=== PATIENT | female | born 1940 | race Caucasian/White ===

== ENCOUNTER 2017-04-13 14:28 | Inpatient (IN) | payer OTHER, MEDICARE ==
[~2017-04-13] VITALS: Ht 160 cm; Wt 67.5 kg
[2017-04-13] VITALS (9 sets, daily range): BP systolic 132–192; BP diastolic 83–122; PULSE 107–173; RESP 17–30; TEMP 97.8–98.4; O2SAT 93–98
[2017-04-13] MEDS ORDERED: IOHEXOL 350 MG/ML 10 ML VIAL (for RAD DIAG) IVCONTRAST ONE (14:29)
[2017-04-13] MEDS ORDERED: SODIUM CHLOR 0.9% 1000 ML INJ 1,000 ML IV SCH (14:51)
[2017-04-13] MEDS ORDERED: DILTIAZEM HCL 25 MG/5 ML VIAL IV PUSH ONE (15:00)
[2017-04-13] MEDS ORDERED: SODIUM CHLORIDE 0.9% FLUSH 5 ML FLUSH IV FLUSH PRN ×3 (15:00→19:00)
[2017-04-13] MEDS ORDERED: SODIUM CHLORIDE 0.9% FLUSH 10 ML FLUSH IVF PRN (15:00)
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
[2017-04-13 15:31] LABS: BASOPHIL # 0.1 TH/MM3 (0-0.2); BASOPHIL % 0.6 % (0.0-2.0); EOSINOPHIL % 0.1 % (0.0-4.0); HEMATOCRIT 32.6 % (35.0-46.0); HEMO FLAGS DIFF FINAL; LYMPH % 6.1 % (9.0-44.0); LYMPHOCYTE # 0.6 TH/MM3 (1.0-4.8); MEAN CELL VOLUME 96.1 FL (80.0-100.0); MEAN CORPUSCULAR HEMOGLOBIN 32.2 PG (27.0-34.0); MEAN CORPUSCULAR HGB CONC 33.5 % (32.0-36.0); MONO % 7.8 % (0.0-8.0); NEUT % 85.4 % (16.0-70.0); PLATELET COUNT 300 TH/MM3 (150-450); WHITE BLOOD COUNT 9.3 TH/MM3 (4.0-11.0)
[2017-04-13 15:36] LABS: APTT (PATIENT) 22.9 SEC (24.3-30.1); PROTHROMBIN TIME - PATIENT 11.5 SEC (9.8-11.6)
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
[2017-04-13] MEDS ORDERED: MULTTAB67 PO (15:52)
[2017-04-13 17:05] LABS: BICARBONATE 25.7 MEQ/L (21.0-32.0); POTASSIUM 4.4 MEQ/L (3.5-5.1)
[2017-04-13] MEDS: DILTIAZEM INJ 125 MG in SODIUM CHLORIDE 0.9% INJ 100 ML IV PRN (18:35)
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
[2017-04-13] MEDS ORDERED: DILTIAZEM HCL 50 MG/10 ML VIAL IV PUSH ONE (19:30)
[2017-04-13] MEDS ORDERED: NALOXONE HCL 0.4 MG/ML AMP IV PUSH PRN (19:45)
[2017-04-13] MEDS ORDERED: SODIUM CHLORIDE 0.9% FLUSH 10 ML FLUSH IV FLUSH PRN (19:45)
[2017-04-13 20:44] LABS: HEMATOCRIT 33.5 % (35.0-46.0); MEAN CELL VOLUME 96.1 FL (80.0-100.0); MEAN CORPUSCULAR HEMOGLOBIN 31.6 PG (27.0-34.0); MEAN CORPUSCULAR HGB CONC 32.9 % (32.0-36.0); PLATELET COUNT 258 TH/MM3 (150-450); RED BLOOD COUNT 3.48 MIL/MM3 (4.00-5.30); RED CELL DISTRIBUTION WIDTH 13.8 % (11.6-17.2); REVIEW FLAG FINAL; WHITE BLOOD COUNT 8.6 TH/MM3 (4.0-11.0)
[2017-04-13] MEDS ORDERED: ENOXAPARIN SODIUM 60 MG/0.6 ML SYRINGE SQ ONE (20:45)
[2017-04-13 20:51] LABS: APTT (PATIENT) 26.8 SEC (24.3-30.1); PROTHROMBIN TIME - PATIENT 11.5 SEC (9.8-11.6)
[2017-04-13] MEDS: SODIUM CHLORIDE 0.9% FLUSH 10 ML FLUSH IV FLUSH SCH (21:00)
[2017-04-14] VITALS (12 sets, daily range): BP systolic 153–193; BP diastolic 89–103; PULSE 91–123; RESP 18–20; TEMP 97.3–98.3; O2SAT 91–97
[2017-04-14] MEDS ORDERED: HEPARIN SODIUM - IV 10,000 UNITS/10 ML VIAL IV PUSH PRN (01:30)
[2017-04-14] MEDS ORDERED: HEPARIN - 10,000 UNITS/ML IV ADDITIVE IV PUSH PRN (01:30)
--- NOTE | 2017-04-14 02:33 | HHI.HP ---
HPI Service [facility] Primary Care Physician No Primary Care Physician Admission Diagnosis new onset A. fib with RVR Diagnoses: (1) Bronchiectasis (2) Atrial fibrillation with RVR (3) Elevated brain natriuretic peptide (BNP) level (4) Thyromegaly (5) Acute renal insufficiency Chief Complaint: Congestion and cough Travel History International Travel<30 Days: No Contact w/Intl Traveler <30 Da: No Traveled to Known Affected Are: No History of Present Illness Written by Lali Hyde, acting as scribe for Dr. Huff on 04/14/17 at 02:33. The patient reports 2 months of congestion, cough with yellow to oquendo sputum, denies nausea, vomiting, or fever and not relieved by over the counter cough medicine. Denies any relationship between cough and meals. The patient reports diarrhea at times from certain foods, denies black or bloody stools, dysuria, or hematuria. Denies palpitations or chest pain. She is unable to remember what medications she has taken in the past though she knows she took "a bunch of them" and she thinks they were for her blood pressure. She is from [place] and she has not established with a local PCP. . 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 Past Surgical History Hysterectomy . Reported Medications Reported Meds & Active Scripts Active Reported Multiple Vitamin 1 Tab 1 Tab PO DAILY . Allergies: Coded Allergies: Penicillins (Verified Allergy, Unknown, RASH, 04/13/17) Active Ordered Medications Current Medications Sodium Chloride 1,000 ml @ 1,000 mls/hr Q1H IV Last administered on 04/13/17t 15:00; Start 04/13/17 at 14:51; Stop 04/13/17 at 15:50; Status DC Sodium Chloride (NS Flush) 2 ml UNSCH PRN IVF FLUSH AFTER USING IV ACCESS; Start 04/13/17 at 15:00; Stop 04/13/17 at 20:45; Status DC Diltiazem HCl (Cardizem Inj) 16 mg BOLUS ONCE IV PUSH Last administered on 14:59; Start 04/13/17 at 15:00; Stop 04/13/17 at 15:01; Status DC IV Flush (NS Flush) 2 ml UNSCH PRN IV FLUSH FLUSH AFTER USING IV ACCESS; Start 04/13/17 at 15:00; Stop 04/13/17 at 20:45; Status DC Diltiazem HCl 125 mg/Sodium Chloride 125 ml @ 5 mls/hr TITRATE PRN IV tachycardia Last administered on 04/13/17 18:35; Start 04/13/17 at 18:30 IV Flush (NS Flush) 2 ml UNSCH PRN IV FLUSH FLUSH AFTER USING IV ACCESS; Start 04/13/17 at 18:30; Stop 04/13/17 at 20:45; Status DC Iohexol (Omnipaque 350 Inj) 85 ml Total-traxK-MED ONCE IVCONTRAST Last administered on 04/13/17 14:29; Start 04/13/17 at 14:29; Stop 04/13/17 at 18:45; Status DC IV Flush (NS Flush) 2 ml UNSCH PRN IV FLUSH FLUSH AFTER USING IV ACCESS; Start 04/13/17 at 19:00; Stop 04/13/17 at 20:45; Status DC Diltiazem HCl (Cardizem Inj) 22 mg BOLUS ONCE IV PUSH Last administered on 19:43; Start 04/13/17 at 19:30; Stop 04/13/17 at 19:31; Status DC Heparin Sodium (Porcine) (Heparin Inj) 5,000 units UNSCH PRN IV PUSH APTT LESS THAN 25; Start 04/14/17 at 01:30; Stop 04/14/17 at 01:30; Status DC Heparin Sodium (Porcine) (Heparin Inj) 2,500 units UNSCH PRN IV PUSH APTT 25 TO 39; Start 04/14/17 at 01:30; Stop 04/14/17 at 01:30; Status DC Sodium Chloride (NS Flush) 2 ml UNSCH PRN IV FLUSH FLUSH AFTER USING IV ACCESS ; Start 04/13/17 at 19:45 Sodium Chloride (NS Flush) 2 ml BID IV FLUSH ; Start 04/13/17 at 21:00 Naloxone HCl (Narcan Inj) 0.4 mg UNSCH PRN IV PUSH SEE LABEL COMMENTS; Start 04/13/17 at 19:45 Enoxaparin Sodium (Lovenox Inj) 60 mg ONCE ONCE SQ Last administered on t 21:44; Start 04/13/17 at 20:45; Stop 04/13/17 at 20:46; Status DC Influenza Virus Vaccine (Flu (Quadrivalent) Vaccine Inj) 0.5 ml ONCE ONCE IM ; Start 04/14/17 at 10:00; Stop 04/14/17 at 10:01 . Family History Father lived until age 92 despite smoking heavily; heart problems . Social History Moved here from [place] in January 2017 Tobacco: denies ever smoking; father was a heavy smoker Alcohol: denies ever drinking Illicit Drugs: denies Still drives . Physical Exam Vital Signs Vital Signs Date Time Temp Pulse Resp B/P (MAP) Pulse Ox O2 Delivery O2 Flow Rate FiO2 04/14/17 00:00 Room Air 04/13/17 22:00 Room Air 04/13/17 22:00 126 04/13/17 20:01 99 199/97 04/13/17 20:00 98.4 132 20 162/90 (114) 93 04/13/17 19:49 107 20 181/83 (115) 94 04/13/17 19:15 163 240/109 04/13/17 18:55 147 30 192/122 (145) 96 Room Air 04/13/17 18:35 152 132/88 04/13/17 18:19 98.0 148 18 132/88 (103) 97 Room Air 04/13/17 15:48 118 18 173/100 (124) 97 Room Air 04/13/17 15:13 97.8 108 17 179/88 (118) 98 Room Air 04/13/17 14:53 98 Room Air 04/13/17 14:53 17 98 Room Air 04/13/17 14:35 154 17 97 Room Air 04/13/17 14:33 98.4 173 24 187/114 (138) 95 Room Air Physical Exam GENERAL: This is an elderly female patient, in no apparent distress. SKIN: No rashes, ecchymoses or lesions. Cool and dry. HEAD: Atraumatic. Normocephalic. EYES: No scleral icterus. No injection or drainage. ENT: Nose without bleeding, purulent drainage. NECK: Trachea midline. No JVD or lymphadenopathy. CARDIOVASCULAR: Regular rate and rhythm without murmurs, gallops, or rubs. RESPIRATORY: Clear to auscultation. Breath sounds equal bilaterally. No wheezes , rales, or rhonchi. GASTROINTESTINAL: Abdomen soft, non-tender, nondistended. No guarding. MUSCULOSKELETAL: Extremities without clubbing, cyanosis, or edema. No calf tenderness. NEUROLOGICAL: Motor and sensory grossly within normal limits. Normal speech. . Laboratory Laboratory Tests Test 04/13/17 15:00 04/13/17 19:55 White Blood Count 9.3 8.6 Red Blood Count 3.40 3.48 Hemoglobin 10.9 11.0 Hematocrit 32.6 33.5 Mean Corpuscular Volume 96.1 96.1 Mean Corpuscular Hemoglobin 32.2 31.6 Mean Corpuscular Hemoglobin Concent 33.5 32.9 Red Cell Distribution Width 14.0 13.8 Platelet Count 300 258 Mean Platelet Volume 8.9 8.5 Neutrophils (%) (Auto) 85.4 Lymphocytes (%) (Auto) 6.1 Monocytes (%) (Auto) 7.8 Eosinophils (%) (Auto) 0.1 Basophils (%) (Auto) 0.6 Neutrophils # (Auto) 8.0 Lymphocytes # (Auto) 0.6 Monocytes # (Auto) 0.7 Eosinophils # (Auto) 0.0 Basophils # (Auto) 0.1 CBC Comment DIFF FINAL Differential Comment Prothrombin Time 11.5 11.5 Prothromb Time International Ratio 1.0 1.0 Activated Partial Thromboplast Time 22.9 26.8 Blood Urea Nitrogen 20 Creatinine 1.12 Random Glucose 150 Calcium Level 8.5 Sodium Level 139 Potassium Level 4.4 Chloride Level 107 Carbon Dioxide Level 25.7 Anion Gap 6 Estimat Glomerular Filtration Rate 47 B-Type Natriuretic Peptide 249 Result Diagram: 04/13/17195404/13/17 1500 Imaging Last Impressions Shoulder X-Ray 04/13/17 1509 Signed Impressions: Service Date/Time: Thursday, April 13, 2017 15:21 - CONCLUSION: 1. Postsurgical features. 2. No acute fracture or dislocation. 3. Soft tissue calcifications superior to the humeral head consistent with calcific tendinosis. 4. Degenerative osteoarthritis. Marcelino Boothe MD Chest X-Ray 04/13/17 7560 Signed Impressions: Service Date/Time: Thursday, April 13, 2017 15:15 - CONCLUSION: 1. No acute cardiopulmonary disease. MD Suresh Negron VTE Risk Assessment Caprini VTE Risk Assessment: Mod/High Risk (score >= 2) Caprini Risk Assessment Model Point Value = 1 Point Value = 2 Point Value = 3 Point Value = 5 Age 41-60 Minor surgery BMI > 25 kg/m2 Swollen legs Varicose veins or History of unexplained or recurrent spontaneous Oral contraceptives or hormone replacement Sepsis (< 1 month) Serious lung disease, including pneumonia (< 1 month) Abnormal pulmonary function Acute myocardial infarction Congestive heart failure (< 1 month) History of inflammatory bowel disease Medical patient at bed rest Age 61-74 Arthroscopic surgery Major open surgery (> 45 min) Laparoscopic surgery (> 45 min) Malignancy Confined to bed (> 72 hours) Immobilizing plaster cast Central venous access Age >= 75 History of VTE Family history of VTE Factor V Leiden Prothrombin [id number] Lupus anticoagulant Anticardiolipin antibodies Elevated serum homocysteine Heparin-induced thrombocytopenia Other congenital or acquired thrombophilia Stroke (< 1 month) Elective arthroplasty Hip, pelvis, or leg fracture Acute spinal cord injury (< 1 month) Prophylaxis Regimen Total Risk Factor Score Risk Level Prophylaxis Regimen 0-1 Low Early ambulation 2 Moderate Order ONE of the following: *Sequential Compression Device (SCD) *Heparin 5000 units SQ BID 3-4 Higher Order ONE of the following medications: *Heparin 5000 units SQ TID *Enoxaparin/Lovenox 40 mg SQ daily (WT < 150 kg, CrCl > 30 mL/min) *Enoxaparin/Lovenox 30 mg SQ daily (WT < 150 kg, CrCl > 10-29 mL/min) *Enoxaparin/Lovenox 30 mg SQ BID (WT < 150 kg, CrCl > 30 mL/min) AND/OR *Sequential Compression Device (SCD) 5 or more Highest Order ONE of the following medications: *Heparin 5000 units SQ TID (Preferred with Epidurals) *Enoxaparin/Lovenox 40 mg SQ daily (WT < 150 kg, CrCl > 30 mL/min) *Enoxaparin/Lovenox 30 mg SQ daily (WT < 150 kg, CrCl > 10-29 mL/min) *Enoxaparin/Lovenox 30 mg SQ BID (WT < 150 kg, CrCl > 30 mL/min) AND *Sequential Compression Device (SCD) Assessment and Plan Problem List: (1) Bronchiectasis ICD Code: J47.9 - Bronchiectasis, uncomplicated (2) Atrial fibrillation with RVR ICD Code: I48.91 - Unspecified atrial fibrillation Status: Acute (3) Elevated brain natriuretic peptide (BNP) level ICD Code: R79.89 - Other specified abnormal findings of blood chemistry (4) Thyromegaly 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 - Lovenox 60 mg subq q24h therapeutic dose - consult cardiology - continuous cardiac telemetry to monitor arrhythmia and rate BNP elevation of undetermined significance - BNP 249 on admission - mild bilateral pleural effusions with accompanying areas of atelectasis on chest CT - check 2 D echocardiogram - check cardiac enzymes Thyromegaly on chest CT scan - will check TSH Acute renal insufficiency - no prior labs for comparison - BUN 20, Creatinine 1.12, eGFR 47 - received IVF bolus in ED - recheck BMP in am and follow trends in renal indices - avoid nephrotoxins DVT prophylaxis - Lovenox therapeutic 60 mg subq q24h . This note was transcribed by karl [Lali hyde]. I, Dr. Warren Huff personally performed the history, physical exam, and medical decision making; and confirmed the accuracy of the information in the transcribed note. Authenticated by Dr. Warren Huff on 04/14/17 at 02:33. Discussed Condition With ER physician, patient and RN . Physician Certification 2 Midnight Certification Type: Admission for Inpatient Services Order for Inpatient Services The services are ordered in accordance with Medicare regulations or non- Medicare payer requirements, as applicable. In the case of services not specified as inpatient-only, they are appropriately provided as inpatient services in accordance with the 2-midnight benchmark. Estimated LOS (days): 3 days is the estimated time the patient will need to remain in the hospital, assuming treatment plan goals are met and no additional complications. Post-Hospital Plan: Not yet determined Problem Qualifiers (1) Bronchiectasis: Qualified Codes: J47.9 - Bronchiectasis, uncomplicated Lali Hyde Apr 14, 2017 02:33 Warren Huff MD Apr 21, 2017 23:08
[2017-04-14] MEDS: DILTIAZEM INJ 125 MG in SODIUM CHLORIDE 0.9% INJ 100 ML IV PRN ×3 (03:26→23:54)
[2017-04-14] MEDS: RESP: IPRATROPIUM 0.5 MG/2.5 ML NEB NEB SCH ×4 (04:37→22:09)
[2017-04-14 05:21] LABS: AUTOMATED NEUTROPHIL # 6.7 TH/MM3 (1.8-7.7); BASOPHIL # 0.1 TH/MM3 (0-0.2); BASOPHIL % 1.1 % (0.0-2.0); EOSINOPHIL % 0.6 % (0.0-4.0); HEMATOCRIT 30.8 % (35.0-46.0); HEMO FLAGS DIFF FINAL; LYMPH % 7.5 % (9.0-44.0); LYMPHOCYTE # 0.6 TH/MM3 (1.0-4.8); MEAN CELL VOLUME 95.7 FL (80.0-100.0); MEAN CORPUSCULAR HEMOGLOBIN 32.3 PG (27.0-34.0); MEAN CORPUSCULAR HGB CONC 33.7 % (32.0-36.0); MONO % 9.7 % (0.0-8.0); NEUT % 81.1 % (16.0-70.0); PLATELET COUNT 251 TH/MM3 (150-450); RED BLOOD COUNT 3.22 MIL/MM3 (4.00-5.30); RED CELL DISTRIBUTION WIDTH 13.7 % (11.6-17.2); WHITE BLOOD COUNT 8.3 TH/MM3 (4.0-11.0)
[2017-04-14 05:33] LABS: APTT (PATIENT) 29.2 SEC (24.3-30.1)
[2017-04-14 05:52] LABS: ALT (GPT) 48 U/L (10-53); ANION GAP 10 MEQ/L (5-15); AST (GOT) 29 U/L (15-37); BICARBONATE 24.2 MEQ/L (21.0-32.0); BLOOD UREA NITROGEN 19 MG/DL (7-18); CHLORIDE 107 MEQ/L (98-107); GLOMERULAR FILTRATION RATE 54 ML/MIN (>89); POTASSIUM 3.7 MEQ/L (3.5-5.1); SODIUM (NA) 141 MEQ/L (136-145)
[2017-04-14 05:56] LABS: ALKALINE PHOSPHATASE 75 U/L (45-117); TOTAL BILIRUBIN ADULT 0.7 MG/DL (0.2-1.0)
[2017-04-14 05:58] LABS: CREATINE KINASE 74 U/L (26-192)
--- NOTE | 2017-04-14 08:44 | EKG ---
Date Performed: 04/13/2017 Time Performed: 14:42:33 PTAGE: 76 years EKG: ATRIAL FIBRILLATION WITH RAPID VENTRICULAR RESPONSE WITH ABERRANT CONDUCTION OR VENTRICULAR PREMATURE COMPLEXES POSSIBLE RIGHT VENTRICULAR CONDUCTION DELAY SEPTAL MYOCARDIAL INFARCTION ABNORMA L ECG NO PREVIOUS TRACING DOCTOR: Alison Haskins Interpretating Date/Time 04/14/2017 08:42:22
[2017-04-14] MEDS: DILTIAZEM HCL 30 MG TAB PO SCH ×2 (08:55→12:51)
[2017-04-14] MEDS: SODIUM CHLORIDE 0.9% FLUSH 10 ML FLUSH IV FLUSH SCH ×2 (08:55→21:28)
[2017-04-14] MEDS ORDERED: INFLUENZA VIRUS VACCINE (QUADRIVALENT) 0.5 ML SYR IM ONE (10:00)
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
[2017-04-14] MEDS: AZITHROMYCIN 250 MG TAB PO SCH (12:51)
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
[2017-04-14] MEDS: DILTIAZEM HCL 90 MG TAB PO SCH ×2 (18:06→21:28)
--- NOTE | 2017-04-14 18:28 | ECHRPT ---
Indication: sob CONCLUSIONS The left ventricular systolic function is normal with an estimated ejection fraction in the range of 55-60%. Mild mitral valve regurgitation. Mild mitral valve stenosis. There is mild to moderate tricuspid valve regurgitation. BP: / HR: Rhythm: MEASUREMENTS (Male / Female) Normal Values Technical Quality:Fair 2D ECHO LV Diastolic Diameter PLAX 4.8 cm 4.2 - 5.9 / 3.9 - 5.3 cm LV Systolic Diameter PLAX 3.5 cm IVS Diastolic Thickness 1.2 cm 0.6 - 1.0 / 0.6 - 0.9 cm LVPW Diastolic Thickness 1.0 cm 0.6 - 1.0 / 0.6 - 0.9 cm LV Relative Wall Thickness 0.5 RV Internal Dim ED PLAX 2.5 cm M-MODE Aortic Root Diameter MM 3.5 cm LA Systolic Diameter MM 4.8 cm LA Ao Ratio MM 1.4 AV Cusp Separation MM 1.6 cm DOPPLER MV Area PHT 2.1 cm TR Peak Velocity 350.0 cm/s TR Peak Gradient 49.0 mmHg Right Atrial Pressure 10.0 mmHg Pulmonary Artery Systolic Pressu 59.0 mmHg Right Ventricular Systolic Press 59.0 mmHg FINDINGS LEFT VENTRICLE The left ventricular systolic function is normal with an estimated ejection fraction in the range of 55-60%. Normal left ventricular size. No regional wall motion abnormalities are present. RIGHT VENTRICLE Normal right ventricular size and systolic function. LEFT ATRIUM The left atrial size is [id number] dilated. RIGHT ATRIUM The right atrial size is normal. ATRIAL SEPTUM Normal atrial septal thickness without atrial level shunting by limited color doppler interrogation. AORTA The aortic root and proximal ascending aorta are normal in size on limited imaging. MITRAL VALVE Moderate thickening of the mitral valve leaflets. Mild mitral valve regurgitation. Mild mitral valve stenosis. MVA 2.0cm2 by PHT at a heart rate of 85 AORTIC VALVE No aortic valve regurgitation. No aortic valve stenosis. Aortic valve sclerosis is present. Trileaflet aortic valve. TRICUSPID VALVE Structurally normal tricuspid valve. There is mild to moderate tricuspid valve regurgitation. The estimated pulmonary arterial pressure is _59_ mmHg. PULMONARY VALVE The pulmonary valve is not well visualized. VESSELS The inferior vena cava is normal in size. PERICARDIUM No pericardial effusion. Issac Mary DO (Electronically Signed) Final Date:14 April 2017 18:27
[2017-04-14] MEDS ORDERED: cloNIDine HCL 0.1 MG TAB PO PRN (19:30)
[2017-04-14] MEDS ORDERED: ENOXAPARIN SODIUM 60 MG/0.6 ML SYRINGE SQ SCH (21:00)
[2017-04-14] MEDS: APIXABAN 5 MG TABLET PO SCH (21:28)
[2017-04-15] VITALS (12 sets, daily range): BP systolic 129–152; BP diastolic 66–90; PULSE 73–113; RESP 18–20; TEMP 97.4–98.9; O2SAT 90–95
[2017-04-15] MEDS: RESP: IPRATROPIUM 0.5 MG/2.5 ML NEB NEB SCH ×5 (05:29→21:48)
[2017-04-15] MEDS: DILTIAZEM HCL 90 MG TAB PO SCH ×4 (09:56→20:30)
[2017-04-15] MEDS: AZITHROMYCIN 250 MG TAB PO SCH (09:56)
[2017-04-15] MEDS: APIXABAN 5 MG TABLET PO SCH ×2 (09:56→20:31)
[2017-04-15] MEDS: SODIUM CHLORIDE 0.9% FLUSH 10 ML FLUSH IV FLUSH SCH ×2 (09:57→20:31)
[2017-04-15] MEDS: DILTIAZEM INJ 125 MG in SODIUM CHLORIDE 0.9% INJ 100 ML IV PRN ×2 (10:42→20:30)
[2017-04-15] MEDS ORDERED: FUROSEMIDE 20 MG/2 ML VIAL IV PUSH ONE (12:00)
--- NOTE | 2017-04-15 12:26 | HHI.PR ---
Subjective Remarks Patient reports feeling tired otherwise no chest pain. Heart rate is improving but still in the low 100s. Metoprolol has been added per cardiology. Objective Vitals Vital Signs Date Time Temp Pulse Resp B/P (MAP) Pulse Ox O2 Delivery O2 Flow Rate FiO2 04/15/17 10:42 110 139/77 04/15/17 10:39 95 04/15/17 08:00 98.9 112 18 139/77 (97) 94 04/15/17 05:29 93 Nasal Cannula 2.00 04/15/17 04:00 Nasal Cannula 2.00 04/15/17 03:47 98.5 100 20 134/70 (91) 94 04/15/17 00:37 98.3 100 20 138/66 (90) 90 04/15/17 00:00 Nasal Cannula 2.00 04/14/17 23:54 120 135/82 04/14/17 20:00 Nasal Cannula 2.00 04/14/17 19:45 98.2 116 20 153/91 (111) 97 04/14/17 19:45 98.2 116 20 153/91 (111) 97 04/14/17 17:30 114 192/102 (132) 04/14/17 17:15 116 20 193/102 (132) 04/14/17 16:58 98.2 113 20 176/103 (127) 91 04/14/17 16:09 94 Nasal Cannula 2.00 04/14/17 16:00 98.3 106 20 154/91 (112) 95 04/14/17 14:01 91 157/99 I/O 04/14/17 04/14/17 04/14/17 04/15/17 04/15/17 04/15/17 07:00 15:00 23:00 07:00 15:00 23:00 Intake Total 459 ml 240 ml 100 ml Output Total 3 ml Balance 456 ml 240 ml 100 ml Intake Oral 360 ml 240 ml IV Total 99 ml 100 ml Output Urine Total 3 ml # Voids 4 # Bowel Movements 0 1 Result Diagram: 04/14/17 0500 04/14/17 0500 Imaging Last Impressions Shoulder X-Ray 04/13/17 1509 Signed Impressions: Service Date/Time: Thursday, April 13, 2017 15:21 - CONCLUSION: 1. Postsurgical features. 2. No acute fracture or dislocation. 3. Soft tissue calcifications superior to the humeral head consistent with calcific tendinosis. 4. Degenerative osteoarthritis. Marcelino Boothe MD Chest X-Ray 04/13/171450 Signed Impressions: Service Date/Time: Thursday, April 13, 2017 15:15 - CONCLUSION: 1. No acute cardiopulmonary disease. Marcelino Boothe MD Chest CT 04/13/171450 Signed Impressions: Service Date/Time: Thursday, April 13, 2017 17:47 - CONCLUSION: 1. Fragmentation seen at the lateral aspect of the acromion on the right side. It is uncertain if this is acute or chronic. The patient does have evidence of prior surgery with orthopedic fasteners seen at the right humeral head. 2. Mild bilateral pleural effusions with accompanying areas of atelectasis. 3. Enlargement of the thyroid with some calcifications seen at the inferior aspect of the left lobe of the thyroid. Benedicto Ray MD Cervical Spine CT 04/13/171450 Signed Impressions: Service Date/Time: Thursday, April 13, 2017 17:39 - CONCLUSION: 1. No definite acute bony abnormality is seen. 2. 3 mm of anterior subluxation of C3 on C4 likely secondary to severe underlying facet hypertrophy. 3. Degenerative change throughout the cervical spine as described above. Benedicto Ray MD Abdomen/Pelvis CT 04/13/171450 Signed Impressions: Service Date/Time: Thursday, April 13, 2017 17:47 - CONCLUSION: 1. Mild amount of fluid in the pelvic portion of the peritoneal cavity. 2. Thickening of the gallbladder. Some of this may be secondary to lack of distention. Other underlying conditions including hepatic disease can lead to a nonspecific thickened gallbladder wall. A calcified gallstone is not seen. Significant biliary ductal dilatation is not seen. 3. Bilateral adrenal gland masses. These are nonspecific. Statistically it likely represents adenomas. 4. Decreased density in the liver likely related to underlying process such as fatty infiltration. 5. Mild bilateral pleural effusions. 6. Some degree of atrophy of the left kidney. The kidneys appear otherwise unremarkable. Benedicto Ray MD Objective Remarks GENERAL: This is a well-nourished, well-developed patient, in no apparent distress. CARDIOVASCULAR: Rate around 90, irregular rhythm. No murmurs, gallops, or rubs. RESPIRATORY: Good respiratory efforts. Breath sounds equal and clear to auscultation bilaterally. GASTROINTESTINAL: Abdomen soft, non-tender, non-distended. Normal active bowel sounds MUSCULOSKELETAL: Extremities without cyanosis, or edema. NEURO: Alert & Oriented x4 to person, place, time, situation. Moves all ext x4 PSYCH: Appropriate mood and affect. 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 Currently on Cardizem drip. Oral Cardizem and oral Lopressor added. Wean off Cardizem drip as tolerated. - Started on Eliquis 5 mg twice a day per cardiology. CHADSVASC 6 - 2-D echo shows preserved LVEF, mild mitral regurgitation and mitral stenosis. Mild to moderate tricuspid regurgitation Shortness of breath Suspect Bronchiectasis -Pulmonology following. Continue Zithromax and breathing treatments. - Atrovent nebulizers q6h ATC and q2h as needed for shortness of breath Thyromegaly on chest CT scan - will check TSH Acute renal insufficiency - No prior labs for comparison - Improving - Follow BMP - avoid nephrotoxins DVT prophylaxis - On StaceyquAlvarez Spain MD Apr 15, 2017 12:26
--- NOTE | 2017-04-15 13:58 | PD.CARD.PN ---
Subjective Subjective Remarks Feels better today Mildly short of breath, occasional palpitation No chest pain Cardizem PO given, looks as if drip was stopped then restarted without repeat bolus Objective Medications Current Medications Medications (Trade) Dose Ordered Sig/Yosi Route Start Time Stop Time Status Last Admin Diltiazem HCl 125 mg/Sodium Chloride 125 ml @ 5 mls/hr TITRATE PRN IV 04/13/17 18:30 04/15/17 10:42 (NS Flush) 2 ml UNSCH PRN IV FLUSH 04/13/17 19:45 (NS Flush) 2 ml BID IV FLUSH 04/13/17 21:00 04/15/17 09:57 (Narcan Inj) 0.4 mg UNSCH PRN IV PUSH 04/13/17 19:45 (Atrovent Neb) 0.5 mg Q6HR NEB NEB 04/14/17 04:00 04/15/17 10:38 (Atrovent Neb) 0.5 mg Q2HR NEB PRN NEB 04/14/17 03:30 (Zithromax) 500 mg DAILY PO 04/14/17 13:00 04/15/17 09:56 (Eliquis) 5 mg BID PO 04/14/17 21:00 04/15/17 09:56 (Cardizem) 90 mg QID PO 04/14/17 18:00 04/15/17 09:56 (Catapres) 0.1 mg Q6H PRN PO 04/14/17 19:30 Vital Signs / I&O Vital Signs Date Time Temp Pulse Resp B/P (MAP) Pulse Ox O2 Delivery O2 Flow Rate FiO2 04/15/17 12:00 97.8 83 20 152/90 (110) 93 04/15/17 10:42 110 139/77 04/15/17 10:39 95 04/15/17 08:00 98.9 112 18 139/77 (97) 94 04/15/17 05:29 93 Nasal Cannula 2.00 04/15/17 04:00 Nasal Cannula 2.00 04/15/17 03:47 98.5 100 20 134/70 (91) 94 04/15/17 00:37 98.3 100 20 138/66 (90) 90 04/15/17 00:00 Nasal Cannula 2.00 04/14/17 23:54 120 135/82 04/14/17 20:00 Nasal Cannula 2.00 04/14/17 19:45 98.2 116 20 153/91 (111) 97 04/14/17 19:45 98.2 116 20 153/91 (111) 97 04/14/17 17:30 114 192/102 (132) 04/14/17 17:15 116 20 193/102 (132) 04/14/17 16:58 98.2 113 20 176/103 (127) 91 04/14/17 16:09 94 Nasal Cannula 2.00 04/14/17 16:00 98.3 106 20 154/91 (112) 95 04/14/17 14:01 91 157/99 I/O 04/14/17 04/14/17 04/14/17 04/15/17 04/15/17 04/15/17 07:00 15:00 23:00 07:00 15:00 23:00 Intake Total 459 ml 240 ml 100 ml Output Total 3 ml Balance 456 ml 240 ml 100 ml Intake Oral 360 ml 240 ml IV Total 99 ml 100 ml Output Urine Total 3 ml # Voids 4 # Bowel Movements 0 1 Physical Exam GENERAL: NAD, AAOx3 SKIN: Warm and dry. HEAD: Atraumatic. Normocephalic. EYES: Pupils equal and round. No scleral icterus. No injection or drainage. ENT: No nasal bleeding or discharge. Mucous membranes pink and moist. NECK: Trachea midline. No JVD. CARDIOVASCULAR: Irregularly irregular RESPIRATORY: No accessory muscle use. Minimal rales at the bases GASTROINTESTINAL: Abdomen soft, non-tender, nondistended. Hepatic and splenic margins not palpable. MUSCULOSKELETAL: Extremities without clubbing, cyanosis, or edema. No obvious deformities. NEUROLOGICAL: Awake and alert. No obvious cranial nerve deficits. Motor grossly within normal limits. Five out of 5 muscle strength in the arms and legs. Normal speech. PSYCHIATRIC: Appropriate mood and affect; insight and judgment normal. Assessment and Plan Problem List: (1) Atrial fibrillation with RVR ICD Codes: I48.91 - Unspecified atrial fibrillation Status: Acute (2) Elevated brain natriuretic peptide (BNP) level ICD Codes: R79.89 - Other specified abnormal findings of blood chemistry (3) Bronchiectasis ICD Codes: J47.9 - Bronchiectasis, uncomplicated (4) Acute renal insufficiency ICD Codes: N28.9 - Disorder of kidney and ureter, unspecified Assessment and Plan 1) Afib with RVR Con't Cardizem PO and add Lopressor PO Wean off Cardizem drip May need some digoxin for better control CHADSVASc = 6, started on Eliquis 5mg BID 2) SOB/mildly elevated BNP Most likely secondary to elevated heart rates Will give 1 dose Lasix 3) EF 55-60%, mild MR, mild MS, mild to moderate TR Issac Mary DO Apr 15, 2017 13:58
[2017-04-15] MEDS ORDERED: PILL SPLITTER OTHER PRN (14:15)
[2017-04-15] MEDS: METOPROLOL TARTRATE 25 MG TAB PO SCH ×3 (14:30→23:16)
[2017-04-15] MEDS ORDERED: BISACODYL 10 MG SUPP RECTAL PRN (14:45)
[2017-04-15] MEDS ORDERED: SENNOSIDES 8.6 MG TAB PO PRN (14:45)
[2017-04-15] MEDS ORDERED: LACTULOSE SYRUP 20 GM/30 ML CUP PO PRN (14:45)
[2017-04-15] MEDS ORDERED: MAGNESIUM HYDROXIDE SUSP 30 ML CUP PO PRN (14:45)
--- NOTE | 2017-04-15 15:43 | HHI.PR ---
Subjective Remarks 76 YOWF with Persistant cough, AF On cardiazem Started Eliquis Mild sob Objective Vital Signs Vital Signs Date Time Temp Pulse Resp B/P (MAP) Pulse Ox O2 Delivery O2 Flow Rate FiO2 04/15/17 12:00 97.8 83 20 152/90 (110) 93 04/15/17 10:42 110 139/77 04/15/17 10:39 95 04/15/17 08:00 98.9 112 18 139/77 (97) 94 04/15/17 05:29 93 Nasal Cannula 2.00 04/15/17 04:00 Nasal Cannula 2.00 04/15/17 03:47 98.5 100 20 134/70 (91) 94 04/15/17 00:37 98.3 100 20 138/66 (90) 90 04/15/17 00:00 Nasal Cannula 2.00 04/14/17 23:54 120 135/82 04/14/17 20:00 Nasal Cannula 2.00 04/14/17 19:45 98.2 116 20 153/91 (111) 97 04/14/17 19:45 98.2 116 20 153/91 (111) 97 04/14/17 17:30 114 192/102 (132) 04/14/17 17:15 116 20 193/102 (132) 04/14/17 16:58 98.2 113 20 176/103 (127) 91 04/14/17 16:09 94 Nasal Cannula 2.00 04/14/17 16:00 98.3 106 20 154/91 (112) 95 I/O 04/14/17 04/14/17 04/14/17 04/15/17 04/15/17 04/15/17 07:00 15:00 23:00 07:00 15:00 23:00 Intake Total 459 ml 240 ml 100 ml Output Total 3 ml Balance 456 ml 240 ml 100 ml Intake Oral 360 ml 240 ml IV Total 99 ml 100 ml Output Urine Total 3 ml # Voids 4 # Bowel Movements 0 1 Result Diagram: 04/14/17 0500 04/14/17 0500 Objective Remarks GENERAL: MBMN WF, mild sob SKIN: Warm and dry. HEAD: Normocephalic. EYES: No scleral icterus. No injection or drainage. NECK: Supple, trachea midline. No JVD or lymphadenopathy. CARDIOVASCULAR: Regular rate and rhythm without murmurs, gallops, or rubs. RESPIRATORY: Breath sounds equal bilaterally. No accessory muscle use. GASTROINTESTINAL: Abdomen soft, non-tender, nondistended. MUSCULOSKELETAL: No cyanosis, or edema. BACK: Nontender without obvious deformity. No CVA tenderness. A/P Assessment and Plan Acute Bronchitis Persistant cough AF HTN H/O CVA PLAN: Aerosol nebs Cont Zithro Cardiazem for rate controll Eliquis bid. Hernan De Paz MD Apr 15, 2017 15:43
[2017-04-16] VITALS (12 sets, daily range): BP systolic 128–146; BP diastolic 60–86; PULSE 66–115; RESP 18–20; TEMP 97.6–98.6; O2SAT 90–96
[2017-04-16] MEDS: RESP: IPRATROPIUM 0.5 MG/2.5 ML NEB NEB SCH ×4 (04:47→21:16)
[2017-04-16] MEDS: METOPROLOL TARTRATE 25 MG TAB PO SCH ×4 (05:08→23:56)
[2017-04-16] MEDS: APIXABAN 5 MG TABLET PO SCH ×2 (08:07→20:48)
[2017-04-16] MEDS: DILTIAZEM HCL 90 MG TAB PO SCH ×4 (08:07→20:48)
[2017-04-16] MEDS: AZITHROMYCIN 250 MG TAB PO SCH (08:07)
[2017-04-16] MEDS: SODIUM CHLORIDE 0.9% FLUSH 10 ML FLUSH IV FLUSH SCH ×2 (08:09→20:49)
[2017-04-16 09:00] LABS: HEMATOCRIT 31.1 % (35.0-46.0); MEAN CELL VOLUME 94.6 FL (80.0-100.0); MEAN CORPUSCULAR HEMOGLOBIN 31.8 PG (27.0-34.0); MEAN CORPUSCULAR HGB CONC 33.6 % (32.0-36.0); PLATELET COUNT 262 TH/MM3 (150-450); RED BLOOD COUNT 3.29 MIL/MM3 (4.00-5.30); RED CELL DISTRIBUTION WIDTH 13.4 % (11.6-17.2); REVIEW FLAG FINAL; WHITE BLOOD COUNT 9.9 TH/MM3 (4.0-11.0)
[2017-04-16 09:20] LABS: POTASSIUM 3.7 MEQ/L (3.5-5.1)
--- NOTE | 2017-04-16 11:59 | PD.CARD.PN ---
Subjective Subjective Remarks Doing better Still feels SOB No chest pain Objective Medications Current Medications Medications (Trade) Dose Ordered Sig/Yosi Route Start Time Stop Time Status Last Admin (NS Flush) 2 ml UNSCH PRN IV FLUSH 04/13/17 19:45 (NS Flush) 2 ml BID IV FLUSH 04/13/17 21:00 04/16/17 08:09 (Narcan Inj) 0.4 mg UNSCH PRN IV PUSH 04/13/17 19:45 (Atrovent Neb) 0.5 mg Q6HR NEB NEB 04/14/17 04:00 04/16/17 10:13 (Atrovent Neb) 0.5 mg Q2HR NEB PRN NEB 04/14/17 03:30 (Zithromax) 500 mg DAILY PO 04/14/17 13:00 04/16/17 08:07 (Eliquis) 5 mg BID PO 04/14/17 21:00 04/16/17 08:07 (Cardizem) 90 mg QID PO 04/14/17 18:00 04/16/17 08:07 (Catapres) 0.1 mg Q6H PRN PO 04/14/17 19:30 (Lopressor) 12.5 mg Q6HR PO 04/15/17 14:00 04/16/17 05:08 (Pill Splitter) 1 ea UNSCH PRN OTHER 04/15/17 14:15 (Milk Of Magnesia Liq) 30 ml Q12H PRN PO 04/15/17 14:45 (Senokot) 17.2 mg Q12H PRN PO 04/15/17 14:45 (Dulcolax Supp) 10 mg DAILY PRN RECTAL 04/15/17 14:45 (Lactulose Liq) 30 ml DAILY PRN PO 04/15/17 14:45 Vital Signs / I&O Vital Signs Date Time Temp Pulse Resp B/P (MAP) Pulse Ox O2 Delivery O2 Flow Rate FiO2 04/16/17 10:15 95 04/16/17 08:09 Room Air 04/16/17 08:00 115 04/16/17 07:49 98.2 112 20 140/78 (98) 92 04/16/17 04:47 92 04/16/17 04:00 98.3 66 18 128/60 (82) 96 04/16/17 03:45 92 04/16/17 00:00 Nasal Cannula 2.00 04/16/17 00:00 Nasal Cannula 2.00 04/16/17 00:00 98.6 67 18 130/64 (86) 95 04/15/17 23:47 73 04/15/17 20:30 80 04/15/17 20:25 79 04/15/17 20:00 Nasal Cannula 2.00 04/15/17 19:15 97.9 74 18 143/72 (95) 93 04/15/17 16:15 97.4 84 20 129/80 (96) 92 04/15/17 15:51 91 21 04/15/17 12:00 97.8 83 20 152/90 (110) 93 I/O 04/15/17 04/15/17 04/15/17 04/16/17 04/16/17 04/16/17 07:00 15:00 23:00 07:00 15:00 23:00 Intake Total 100 ml 1460 ml 510 ml Balance 100 ml 1460 ml 510 ml Intake Oral 1460 ml 475 ml IV Total 100 ml 35 ml # Voids 4 2 # Bowel Movements 1 0 Physical Exam GENERAL: NAD, AAOx3 SKIN: Warm and dry. HEAD: Atraumatic. Normocephalic. EYES: Pupils equal and round. No scleral icterus. No injection or drainage. ENT: No nasal bleeding or discharge. Mucous membranes pink and moist. NECK: Trachea midline. No JVD. CARDIOVASCULAR: Irregularly irregular RESPIRATORY: No accessory muscle use. CTA bilaterally GASTROINTESTINAL: Abdomen soft, non-tender, nondistended. Hepatic and splenic margins not palpable. MUSCULOSKELETAL: Extremities without clubbing, cyanosis, or edema. No obvious deformities. NEUROLOGICAL: Awake and alert. No obvious cranial nerve deficits. Motor grossly within normal limits. Five out of 5 muscle strength in the arms and legs. Normal speech. PSYCHIATRIC: Appropriate mood and affect; insight and judgment normal. Laboratory Laboratory Tests Test 04/16/17 08:32 White Blood Count 9.9 TH/MM3 Red Blood Count 3.29 MIL/MM3 Hemoglobin 10.5 GM/DL Hematocrit 31.1 % Mean Corpuscular Volume 94.6 FL Mean Corpuscular Hemoglobin 31.8 PG Mean Corpuscular Hemoglobin Concent 33.6 % Red Cell Distribution Width 13.4 % Platelet Count 262 TH/MM3 Mean Platelet Volume 8.0 FL Blood Urea Nitrogen 25 MG/DL Creatinine 1.36 MG/DL Random Glucose 115 MG/DL Calcium Level 8.5 MG/DL Sodium Level 136 MEQ/L Potassium Level 3.7 MEQ/L Chloride Level 103 MEQ/L Carbon Dioxide Level 25.0 MEQ/L Anion Gap 8 MEQ/L Estimat Glomerular Filtration Rate 38 ML/MIN Thyroid Stimulating Hormone 3rd Gen 3.290 uIU/ML Assessment and Plan Problem List: (1) Atrial fibrillation with RVR ICD Codes: I48.91 - Unspecified atrial fibrillation Status: Acute (2) Elevated brain natriuretic peptide (BNP) level ICD Codes: R79.89 - Other specified abnormal findings of blood chemistry (3) Bronchiectasis ICD Codes: J47.9 - Bronchiectasis, uncomplicated (4) Acute renal insufficiency ICD Codes: N28.9 - Disorder of kidney and ureter, unspecified Assessment and Plan 1) Afib with RVR Con't Cardizem PO and Lopressor PO Cardizem drip off CHADSVASc = 6, started on Eliquis 5mg BID 2) SOB/mildly elevated BNP Most likely secondary to elevated heart rates Lasix 1 dose given 3) EF 55-60%, mild MR, mild MS, mild to moderate TR 4) Possible discharge in 24 hours from a cardiovascular standpoint Issac Mary DO Apr 16, 2017 11:59
[2017-04-16] MEDS: RESP: IPRATROPIUM 0.5 MG/2.5 ML NEB NEB PRN (14:01)
--- NOTE | 2017-04-16 15:58 | HHI.PR ---
Subjective Remarks Still has some shortness of breath. Reports some lightheadedness. HR controlled. Objective Vitals Vital Signs Date Time Temp Pulse Resp B/P (MAP) Pulse Ox O2 Delivery O2 Flow Rate FiO2 04/16/17 15:43 95 Nasal Cannula 2.00 04/16/17 12:00 98.1 110 20 145/82 (103) 96 04/16/17 10:15 95 04/16/17 08:09 Room Air 04/16/17 08:00 115 04/16/17 07:49 98.2 112 20 140/78 (98) 92 04/16/17 04:47 92 04/16/17 04:00 98.3 66 18 128/60 (82) 96 04/16/17 03:45 92 04/16/17 00:00 Nasal Cannula 2.00 04/16/17 00:00 Nasal Cannula 2.00 04/16/17 00:00 98.6 67 18 130/64 (86) 95 04/15/17 23:47 73 04/15/17 20:30 80 04/15/17 20:25 79 04/15/17 20:00 Nasal Cannula 2.00 04/15/17 19:15 97.9 74 18 143/72 (95) 93 04/15/17 16:15 97.4 84 20 129/80 (96) 92 I/O 04/15/17 04/15/17 04/15/17 04/16/17 04/16/17 04/16/17 07:00 15:00 23:00 07:00 15:00 23:00 Intake Total 100 ml 1460 ml 510 ml Balance 100 ml 1460 ml 510 ml Intake Oral 1460 ml 475 ml IV Total 100 ml 35 ml # Voids 4 2 # Bowel Movements 1 0 Result Diagram: 04/16/17 0832 04/16/17 0832 Objective Remarks GENERAL: This is a well-nourished, well-developed patient, in no apparent distress. CARDIOVASCULAR: Rate around 90's, irregular rhythm. No murmurs, gallops, or rubs. RESPIRATORY: Good respiratory efforts. Breath sounds equal and clear to auscultation bilaterally. GASTROINTESTINAL: Abdomen soft, non-tender, non-distended. Normal active bowel sounds MUSCULOSKELETAL: Extremities without cyanosis, or edema. NEURO: Alert & Oriented x4 to person, place, time, situation. Moves all ext x4 PSYCH: Appropriate mood and affect. 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 S/P Cardizem drip. On Oral Cardizem and oral Lopressor. - Started on Eliquis 5 mg twice a day per cardiology. CHADSVASC 6 - 2-D echo shows preserved LVEF, mild mitral regurgitation and mitral stenosis. Mild to moderate tricuspid regurgitation Shortness of breath Suspect Bronchiectasis -Pulmonology following. Continue Zithromax and breathing treatments. - Atrovent nebulizers q6h ATC and q2h as needed for shortness of breath Thyromegaly on chest CT scan - TSH ok. Advised outpatient follow up Acute renal insufficiency - No prior labs for comparison. Mary functions fluctuating. - Follow BMP - avoid nephrotoxins DVT prophylaxis - On Eliquis Discharge Planning Probable discharge tomorrow if stable. Alvarez Bhatia MD Apr 16, 2017 15:58
--- NOTE | 2017-04-16 16:43 | HHI.PR ---
Subjective Remarks 76 YOWF with Persistant cough, AF On cardiazem Started Eliquis Mild sob No new complaint Objective Vital Signs Vital Signs Date Time Temp Pulse Resp B/P (MAP) Pulse Ox O2 Delivery O2 Flow Rate FiO2 04/16/17 15:43 95 Nasal Cannula 2.00 04/16/17 12:00 98.1 110 20 145/82 (103) 96 04/16/17 10:15 95 04/16/17 08:09 Room Air 04/16/17 08:00 115 04/16/17 07:49 98.2 112 20 140/78 (98) 92 04/16/17 04:47 92 04/16/17 04:00 98.3 66 18 128/60 (82) 96 04/16/17 03:45 92 04/16/17 00:00 Nasal Cannula 2.00 04/16/17 00:00 Nasal Cannula 2.00 04/16/17 00:00 98.6 67 18 130/64 (86) 95 04/15/17 23:47 73 04/15/17 20:30 80 04/15/17 20:25 79 04/15/17 20:00 Nasal Cannula 2.00 04/15/17 19:15 97.9 74 18 143/72 (95) 93 I/O 04/15/17 04/15/17 04/15/17 04/16/17 04/16/17 04/16/17 07:00 15:00 23:00 07:00 15:00 23:00 Intake Total 100 ml 1460 ml 510 ml Balance 100 ml 1460 ml 510 ml Intake Oral 1460 ml 475 ml IV Total 100 ml 35 ml # Voids 4 2 # Bowel Movements 1 0 Result Diagram: 04/16/1732 04/16/1732 Objective Remarks GENERAL: MBMN WF, mild sob SKIN: Warm and dry. HEAD: Normocephalic. EYES: No scleral icterus. No injection or drainage. NECK: Supple, trachea midline. No JVD or lymphadenopathy. CARDIOVASCULAR: Regular rate and rhythm without murmurs, gallops, or rubs. RESPIRATORY: Breath sounds equal bilaterally. No accessory muscle use. GASTROINTESTINAL: Abdomen soft, non-tender, nondistended. MUSCULOSKELETAL: No cyanosis, or edema. BACK: Nontender without obvious deformity. No CVA tenderness. A/P Assessment and Plan Acute Bronchitis Persistant cough AF HTN H/O CVA PLAN: Aerosol nebs Cont Zithro Cardiazem for rate controll Eliquis bid. Wean off 02 Hernan De Paz MD Apr 16, 2017 16:43
[2017-04-17] VITALS (9 sets, daily range): BP systolic 110–166; BP diastolic 60–94; PULSE 73–125; RESP 20–23; TEMP 97.9–98.8; O2SAT 91–94
[2017-04-17] MEDS: RESP: IPRATROPIUM 0.5 MG/2.5 ML NEB NEB SCH ×2 (04:58→10:00)
[2017-04-17] MEDS: METOPROLOL TARTRATE 25 MG TAB PO SCH ×3 (05:14→17:55)
[2017-04-17 05:42] LABS: HEMATOCRIT 29.7 % (35.0-46.0); MEAN CELL VOLUME 97.2 FL (80.0-100.0); MEAN CORPUSCULAR HEMOGLOBIN 31.9 PG (27.0-34.0); MEAN CORPUSCULAR HGB CONC 32.8 % (32.0-36.0); PLATELET COUNT 233 TH/MM3 (150-450); RED BLOOD COUNT 3.06 MIL/MM3 (4.00-5.30); RED CELL DISTRIBUTION WIDTH 13.6 % (11.6-17.2); REVIEW FLAG FINAL; WHITE BLOOD COUNT 8.9 TH/MM3 (4.0-11.0)
[2017-04-17 06:02] LABS: BICARBONATE 22.9 MEQ/L (21.0-32.0); POTASSIUM 3.6 MEQ/L (3.5-5.1)
[2017-04-17] MEDS: SODIUM CHLORIDE 0.9% FLUSH 10 ML FLUSH IV FLUSH SCH ×2 (07:46→21:04)
[2017-04-17] MEDS: DILTIAZEM HCL 90 MG TAB PO SCH ×4 (07:46→21:03)
[2017-04-17] MEDS: AZITHROMYCIN 250 MG TAB PO SCH (07:47)
[2017-04-17] MEDS: APIXABAN 5 MG TABLET PO SCH ×2 (07:47→21:03)
--- NOTE | 2017-04-17 11:42 | PD.CARD.PN ---
Subjective Subjective Remarks No events overnight Feels better today No chest pain, SOB still occasionally Objective Medications Current Medications Medications (Trade) Dose Ordered Sig/Yosi Route Start Time Stop Time Status Last Admin (NS Flush) 2 ml UNSCH PRN IV FLUSH 04/13/17 19:45 (NS Flush) 2 ml BID IV FLUSH 04/13/17 21:00 04/17/17 07:46 (Narcan Inj) 0.4 mg UNSCH PRN IV PUSH 04/13/17 19:45 (Atrovent Neb) 0.5 mg Q6HR NEB NEB 04/14/17 04:00 04/17/17 04:58 (Atrovent Neb) 0.5 mg Q2HR NEB PRN NEB 04/14/17 03:30 04/16/17 14:01 (Zithromax) 500 mg DAILY PO 04/14/17 13:00 04/17/17 07:47 (Eliquis) 5 mg BID PO 04/14/17 21:00 04/17/17 07:47 (Cardizem) 90 mg QID PO 04/14/17 18:00 04/17/17 07:46 (Catapres) 0.1 mg Q6H PRN PO 04/14/17 19:30 (Lopressor) 12.5 mg Q6HR PO 04/15/17 14:00 04/17/17 05:14 (Pill Splitter) 1 ea UNSCH PRN OTHER 04/15/17 14:15 (Milk Of Magnesia Liq) 30 ml Q12H PRN PO 04/15/17 14:45 (Senokot) 17.2 mg Q12H PRN PO 04/15/17 14:45 (Dulcolax Supp) 10 mg DAILY PRN RECTAL 04/15/17 14:45 (Lactulose Liq) 30 ml DAILY PRN PO 04/15/17 14:45 04/16/17 12:44 Vital Signs / I&O Vital Signs Date Time Temp Pulse Resp B/P (MAP) Pulse Ox O2 Delivery O2 Flow Rate FiO2 04/17/17 08:01 96 04/17/17 08:01 Room Air 04/17/17 08:00 98.8 101 22 166/78 (107) 92 04/17/17 04:58 93 04/17/17 04:00 98.0 73 23 159/69 (99) 94 04/17/17 00:00 97.9 77 21 160/72 (101) 94 04/16/17 20:20 83 04/16/17 20:00 97.6 111 18 146/86 (106) 93 04/16/17 19:30 Room Air 04/16/17 16:00 98.1 86 20 139/80 (99) 90 04/16/17 15:43 95 Nasal Cannula 2.00 04/16/17 12:00 98.1 110 20 145/82 (103) 96 I/O 04/16/17 04/16/17 04/16/17 04/17/17 04/17/17 04/17/17 07:00 15:00 23:00 07:00 15:00 23:00 Intake Total 510 ml 960 ml 480 ml Output Total 850 ml Balance 510 ml 960 ml -370 ml Intake Oral 475 ml 960 ml 480 ml IV Total 35 ml Output Urine Total 850 ml # Voids 2 2 # Bowel Movements 0 1 1 Physical Exam GENERAL: NAD, AAOx3 SKIN: Warm and dry. HEAD: Atraumatic. Normocephalic. EYES: Pupils equal and round. No scleral icterus. No injection or drainage. ENT: No nasal bleeding or discharge. Mucous membranes pink and moist. NECK: Trachea midline. No JVD. CARDIOVASCULAR: Irregularly irregular RESPIRATORY: No accessory muscle use. Minimal rales at bases GASTROINTESTINAL: Abdomen soft, non-tender, nondistended. Hepatic and splenic margins not palpable. MUSCULOSKELETAL: Extremities without clubbing, cyanosis, or edema. No obvious deformities. NEUROLOGICAL: Awake and alert. No obvious cranial nerve deficits. Motor grossly within normal limits. Five out of 5 muscle strength in the arms and legs. Normal speech. PSYCHIATRIC: Appropriate mood and affect; insight and judgment normal. Laboratory Laboratory Tests Test 04/17/17 05:14 White Blood Count 8.9 TH/MM3 Red Blood Count 3.06 MIL/MM3 Hemoglobin 9.8 GM/DL Hematocrit 29.7 % Mean Corpuscular Volume 97.2 FL Mean Corpuscular Hemoglobin 31.9 PG Mean Corpuscular Hemoglobin Concent 32.8 % Red Cell Distribution Width 13.6 % Platelet Count 233 TH/MM3 Mean Platelet Volume 7.7 FL Blood Urea Nitrogen 25 MG/DL Creatinine 1.03 MG/DL Random Glucose 117 MG/DL Calcium Level 7.9 MG/DL Sodium Level 137 MEQ/L Potassium Level 3.6 MEQ/L Chloride Level 106 MEQ/L Carbon Dioxide Level 22.9 MEQ/L Anion Gap 8 MEQ/L Estimat Glomerular Filtration Rate 52 ML/MIN Assessment and Plan Problem List: (1) Atrial fibrillation with RVR ICD Codes: I48.91 - Unspecified atrial fibrillation Status: Acute (2) Elevated brain natriuretic peptide (BNP) level ICD Codes: R79.89 - Other specified abnormal findings of blood chemistry (3) Bronchiectasis ICD Codes: J47.9 - Bronchiectasis, uncomplicated (4) Acute renal insufficiency ICD Codes: N28.9 - Disorder of kidney and ureter, unspecified Assessment and Plan 1) Afib with RVR Con't Cardizem PO and Lopressor PO, will increase BB Cardizem drip off CHADSVASc = 6, started on Eliquis 5mg BID 2) SOB/mildly elevated BNP Most likely secondary to elevated heart rates Lasix 1 dose given, will plan for 2nd dose 3) EF 55-60%, mild MR, mild MS, mild to moderate TR 4) Discussed with Dr. Bhatia If any concerns over the weekend, please call covering physician Issac Mary DO Apr 17, 2017 11:42
[2017-04-17] MEDS ORDERED: FUROSEMIDE 20 MG/2 ML VIAL IV PUSH ONE (13:00)
--- NOTE | 2017-04-17 14:36 | HHI.PR ---
Subjective Remarks Artery still intermittently uncontrolled. Metoprolol increased per cardiology. Patient reports her shortness of breath is getting better but she gets dyspneic with minimal activities. No chest pain. Objective Vitals Vital Signs Date Time Temp Pulse Resp B/P (MAP) Pulse Ox O2 Delivery O2 Flow Rate FiO2 04/17/17 13:48 125 110/60 (77) 04/17/17 12:00 98.4 106 20 125/79 (94) 92 04/17/17 08:01 96 04/17/17 08:01 Room Air 04/17/17 08:00 98.8 101 22 166/78 (107) 92 04/17/17 04:58 93 04/17/17 04:00 98.0 73 23 159/69 (99) 94 04/17/17 00:00 97.9 77 21 160/72 (101) 94 04/16/17 20:20 83 04/16/17 20:00 97.6 111 18 146/86 (106) 93 04/16/17 19:30 Room Air 04/16/17 16:00 98.1 86 20 139/80 (99) 90 04/16/17 15:43 95 Nasal Cannula 2.00 I/O 04/16/17 04/16/17 04/16/17 04/17/17 04/17/17 04/17/17 07:00 15:00 23:00 07:00 15:00 23:00 Intake Total 510 ml 960 ml 480 ml Output Total 850 ml Balance 510 ml 960 ml -370 ml Intake Oral 475 ml 960 ml 480 ml IV Total 35 ml Output Urine Total 850 ml # Voids 2 2 # Bowel Movements 0 1 1 Result Diagram: 04/17/17 0514 04/17/17513 Objective Remarks GENERAL: This is a well-nourished, well-developed patient, in no apparent distress. CARDIOVASCULAR: Rate around 90's, irregular rhythm. No murmurs, gallops, or rubs. RESPIRATORY: Good respiratory efforts. Breath sounds equal and clear to auscultation bilaterally. GASTROINTESTINAL: Abdomen soft, non-tender, non-distended. Normal active bowel sounds MUSCULOSKELETAL: Extremities without cyanosis, or edema. NEURO: Alert & Oriented x4 to person, place, time, situation. Moves all ext x4 PSYCH: Appropriate mood and affect. 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 Patient is status post Cardizem drip, on oral Cardizem and Lopressor which was increased to 25 mg every 6 hours. Her shortness of breath has improved but her heart rate is still intermittently uncontrolled. May need to continue to titrate rate control medications. Atrial fibrillation with RVR, possible new onset - Cardiology following. S/P Cardizem drip. On Oral Cardizem and oral Lopressor. Lopressor increased to 25 mg every 6 hours. - Started on Eliquis 5 mg twice a day per cardiology. CHADSVASC 6 - 2-D echo shows preserved LVEF, mild mitral regurgitation and mitral stenosis. Mild to moderate tricuspid regurgitation Shortness of breath Suspect Bronchiectasis -Pulmonology following. Continue Zithromax and breathing treatments. - Atrovent nebulizers q6h ATC and q2h as needed for shortness of breath Thyromegaly on chest CT scan - TSH ok. Advised outpatient follow up Acute renal insufficiency - No prior labs for comparison. Mary functions fluctuating. - Follow BMP - avoid nephrotoxins DVT prophylaxis - On Eliquis Discharge Planning Would likely be ready for discharge in the next 24-48 hours if heart rate can be controlled with oral medications and breathing status continued to improve. Alvarez Bhatia MD Apr 17, 2017 14:36
--- NOTE | 2017-04-17 18:12 | HHI.PR ---
Subjective Remarks 76 YOWF with Persistant cough, AF On cardiazem On Eliquis Mild sob No new complaint Metoprolol increased Objective Vital Signs Vital Signs Date Time Temp Pulse Resp B/P (MAP) Pulse Ox O2 Delivery O2 Flow Rate FiO2 04/17/17 16:00 98.3 93 20 130/94 (106) 91 04/17/17 13:48 125 110/60 (77) 04/17/17 12:00 98.4 106 20 125/79 (94) 92 04/17/17 08:01 96 04/17/17 08:01 Room Air 04/17/17 08:00 98.8 101 22 166/78 (107) 92 04/17/17 04:58 93 04/17/17 04:00 98.0 73 23 159/69 (99) 94 04/17/17 00:00 97.9 77 21 160/72 (101) 94 04/16/17 20:20 83 04/16/17 20:00 97.6 111 18 146/86 (106) 93 04/16/17 19:30 Room Air I/O 04/16/17 04/16/17 04/16/17 04/17/17 04/17/17 04/17/17 07:00 15:00 23:00 07:00 15:00 23:00 Intake Total 510 ml 960 ml 480 ml Output Total 850 ml Balance 510 ml 960 ml -370 ml Intake Oral 475 ml 960 ml 480 ml IV Total 35 ml Output Urine Total 850 ml # Voids 2 2 # Bowel Movements 0 1 1 Result Diagram: 04/17/1714 04/17/17513 Objective Remarks GENERAL: MBMN WF, mild sob SKIN: Warm and dry. HEAD: Normocephalic. EYES: No scleral icterus. No injection or drainage. NECK: Supple, trachea midline. No JVD or lymphadenopathy. CARDIOVASCULAR: Regular rate and rhythm without murmurs, gallops, or rubs. RESPIRATORY: Breath sounds equal bilaterally. No accessory muscle use. GASTROINTESTINAL: Abdomen soft, non-tender, nondistended. MUSCULOSKELETAL: No cyanosis, or edema. BACK: Nontender without obvious deformity. No CVA tenderness. A/P Assessment and Plan Acute Bronchitis Persistant cough AF HTN H/O CVA PLAN: Aerosol nebs Cont Zithro Cardiazem for rate controll Eliquis bid. Wean off 02 Stable from Pulm standpoint Available prn over weekend. Hernan De Paz MD Apr 17, 2017 18:12
[2017-04-18] VITALS (8 sets, daily range): BP systolic 121–159; BP diastolic 59–92; PULSE 69–121; RESP 20–24; TEMP 97.7–98.4; O2SAT 90–97
[2017-04-18] MEDS: METOPROLOL TARTRATE 25 MG TAB PO SCH ×5 (00:27→23:53)
[2017-04-18] MEDS: SODIUM CHLORIDE 0.9% FLUSH 10 ML FLUSH IV FLUSH SCH ×2 (08:52→20:35)
[2017-04-18] MEDS: DILTIAZEM HCL 90 MG TAB PO SCH ×4 (08:53→20:35)
[2017-04-18] MEDS: APIXABAN 5 MG TABLET PO SCH ×2 (08:53→20:35)
[2017-04-18] MEDS: AZITHROMYCIN 250 MG TAB PO SCH (08:53)
--- NOTE | 2017-04-18 17:02 | HHI.PR ---
Subjective Remarks Pt currently feeling better, earlier today she wasn't and was sob. No chest pains at this time. Tells me that she at times does get some chest discomfort w coughing. Discussed w RN, requesting prn nebs Objective Vitals Vital Signs Date Time Temp Pulse Resp B/P (MAP) Pulse Ox O2 Delivery O2 Flow Rate FiO2 04/18/17 16:00 92 Room Air 04/18/17 12:00 97.7 93 20 137/89 (105) 92 04/18/17 12:00 97 Nasal Cannula 2.00 04/18/17 08:12 121 04/18/17 08:00 97.9 109 20 159/92 (114) 90 04/18/17 08:00 91 Room Air 04/18/17 04:00 98.4 112 21 134/89 (104) 94 04/18/17 00:00 98.0 92 24 145/59 (87) 93 04/17/17 20:15 Room Air 04/17/17 20:00 98.1 78 22 136/67 (90) 93 I/O 04/17/17 04/17/17 04/17/17 04/18/17 04/18/17 04/18/17 07:00 15:00 23:00 07:00 15:00 23:00 Intake Total 480 ml 720 ml 540 ml Output Total 850 ml 1000 ml 700 ml Balance -370 ml -280 ml -160 ml Intake Oral 480 ml 720 ml 540 ml Output Urine Total 850 ml 1000 ml 700 ml # Bowel Movements 1 2 1 Result Diagram: 04/17/17 0514 04/17/17 0514 Imaging Last Impressions Shoulder X-Ray 04/13/17 1509 Signed Impressions: Service Date/Time: Thursday, April 13, 2017 15:21 - CONCLUSION: 1. Postsurgical features. 2. No acute fracture or dislocation. 3. Soft tissue calcifications superior to the humeral head consistent with calcific tendinosis. 4. Degenerative osteoarthritis. Marcelino Boothe MD Chest X-Ray 04/13/17 763 Signed Impressions: Service Date/Time: Thursday, April 13, 2017 15:15 - CONCLUSION: 1. No acute cardiopulmonary disease. Marcelino Boothe MD Chest CT 04/13/17 683 Signed Impressions: Service Date/Time: Thursday, April 13, 2017 17:47 - CONCLUSION: 1. Fragmentation seen at the lateral aspect of the acromion on the right side. It is uncertain if this is acute or chronic. The patient does have evidence of prior surgery with orthopedic fasteners seen at the right humeral head. 2. Mild bilateral pleural effusions with accompanying areas of atelectasis. 3. Enlargement of the thyroid with some calcifications seen at the inferior aspect of the left lobe of the thyroid. Benedicto aRy MD Cervical Spine CT 04/13/171450 Signed Impressions: Service Date/Time: Thursday, April 13, 2017 17:39 - CONCLUSION: 1. No definite acute bony abnormality is seen. 2. 3 mm of anterior subluxation of C3 on C4 likely secondary to severe underlying facet hypertrophy. 3. Degenerative change throughout the cervical spine as described above. Benedicto Ray MD Abdomen/Pelvis CT 04/13/171450 Signed Impressions: Service Date/Time: Thursday, April 13, 2017 17:47 - CONCLUSION: 1. Mild amount of fluid in the pelvic portion of the peritoneal cavity. 2. Thickening of the gallbladder. Some of this may be secondary to lack of distention. Other underlying conditions including hepatic disease can lead to a nonspecific thickened gallbladder wall. A calcified gallstone is not seen. Significant biliary ductal dilatation is not seen. 3. Bilateral adrenal gland masses. These are nonspecific. Statistically it likely represents adenomas. 4. Decreased density in the liver likely related to underlying process such as fatty infiltration. 5. Mild bilateral pleural effusions. 6. Some degree of atrophy of the left kidney. The kidneys appear otherwise unremarkable. Benedicto Ray MD Objective Remarks GENERAL: This is a well-nourished, well-developed patient, in no apparent distress. CARDIOVASCULAR: Rate around 90's, irregular rhythm. No murmurs RESPIRATORY: Good respiratory efforts. Breath sounds equal and clear to auscultation bilaterally. GASTROINTESTINAL: Abdomen soft, non-tender, non-distended. Normal active bowel sounds MUSCULOSKELETAL: Extremities with 1+ edema. NEURO: Alert & Oriented x4 to person, place, time, situation. Moves all ext x4 PSYCH: Appropriate mood and affect. 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 Patient is status post Cardizem drip, on oral Cardizem and Lopressor which was increased to 25 mg every 6 hours. Her shortness of breath has improved but her heart rate is still intermittently uncontrolled. May need to continue to titrate rate control medications. Atrial fibrillation with RVR, possible new onset - Cardiology following. S/P Cardizem drip. On Oral Cardizem and oral Lopressor. Lopressor increased to 25 mg every 6 hours. - Started on Eliquis 5 mg twice a day per cardiology. CHADSVASC 6 - 2-D echo shows preserved LVEF, mild mitral regurgitation and mitral stenosis. Mild to moderate tricuspid regurgitation Shortness of breath Suspect Bronchiectasis -Pulmonology following. Continue Zithromax and breathing treatments. - Atrovent nebulizers q6h scheduled and q2h as needed for shortness of breath Thyromegaly on chest CT scan - TSH ok. Advised outpatient follow up Acute renal insufficiency - No prior labs for comparison. Mary functions fluctuating. - Follow BMP - avoid nephrotoxins DVT prophylaxis - On Eliquis Discharge Planning anticipate discharge in the next 24-48 hours if heart rate can be controlled with oral medications and breathing status continued to improve. Manisha Steven MD Apr 18, 2017 17:02
[2017-04-18] MEDS: RESP: IPRATROPIUM 0.5 MG/2.5 ML NEB NEB SCH (22:00)
[2017-04-19] VITALS (9 sets, daily range): BP systolic 132–140; BP diastolic 62–93; PULSE 73–101; RESP 20; TEMP 97.8–98.5; O2SAT 91–98
[2017-04-19] MEDS: RESP: IPRATROPIUM 0.5 MG/2.5 ML NEB NEB SCH ×4 (03:28→22:05)
[2017-04-19] MEDS: METOPROLOL TARTRATE 25 MG TAB PO SCH ×3 (06:05→17:12)
[2017-04-19 08:11] LABS: HEMATOCRIT 32.4 % (35.0-46.0); MEAN CELL VOLUME 94.6 FL (80.0-100.0); MEAN CORPUSCULAR HEMOGLOBIN 31.9 PG (27.0-34.0); MEAN CORPUSCULAR HGB CONC 33.7 % (32.0-36.0); PLATELET COUNT 242 TH/MM3 (150-450); RED BLOOD COUNT 3.42 MIL/MM3 (4.00-5.30); REVIEW FLAG FINAL; WHITE BLOOD COUNT 6.7 TH/MM3 (4.0-11.0)
[2017-04-19] MEDS: SODIUM CHLORIDE 0.9% FLUSH 10 ML FLUSH IV FLUSH SCH ×2 (09:00→20:44)
[2017-04-19] MEDS: AZITHROMYCIN 250 MG TAB PO SCH (09:00)
--- NOTE | 2017-04-19 10:13 | HHI.PR ---
Subjective Remarks Feels better this morning. eating breakfast. Woke a few times last night to urinate otherwise had a good night. no CP/SOB at this time. Hasn't gone for her walk yet. Nervous about going back to her facility as she is concerned that the AC there has mold which she feels got her sick. Agreeable to speak w CM for d/c planning. Objective Vitals Vital Signs Date Time Temp Pulse Resp B/P (MAP) Pulse Ox O2 Delivery O2 Flow Rate FiO2 04/19/17 08:00 98.1 101 20 140/86 (104) 92 04/19/17 04:00 97.8 75 20 139/80 (99) 91 04/19/17 00:00 97.8 81 20 132/62 (85) 94 04/18/17 20:45 97.7 80 20 121/66 (84) 97 04/18/17 20:37 Room Air 04/18/17 19:55 69 04/18/17 16:00 97.7 80 20 141/91 (108) 95 04/18/17 16:00 92 Room Air 04/18/17 12:00 97.7 93 20 137/89 (105) 92 04/18/17 12:00 97 Nasal Cannula 2.00 I/O 04/18/17 04/18/17 04/18/17 04/19/17 04/19/17 04/19/17 07:00 15:00 23:00 07:00 15:00 23:00 Intake Total 540 ml 480 ml 480 ml Output Total 700 ml Balance -160 ml 480 ml 480 ml Intake Oral 540 ml 480 ml 480 ml Output Urine Total 700 ml # Voids 4 2 # Bowel Movements 1 1 Result Diagram: 04/19/17 0727 04/17/17 0514 Imaging Last Impressions Shoulder X-Ray 04/13/17 1509 Signed Impressions: Service Date/Time: Thursday, April 13, 2017 15:21 - CONCLUSION: 1. Postsurgical features. 2. No acute fracture or dislocation. 3. Soft tissue calcifications superior to the humeral head consistent with calcific tendinosis. 4. Degenerative osteoarthritis. Marcelino Boothe MD Chest X-Ray 04/13/17 1451 Signed Impressions: Service Date/Time: Thursday, April 13, 2017 15:15 - CONCLUSION: 1. No acute cardiopulmonary disease. Marcelino Boothe MD Chest CT 04/13/171450 Signed Impressions: Service Date/Time: Thursday, April 13, 2017 17:47 - CONCLUSION: 1. Fragmentation seen at the lateral aspect of the acromion on the right side. It is uncertain if this is acute or chronic. The patient does have evidence of prior surgery with orthopedic fasteners seen at the right humeral head. 2. Mild bilateral pleural effusions with accompanying areas of atelectasis. 3. Enlargement of the thyroid with some calcifications seen at the inferior aspect of the left lobe of the thyroid. Benedicto Ray MD Cervical Spine CT 04/13/171450 Signed Impressions: Service Date/Time: Thursday, April 13, 2017 17:39 - CONCLUSION: 1. No definite acute bony abnormality is seen. 2. 3 mm of anterior subluxation of C3 on C4 likely secondary to severe underlying facet hypertrophy. 3. Degenerative change throughout the cervical spine as described above. Benedicto Ray MD Abdomen/Pelvis CT 04/13/171450 Signed Impressions: Service Date/Time: Thursday, April 13, 2017 17:47 - CONCLUSION: 1. Mild amount of fluid in the pelvic portion of the peritoneal cavity. 2. Thickening of the gallbladder. Some of this may be secondary to lack of distention. Other underlying conditions including hepatic disease can lead to a nonspecific thickened gallbladder wall. A calcified gallstone is not seen. Significant biliary ductal dilatation is not seen. 3. Bilateral adrenal gland masses. These are nonspecific. Statistically it likely represents adenomas. 4. Decreased density in the liver likely related to underlying process such as fatty infiltration. 5. Mild bilateral pleural effusions. 6. Some degree of atrophy of the left kidney. The kidneys appear otherwise unremarkable. Benedicto Ray MD Objective Remarks GENERAL: This is a well-nourished, well-developed patient, in no apparent distress. CARDIOVASCULAR: Rate around 90's, irregular rhythm. No murmurs RESPIRATORY: Good respiratory efforts. Breath sounds equal and clear to auscultation bilaterally. on RA GASTROINTESTINAL: Abdomen soft, non-tender, non-distended. Normal active bowel sounds MUSCULOSKELETAL: Extremities with 1+ edema. NEURO: Alert & Oriented x4 to person, place, time, situation. Moves all ext x4 PSYCH: Appropriate mood and affect. 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 Patient is status post Cardizem drip, on oral Cardizem and Lopressor which was increased to 25 mg every 6 hours. Her shortness of breath has improved but her heart rate is still intermittently uncontrolled. May need to continue to titrate rate control medications. Atrial fibrillation with RVR, possible new onset - Cardiology following. S/P Cardizem drip. On Oral Cardizem and oral Lopressor. Lopressor increased to 25 mg every 6 hours. HR seems to be better controlled. - on Eliquis 5 mg twice a day per cardiology. CHADSVASC 6 - 2-D echo shows preserved LVEF, mild mitral regurgitation and mitral stenosis. Mild to moderate tricuspid regurgitation Shortness of breath Suspect Bronchiectasis -Pulmonology following. Continue Zithromax and breathing treatments. - Atrovent nebulizers q6h scheduled and q2h as needed for shortness of breath Thyromegaly on chest CT scan - TSH ok. Advised outpatient follow up Acute renal insufficiency - No prior labs for comparison. Mary functions fluctuating. - avoid nephrotoxins DVT prophylaxis - On Eliquis Discharge Planning check walk test today consult PT for d/c planning. consult CM to assist pt w d/c planning as pt nervous about going back to her place due to mold in AC. anticipating d/c tomorrow Manisha Steven MD Apr 19, 2017 10:13
[2017-04-19] MEDS: DILTIAZEM HCL 90 MG TAB PO SCH ×4 (10:24→20:43)
[2017-04-19] MEDS: APIXABAN 5 MG TABLET PO SCH ×2 (10:24→20:43)
[2017-04-19] MEDS ORDERED: ACETAMINOPHEN/HYDROcodone 325 MG/5 MG TAB PO ONE (20:30)
[2017-04-19] MEDS: guaiFENesin E.R. 600 MG TAB PO SCH (20:43)
[2017-04-20] VITALS (10 sets, daily range): BP systolic 132–167; BP diastolic 66–82; PULSE 79–110; RESP 18–20; TEMP 97.5–98.1; O2SAT 94–99
[2017-04-20] MEDS: METOPROLOL TARTRATE 25 MG TAB PO SCH ×4 (00:10→17:37)
[2017-04-20] MEDS: RESP: IPRATROPIUM 0.5 MG/2.5 ML NEB NEB SCH ×2 (04:43→07:44)
[2017-04-20] MEDS: SODIUM CHLORIDE 0.9% FLUSH 10 ML FLUSH IV FLUSH SCH ×2 (08:24→21:04)
[2017-04-20] MEDS: APIXABAN 5 MG TABLET PO SCH ×2 (08:24→21:03)
[2017-04-20] MEDS: DILTIAZEM HCL 90 MG TAB PO SCH ×4 (08:24→21:04)
[2017-04-20] MEDS: guaiFENesin E.R. 600 MG TAB PO SCH ×2 (08:24→21:03)
[2017-04-20] MEDS: AZITHROMYCIN 250 MG TAB PO SCH (08:25)
[2017-04-20] MEDS ORDERED: WALKER WHEELS/F1 MIS (13:08)
--- NOTE | 2017-04-20 13:10 | HHI.FF ---
Face to Face Verification Diagnosis: (1) Atrial fibrillation with RVR (2) Bronchiectasis (3) Physical deconditioning Physical Therapy Order: Evaluate and Treat Home Health Nursing Order: Nursing assessment with vital signs I have seen patient Leigh Mcguire on 04/20/17. My clinical findings support the need for the requested home health care services because: Pt was evaluated by PT and home health PT has been strongly recommended Ltd mobility - disease progression I certify that my clinical findings support that this patient is homebound because: Pt was evaluated by PT and home health PT has been strongly recommended Unsteady gait/balance Manisha Steven MD Apr 20, 2017 13:10
--- NOTE | 2017-04-20 16:12 | HHI.PR ---
Subjective Remarks Pt feels well. No SOB, nausea or vomiting. Is nervous about going home as there is mold in her AC Son would like me to give him an update and left phone number per RN Objective Vitals Vital Signs Date Time Temp Pulse Resp B/P (MAP) Pulse Ox O2 Delivery O2 Flow Rate FiO2 04/20/17 12:00 97.7 82 20 152/77 (102) 96 04/20/17 12:00 93 Room Air 04/20/17 08:30 99 Room Air 04/20/17 08:02 110 04/20/17 08:00 97.6 107 18 132/82 (99) 94 04/20/17 07:45 99 21 04/20/17 03:42 98.0 93 20 167/76 (106) 96 04/20/17 00:09 98.0 86 20 136/66 (89) 94 04/19/17 22:06 93 04/19/17 20:48 Room Air 04/19/17 20:14 73 04/19/17 19:50 98.2 77 20 136/68 (90) 96 I/O 04/19/17 04/19/17 04/19/17 04/20/17 04/20/17 04/20/17 07:00 15:00 23:00 07:00 15:00 23:00 Intake Total 480 ml 480 ml 480 ml 480 ml Balance 480 ml 480 ml 480 ml 480 ml Intake Oral 480 ml 480 ml 480 ml 480 ml # Voids 2 5 2 # Bowel Movements 2 Result Diagram: 04/19/17 0727 04/17/17 0514 Imaging Last Impressions Shoulder X-Ray 04/13/17 1509 Signed Impressions: Service Date/Time: Thursday, April 13, 2017 15:21 - CONCLUSION: 1. Postsurgical features. 2. No acute fracture or dislocation. 3. Soft tissue calcifications superior to the humeral head consistent with calcific tendinosis. 4. Degenerative osteoarthritis. Marcelino Boothe MD Chest X-Ray 04/13/17 0371 Signed Impressions: Service Date/Time: Thursday, April 13, 2017 15:15 - CONCLUSION: 1. No acute cardiopulmonary disease. Marcelino Boothe MD Chest CT 04/13/17 4591 Signed Impressions: Service Date/Time: Thursday, April 13, 2017 17:47 - CONCLUSION: 1. Fragmentation seen at the lateral aspect of the acromion on the right side. It is uncertain if this is acute or chronic. The patient does have evidence of prior surgery with orthopedic fasteners seen at the right humeral head. 2. Mild bilateral pleural effusions with accompanying areas of atelectasis. 3. Enlargement of the thyroid with some calcifications seen at the inferior aspect of the left lobe of the thyroid. Benedicto Ray MD Cervical Spine CT 04/13/171450 Signed Impressions: Service Date/Time: Thursday, April 13, 2017 17:39 - CONCLUSION: 1. No definite acute bony abnormality is seen. 2. 3 mm of anterior subluxation of C3 on C4 likely secondary to severe underlying facet hypertrophy. 3. Degenerative change throughout the cervical spine as described above. Benedicto Ray MD Abdomen/Pelvis CT 04/13/171450 Signed Impressions: Service Date/Time: Thursday, April 13, 2017 17:47 - CONCLUSION: 1. Mild amount of fluid in the pelvic portion of the peritoneal cavity. 2. Thickening of the gallbladder. Some of this may be secondary to lack of distention. Other underlying conditions including hepatic disease can lead to a nonspecific thickened gallbladder wall. A calcified gallstone is not seen. Significant biliary ductal dilatation is not seen. 3. Bilateral adrenal gland masses. These are nonspecific. Statistically it likely represents adenomas. 4. Decreased density in the liver likely related to underlying process such as fatty infiltration. 5. Mild bilateral pleural effusions. 6. Some degree of atrophy of the left kidney. The kidneys appear otherwise unremarkable. Benedicto Ray MD Objective Remarks GENERAL: This is a well-nourished, well-developed patient, in no apparent distress. CARDIOVASCULAR: Rate around 90's, irregular rhythm. No murmurs RESPIRATORY: Good respiratory efforts. Breath sounds equal and clear to auscultation bilaterally. on RA GASTROINTESTINAL: Abdomen soft, non-tender, non-distended. Normal active bowel sounds MUSCULOSKELETAL: Extremities with 1+ edema. NEURO: Alert & Oriented x4 to person, place, time, situation. Moves all ext x4 PSYCH: Appropriate mood and affect. 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 Patient is status post Cardizem drip, on oral Cardizem and Lopressor which was increased to 25 mg every 6 hours. Her shortness of breath has improved Atrial fibrillation with RVR, possible new onset - Cardiology following. S/P Cardizem drip. On Oral Cardizem and will transition to cardizem CD 360mg daily tomorrow. Lopressor increased to 25 mg every 6 hours. will switch on toprol XL 100mg daily to begin tomorrow. HR seems to be better controlled. - on Eliquis 5 mg twice a day per cardiology. CHADSVASC 6 - 2-D echo shows preserved LVEF, mild mitral regurgitation and mitral stenosis. Mild to moderate tricuspid regurgitation Shortness of breath Suspect Bronchitis -Pulmonology following. Continue Zithromax and breathing treatments. - Atrovent nebulizers q6h scheduled and q2h as needed for shortness of breath Thyromegaly on chest CT scan - TSH ok. Advised outpatient follow up Acute renal insufficiency - No prior labs for comparison. Mary functions fluctuating. - avoid nephrotoxins DVT prophylaxis - On Eliquis Discharge Planning passed walk test PT recommends home PT Pt not sure where she wants to be discharged however I spoke w pt's son and he is agreeable that mother can get management where she is to come look at AC. he will try to give them a call. anticipating d/c tomorrow Problem Qualifiers (1) Bronchiectasis: Qualified Codes: J47.9 - Bronchiectasis, uncomplicated Manisha Steven MD Apr 20, 2017 16:12
--- NOTE | 2017-04-20 16:56 | HHI.PR ---
Subjective Remarks 76 YOWF with Persistant cough, AF On cardiazem On Eliquis No new complaint Up in chair, comfortable Objective Vital Signs Vital Signs Date Time Temp Pulse Resp B/P (MAP) Pulse Ox O2 Delivery O2 Flow Rate FiO2 04/20/17 16:00 97.5 79 20 153/82 (105) 97 04/20/17 12:00 97.7 82 20 152/77 (102) 96 04/20/17 12:00 93 Room Air 04/20/17 08:30 99 Room Air 04/20/17 08:02 110 04/20/17 08:00 97.6 107 18 132/82 (99) 94 04/20/17 07:45 99 21 04/20/17 03:42 98.0 93 20 167/76 (106) 96 04/20/17 00:09 98.0 86 20 136/66 (89) 94 04/19/17 22:06 93 04/19/17 20:48 Room Air 04/19/17 20:14 73 04/19/17 19:50 98.2 77 20 136/68 (90) 96 I/O 04/19/17 04/19/17 04/19/17 04/20/17 04/20/17 04/20/17 07:00 15:00 23:00 07:00 15:00 23:00 Intake Total 480 ml 480 ml 480 ml 480 ml Balance 480 ml 480 ml 480 ml 480 ml Intake Oral 480 ml 480 ml 480 ml 480 ml # Voids 2 5 2 # Bowel Movements 2 Result Diagram: 04/19/17 0727 04/17/17 0514 Objective Remarks GENERAL: MBMN WF, mild sob SKIN: Warm and dry. HEAD: Normocephalic. EYES: No scleral icterus. No injection or drainage. NECK: Supple, trachea midline. No JVD or lymphadenopathy. CARDIOVASCULAR: Regular rate and rhythm without murmurs, gallops, or rubs. RESPIRATORY: Breath sounds equal bilaterally. No accessory muscle use. GASTROINTESTINAL: Abdomen soft, non-tender, nondistended. MUSCULOSKELETAL: No cyanosis, or edema. BACK: Nontender without obvious deformity. No CVA tenderness. A/P Assessment and Plan Acute Bronchitis Persistant cough AF HTN H/O CVA PLAN: Aerosol nebs Cont Zithro Eliquis bid. Wean off 02 Stable from Pulm standpoint DCPlans underway. Hernan De Paz MD Apr 20, 2017 16:56
[2017-04-20] MEDS: RESP: IPRATROPIUM 0.5 MG/2.5 ML NEB NEB PRN (17:12)
--- NOTE | 2017-04-20 18:44 | PD.CARD.PN ---
Subjective Subjective Remarks Patient seen around 11am, no complaints Up and walking, feels well Concerned about going home Objective Medications Current Medications Medications (Trade) Dose Ordered Sig/Yosi Route Start Time Stop Time Status Last Admin (NS Flush) 2 ml UNSCH PRN IV FLUSH 04/13/17 19:45 (NS Flush) 2 ml BID IV FLUSH 04/13/17 21:00 04/20/17 08:24 (Narcan Inj) 0.4 mg UNSCH PRN IV PUSH 04/13/17 19:45 (Atrovent Neb) 0.5 mg Q2HR NEB PRN NEB 04/14/17 03:30 04/20/17 17:12 (Zithromax) 500 mg DAILY PO 04/14/17 13:00 04/20/17 08:25 (Eliquis) 5 mg BID PO 04/14/17 21:00 04/20/17 08:24 (Cardizem) 90 mg QID PO 04/14/17 18:00 04/20/17 22:00 04/20/17 17:36 (Catapres) 0.1 mg Q6H PRN PO 04/14/17 19:30 (Pill Splitter) 1 ea UNSCH PRN OTHER 04/15/17 14:15 (Milk Of Magnesia Liq) 30 ml Q12H PRN PO 04/15/17 14:45 (Senokot) 17.2 mg Q12H PRN PO 04/15/17 14:45 (Dulcolax Supp) 10 mg DAILY PRN RECTAL 04/15/17 14:45 (Lactulose Liq) 30 ml DAILY PRN PO 04/15/17 14:45 04/16/17 12:44 (Lopressor) 25 mg Q6HR PO 04/17/17 13:00 04/21/17 06:00 04/20/17 17:37 (Mucinex Er) 600 mg BID PO 04/19/17 21:00 04/20/17 08:24 (Toprol Xl) 100 mg DAILY PO 04/21/17 09:00 (Cardizem Cd) 360 mg DAILY PO 04/21/17 09:00 Vital Signs / I&O Vital Signs Date Time Temp Pulse Resp B/P (MAP) Pulse Ox O2 Delivery O2 Flow Rate FiO2 04/20/17 16:00 97.5 79 20 153/82 (105) 97 04/20/17 12:00 97.7 82 20 152/77 (102) 96 04/20/17 12:00 93 Room Air 04/20/17 08:30 99 Room Air 04/20/17 08:02 110 04/20/17 08:00 97.6 107 18 132/82 (99) 94 04/20/17 07:45 99 21 04/20/17 03:42 98.0 93 20 167/76 (106) 96 04/20/17 00:09 98.0 86 20 136/66 (89) 94 04/19/17 22:06 93 04/19/17 20:48 Room Air 04/19/17 20:14 73 04/19/17 19:50 98.2 77 20 136/68 (90) 96 I/O 04/19/17 04/19/17 04/19/17 04/20/17 04/20/17 04/20/17 07:00 15:00 23:00 07:00 15:00 23:00 Intake Total 480 ml 480 ml 480 ml 480 ml Balance 480 ml 480 ml 480 ml 480 ml Intake Oral 480 ml 480 ml 480 ml 480 ml # Voids 2 5 2 # Bowel Movements 2 Physical Exam GENERAL: NAD, AAOx3 SKIN: Warm and dry. HEAD: Atraumatic. Normocephalic. EYES: Pupils equal and round. No scleral icterus. No injection or drainage. ENT: No nasal bleeding or discharge. Mucous membranes pink and moist. NECK: Trachea midline. No JVD. CARDIOVASCULAR: Irregularly irregular RESPIRATORY: No accessory muscle use. Minimal rales at bases GASTROINTESTINAL: Abdomen soft, non-tender, nondistended. Hepatic and splenic margins not palpable. MUSCULOSKELETAL: Extremities without clubbing, cyanosis, or edema. No obvious deformities. NEUROLOGICAL: Awake and alert. No obvious cranial nerve deficits. Motor grossly within normal limits. Five out of 5 muscle strength in the arms and legs. Normal speech. PSYCHIATRIC: Appropriate mood and affect; insight and judgment normal. Assessment and Plan Problem List: (1) Atrial fibrillation with RVR ICD Codes: I48.91 - Unspecified atrial fibrillation Status: Acute (2) Elevated brain natriuretic peptide (BNP) level ICD Codes: R79.89 - Other specified abnormal findings of blood chemistry (3) Bronchiectasis ICD Codes: J47.9 - Bronchiectasis, uncomplicated (4) Acute renal insufficiency ICD Codes: N28.9 - Disorder of kidney and ureter, unspecified Assessment and Plan 1) Afib with RVR, now controlled Con't Cardizem PO and Lopressor PO CHADSVASc = 6, started on Eliquis 5mg BID 2) SOB/mildly elevated BNP Most likely secondary to elevated heart rates Appears compensated now 3) EF 55-60%, mild MR, mild MS, mild to moderate TR 4) No further cardiovascular work up Plan stress test outpatient Problem Qualifiers (1) Bronchiectasis: Qualified Codes: J47.9 - Bronchiectasis, uncomplicated Issac Mary DO Apr 20, 2017 18:44
[2017-04-21] VITALS: BP_SYST 132; BP_SYST 148; BP_DIAS 69; BP_DIAS 80; PULSE 71; PULSE 88; RESP 18; TEMP 97.8; TEMP 98.8; O2SAT 93; O2SAT 95
[2017-04-21] MEDS: METOPROLOL TARTRATE 25 MG TAB PO SCH ×2 (00:03→05:19)
[2017-04-21 04:00] VITALS: BP 130/72; PULSE 70; RESP 18; TEMP 98.3; O2SAT 96
[2017-04-21 08:00] VITALS: BP 149/62; PULSE 71; RESP 20; TEMP 98; O2SAT 95
[2017-04-21] MEDS: SODIUM CHLORIDE 0.9% FLUSH 10 ML FLUSH IV FLUSH SCH (08:17)
[2017-04-21] MEDS: guaiFENesin E.R. 600 MG TAB PO SCH (08:26)
[2017-04-21] MEDS: APIXABAN 5 MG TABLET PO SCH (08:26)
[2017-04-21] MEDS: AZITHROMYCIN 250 MG TAB PO SCH (08:28)
[2017-04-21] MEDS ORDERED: METOPROLOL SUCCINATE 50 MG EXTENDED RELEASE TAB PO SCH (09:00)
[2017-04-21] MEDS ORDERED: DILTIAZEM-CD 180 MG CAP ER PO SCH (09:00)
--- NOTE | 2017-04-21 09:41 | PD.CARD.PN ---
Subjective Subjective Remarks No events overnight No chest pain/SOB, coughing up phlegm Telemetry: Mostly controlled, some rates in the 100-110 this morning Objective Medications Current Medications Medications (Trade) Dose Ordered Sig/Yosi Route Start Time Stop Time Status Last Admin (NS Flush) 2 ml UNSCH PRN IV FLUSH 04/13/17 19:45 (NS Flush) 2 ml BID IV FLUSH 04/13/17 21:00 04/21/17 08:17 (Narcan Inj) 0.4 mg UNSCH PRN IV PUSH 04/13/17 19:45 (Atrovent Neb) 0.5 mg Q2HR NEB PRN NEB 04/14/17 03:30 04/20/17 17:12 (Zithromax) 500 mg DAILY PO 04/14/17 13:00 04/21/17 08:28 (Eliquis) 5 mg BID PO 04/14/17 21:00 04/21/17 08:26 (Catapres) 0.1 mg Q6H PRN PO 04/14/17 19:30 (Pill Splitter) 1 ea UNSCH PRN OTHER 04/15/17 14:15 (Milk Of Magnesia Liq) 30 ml Q12H PRN PO 04/15/17 14:45 (Senokot) 17.2 mg Q12H PRN PO 04/15/17 14:45 (Dulcolax Supp) 10 mg DAILY PRN RECTAL 04/15/17 14:45 (Lactulose Liq) 30 ml DAILY PRN PO 04/15/17 14:45 04/16/17 12:44 (Mucinex Er) 600 mg BID PO 04/19/17 21:00 04/21/17 08:26 (Toprol Xl) 100 mg DAILY PO 04/21/17 09:00 04/21/17 08:27 (Cardizem Cd) 360 mg DAILY PO 04/21/17 09:00 04/21/17 08:27 Vital Signs / I&O Vital Signs Date Time Temp Pulse Resp B/P (MAP) Pulse Ox O2 Delivery O2 Flow Rate FiO2 04/21/17 08:00 98.0 71 20 149/62 (91) 95 04/21/17 04:00 98.3 70 18 130/72 (91) 96 04/21/17 00:00 97.8 88 18 148/80 (102) 93 04/20/17 20:16 97 04/20/17 20:00 98.1 83 18 143/74 (97) 95 04/20/17 20:00 Room Air 04/20/17 19:59 79 04/20/17 16:00 97.5 79 20 153/82 (105) 97 04/20/17 12:00 97.7 82 20 152/77 (102) 96 04/20/17 12:00 93 Room Air I/O 04/20/17 04/20/17 04/20/17 04/21/17 04/21/17 04/21/17 07:00 15:00 23:00 07:00 15:00 23:00 Intake Total 480 ml 480 ml Balance 480 ml 480 ml Intake Oral 480 ml 480 ml # Voids 2 Physical Exam GENERAL: NAD, AAOx3 SKIN: Warm and dry. HEAD: Atraumatic. Normocephalic. EYES: Pupils equal and round. No scleral icterus. No injection or drainage. ENT: No nasal bleeding or discharge. Mucous membranes pink and moist. NECK: Trachea midline. No JVD. CARDIOVASCULAR: Irregularly irregular RESPIRATORY: No accessory muscle use. Minimal rales at bases GASTROINTESTINAL: Abdomen soft, non-tender, nondistended. Hepatic and splenic margins not palpable. MUSCULOSKELETAL: Trace edema bilaterally NEUROLOGICAL: Awake and alert. No obvious cranial nerve deficits. Motor grossly within normal limits. Five out of 5 muscle strength in the arms and legs. Normal speech. PSYCHIATRIC: Appropriate mood and affect; insight and judgment normal. Laboratory Laboratory Tests Test 04/19/17 07:27 White Blood Count 6.7 TH/MM3 (4.0-11.0) Red Blood Count 3.42 MIL/MM3 (4.00-5.30) Hemoglobin 10.9 GM/DL (11.6-15.3) Hematocrit 32.4 % (35.0-46.0) Mean Corpuscular Volume 94.6 FL (80.0-100.0) Mean Corpuscular Hemoglobin 31.9 PG (27.0-34.0) Mean Corpuscular Hemoglobin Concent 33.7 % (32.0-36.0) Red Cell Distribution Width 13.0 % (11.6-17.2) Platelet Count 242 TH/MM3 (150-450) Mean Platelet Volume 8.0 FL (7.0-11.0) Assessment and Plan Problem List: (1) Atrial fibrillation with RVR ICD Codes: I48.91 - Unspecified atrial fibrillation Status: Acute (2) Elevated brain natriuretic peptide (BNP) level ICD Codes: R79.89 - Other specified abnormal findings of blood chemistry (3) Bronchiectasis ICD Codes: J47.9 - Bronchiectasis, uncomplicated (4) Acute renal insufficiency ICD Codes: N28.9 - Disorder of kidney and ureter, unspecified Assessment and Plan 1) Afib with RVR, now controlled Con't Cardizem PO and Lopressor PO CHADSVASc = 6, started on Eliquis 5mg BID 2) SOB/mildly elevated BNP Most likely secondary to elevated heart rates Appears compensated now 3) EF 55-60%, mild MR, mild MS, mild to moderate TR 4) No further cardiovascular work up Plan stress test outpatient Problem Qualifiers (1) Bronchiectasis: Qualified Codes: J47.9 - Bronchiectasis, uncomplicated Issac Mary DO Apr 21, 2017 09:41
[2017-04-21] MEDS ORDERED: NEBULIZER1 MI1 (10:12)
[2017-04-21] MEDS ORDERED: METO50TA11 PO (10:12)
[2017-04-21] MEDS ORDERED: IPRA0.02 NEB (10:12)
[2017-04-21] MEDS ORDERED: APIX5TAB PO (10:12)
[2017-04-21] MEDS ORDERED: CARD180C5 PO (10:12)
--- NOTE | 2017-04-21 10:33 | HHI.PR ---
Subjective Remarks 76 YOWF with Persistant cough, AF On Eliquis No new complaint Up in chair, comfortable Objective Vital Signs Vital Signs Date Time Temp Pulse Resp B/P (MAP) Pulse Ox O2 Delivery O2 Flow Rate FiO2 04/21/17 08:00 98.0 71 20 149/62 (91) 95 04/21/17 04:00 98.3 70 18 130/72 (91) 96 04/21/17 00:00 97.8 88 18 148/80 (102) 93 04/20/17 20:16 97 04/20/17 20:00 98.1 83 18 143/74 (97) 95 04/20/17 20:00 Room Air 04/20/17 19:59 79 04/20/17 16:00 97.5 79 20 153/82 (105) 97 04/20/17 12:00 97.7 82 20 152/77 (102) 96 04/20/17 12:00 93 Room Air I/O 04/20/17 04/20/17 04/20/17 04/21/17 04/21/17 04/21/17 06:59 14:59 22:59 06:59 14:59 22:59 Intake Total 480 ml 480 ml Balance 480 ml 480 ml Intake Oral 480 ml 480 ml # Voids 2 Result Diagram: 04/19/17 0727 04/17/17 0514 Objective Remarks GENERAL: MBMN WF, mild sob SKIN: Warm and dry. HEAD: Normocephalic. EYES: No scleral icterus. No injection or drainage. NECK: Supple, trachea midline. No JVD or lymphadenopathy. CARDIOVASCULAR: Regular rate and rhythm without murmurs, gallops, or rubs. RESPIRATORY: Breath sounds equal bilaterally. No accessory muscle use. GASTROINTESTINAL: Abdomen soft, non-tender, nondistended. MUSCULOSKELETAL: No cyanosis, or edema. BACK: Nontender without obvious deformity. No CVA tenderness. A/P Assessment and Plan Acute Bronchitis Persistant cough AF HTN H/O CVA PLAN: Aerosol nebs Eliquis bid. Stable from Pulm standpoint DCPlans underway. Stable on Hernan Lewis MD Apr 21, 2017 10:33
--- NOTE | 2017-04-21 10:44 | HHI.DS ---
Discharge Summary Admission Date Apr 13, 2017 at 19:24 Discharge Date: Apr 21, 2017 Admitting Diagnosis new onset A. fib with RVR (1) Atrial fibrillation with RVR ICD Code: I48.91 - Unspecified atrial fibrillation Status: Acute (2) Elevated brain natriuretic peptide (BNP) level ICD Code: R79.89 - Other specified abnormal findings of blood chemistry (3) Thyromegaly ICD Code: E01.0 - Iodine-deficiency related diffuse (endemic) goiter (4) Acute renal insufficiency ICD Code: N28.9 - Disorder of kidney and ureter, unspecified (5) Acute bronchitis ICD Code: J20.9 - Acute bronchitis, unspecified Procedures none Brief History - From Admission Written by Lali Louise, acting as scribe for Dr. Huff on 04/14/17 at 02:33. The patient reports 2 months of congestion, cough with yellow to oquendo sputum, denies nausea, vomiting, or fever and not relieved by over the counter cough medicine. Denies any relationship between cough and meals. The patient reports diarrhea at times from certain foods, denies black or bloody stools, dysuria, or hematuria. Denies palpitations or chest pain. She is unable to remember what medications she has taken in the past though she knows she took "a bunch of them" and she thinks they were for her blood pressure. She is from [place] and she has not established with a local PCP. . CBC/BMP: 04/19/17 0727 04/17/17 0514 Significant Findings Laboratory Tests Test 04/19/17 07:27 Red Blood Count 3.42 MIL/MM3 (4.00-5.30) Hemoglobin 10.9 GM/DL (11.6-15.3) Hematocrit 32.4 % (35.0-46.0) Imaging Last Impressions Shoulder X-Ray 04/13/17 1509 Signed Impressions: Service Date/Time: Thursday, April 13, 2017 15:21 - CONCLUSION: 1. Postsurgical features. 2. No acute fracture or dislocation. 3. Soft tissue calcifications superior to the humeral head consistent with calcific tendinosis. 4. Degenerative osteoarthritis. Marcelino Boothe MD Chest X-Ray 04/13/171450 Signed Impressions: Service Date/Time: Thursday, April 13, 2017 15:15 - CONCLUSION: 1. No acute cardiopulmonary disease. Marcelino Boothe MD Chest CT 04/13/171450 Signed Impressions: Service Date/Time: Thursday, April 13, 2017 17:47 - CONCLUSION: 1. Fragmentation seen at the lateral aspect of the acromion on the right side. It is uncertain if this is acute or chronic. The patient does have evidence of prior surgery with orthopedic fasteners seen at the right humeral head. 2. Mild bilateral pleural effusions with accompanying areas of atelectasis. 3. Enlargement of the thyroid with some calcifications seen at the inferior aspect of the left lobe of the thyroid. Benedicto Ray MD Cervical Spine CT 04/13/171450 Signed Impressions: Service Date/Time: Thursday, April 13, 2017 17:39 - CONCLUSION: 1. No definite acute bony abnormality is seen. 2. 3 mm of anterior subluxation of C3 on C4 likely secondary to severe underlying facet hypertrophy. 3. Degenerative change throughout the cervical spine as described above. Benedicto Ray MD Abdomen/Pelvis CT 04/13/171450 Signed Impressions: Service Date/Time: Thursday, April 13, 2017 17:47 - CONCLUSION: 1. Mild amount of fluid in the pelvic portion of the peritoneal cavity. 2. Thickening of the gallbladder. Some of this may be secondary to lack of distention. Other underlying conditions including hepatic disease can lead to a nonspecific thickened gallbladder wall. A calcified gallstone is not seen. Significant biliary ductal dilatation is not seen. 3. Bilateral adrenal gland masses. These are nonspecific. Statistically it likely represents adenomas. 4. Decreased density in the liver likely related to underlying process such as fatty infiltration. 5. Mild bilateral pleural effusions. 6. Some degree of atrophy of the left kidney. The kidneys appear otherwise unremarkable. Benedicto Ray MD PE at Discharge GENERAL: This is a well-nourished, well-developed patient, in no apparent distress. CARDIOVASCULAR: Rate around 90's, irregular rhythm. No murmurs RESPIRATORY: Good respiratory efforts. Breath sounds equal and clear to auscultation bilaterally. on RA GASTROINTESTINAL: Abdomen soft, non-tender, non-distended. Normal active bowel sounds MUSCULOSKELETAL: Extremities with 1+ edema but improverd however today noted that left greater than right NEURO: Alert & Oriented x4 to person, place, time, situation. Moves all ext x4 PSYCH: Appropriate mood and affect. Pt update on day of discharge Pt nervous about going home, states that she doesn't know her way around, only has a friend/neighbor who can take her places. Not sure if the manager process excellence at her place will listen to her regarding the mold in her AC. No SOB, still have a bit of a cough, no CP. Hospital Course 76 y/o female with congested cough for 2 months presents to ED with atrial fibrillation with RVR. Patient is status post Cardizem drip. Her shortness of breath has improved and not requiring oxygen Atrial fibrillation with RVR, possible new onset - Cardiology following. S/P Cardizem drip. now on cardizem CD 360mg daily and toprol XL 100mg daily. HR much better controlled. - on Eliquis 5 mg twice a day per cardiology. CHADSVASC 6 - 2-D echo shows preserved LVEF, mild mitral regurgitation and mitral stenosis. Mild to moderate tricuspid regurgitation Shortness of breath Suspect Bronchitis -Pulmonology following. Continue Zithromax and breathing treatments. - Atrovent nebulizers q6h scheduled and q2h as needed for shortness of breath Thyromegaly on chest CT scan - TSH ok. Advised outpatient follow up Acute renal insufficiency - No prior labs for comparison. Mary functions fluctuating. - avoid nephrotoxins Lower extremity edema: Left>right. Pt already anticoagulated w eliquis due to atrial fib. checking u/s lower ext to r/o DVT however management will remain the same. Pt instructed to f/u w her doctors as an outpatient and to discuss w home health aide to send someone to fix her mold situation. Son is also aware and he will also try to reach out to the telephonic nurse case manager. Pt Condition on Discharge: Stable Discharge Disposition: Disch w/ Home Health Serv Discharge Time: > 30 minutes Discharge Instructions DIET: Follow Instructions for: Heart Healthy Diet Activities you can perform: Regular-No Restrictions Follow up Referrals: Cardiology - 2 Weeks PCP Follow-up - 1 Week Pulmonology - 1 Week New Medications: Nebulizer (Nebulizer) 1 Mis Mis EA .ROUTE DIRECTED for Breathing Treatment, #1 0 Refills Walker with Front Wheels (Walker with Front Wheels) 1 Mis Mis EA .ROUTE DIRECTED, #1 0 Refills Apixaban (Eliquis) 5 Mg Tab 5 MG PO BID for 30 Days, #60 TAB Diltiazem CD 24 HR (Cardizem CD 24 HR) 180 Mg Caper 360 MG PO DAILY for 30 Days, #60 CAP Ipratropium Neb (Ipratropium Neb) 0.5 Mg/2.5 Ml Amp 0.5 MG NEB Q8HR PRN for SHORTNESS OF BREATH, #1 BOX Metoprolol Succinate ER 24 HR (Metoprolol Succinate ER 24 HR) 50 Mg Tab 100 MG PO DAILY for 30 Days, #60 TAB Continued Medications: Multiple Vitamin (Multiple Vitamin) 1 Tab 1 TAB PO DAILY for Nutritional Supplement, TAB 0 Refills Manisha Steven MD Apr 21, 2017 10:44
[2017-04-21 12:00] VITALS: BP 140/70; PULSE 107; RESP 20; TEMP 97.8; O2SAT 97
--- NOTE | 2017-04-21 13:37 | RADRPT ---
EXAM DATE/TIME: 04/21/2017 11:37 [facility] COMPARISON: No previous studies available for comparison. INDICATIONS : Bilateral leg edema. MEDICAL HISTORY : Hypertension. Arthritis. SURGICAL HISTORY : Appendectomy.Hysterectomy. Orthopedic surgery, right shoulder. ENCOUNTER: Initial ACUITY: 3 days PAIN SCORE: 6/10 LOCATION: Bilateral leg. TECHNIQUE: Venous ultrasound of the left and right leg was performed from the inguinal ligament to the proximal calf. Real-time, color Doppler and spectral tracing, compression and augmentation techniques were us ed. FINDINGS: RIGHT LEG: There is normal compressibility of the deep venous system from the inguinal region to the proximal ca lf. No echogenic clot is seen in the lumen of the common femoral, femoral, popliteal, and posterior tibial veins. There is a normal response of the venous system to proximal and distal augmentation an d respiration. Note is made of a 3.9 and 0.6 x 1.6 cm Rubi's cyst within the popliteal fossa. LEFT LEG: There is normal compressibility of the deep venous system from the inguinal region to the proximal ca lf. No echogenic clot is seen in the lumen of the common femoral, femoral, popliteal, and posterior tibial veins. There is a normal response of the venous system to proximal and distal augmentation an d respiration. CONCLUSION: 1. Rubi's cyst in the popliteal fossa. 2. No DVT identified within either lower extremity. Grabiel Hopper MD on April 21, 2017 at 13:34 Board Certified Radiologist. This report was verified electronically.
== END 2017-04-21 17:50 | disposition home health service (06) | DRG 309 ==
LOC: NEPE 14:28 → NEDA 19:24 → N04B 20:12
PROVIDERS: ADMIT Family Medicine; ATTEND Hospitalist
DX: I48.91 Unspecified atrial fibrillation (principal); J90 Pleural effusion, not elsewhere classified; I08.1 Rheumatic disorders of both mitral and tricuspid valves; J20.9 Acute bronchitis, unspecified; J98.11 Atelectasis; I10 Essential (primary) hypertension; N28.9 Disorder of kidney and ureter, unspecified; E01.0 Iodine-deficiency related diffuse (endemic) goiter; Z85.42 Personal history of malignant neoplasm of other parts of uterus; Z23 Encounter for immunization; Z86.73 Personal history of transient ischemic attack (TIA), and cerebral infarction without residual deficits
CPT/HCPCS: 71010; 71260; 72125; 73030; 74177; 76937; 80048; 80053; 82550; 83880; 84443; 84484; 85025; 85027; 85610; 85730; 86850; 86900; 86901; 90686; 93005; 93306; 93970; 94620; 94640; 94664; 96361; 96365; 96375; J1650; J1940; J7030; J7644; Q2038; Q9967

== ENCOUNTER 2017-05-04 15:40 | Inpatient (IN) | payer MEDICARE ==
[~2017-05-04] VITALS: Ht 154.9 cm; Wt 63.9 kg
[~2017-05-04 15:40] MED LIST: APIX5TAB PO; CARD180C5 PO; IPRA0.02 NEB; METO50TA11 PO; MULTTAB67 PO; NEBULIZER1 MI1; WALKER WHEELS/F1 MIS
[2017-05-04 16:01] VITALS: BP 131/94; PULSE 107; RESP 18; O2SAT 94
[2017-05-04] MEDS ORDERED: VITA250T3 PO (16:01)
[2017-05-04] MEDS ORDERED: CETI10 PO (16:01)
[2017-05-04] MEDS ORDERED: GINK60TA10 (16:01)
[2017-05-04] MEDS ORDERED: CALCCHW25 CHEW (16:01)
[2017-05-04] MEDS ORDERED: VITA500T4 PO (16:01)
[2017-05-04] MEDS ORDERED: GLUC100017 PO (16:01)
[2017-05-04 16:09] VITALS: RESP 18; O2SAT 95
--- NOTE | 2017-05-04 16:10 | PD ---
HPI Chief Complaint: Chest Pain Time Seen by Provider: 15:54 Travel History International Travel<30 days: No Contact w/Intl Traveler<30days: No Traveled to known affect area: No History of Present Illness HPI The patient is a 76-year-old female who presents to the emergency department via EMS for shortness of breath and chest pain. The patient states she's had shortness of breath since the beginning of April, was admitted to the hospital for approximately 10 days and diagnosed with atrial fibrillation with RVR. The patient states that she was discharged she continued to have mild chest pain and shortness of breath, was advised to follow with cardiology on an outpatient basis for a stress test. However, the patient states she does not have the follow-up information for her under presser. The patient has been taking any medications except for the Eliquis, states [facility] does not have Eli[facility] currently in stock. The patient recently moved from [place] to the local area does not have a local primary physician or any family support. She does complain of chest pain which is substernal, dull, pressure, nonradiating, associated with shortness of breath. She denies any diaphoresis, nausea, or vomiting. She does complain of mild lower extremity edema. She denies any previous history of coronary artery disease or previous stress test. Symptoms are moderate, worse with exertion, there are no current alleviating factors. PFSH Past Medical History Arthritis: Yes Asthma: No Atrial Fibrillation: Yes Heart Rhythm Problems: No Cancer: No Cardiovascular Problems: Yes (HTN, AFIB) High Cholesterol: No Chest Pain: Yes Congestive Heart Failure: No COPD: No Diminished Hearing: No Endocrine: No Genitourinary: No Hypertension: Yes Immune Disorder: No Musculoskeletal: Yes Neurologic: No Psychiatric: No Reproductive: No Respiratory: No Sleep Apnea: No Menopausal: Yes : 4 Para: 4 Past Surgical History Abdominal Surgery: No Appendectomy: Yes Cardiac Surgery: No Ear Surgery: No Endocrine Surgery: No Eye Surgery: No Genitourinary Surgery: No Hysterectomy: Yes Oral Surgery: No Thoracic Surgery: No Social History Alcohol Use: No Tobacco Use: No Substance Use: No Allergies-Medications (Allergen,Severity, Reaction): Coded Allergies: Penicillins (Verified Allergy, Unknown, RASH, 05/04/17) Reported Meds & Prescriptions Reported Meds & Active Scripts Active Nebulizer 1 Mis Mis Ea .ROUTE DIRECTED Cardizem CD 24 HR (Diltiazem CD 24 HR) 180 Mg Caper 360 Mg PO DAILY 30 Days Metoprolol Succinate ER 24 HR (Metoprolol Succinate) 50 Mg Tab 100 Mg PO DAILY 30 Days Eliquis (Apixaban) 5 Mg Tab 5 Mg PO BID 30 Days Ipratropium Neb (Ipratropium [place]) 0.5 Mg/2.5 Ml Amp 0.5 Mg NEB Q8HR PRN Walker with Front Wheels (Device) 1 Mis Mis Ea .ROUTE DIRECTED Reported Cetirizine (Cetirizine HCl) 10 Mg Tab 10 Mg PO DAILY Glucosamine (Glucosamine Sulfate) 1,000 Mg Cap 1,000 Mg PO DAILY Ginkgo Biloba (Ginkgo Biloba [place] Extract) 60 Mg Tablet Vitamin B-12 (Cyanocobalamin) 500 Mcg Tab 500 Mcg PO DAILY Calcium + D & K (Calcium-Vitamins D & K) 500-1,000-40 Mg-Unit-Mcg Chew 1 Tab CHEW Vitamin C (Ascorbic Acid) 250 Mg Tab 500 Mg PO Multiple Vitamin 1 Tab 1 Tab PO DAILY Review of Systems Except as stated in HPI: all other systems reviewed are Neg General / Constitutional: No: Fever HENT: Positive: Lightheadedness Cardiovascular: Positive: Chest Pain or Discomfort, Dyspnea on exertion Respiratory: Positive: Shortness of Breath Gastrointestinal: No: Nausea, Vomiting Genitourinary: No: Dysuria Musculoskeletal: Positive: Weakness Neurologic: Positive: Weakness, Dizziness Physical Exam Narrative GENERAL: Awake, alert, pleasant 76-year-old female who appears her stated age and is in no acute respiratory distress. SKIN: Focused skin assessment warm/dry. HEAD: Atraumatic. Normocephalic. EYES: Pupils equal and round. No scleral icterus. No injection or drainage. ENT: No nasal bleeding or discharge. Mucous membranes pink and moist. NECK: Trachea midline. No JVD. CARDIOVASCULAR: Irregularly irregular, heart rate 95. RESPIRATORY: No accessory muscle use. Slightly diminished breath sounds in the bases bilaterally.. GASTROINTESTINAL: Abdomen soft, non-tender, nondistended. No rebound tenderness. MUSCULOSKELETAL: No obvious deformities. No clubbing. No cyanosis. Mild pitting edema bilaterally.. NEUROLOGICAL: Awake and alert. No obvious cranial nerve deficits. Motor grossly within normal limits. Normal speech. PSYCHIATRIC: Appropriate mood and affect; insight and judgment normal. Data Data Last Documented VS Vital Signs Date Time Temp Pulse Resp B/P (MAP) Pulse Ox O2 Delivery O2 Flow Rate FiO2 05/04/17 16:09 95 Room Air 05/04/17 16:09 18 05/04/17 16:01 107 Orders Orders Electrocardiogram (05/04/17 16:04) B-Type Natriuretic Peptide (05/04/17 16:04) Ckmb (Isoenzyme) Profile (05/04/17 16:04) Complete Blood Count With Diff (05/04/17 16:04) Comprehensive Metabolic Panel (05/04/17 16:04) Magnesium (Mg) (05/04/17 16:04) Prothrombin Time / Inr (Pt) (05/04/17 16:04) Act Partial Throm Time (Ptt) (05/04/17 16:04) Troponin I (05/04/17 16:04) Lipase (05/04/17 16:04) Chest, Single Ap (05/04/17 16:04) Ecg Monitoring (05/04/17 16:04) Bilateral Bp Monitoring (05/04/17 16:04) Iv Access Insert/Monitor (05/04/17 16:04) Oximetry (05/04/17 16:04) Oxygen Administration (05/04/17 16:04) Aspirin Chew (Aspirin Chew) (05/04/17 16:15) Sodium Chloride 0.9% Flush (Ns Flush) (05/04/17 16:15) Nitroglycerin Sl (Nitrostat Sl) (05/04/17 16:15) Furosemide Inj (Lasix Inj) (05/04/17 16:15) Admit Order (Ed Use Only) (05/04/17 ) Station Installer / Telemetry RASHID.Q8H (05/04/17 17:35) Vital Signs (Adult) Q4H (05/04/17 17:35) Activity Oob With Assistance (05/04/17 17:35) Apixaban (Eliquis) (05/04/17 17:45) Place In Observation (05/04/17 ) Vital Signs (Adult) Q4H (05/04/17 17:35) Station Installer / Telemetry .CONTINUOUS (05/04/17 17:35) Intake + Output RASHID.QSHIFT (05/04/17 17:35) Sodium Chloride 0.9% Flush (Ns Flush) (05/04/17 17:45) Sodium Chloride 0.9% Flush (Ns Flush) (05/04/17 21:00) Comprehensive Metabolic Panel (05/05/17 06:00) Complete Blood Count With Diff (05/05/17 06:00) Case Management Consult (05/04/17 17:35) Scd Bilateral/Knee High RASHID.BID (05/04/17 17:35) Naloxone Inj (Narcan Inj) (05/04/17 17:45) Magnesium Hydroxide Liq (Milk Of Magnesi (05/04/17 17:45) Sennosides (Senokot) (05/04/17 17:45) Bisacodyl Supp (Dulcolax Supp) (05/04/17 17:45) Lactulose Liq (Lactulose Liq) (05/04/17 17:45) Labs Laboratory Tests Test 05/04/17 16:12 White Blood Count 7.6 TH/MM3 Red Blood Count 3.48 MIL/MM3 Hemoglobin 11.0 GM/DL Hematocrit 32.7 % Mean Corpuscular Volume 93.9 FL Mean Corpuscular Hemoglobin 31.7 PG Mean Corpuscular Hemoglobin Concent 33.7 % Red Cell Distribution Width 13.1 % Platelet Count 276 TH/MM3 Mean Platelet Volume 7.9 FL Neutrophils (%) (Auto) 79.9 % Lymphocytes (%) (Auto) 6.6 % Monocytes (%) (Auto) 9.9 % Eosinophils (%) (Auto) 3.0 % Basophils (%) (Auto) 0.6 % Neutrophils # (Auto) 6.1 TH/MM3 Lymphocytes # (Auto) 0.5 TH/MM3 Monocytes # (Auto) 0.8 TH/MM3 Eosinophils # (Auto) 0.2 TH/MM3 Basophils # (Auto) 0.0 TH/MM3 CBC Comment DIFF FINAL Differential Comment Prothrombin Time 11.3 SEC Prothromb Time International Ratio 1.0 RATIO Activated Partial Thromboplast Time 27.4 SEC Blood Urea Nitrogen 14 MG/DL Creatinine 0.95 MG/DL Random Glucose 110 MG/DL Total Protein 6.6 GM/DL Albumin 3.3 GM/DL Calcium Level 8.3 MG/DL Magnesium Level 2.3 MG/DL Alkaline Phosphatase 98 U/L Aspartate Amino Transf (AST/SGOT) 14 U/L Alanine Aminotransferase (ALT/SGPT) 32 U/L Total Bilirubin 0.5 MG/DL Sodium Level 137 MEQ/L Potassium Level 3.8 MEQ/L Chloride Level 104 MEQ/L Carbon Dioxide Level 28.9 MEQ/L Anion Gap 4 MEQ/L Estimat Glomerular Filtration Rate 57 ML/MIN Total Creatine Kinase 34 U/L Troponin I LESS THAN 0.02 NG/ML B-Type Natriuretic Peptide 287 PG/ML Lipase 270 U/L MDM Medical Decision Making Medical Screen Exam Complete: Yes Emergency Medical Condition: Yes Medical Record Reviewed: Yes Interpretation(s) EKG reveals atrial fibrillation with RVR, rate 105. Q wave noted in lead 3. Q wave noted in lead V1 and V2. Last Impressions Chest X-Ray 05/04/17 1604 Signed Impressions: Service Date/Time: Thursday, May 04, 2017 16:09 - CONCLUSION: Interval development of bilateral lower lung infiltrates, left greater than right. Remington Grover MD Laboratory Tests Test 05/04/17 16:12 White Blood Count 7.6 TH/MM3 Red Blood Count 3.48 MIL/MM3 Hemoglobin 11.0 GM/DL Hematocrit 32.7 % Mean Corpuscular Volume 93.9 FL Mean Corpuscular Hemoglobin 31.7 PG Mean Corpuscular Hemoglobin Concent 33.7 % Red Cell Distribution Width 13.1 % Platelet Count 276 TH/MM3 Mean Platelet Volume 7.9 FL Neutrophils (%) (Auto) 79.9 % Lymphocytes (%) (Auto) 6.6 % Monocytes (%) (Auto) 9.9 % Eosinophils (%) (Auto) 3.0 % Basophils (%) (Auto) 0.6 % Neutrophils # (Auto) 6.1 TH/MM3 Lymphocytes # (Auto) 0.5 TH/MM3 Monocytes # (Auto) 0.8 TH/MM3 Eosinophils # (Auto) 0.2 TH/MM3 Basophils # (Auto) 0.0 TH/MM3 CBC Comment DIFF FINAL Differential Comment Prothrombin Time 11.3 SEC Prothromb Time International Ratio 1.0 RATIO Activated Partial Thromboplast Time 27.4 SEC Blood Urea Nitrogen 14 MG/DL Creatinine 0.95 MG/DL Random Glucose 110 MG/DL Total Protein 6.6 GM/DL Albumin 3.3 GM/DL Calcium Level 8.3 MG/DL Magnesium Level 2.3 MG/DL Alkaline Phosphatase 98 U/L Aspartate Amino Transf (AST/SGOT) 14 U/L Alanine Aminotransferase (ALT/SGPT) 32 U/L Total Bilirubin 0.5 MG/DL Sodium Level 137 MEQ/L Potassium Level 3.8 MEQ/L Chloride Level 104 MEQ/L Carbon Dioxide Level 28.9 MEQ/L Anion Gap 4 MEQ/L Estimat Glomerular Filtration Rate 57 ML/MIN Total Creatine Kinase 34 U/L Troponin I LESS THAN 0.02 NG/ML B-Type Natriuretic Peptide 287 PG/ML Lipase 270 U/L Differential Diagnosis Differential diagnosis includes congestive heart failure, cardiomyopathy, volume overload, acute coronary syndrome, STEMI, deconditioning, atrial fibrillation with RVR, electrolyte abnormality. Narrative Course IV was established, labs are drawn and sent, and the patient was placed on cardiac telemetry monitoring and continuous pulse oximetry monitoring. EKG was ordered and interpreted. Chest x-ray was obtained. The patient was administered aspirin 162 mg orally and Lasix 20 mg intravenously. The patient also received nitroglycerin sublingual 0.4 mg. Chest x-ray reveals worsening bilateral effusions versus infiltrates. BNP is elevated. The patient is still symptomatic and may benefit from IV diuresis. The patient may need case management follow-up as she may need placement, states she lives alone and has no family support. Physician Communication Physician Communication I discussed the patient with Dr. Mike who agrees with 23 hour observation. Diagnosis Primary Impression: Congestive heart failure Qualified Codes: I50.9 - Heart failure, unspecified Additional Impression: Elevated brain natriuretic peptide (BNP) level Admitting Information Admitting Physician Requests: Observation Condition: Stable Isidro Preciado MD May 04, 2017 16:09
[2017-05-04] MEDS ORDERED: NITROGLYCERIN 0.4 MG SL 25 TABS/BTL SL ONE (16:15)
[2017-05-04] MEDS ORDERED: FUROSEMIDE 20 MG/2 ML VIAL IV PUSH ONE (16:15)
[2017-05-04] MEDS ORDERED: ASPIRIN 81 MG CHEW TAB PO ONE (16:15)
[2017-05-04] MEDS ORDERED: SODIUM CHLORIDE 0.9% FLUSH 10 ML FLUSH IVF PRN (16:15)
[2017-05-04 16:22] LABS: AUTOMATED NEUTROPHIL # 6.1 TH/MM3 (1.8-7.7); BASOPHIL % 0.6 % (0.0-2.0); EOSINOPHIL # 0.2 TH/MM3 (0-0.4); HEMATOCRIT 32.7 % (35.0-46.0); HEMO FLAGS DIFF FINAL; LYMPH % 6.6 % (9.0-44.0); LYMPHOCYTE # 0.5 TH/MM3 (1.0-4.8); MEAN CELL VOLUME 93.9 FL (80.0-100.0); MEAN CORPUSCULAR HEMOGLOBIN 31.7 PG (27.0-34.0); MEAN CORPUSCULAR HGB CONC 33.7 % (32.0-36.0); MONO % 9.9 % (0.0-8.0); NEUT % 79.9 % (16.0-70.0); PLATELET COUNT 276 TH/MM3 (150-450); RED BLOOD COUNT 3.48 MIL/MM3 (4.00-5.30); RED CELL DISTRIBUTION WIDTH 13.1 % (11.6-17.2); WHITE BLOOD COUNT 7.6 TH/MM3 (4.0-11.0)
--- NOTE | 2017-05-04 16:24 | RADRPT ---
EXAM DATE/TIME: 05/04/2017 16:09 [facility] COMPARISON: CHEST SINGLE AP, April 13, 2017, 15:15. INDICATIONS : Chest pain, cough, short of breath MEDICAL HISTORY : None. SURGICAL HISTORY : None. ENCOUNTER: Initial ACUITY: 2 weeks PAIN SCORE: 7/10 LOCATION: Bilateral chest FINDINGS: Interval development of consolidation in the left retrocardiac region causing loss of delineation of the medial one third of the left hemidiaphragm. There also new patchy infiltrates in the right infra hilar region causing some loss of delineation of the right heart border and right cardiophrenic angle . No evidence of pneumothorax. The heart size is normal. The upper lungs are clear. Evidence of p rior right shoulder surgery and healed left rib fractures. CONCLUSION: Interval development of bilateral lower lung infiltrates, left greater than right. Remington Grover MD on May 04, 2017 at 16:21 Board Certified Radiologist. This report was verified electronically.
[2017-05-04 16:34] LABS: APTT (PATIENT) 27.4 SEC (24.3-30.1); PROTHROMBIN TIME - PATIENT 11.3 SEC (9.8-11.6)
[2017-05-04 16:43] LABS: ALT (GPT) 32 U/L (10-53); ANION GAP 4 MEQ/L (5-15); AST (GOT) 14 U/L (15-37); BICARBONATE 28.9 MEQ/L (21.0-32.0); BLOOD UREA NITROGEN 14 MG/DL (7-18); CHLORIDE 104 MEQ/L (98-107); GLOMERULAR FILTRATION RATE 57 ML/MIN (>89); MAGNESIUM 2.3 MG/DL (1.5-2.5); POTASSIUM 3.8 MEQ/L (3.5-5.1); SODIUM (NA) 137 MEQ/L (136-145)
[2017-05-04 16:47] LABS: ALKALINE PHOSPHATASE 98 U/L (45-117); TOTAL BILIRUBIN ADULT 0.5 MG/DL (0.2-1.0)
[2017-05-04 16:50] LABS: CREATINE KINASE 34 U/L (26-192)
[2017-05-04] MEDS ORDERED: SENNOSIDES 8.6 MG TAB PO PRN (17:45)
[2017-05-04] MEDS ORDERED: APIXABAN 5 MG TABLET PO ONE (17:45)
[2017-05-04] MEDS ORDERED: BISACODYL 10 MG SUPP RECTAL PRN (17:45)
[2017-05-04] MEDS ORDERED: NALOXONE HCL 0.4 MG/ML AMP IV PUSH PRN (17:45)
[2017-05-04] MEDS ORDERED: MAGNESIUM HYDROXIDE SUSP 30 ML CUP PO PRN (17:45)
[2017-05-04] MEDS ORDERED: LACTULOSE SYRUP 20 GM/30 ML CUP PO PRN (17:45)
[2017-05-04 17:49] VITALS: BP 141/65; PULSE 107; RESP 18; O2SAT 95
[2017-05-04] MEDS ORDERED: RESP: IPRATROPIUM 0.5 MG/2.5 ML NEB NEB PRN (18:45)
[2017-05-04 19:47] VITALS: BP 118/68; PULSE 96; RESP 17; TEMP 98; O2SAT 94
[2017-05-04] MEDS: SODIUM CHLORIDE 0.9% FLUSH 10 ML FLUSH IV FLUSH SCH (20:34)
[2017-05-04] MEDS: APIXABAN 5 MG TABLET PO SCH (20:34)
[2017-05-04 23:45] VITALS: BP 121/70; PULSE 95; RESP 17; TEMP 98.3; O2SAT 96
--- NOTE | 2017-05-04 23:53 | HHI.HP ---
HPI Service [facility] Primary [facility] Physician No Primary Care Physician Admission Diagnosis congestive heart failure, pulmonary edema, chest pain Diagnoses: Travel History International Travel<30 Days: No Contact w/Intl Traveler <30 Da: No Traveled to Known Affected Are: No History of Present Illness was discharged about 2 weeks ago, was here for 8 days did not feel any better was getting weaker and weaker could not drive was short of breath was nervous and weak [facility] nurse kept watching her and felt she needed to come back did not check for fever, she is not sure if nurse checked- but then remembered [facility] nurse did say she had fever yellow color sputum no nausea/ no vomiting/ no diarrhea no burning or pain on urination no blood in urination was constipated, no black or no red color stool was short of breath no chest pains or tightness - but then just enough to get your attention lighted headed, but no syncope or falls lives on her own, used to drive prior to all this which started early was not able to fill eliquis because [facility] would not fill it for some reason - due to insurance reason Review of Systems Except as stated in HPI: all other systems reviewed are Neg Past Family Social History Past Medical History htn afib copd Allergies: Coded Allergies: Penicillins (Verified Allergy, Unknown, RASH, 05/04/17) Social History never smoked no drinking etoh or drug abuse lives alone, was still driving prior to early this month from these symptoms Physical Exam Vital Signs Vital Signs Date Time Temp Pulse Resp B/P (MAP) Pulse Ox O2 Delivery O2 Flow Rate FiO2 05/04/17 23:45 98.3 95 17 121/70 (87) 96 05/04/17 19:47 98.0 96 17 118/68 (85) 94 05/04/17 19:18 05/04/17 17:49 107 18 141/65 (90) 95 Room Air 05/04/17 16:09 95 Room Air 05/04/17 16:09 18 95 Room Air 05/04/17 16:01 94 Room Air 05/04/17 16:01 107 18 131/94 (106) 94 Room Air Physical Exam GENERAL: This is a well-nourished, well-developed patient, in no apparent distress. SKIN: No rashes, ecchymoses or lesions. Cool and dry. HEAD: Atraumatic. Normocephalic. No temporal or scalp tenderness. EYES: Pupils equal round and reactive. Extraocular motions intact. No scleral icterus. No injection or drainage. ENT: Nose without bleeding, purulent drainage or septal hematoma. Throat without erythema, tonsillar hypertrophy or exudate. Uvula midline. Airway patent. NECK: Trachea midline. No JVD or lymphadenopathy. Supple, nontender, no meningeal signs. CARDIOVASCULAR: Regular rate and rhythm without murmurs, gallops, or rubs. RESPIRATORY: Clear to auscultation. Breath sounds equal bilaterally. No wheezes , rales, or rhonchi. GASTROINTESTINAL: Abdomen soft, non-tender, nondistended. No hepato-splenomegaly , or palpable masses. No guarding. MUSCULOSKELETAL: Extremities without clubbing, cyanosis, or edema. No joint tenderness, effusion, or edema noted. No calf tenderness. Negative Homans sign bilaterally. NEUROLOGICAL: Awake and alert. Cranial nerves II through XII intact. Motor and sensory grossly within normal limits. Five out of 5 muscle strength in all muscle groups. Normal speech. Laboratory Laboratory Tests Test 05/04/17 16:12 White Blood Count 7.6 Red Blood Count 3.48 Hemoglobin 11.0 Hematocrit 32.7 Mean Corpuscular Volume 93.9 Mean Corpuscular Hemoglobin 31.7 Mean Corpuscular Hemoglobin Concent 33.7 Red Cell Distribution Width 13.1 Platelet Count 276 Mean Platelet Volume 7.9 Neutrophils (%) (Auto) 79.9 Lymphocytes (%) (Auto) 6.6 Monocytes (%) (Auto) 9.9 Eosinophils (%) (Auto) 3.0 Basophils (%) (Auto) 0.6 Neutrophils # (Auto) 6.1 Lymphocytes # (Auto) 0.5 Monocytes # (Auto) 0.8 Eosinophils # (Auto) 0.2 Basophils # (Auto) 0.0 CBC Comment DIFF FINAL Differential Comment Prothrombin Time 11.3 Prothromb Time International Ratio 1.0 Activated Partial Thromboplast Time 27.4 Blood Urea Nitrogen 14 Creatinine 0.95 Random Glucose 110 Total Protein 6.6 Albumin 3.3 Calcium Level 8.3 Magnesium Level 2.3 Alkaline Phosphatase 98 Aspartate Amino Transf (AST/SGOT) 14 Alanine Aminotransferase (ALT/SGPT) 32 Total Bilirubin 0.5 Sodium Level 137 Potassium Level 3.8 Chloride Level 104 Carbon Dioxide Level 28.9 Anion Gap 4 Estimat Glomerular Filtration Rate 57 Total Creatine Kinase 34 Troponin I LESS THAN 0.02 B-Type Natriuretic Peptide 287 Lipase 270 Result Diagram: 05/04/17161105/04/17 161 Caprini VTE Risk Assessment Caprini Risk Assessment Model Point Value = 1 Point Value = 2 Point Value = 3 Point Value = 5 Age 41-60 Minor surgery BMI > 25 kg/m2 Swollen legs Varicose veins or History of unexplained or recurrent spontaneous Oral contraceptives or hormone replacement Sepsis (< 1 month) Serious lung disease, including pneumonia (< 1 month) Abnormal pulmonary function Acute myocardial infarction Congestive heart failure (< 1 month) History of inflammatory bowel disease Medical patient at bed rest Age 61-74 Arthroscopic surgery Major open surgery (> 45 min) Laparoscopic surgery (> 45 min) Malignancy Confined to bed (> 72 hours) Immobilizing plaster cast Central venous access Age >= 75 History of VTE Family history of VTE Factor V Leiden Prothrombin [id number] Lupus anticoagulant Anticardiolipin antibodies Elevated serum homocysteine Heparin-induced thrombocytopenia Other congenital or acquired thrombophilia Stroke (< 1 month) Elective arthroplasty Hip, pelvis, or leg fracture Acute spinal cord injury (< 1 month) Prophylaxis Regimen Total Risk Factor Score Risk Level Prophylaxis Regimen 0-1 Low Early ambulation 2 Moderate Order ONE of the following: *Sequential Compression Device (SCD) *Heparin 5000 units SQ BID 3-4 Higher Order ONE of the following medications: *Heparin 5000 units SQ TID *Enoxaparin/Lovenox 40 mg SQ daily (WT < 150 kg, CrCl > 30 mL/min) *Enoxaparin/Lovenox 30 mg SQ daily (WT < 150 kg, CrCl > 10-29 mL/min) *Enoxaparin/Lovenox 30 mg SQ BID (WT < 150 kg, CrCl > 30 mL/min) AND/OR *Sequential Compression Device (SCD) 5 or more Highest Order ONE of the following medications: *Heparin 5000 units SQ TID (Preferred with Epidurals) *Enoxaparin/Lovenox 40 mg SQ daily (WT < 150 kg, CrCl > 30 mL/min) *Enoxaparin/Lovenox 30 mg SQ daily (WT < 150 kg, CrCl > 10-29 mL/min) *Enoxaparin/Lovenox 30 mg SQ BID (WT < 150 kg, CrCl > 30 mL/min) AND *Sequential Compression Device (SCD) Assessment and Plan Assessment and Plan hospital accquired pneumonia bronchiectasis bilateral LE edema- with normal echo early this month elevated BNP- somewhat chronic afib - rate controlled- however, not taking eliquis for past 2 weeks due to pharmacy/ insurance issues start on levofloxacin incentive spirometry LE US in am continue eliquis both for afib and possible DVT Warren Huff MD May 04, 2017 23:53
[2017-05-05] VITALS (16 sets, daily range): BP systolic 106–164; BP diastolic 67–85; PULSE 91–156; RESP 16–30; TEMP 98.1–98.8; O2SAT 92–99
[2017-05-05] MEDS ORDERED: RESP: IPRATROPIUM 0.5 MG/2.5 ML NEB NEB PRN (00:30)
[2017-05-05] MEDS: LEVOFLOXACIN 750 MG PREMIX INJ 150 ML IV SCH (01:12)
[2017-05-05] MEDS: RESP: IPRATROPIUM 0.5 MG/2.5 ML NEB NEB SCH ×4 (03:35→20:22)
[2017-05-05] MEDS ORDERED: DILTIAZEM-CD 180 MG CAP ER PO ONE (07:45)
[2017-05-05 07:53] LABS: AUTOMATED NEUTROPHIL # 7.7 TH/MM3 (1.8-7.7); BASOPHIL # 0.1 TH/MM3 (0-0.2); BASOPHIL % 0.6 % (0.0-2.0); EOSINOPHIL # 0.2 TH/MM3 (0-0.4); HEMATOCRIT 35.3 % (35.0-46.0); HEMO FLAGS DIFF FINAL; LYMPH % 5.5 % (9.0-44.0); LYMPHOCYTE # 0.5 TH/MM3 (1.0-4.8); MEAN CELL VOLUME 93.5 FL (80.0-100.0); MEAN CORPUSCULAR HEMOGLOBIN 31.5 PG (27.0-34.0); MEAN CORPUSCULAR HGB CONC 33.7 % (32.0-36.0); MONO % 7.7 % (0.0-8.0); NEUT % 84.2 % (16.0-70.0); PLATELET COUNT 222 TH/MM3 (150-450); RED BLOOD COUNT 3.78 MIL/MM3 (4.00-5.30); RED CELL DISTRIBUTION WIDTH 12.9 % (11.6-17.2); WHITE BLOOD COUNT 9.1 TH/MM3 (4.0-11.0)
[2017-05-05 08:19] LABS: ALT (GPT) 31 U/L (10-53); ANION GAP 9 MEQ/L (5-15); AST (GOT) 15 U/L (15-37); BICARBONATE 24.2 MEQ/L (21.0-32.0); BLOOD UREA NITROGEN 12 MG/DL (7-18); CHLORIDE 103 MEQ/L (98-107); GLOMERULAR FILTRATION RATE 62 ML/MIN (>89); POTASSIUM 4.2 MEQ/L (3.5-5.1); SODIUM (NA) 136 MEQ/L (136-145)
[2017-05-05 08:21] LABS: ALKALINE PHOSPHATASE 100 U/L (45-117); TOTAL BILIRUBIN ADULT 0.6 MG/DL (0.2-1.0)
--- NOTE | 2017-05-05 08:52 | RADRPT ---
EXAM DATE/TIME: 05/05/2017 07:52 [facility] COMPARISON: US LEG BILATERAL VENOUS DOPPLER, April 21, 2017, 11:37. INDICATIONS : Bilateral leg swelling. MEDICAL HISTORY : Hypertension. Afib. Uterine cancer. SURGICAL HISTORY : Hysterectomy.Appendectomy. Right shoulder surgery. ENCOUNTER: Subsequent ACUITY: 2 weeks PAIN SCORE: 0/10 LOCATION: Bilateral legs. TECHNIQUE: Venous ultrasound of the left and right leg was performed from the inguinal ligament to the proximal calf. Real-time, color Doppler and spectral tracing, compression and augmentation techniques were us ed. FINDINGS: RIGHT LEG: There is normal compressibility of the deep venous system from the inguinal region to the proximal ca lf. No echogenic clot is seen in the lumen of the common femoral, femoral, popliteal, and posterior tibial veins. There is a normal response of the venous system to proximal and distal augmentation an d respiration. Incidental note of right popliteal fossa cystic structure measuring 3.9 x 0.7 x 1.7 c m similar to prior exam. LEFT LEG: There is normal compressibility of the deep venous system from the inguinal region to the proximal ca lf. No echogenic clot is seen in the lumen of the common femoral, femoral, popliteal, and posterior tibial veins. There is a normal response of the venous system to proximal and distal augmentation an d respiration. CONCLUSION: 1. No sonographic evidence for lower extending DVT. 2. Redemonstration of small probable right-sided Rubi's cyst. Marcelino Boothe MD on May 05, 2017 at 8:46 Board Certified Radiologist. This report was verified electronically.
[2017-05-05] MEDS: CETIRIZINE HCL 10 MG TAB PO SCH (09:03)
[2017-05-05] MEDS: APIXABAN 5 MG TABLET PO SCH ×2 (09:03→20:37)
[2017-05-05] MEDS: METOPROLOL SUCCINATE 50 MG EXTENDED RELEASE TAB PO SCH (09:03)
[2017-05-05] MEDS: SODIUM CHLORIDE 0.9% FLUSH 10 ML FLUSH IV FLUSH SCH ×2 (09:03→20:37)
[2017-05-05] MEDS ORDERED: INFLUENZA VIRUS VACCINE (QUADRIVALENT) 0.5 ML SYR IM ONE (10:00)
--- NOTE | 2017-05-05 10:21 | HHI.PR ---
Subjective Remarks Follow up for pneumonia, afib with RVR. The patient is seen sitting upright on side of bed eating breakfast. The patient complains of shortness of breath, cough productive of white-yellow sputum, and chest congestion. She denies any palpitations or chest pains. Denies fevers or sweats but does report occasional chills. RN reported HR into the 150s this morning on telemetry. The patient currently lives alone in a senior care apartment. Objective Vitals Vital Signs Date Time Temp Pulse Resp B/P (MAP) Pulse Ox O2 Delivery O2 Flow Rate FiO2 05/05/17 08:56 99 21 05/05/17 07:40 98.1 156 30 106/69 (81) 96 05/05/17 05:37 96 05/05/17 03:51 98.6 91 16 119/68 (85) 94 05/05/17 00:45 95 Nasal Cannula 05/04/17 23:45 98.3 95 17 121/70 (87) 96 05/04/17 19:47 98.0 96 17 118/68 (85) 94 05/04/17 19:18 05/04/17 17:49 107 18 141/65 (90) 95 Room Air 05/04/17 16:09 95 Room Air 05/04/17 16:09 18 95 Room Air 05/04/17 16:01 94 Room Air 05/04/17 16:01 107 18 131/94 (106) 94 Room Air Result Diagram: 05/05/17 0715 05/05/17 0715 Imaging Last Impressions Lower Extremity Ultrasound 05/05/17 0113 Signed Impressions: Service Date/Time: Friday, May 05, 2017 07:52 - CONCLUSION: 1. No sonographic evidence for lower extending DVT. 2. Redemonstration of small probable right-sided Rubi's cyst. Marcelino Boothe MD Chest X-Ray 05/04/17 1604 Signed Impressions: Service Date/Time: Thursday, May 04, 2017 16:09 - CONCLUSION: Interval development of bilateral lower lung infiltrates, left greater than right. Remington Grover MD Objective Remarks GENERAL: Well-nourished, well-developed elderly female patient in [place]. SKIN: Warm and dry. HEENT: Normocephalic. Atraumatic.Pupils equal and round. Mucous membranes pink and moist. CARDIOVASCULAR: Tachycardia and Irregular rate and rhythm. S1, S2 noted. No murmur appreciated. RESPIRATORY: No accessory muscle use. Breath sounds diminished at bilateral bases. Breath sounds equal bilaterally. GASTROINTESTINAL: Abdomen soft, non-tender, nondistended. Normoactive bowel sounds x4. MUSCULOSKELETAL: No obvious deformities. 1+ bilateral lower extremity pitting edema. NEUROLOGICAL: Awake and alert. No obvious cranial nerve deficits. Motor grossly within normal limits. Moves all extremities spontaneously. Normal speech. PSYCHIATRIC: Appropriate mood and affect; insight and judgment normal. Medications and IVs Current Medications Medications (Trade) Dose Ordered Sig/Yosi Route Start Time Stop Time Status Last Admin (NS Flush) 2 ml UNSCH PRN IV FLUSH 05/04/17 17:45 (NS Flush) 2 ml BID IV FLUSH 05/04/17 21:00 05/05/17 09:03 (Narcan Inj) 0.4 mg UNSCH PRN IV PUSH 05/04/17 17:45 (Milk Of Magnesia Liq) 30 ml Q12H PRN PO 05/04/17 17:45 (Senokot) 17.2 mg Q12H PRN PO 05/04/17 17:45 (Dulcolax Supp) 10 mg DAILY PRN RECTAL 05/04/17 17:45 (Lactulose Liq) 30 ml DAILY PRN PO 05/04/17 17:45 (Eliquis) 5 mg BID PO 05/04/17 21:00 05/05/17 09:03 (Cardizem Cd) 360 mg DAILY PO 05/05/17 09:00 Future hold (Atrovent Neb) 0.5 mg Q8HR NEB PRN NEB 05/04/17 18:45 (Toprol Xl) 100 mg DAILY PO 05/05/17 09:00 05/05/17 09:03 (Flu (Quadrivalent) Vaccine Inj) 0.5 ml ONCE ONCE IM 05/05/17 10:00 05/05/17 10:01 05/05/17 09:04 (Atrovent Neb) 0.5 mg Q6HR NEB NEB 05/05/17 04:00 05/05/17 08:53 (Atrovent Neb) 0.5 mg Q2HR NEB PRN NEB 05/05/17 00:30 05/05/17 00:57 Levofloxacin/ Dextrose 150 ml @ 100 mls/hr Q24H IV 05/05/17 01:00 05/05/17 01:12 (ZyrTEC) 10 mg DAILY PO 05/05/17 09:00 05/05/17 09:03 A/P Problem List: (1) Hospital-acquired pneumonia ICD Code: J18.9 - Pneumonia, unspecified organism (2) Atrial fibrillation with RVR ICD Code: I48.91 - Unspecified atrial fibrillation Assessment and Plan 76-year-old female with history of newly diagnosed atrial fibrillation on Eliquis, hypertension, COPD, presents with SOB and weakness. Hospital Acquired Pneumonia: patient with recent hospitalization 04/13-04/21. CXR images reviewed by me, shows interval development of b/l lower lung infiltrates, L > R. Afebrile -Continue antibiotics with IV Levaquin -Nebs q6h yosi and prn -Tessalon prn cough -monitor for improvement Atrial fibrillation with RVR: recently diagnosed on previous admission. HR into 150s today on telemetry. -Continue patient's Cardizem CD 360mg daily and Toprol XL 100mg daily. -Continue patient's anticoagulation with Eliquis 5mg bid, ChadsVasc score 6. -Continue to monitor on telemetry, may need transfer to [facility] for IV Cardizem drip Shortness of Breath: suspect secondary to pneumonia as above. 2-D echo on 04/14 shows preserved LVEF, mild MR and MS; mild-mod TR. -continue antibiotics and nebs as above -currently O2 sat stable on room air Bilateral Lower extremity edema: -BLE Doppler U/S negative for DVT -Pt already anticoagulated w eliquis due to atrial fib. -encourage elevation of legs Generalized Weakness: Failed Outpatient. Suspect secondary to recent hospitalization in combination with current infection. -consult PT/OT, patient may benefit from rehab DVT Prophylaxis: on Eliquis Discharge Planning Discharge pending further clinical improvement. Not yet ready for discharge. Karon Logan PA-C May 05, 2017 10:21 am
[2017-05-05] MEDS ORDERED: BENZONATATE 100 MG CAP PO PRN (10:30)
[2017-05-05] MEDS ORDERED: DIGOXIN 0.5 MG/2 ML VIAL IVS STA (12:11)
[2017-05-05] MEDS: SODIUM CHLORIDE 0.9% FLUSH 10 ML FLUSH IV FLUSH PRN ×2 (13:47→18:19)
[2017-05-05] MEDS: DIGOXIN 0.5 MG/2 ML VIAL IVS SCH (18:20)
--- NOTE | 2017-05-05 21:18 | MB ---
cc: ISSAC PINA DO DATE OF CONSULTATION 05/05/17 REASON FOR CONSULTATION Atrial fibrillation, shortness of breath. HISTORY OF PRESENT ILLNESS Leigh Mcguire is a pleasant 76-year-old female who presented to [facility] on May 04, 2017 due to weakness. She was recently here two weeks ago and was found to be in new onset atrial fibrillation. At that time, she was started on Cardizem, metoprolol and Eliquis and discharged home after a few days. Since being home, she states that she has not felt better and feeling somewhat weaker and having difficulty at home taking care of herself. She also was noted to have palpitations and shortness of breath. She denies chest pain. In seeing her, she states that she is still having some trouble with shortness of breath but denies chest pain or palpitations. She was found to be in atrial fibrillation with rapid ventricular response upon arrival here, even though she was on her current medications of Cardizem and Metoprolol. PAST MEDICAL HISTORY 1. Hypertension 2. Atrial fibrillation 3. COPD. 4. 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 5. Uterine cancer. PAST SURGICAL HISTORY Hysterectomy. ALLERGIES PENICILLIN MEDICATIONS 1. Cetirizine 10 mg daily 2. Ipratropium 0.5 mg nebs nebulizer every 8 hours as needed for shortness of breath. 3. Eliquis 5 mg b.i.d. 4. Toprol XL 100 mg daily 5. Cardizem 360 mg daily. FAMILY HISTORY Father lived until the age of 92. Denies sudden cardiac within the family. SOCIAL HISTORY The patient moved here from [place] around three months ago. Denies tobacco, alcohol or drug abuse. REVIEW OF SYSTEMS 14-systems were reviewed including osteopathic. Pertinent positives and negatives above otherwise negative. PHYSICAL EXAMINATION VITAL SIGNS: Temperature 98.1, heart rate 108, blood pressure 124/85, respirations 24, pulse ox 94% on room air. GENERAL: The patient appears well in no acute distress, alert awake and oriented x3. HEENT: Extraocular muscles intact. Mucous membranes moist. NECK: Supple. No JVD at 45 degrees. No carotid bruits heard bilaterally. Carotid upstroke is brisk in nature. HEART: Irregularly irregular. Positive first and second heart sounds with no murmurs, gallops or rubs. LUNGS: Decreased breath sounds bilaterally but no overt wheezes, rales or rhonchi. ABDOMEN: Soft, nontender, nondistended. No organomegaly noted. EXTREMITIES: No clubbing, cyanosis or edema. Femoral and distal pulses intact bilaterally. NEUROLOGIC: No focal deficits. SKIN: Warm, dry and intact. OSTEOPATHIC: No kyphoscoliosis, lordosis or paraspinal tender points. LABORATORY FINDINGS Hemoglobin 11.9, hematocrit 35.3, platelets 222. Potassium 4.2, BUN 12, creatinine 0.89, troponin negative x3. CARDIOLOGY STUDIES Electrocardiogram (May 05, 2017 at 01:17) atrial fibrillation with rapid ventricular response, possible right ventricular conduction delay, poor R-wave progression possibly due to anterior septal myocardial infarction. IMPRESSION 1. Atrial fibrillation with rapid ventricular response. 2. Possible hospital-acquired pneumonia. 3. Shortness of breath possibly due to pneumonia versus acute heart failure secondary to rapid ventricular response. 4. Generalized weakness. RECOMMENDATIONS 1. Ms. Mcguire appears to have breakthrough atrial fibrillation with rapid ventricular response on beta arie and calcium channel arie therapy. We will plan on loading her with Digoxin and keeping her on Digoxin daily with a plan for checking a Digoxin level in the next 7-10 days. 2. We will continue her on Eliquis for anticoagulation due to a CHADS VAS score of six. She had difficulty getting this outpatient due to insurance and this will have to be figured out for her to continue on it. 3. Consideration should be made for possible rehab as she has difficulty at home with her weakness. 4, Further recommendations will be made based on the hospital course. Thank you for allowing me to see Leigh Mcguire. If there are any questions, please do not hesitate to call. Issac Pina DO VGP/SA /7:59 PM /9:03 PM
[2017-05-06] VITALS (15 sets, daily range): BP systolic 136–150; BP diastolic 70–80; PULSE 61–101; RESP 16–18; TEMP 97.5–99.4; O2SAT 93–99
[2017-05-06] MEDS: LEVOFLOXACIN 750 MG PREMIX INJ 150 ML IV SCH (01:03)
[2017-05-06] MEDS: DIGOXIN 0.5 MG/2 ML VIAL IVS SCH (01:04)
[2017-05-06] MEDS: RESP: IPRATROPIUM 0.5 MG/2.5 ML NEB NEB SCH ×4 (03:38→20:39)
--- NOTE | 2017-05-06 07:30 | EKG ---
Date Performed: 05/04/2017 Time Performed: 16:20:33 PTAGE: 76 years EKG: ATRIAL FIBRILLATION WITH RAPID VENTRICULAR RESPONSE SEPTAL MYOCARDIAL INFARCTION, AGE UNDET ERMINED ABNORMAL ECG PREVIOUS TRACING : 04/13/2017 14.42 DOCTOR: Calos Small Interpretating Date/Time 05/06/2017 07:29:45
--- NOTE | 2017-05-06 07:31 | EKG ---
Date Performed: 05/04/2017 Time Performed: 22:10:11 PTAGE: 76 years EKG: ATRIAL FIBRILLATION ANTEROSEPTAL MYOCARDIAL INFARCTION, AGE UNDETERMINED ABNORMAL ECG Lei red to prior tracing no significant change PREVIOUS TRACING : 05/04/2017 16.20 DOCTOR: Calos Small Interpretating Date/Time 05/06/2017 07:30:00
--- NOTE | 2017-05-06 07:31 | EKG ---
Date Performed: 05/05/2017 Time Performed: 01:17:23 PTAGE: 76 years EKG: ATRIAL FIBRILLATION WITH RAPID VENTRICULAR RESPONSE POSSIBLE RIGHT VENTRICULAR CONDUCTION D ELAY ANTEROSEPTAL MYOCARDIAL INFARCTION, AGE UNDETERMINED ABNORMAL ECG Compared to prior tracing no s ignificant change PREVIOUS TRACING : 05/04/2017 22.10 DOCTOR: Calos Small Interpretating Date/Time 05/06/2017 07:30:13
[2017-05-06] MEDS: SODIUM CHLORIDE 0.9% FLUSH 10 ML FLUSH IV FLUSH SCH ×2 (09:20→21:02)
[2017-05-06] MEDS: CETIRIZINE HCL 10 MG TAB PO SCH (09:21)
[2017-05-06] MEDS: DIGOXIN 0.25 MG TAB PO SCH (09:21)
[2017-05-06] MEDS: METOPROLOL SUCCINATE 50 MG EXTENDED RELEASE TAB PO SCH (09:21)
[2017-05-06] MEDS: DILTIAZEM-CD 180 MG CAP ER PO SCH (09:21)
[2017-05-06] MEDS: APIXABAN 5 MG TABLET PO SCH ×2 (09:21→21:02)
--- NOTE | 2017-05-06 11:59 | HHI.PR ---
Subjective Remarks Follow up for pneumonia, afib with RVR. Ms. Mcguire is currently doing well. Eating her lunch. No acute concerns. She does not want to go to rehabilitation. However she feels that she is not ready to go home yet. Objective Vitals Vital Signs Date Time Temp Pulse Resp B/P (MAP) Pulse Ox O2 Delivery O2 Flow Rate FiO2 05/06/17 11:29 98.1 87 16 140/70 (93) 97 05/06/17 10:07 97 21 05/06/17 07:47 97.6 90 18 136/78 (97) 95 05/06/17 03:53 99.4 77 18 150/74 (99) 05/06/17 03:40 79 05/06/17 00:00 61 05/05/17 23:22 98.8 91 18 156/83 (107) 92 05/05/17 20:25 95 05/05/17 20:00 97 05/05/17 18:20 112 05/05/17 16:05 93 05/05/17 14:58 98.3 95 24 164/73 (103) 93 05/05/17 14:34 96 05/05/17 13:48 98 141/67 (91) 05/05/17 12:05 107 I/O 05/05/17 05/05/17 05/05/17 05/06/17 05/06/17 05/06/17 07:00 15:00 23:00 07:00 15:00 23:00 Intake Total 150 ml 150 ml Balance 150 ml 150 ml Intake IV Total 150 ml 150 ml # Voids 2 1 Result Diagram: 05/05/1715 05/05/1715 Imaging Last Impressions Lower Extremity Ultrasound 05/05/17 0113 Signed Impressions: Service Date/Time: Friday, May 05, 2017 07:52 - CONCLUSION: 1. No sonographic evidence for lower extending DVT. 2. Redemonstration of small probable right-sided Rubi's cyst. Marcelino Boothe MD Chest X-Ray 05/04/17 1601 Signed Impressions: Service Date/Time: Thursday, May 04, 2017 16:09 - CONCLUSION: Interval development of bilateral lower lung infiltrates, left greater than right. Remington Grover MD Objective Remarks GENERAL: Alert, oriented 3, NAD. SKIN: Warm and dry. HEAD: Normocephalic. EYES: No scleral icterus. No injection or drainage. NECK: Supple, trachea midline. No JVD or lymphadenopathy. CARDIOVASCULAR: Regular rate and rhythm without murmurs, gallops, or rubs. RESPIRATORY: Breath sounds equal bilaterally. No accessory muscle use. GASTROINTESTINAL: Abdomen soft, non-tender, nondistended. MUSCULOSKELETAL: No cyanosis, or edema. BACK: Nontender without obvious deformity. No CVA tenderness. Procedures None A/P Problem List: (1) Hospital-acquired pneumonia ICD Code: J18.9 - Pneumonia, unspecified organism (2) Atrial fibrillation with RVR ICD Code: I48.91 - Unspecified atrial fibrillation Assessment and Plan 76-year-old female with history of newly diagnosed atrial fibrillation on Eliquis, hypertension, COPD, presents with SOB and weakness. Hospital Acquired Pneumonia: patient with recent hospitalization 04/13-04/21. CXR shows interval development of b/l lower lung infiltrates, L > R. Afebrile -Continue antibiotics Levaquin. We'll switch Levaquin to by mouth. -Nebs q6h sara and prn -Tessalon prn cough Atrial fibrillation with RVR: recently diagnosed on previous admission. -Continue patient's Cardizem CD 360mg daily and Toprol XL 100mg daily. -Continue patient's anticoagulation with Eliquis 5mg bid, [id number] score 6. -Cardiology started patient on digoxin. Currently on digoxin 0.25 by mouth daily. Shortness of Breath: suspect secondary to pneumonia as above. 2-D echo on 04/14 shows preserved LVEF, mild MR and MS; mild-mod TR. -continue antibiotics and nebs as above -currently O2 sat stable on room air Bilateral Lower extremity edema: -BLE Doppler U/S negative for DVT -Pt already anticoagulated w eliquis due to atrial fib. -encourage elevation of legs Generalized Weakness: Failed Outpatient. Suspect secondary to recent hospitalization in combination with current infection. -consult PT/OT. Patient does not want to go to rehabilitation. She wants to go home. Full code. Apixaban. Vincent Mays DO May 06, 2017 11:59 am
--- NOTE | 2017-05-06 22:42 | PD.CARD.PN ---
Subjective Subjective Remarks No events overnight Heart rates better controlled on digoxin Weak, otherwise no complaints Objective Medications Current Medications Medications (Trade) Dose Ordered Sig/Yosi Route Start Time Stop Time Status Last Admin (NS Flush) 2 ml UNSCH PRN IV FLUSH 05/04/17 17:45 05/05/17 18:19 (NS Flush) 2 ml BID IV FLUSH 05/04/17 21:00 05/06/17 21:02 (Narcan Inj) 0.4 mg UNSCH PRN IV PUSH 05/04/17 17:45 (Milk Of Magnesia Liq) 30 ml Q12H PRN PO 05/04/17 17:45 (Senokot) 17.2 mg Q12H PRN PO 05/04/17 17:45 (Dulcolax Supp) 10 mg DAILY PRN RECTAL 05/04/17 17:45 (Lactulose Liq) 30 ml DAILY PRN PO 05/04/17 17:45 05/05/17 20:47 (Eliquis) 5 mg BID PO 05/04/17 21:00 05/06/17 21:02 (Cardizem Cd) 360 mg DAILY PO 05/05/17 09:00 Future hold 05/06/17 09:21 (Atrovent Neb) 0.5 mg Q8HR NEB PRN NEB 05/04/17 18:45 (Toprol Xl) 100 mg DAILY PO 05/05/17 09:00 05/06/17 09:21 (Atrovent Neb) 0.5 mg Q6HR NEB NEB 05/05/17 04:00 05/06/17 15:55 (Atrovent Neb) 0.5 mg Q2HR NEB PRN NEB 05/05/17 00:30 05/05/17 00:57 (ZyrTEC) 10 mg DAILY PO 05/05/17 09:00 05/06/17 09:21 (Tessalon) 100 mg TID PRN PO 05/05/17 10:30 05/05/17 20:47 (Lanoxin) 0.25 mg DAILY PO 05/06/17 09:00 05/06/17 09:21 (Levaquin) 750 mg DAILY PO 05/07/17 09:00 05/12/17 08:59 Vital Signs / I&O Vital Signs Date Time Temp Pulse Resp B/P (MAP) Pulse Ox O2 Delivery O2 Flow Rate FiO2 05/06/17 20:39 99 21 05/06/17 20:12 97.5 77 18 136/71 (92) 94 05/06/17 19:59 77 05/06/17 16:30 68 05/06/17 16:18 98.1 68 16 145/71 (95) 98 05/06/17 12:00 73 05/06/17 11:29 98.1 87 16 140/70 (93) 97 05/06/17 10:07 97 21 05/06/17 08:10 101 05/06/17 07:47 97.6 90 18 136/78 (97) 95 05/06/17 03:53 99.4 77 18 150/74 (99) 05/06/17 03:40 79 05/06/17 00:00 61 05/05/17 23:22 98.8 91 18 156/83 (107) 92 I/O 05/05/17 05/05/17 05/05/17 05/06/17 05/06/17 05/06/17 07:00 15:00 23:00 07:00 15:00 23:00 Intake Total 150 ml 150 ml Balance 150 ml 150 ml Intake IV Total 150 ml 150 ml # Voids 2 1 2 Physical Exam GENERAL: NAD, AAOx3 SKIN: Warm and dry. HEAD: Atraumatic. Normocephalic. EYES: Pupils equal and round. No scleral icterus. No injection or drainage. ENT: No nasal bleeding or discharge. Mucous membranes pink and moist. NECK: Trachea midline. No JVD. CARDIOVASCULAR: Irregularly irregular RESPIRATORY: No accessory muscle use. Clear to auscultation. Breath sounds equal bilaterally. GASTROINTESTINAL: Abdomen soft, non-tender, nondistended. Hepatic and splenic margins not palpable. MUSCULOSKELETAL: Extremities without clubbing, cyanosis, or edema. No obvious deformities. NEUROLOGICAL: Awake and alert. No obvious cranial nerve deficits. Motor grossly within normal limits. Five out of 5 muscle strength in the arms and legs. Normal speech. PSYCHIATRIC: Appropriate mood and affect; insight and judgment normal. Assessment and Plan Problem List: (1) Atrial fibrillation with RVR ICD Codes: I48.91 - Unspecified atrial fibrillation (2) Hospital-acquired pneumonia ICD Codes: J18.9 - Pneumonia, unspecified organism (3) Acute bronchitis ICD Codes: J20.9 - Acute bronchitis, unspecified (4) HTN (hypertension) ICD Codes: I10 - Essential (primary) hypertension (5) Physical deconditioning ICD Codes: R53.81 - Other malaise Assessment and Plan 1) Heart rates well controlled on Cardizem/Toprol/Digoxin 2) Needs Digoxin level in 7-10 days 3) Eliquis for anti-coagulation 4) Plan possible outpatient stress test, will discuss further in the office Issac Mary DO May 06, 2017 22:42
[2017-05-07] VITALS: BP 146/61; PULSE 83; RESP 20; TEMP 97.8; O2SAT 94
[2017-05-07 05:07] VITALS: BP 139/65; PULSE 68; RESP 18; TEMP 98; O2SAT 93
[2017-05-07 07:00] VITALS: BP 159/74; PULSE 80; RESP 16; TEMP 98.2; O2SAT 94
[2017-05-07 08:00] VITALS: BP 162/76; PULSE 78; PULSE 79; RESP 20; TEMP 97.9; O2SAT 93
[2017-05-07] MEDS ORDERED: LEVOFLOXACIN 750 MG TAB PO SCH (09:00)
[2017-05-07] MEDS: SODIUM CHLORIDE 0.9% FLUSH 10 ML FLUSH IV FLUSH SCH (09:00)
[2017-05-07] MEDS: RESP: IPRATROPIUM 0.5 MG/2.5 ML NEB NEB SCH ×2 (09:49→15:28)
[2017-05-07] MEDS: CETIRIZINE HCL 10 MG TAB PO SCH (09:57)
[2017-05-07] MEDS: APIXABAN 5 MG TABLET PO SCH (09:58)
[2017-05-07] MEDS ORDERED: LEVA750T9 PO (09:58)
[2017-05-07] MEDS: DILTIAZEM-CD 180 MG CAP ER PO SCH (09:59)
[2017-05-07] MEDS: DIGOXIN 0.25 MG TAB PO SCH (09:59)
[2017-05-07] MEDS: METOPROLOL SUCCINATE 50 MG EXTENDED RELEASE TAB PO SCH (10:01)
--- NOTE | 2017-05-07 10:23 | HHI.DCPOC ---
Discharge Care Plan Diagnosis: (1) Physical deconditioning (2) HTN (hypertension) (3) Hospital-acquired pneumonia (4) Atrial fibrillation with RVR (5) Acute bronchitis Your Health Problems Are: Cough Shortness of Breath Goals to Promote Your Health * To prevent worsening of your condition and complications * To maintain your health at the optimal level Directions to Meet Your Goals Take your medications as prescribed Follow your dietary instruction Follow activity as directed Keep your appointments as scheduled Take your immunizations and boosters as scheduled If your symptoms worsen call your PCP, if no PCP go to Urgent Care Center or Emergency Room Smoking is Dangerous to Your Health. Avoid second hand smoke Call the 24-hour hour crisis hotline for domestic abuse at [facility] May 07, 2017 10:23 am
[2017-05-07 11:22] VITALS: BP 141/75; PULSE 78; RESP 14; TEMP 97.2; O2SAT 96
[2017-05-07] MEDS ORDERED: hydrALAZINE HCL 20 MG/ML VIAL IV PUSH PRN (12:00)
[2017-05-07] MEDS ORDERED: ENALAPRILAT 1.25 MG/ML VIAL IV PUSH PRN (12:00)
[2017-05-07] MEDS ORDERED: cloNIDine HCL 0.1 MG TAB PO PRN (12:00)
--- NOTE | 2017-05-07 13:53 | HHI.DS ---
Discharge Summary Admission Date May 06, 2017 at 11:53 Discharge Date: May 07, 2017 Admitting Diagnosis congestive heart failure, pulmonary edema, chest pain (1) Hospital-acquired pneumonia ICD Code: J18.9 - Pneumonia, unspecified organism Diagnosis: Principal (2) Atrial fibrillation with RVR ICD Code: I48.91 - Unspecified atrial fibrillation Diagnosis: Principal Procedures None Brief History - From Admission was discharged about 2 weeks ago, was here for 8 days did not feel any better was getting weaker and weaker could not drive was short of breath was nervous and weak [facility] nurse kept watching her and felt she needed to come back did not check for fever, she is not sure if nurse checked- but then remembered [facility] nurse did say she had fever yellow color sputum no nausea/ no vomiting/ no diarrhea no burning or pain on urination no blood in urination was constipated, no black or no red color stool was short of breath no chest pains or tightness - but then just enough to get your attention lighted headed, but no syncope or falls lives on her own, used to drive prior to all this which started early was not able to fill eliquis because [facility] would not fill it for some reason - due to insurance reason CBC/BMP: 05/05/17 0715 05/05/17 0715 Significant Findings Laboratory Tests Test 05/04/17 16:12 05/05/17 01:26 05/05/17 07:15 Red Blood Count 3.48 MIL/MM3 (4.00-5.30) 3.78 MIL/MM3 (4.00-5.30) Hemoglobin 11.0 GM/DL (11.6-15.3) Hematocrit 32.7 % (35.0-46.0) Neutrophils (%) (Auto) 79.9 % (16.0-70.0) 84.2 % (16.0-70.0) Lymphocytes (%) (Auto) 6.6 % (9.0-44.0) 5.5 % (9.0-44.0) Monocytes (%) (Auto) 9.9 % (0.0-8.0) Lymphocytes # (Auto) 0.5 TH/MM3 (1.0-4.8) 0.5 TH/MM3 (1.0-4.8) Random Glucose 110 MG/DL (74-106) Albumin 3.3 GM/DL (3.4-5.0) 3.0 GM/DL (3.4-5.0) Calcium Level 8.3 MG/DL (8.5-10.1) 8.3 MG/DL (8.5-10.1) Aspartate Amino Transf (AST/SGOT) 14 U/L (15-37) Anion Gap 4 MEQ/L (5-15) Estimat Glomerular Filtration Rate 57 ML/MIN (>89) 62 ML/MIN (>89) Troponin I LESS THAN 0.02 NG/ML LESS THAN 0.02 NG/ML LESS THAN 0.02 NG/ML B-Type Natriuretic Peptide 287 PG/ML (0-100) Imaging Last Impressions Lower Extremity Ultrasound 05/05/17 0113 Signed Impressions: Service Date/Time: Friday, May 05, 2017 07:52 - CONCLUSION: 1. No sonographic evidence for lower extending DVT. 2. Redemonstration of small probable right-sided Rubi's cyst. Marcelino Boothe MD Chest X-Ray 05/04/17 1604 Signed Impressions: Service Date/Time: Thursday, May 04, 2017 16:09 - CONCLUSION: Interval development of bilateral lower lung infiltrates, left greater than right. Remington Grover MD PE at Discharge GENERAL: Alert, oriented 3, NAD. SKIN: Warm and dry. HEAD: Normocephalic. EYES: No scleral icterus. No injection or drainage. NECK: Supple, trachea midline. No JVD or lymphadenopathy. CARDIOVASCULAR: Regular rate and rhythm without murmurs, gallops, or rubs. RESPIRATORY: Breath sounds equal bilaterally. No accessory muscle use. GASTROINTESTINAL: Abdomen soft, non-tender, nondistended. MUSCULOSKELETAL: No cyanosis, or edema. BACK: Nontender without obvious deformity. No CVA tenderness. Hospital Course 76-year-old female with history of newly diagnosed atrial fibrillation on Eliquis, hypertension, COPD, presents with SOB and weakness. Hospital Acquired Pneumonia: patient with recent hospitalization 04/13-04/21. CXR shows interval development of b/l lower lung infiltrates, L > R. Afebrile -Continue antibiotics Levaquin. We'll switch Levaquin to by mouth. Repeat chest x-ray in 6 weeks -Nebs q6h sara and prn -Tessalon prn cough Atrial fibrillation with RVR: recently diagnosed on previous admission. -Continue patient's Cardizem CD 360mg daily and Toprol XL 100mg daily. -Continue patient's anticoagulation with Eliquis 5mg bid, [id number] score 6. -Cardiology started patient on digoxin. Currently on digoxin 0.25 by mouth daily. Check level in one week Shortness of Breath: suspect secondary to pneumonia as above. 2-D echo on 04/14 shows preserved LVEF, mild MR and MS; mild-mod TR. -continue antibiotics and nebs as above -currently O2 sat stable on room air Bilateral Lower extremity edema: -BLE Doppler U/S negative for DVT -Pt already anticoagulated w eliquis due to atrial fib. -encourage elevation of legs Generalized Weakness: Failed Outpatient. Suspect secondary to recent hospitalization in combination with current infection. -consult PT/OT. Patient does not want to go to rehabilitation. She wants to go home. Home care with PT and visiting nurse Full code. Apixaban. Pt Condition on Discharge: Stable Discharge Disposition: Disch w/ Home Health Serv Discharge Time: > 30 minutes Discharge Instructions DIET: Follow Instructions for: Heart Healthy Diet Activities you can perform: Regular-No Restrictions Activities to Avoid: Driving Follow up Referrals: Cardiology - 1 Week PCP Follow-up - 1 Week New Orders: BASIC METABOLIC PROF - 1 Week DIGOXIN - 1 Week X-RAY CHEST PA & LAT - 6 Weeks New Medications: Digoxin (Digoxin) 0.25 Mg Tab 0.25 MG PO DAILY for Regulate Heart Beat, #30 TAB Levofloxacin (Levaquin) 750 Mg Tablet 750 MG PO DAILY for Infection, #7 TAB Continued Medications: Apixaban (Eliquis) 5 Mg Tab 5 MG PO BID for 30 Days, #60 TAB Ascorbic Acid (Vitamin C) 250 Mg Tab 500 MG PO for Nutritional Supplement, TAB 0 Refills Calcium-Vitamins D & K (Calcium + D & K) 500-1,000-40 Mg-Unit-Mcg Chew 1 TAB CHEW for Nutritional Supplement, TAB 0 Refills Cetirizine (Cetirizine) 10 Mg Tab 10 MG PO DAILY for Allergies, TAB 0 Refills Cyanocobalamin (Vitamin B-12) 500 Mcg Tab 500 MCG PO DAILY for Nutritional Supplement, #1 BOTTLE 0 Refills Diltiazem CD 24 HR (Cardizem CD 24 HR) 180 Mg Caper 360 MG PO DAILY for 30 Days, #60 CAP Ginkgo Biloba [place] Extract (Ginkgo Biloba) 60 Mg Tablet Glucosamine (Glucosamine) 1,000 Mg Cap 1000 MG PO DAILY for Herbal Supplements, CAP 0 Refills Ipratropium Neb (Ipratropium Neb) 0.5 Mg/2.5 Ml Amp 0.5 MG NEB Q8HR PRN for SHORTNESS OF BREATH, #1 BOX Metoprolol Succinate ER 24 HR (Metoprolol Succinate ER 24 HR) 50 Mg Tab 100 MG PO DAILY for 30 Days, #60 TAB Multiple Vitamin (Multiple Vitamin) 1 Tab 1 TAB PO DAILY for Nutritional Supplement, TAB 0 Refills Nebulizer (Nebulizer) 1 Mis Mis EA .ROUTE DIRECTED for Breathing Treatment, #1 0 Refills Walker with Front Wheels (Walker with Front Wheels) 1 Mis Mis EA .ROUTE DIRECTED, #1 0 Refills Clay Otero MD May 07, 2017 13:53
--- NOTE | 2017-05-07 13:55 | PD.CARD.PN ---
Subjective Subjective Remarks No events overnight Heart rates better controlled on digoxin Weak, otherwise no complaints Objective Medications Current Medications Medications (Trade) Dose Ordered Sig/[place]osi Route Start Time Stop Time Status Last Admin (NS Flush) 2 ml UNSCH PRN IV FLUSH 05/04/17 17:45 05/05/17 18:19 (NS Flush) 2 ml BID IV FLUSH 05/04/17 21:00 05/07/17 09:00 (Narcan Inj) 0.4 mg UNSCH PRN IV PUSH 05/04/17 17:45 (Milk Of Magnesia Liq) 30 ml Q12H PRN PO 05/04/17 17:45 (Senokot) 17.2 mg Q12H PRN PO 05/04/17 17:45 (Dulcolax Supp) 10 mg DAILY PRN RECTAL 05/04/17 17:45 (Lactulose Liq) 30 ml DAILY PRN PO 05/04/17 17:45 05/05/17 20:47 (Eliquis) 5 mg BID PO 05/04/17 21:00 05/07/17 09:58 (Cardizem Cd) 360 mg DAILY PO 05/05/17 09:00 Future hold 05/07/17 09:59 (Atrovent Neb) 0.5 mg Q8HR NEB PRN NEB 05/04/17 18:45 (Toprol Xl) 100 mg DAILY PO 05/05/17 09:00 05/07/17 10:01 (Atrovent Neb) 0.5 mg Q6HR NEB NEB 05/05/17 04:00 05/07/17 09:49 (Atrovent Neb) 0.5 mg Q2HR NEB PRN NEB 05/05/17 00:30 05/05/17 00:57 (ZyrTEC) 10 mg DAILY PO 05/05/17 09:00 05/07/17 09:57 (Tessalon) 100 mg TID PRN PO 05/05/17 10:30 05/05/17 20:47 (Lanoxin) 0.25 mg DAILY PO 05/06/17 09:00 05/07/17 09:59 (Levaquin) 750 mg DAILY PO 05/07/17 09:00 05/12/17 08:59 05/07/17 09:58 (Vasotec Inj) 1.25 mg Q6HR PRN IV PUSH 05/07/17 12:00 (Apresoline Inj) 10 mg Q6HR PRN IV PUSH 05/07/17 12:00 (Catapres) 0.1 mg Q6HR PRN PO 05/07/17 12:00 Vital Signs / I&O Vital Signs Date Time Temp Pulse Resp B/P (MAP) Pulse Ox O2 Delivery O2 Flow Rate FiO2 05/07/17 11:22 97.2 78 14 141/75 (97) 96 05/07/17 08:00 97.9 79 20 162/76 (104) 93 05/07/17 08:00 78 05/07/17 07:00 98.2 80 16 159/74 (102) 94 05/07/17 05:07 98.0 68 18 139/65 (89) 93 05/07/17 00:00 97.8 83 20 146/61 (89) 94 05/06/17 22:09 69 05/06/17 21:50 98.7 76 18 148/80 (102) 93 05/06/17 20:39 99 21 05/06/17 20:12 97.5 77 18 136/71 (92) 94 05/06/17 19:59 77 05/06/17 16:30 68 05/06/17 16:18 98.1 68 16 145/71 (95) 98 I/O 05/06/17 05/06/17 05/06/17 05/07/17 05/07/17 05/07/17 07:00 15:00 23:00 07:00 15:00 23:00 Intake Total 150 ml 120 ml Output Total 250 ml Balance 150 ml -130 ml Intake Oral 120 ml IV Total 150 ml Output Urine Total 250 ml # Voids 2 # Bowel Movements 0 Physical Exam GENERAL: NAD, AAOx3 SKIN: Warm and dry. HEAD: Atraumatic. Normocephalic. EYES: Pupils equal and round. No scleral icterus. No injection or drainage. ENT: No nasal bleeding or discharge. Mucous membranes pink and moist. NECK: Trachea midline. No JVD. CARDIOVASCULAR: Irregularly irregular RESPIRATORY: No accessory muscle use. Clear to auscultation. Breath sounds equal bilaterally. GASTROINTESTINAL: Abdomen soft, non-tender, nondistended. Hepatic and splenic margins not palpable. MUSCULOSKELETAL: Extremities without clubbing, cyanosis, or edema. No obvious deformities. NEUROLOGICAL: Awake and alert. No obvious cranial nerve deficits. Motor grossly within normal limits. Five out of 5 muscle strength in the arms and legs. Normal speech. PSYCHIATRIC: Appropriate mood and affect; insight and judgment normal. Assessment and Plan Problem List: (1) Atrial fibrillation with RVR ICD Codes: I48.91 - Unspecified atrial fibrillation (2) Hospital-acquired pneumonia ICD Codes: J18.9 - Pneumonia, unspecified organism (3) Acute bronchitis ICD Codes: J20.9 - Acute bronchitis, unspecified (4) HTN (hypertension) ICD Codes: I10 - Essential (primary) hypertension (5) Physical deconditioning ICD Codes: R53.81 - Other malaise Assessment and Plan 1) Heart rates well controlled on Cardizem/Toprol/Digoxin 2) Needs Digoxin level in 7-10 days 3) Eliquis for anti-coagulation 4) Plan possible outpatient stress test, will discuss further in the office 5) Cardiovascularly stable for discharge Overall suggest the patient go to rehab if she's willing due to weakness Issac Mary DO May 07, 2017 13:55
--- NOTE | 2017-05-07 16:10 | HHI.FF ---
Face to Face Verification Diagnosis: (1) Atrial fibrillation with RVR (2) Hospital-acquired pneumonia Physical Therapy Order: Evaluate and Treat, Improve ambulation, Strength and gait training Home Health Nursing Order: Medical education Oxygen administration education Medication education-adverse effect Nursing assessment with vital signs I have seen patient Leigh Mcguire on 05/07/17. My clinical findings support the need for the requested home health care services because: Ltd mobility - disease progression Patient has SOB I certify that my clinical findings support that this patient is homebound because: Unsafe to leave home unassisted Clay Otero MD May 07, 2017 16:10
[2017-05-07] MEDS ORDERED: DIGO0.25 PO (16:13)
== END 2017-05-07 18:38 | disposition home health service (06) | DRG 194 ==
LOC: NEPE 15:40 → NEDA 17:37 → NEPGCP 19:09 → OBSVTOIN 05-06 11:53 → N04B 05-06 21:43
PROVIDERS: ADMIT Internal Medicine; ATTEND Internal Medicine
DX: J18.9 Pneumonia, unspecified organism (principal); J47.0 Bronchiectasis with acute lower respiratory infection; I50.9 Heart failure, unspecified; I11.0 Hypertensive heart disease with heart failure; I48.91 Unspecified atrial fibrillation; J20.9 Acute bronchitis, unspecified; R53.81 Other malaise; M19.90 Unspecified osteoarthritis, unspecified site; Y95 Nosocomial condition; Z86.73 Personal history of transient ischemic attack (TIA), and cerebral infarction without residual deficits; Z23 Encounter for immunization; Z79.01 Long term (current) use of anticoagulants; Z85.42 Personal history of malignant neoplasm of other parts of uterus
CPT/HCPCS: 71010; 80053; 82550; 83690; 83735; 83880; 84484; 85025; 85610; 85730; 90686; 93005; 93970; 94150; 94640; 94664; 96365; 96366; 96375; 96376; G0378; G8987-GP; G8988-GP; J1160; J1940; J1956; J7644; Q2038

== ENCOUNTER 2017-05-15 13:15 | Inpatient (IN) | payer MEDICARE, OTHER ==
[~2017-05-15] VITALS: Ht 162.6 cm; Wt 60.0 kg
[2017-05-15] VITALS (8 sets, daily range): BP systolic 134–162; BP diastolic 65–80; PULSE 51–66; RESP 14–18; TEMP 97.8–98.7; O2SAT 95–98
[~2017-05-15 13:15] MED LIST changes: +CALCCHW25 CHEW; +CETI10 PO; +DIGO0.25 PO; +GINK60TA10 PO; +GLUC100013 PO; +LEVA750T9 PO; +METO1TAB9 PO; -METO50TA11 PO; +VITA250T3 PO; +VITA500T4 PO
--- NOTE | 2017-05-15 13:57 | PD ---
HPI Chief Complaint: Respiratory Symptoms Time Seen by Provider: 13:51 Travel History International Travel<30 days: No Contact w/Intl Traveler<30days: No Traveled to known affect area: No History of Present Illness HPI 76-year-old female presents to the emergency department for evaluation of fatigue and shortness of breath. Patient was discharged on May 08, 2017 for pneumonia, CHF, A. fib with RVR. Patient states that she saw a physician yesterday and had some testing including a chest x-ray done. She does not know the name the physician or what he does. She states that she was called today and told to come the emergency department because "one of my medications is too strong". However, she does not know the name of the medication. Patient does not know her medical history. She is a poor historian. She states that when she was discharged she has been having shortness of breath and fatigue. She reports chest congestion, but not pain. No wave she may run a fever last night , but is not sure. No abdominal pain. No nausea, vomiting, diarrhea. Patient is ambulatory. Activity exacerbates symptoms. Severity: moderate. Patient has past medical history of A. fib with RVR, CHF, pulmonary edema, HTN, COPD. According to records, the patient recently saw a resident, Dr. Solorzano. [facility] Past Medical History Arthritis: Yes Asthma: No Atrial Fibrillation: Yes Blood Disorders: No Heart Rhythm Problems: Yes (Hx of A-fib) Cancer: Yes (hx of uterine cancer ) Cardiovascular Problems: Yes High Cholesterol: No Chemotherapy: No Chest Pain: Yes Congestive Heart Failure: Yes COPD: No Cerebrovascular Accident: Yes Diminished Hearing: No Endocrine: No Genitourinary: No Hypertension: Yes Immune Disorder: No Musculoskeletal: Yes (arthritis ) Neurologic: Yes (2 strokes (last one was approximately 5 years ago)) Psychiatric: No Reproductive: No Respiratory: Yes Migraines: No Radiation Therapy: No Seizures: No Sleep Apnea: No Menopausal: Yes : 4 Para: 4 Past Surgical History Abdominal Surgery: No Appendectomy: Yes Cardiac Surgery: No Ear Surgery: No Endocrine Surgery: No Eye Surgery: No Genitourinary Surgery: No Hysterectomy: Yes Oral Surgery: No Thoracic Surgery: No Social History Alcohol Use: No Tobacco Use: No Substance Use: No Allergies-Medications (Allergen,Severity, Reaction): Coded Allergies: Penicillins (Verified Allergy, Severe, RASH, 05/15/17) Reported Meds & Prescriptions Reported Meds & Active Scripts Active Digoxin 0.25 Mg Tab 0.25 Mg PO DAILY Cardizem CD 24 HR (Diltiazem CD 24 HR) 180 Mg Caper 360 Mg PO DAILY 30 Days Metoprolol Succinate ER 24 HR (Metoprolol Succinate) 50 Mg Tab 100 Mg PO DAILY 30 Days Eliquis (Apixaban) 5 Mg Tab 5 Mg PO BID 30 Days Ipratropium Neb (Ipratropium [place]) 0.5 Mg/2.5 Ml Amp 0.5 Mg NEB Q8HR PRN Reported Cetirizine (Cetirizine HCl) 10 Mg Tab 10 Mg PO DAILY Glucosamine (Glucosamine Sulfate) 1,000 Mg Cap 1,000 Mg PO DAILY Ginkgo Biloba (Ginkgo Biloba [place] Extract) 60 Mg Tablet 1 Tab PO DAILY Vitamin B-12 (Cyanocobalamin) 500 Mcg Tab 500 Mcg PO DAILY Calcium + D & K (Calcium-Vitamins D & K) 500-1,000-40 Mg-Unit-Mcg Chew 1 Tab CHEW Vitamin C (Ascorbic Acid) 250 Mg Tab 500 Mg PO Multiple Vitamin 1 Tab 1 Tab PO DAILY Review of Systems Except as stated in HPI: all other systems reviewed are Neg Physical Exam Exam Limitations: Poor Historian Narrative GENERAL: Well-nourished, well-developed female patient, ambulatory. Afebrile. SKIN: Focused skin assessment warm/dry. HEAD: Normocephalic. Atraumatic. EYES: No scleral icterus. No injection or drainage. NECK: Supple, trachea midline. No JVD or lymphadenopathy. CARDIOVASCULAR: Regular rate and rhythm without murmurs, gallops, or rubs. Bilateral radial and pedal pulses are 2+. RESPIRATORY: Breath sounds equal bilaterally. No accessory muscle use. Lungs sounds diminished in the bases. GASTROINTESTINAL: Abdomen soft, non-tender, nondistended. MUSCULOSKELETAL: No cyanosis. Bilateral lower extremity edema 2-3+ BACK: Nontender without obvious deformity. No CVA tenderness. Data Data Last Documented VS Vital Signs Date Time Temp Pulse Resp B/P (MAP) Pulse Ox O2 Delivery O2 Flow Rate FiO2 05/15/17 14:16 97.8 55 18 146/80 (102) 98 Room Air Orders Orders Complete Blood Count With Diff (05/15/17 13:47) Basic Metabolic Panel (Bmp) (05/15/17 13:47) B-Type Natriuretic Peptide (05/15/17 13:47) Act Partial Throm Time (Ptt) (05/15/17 13:47) Prothrombin Time / Inr (Pt) (05/15/17 13:47) Magnesium (Mg) (05/15/17 13:47) Ckmb (Isoenzyme) Profile (05/15/17 13:47) Troponin I (05/15/17 13:47) Iv Access Insert/Monitor (05/15/17 13:47) Electrocardiogram (05/15/17 13:47) Ecg Monitoring (05/15/17 13:47) Oximetry (05/15/17 13:47) Oxygen Administration (05/15/17 13:47) Chest, Single Ap (05/15/17 13:47) Sodium Chloride 0.9% Flush (Ns Flush) (05/15/17 14:00) Digoxin (05/15/17 13:47) Digoxin Immune Nolberto Inj (Digibind Inj) (05/15/17 15:30) Admit Order (Ed Use Only) (05/15/17 15:30) Labs Laboratory Tests Test 05/15/17 13:55 White Blood Count 9.7 TH/MM3 Red Blood Count 3.66 MIL/MM3 Hemoglobin 11.4 GM/DL Hematocrit 33.5 % Mean Corpuscular Volume 91.5 FL Mean Corpuscular Hemoglobin 31.1 PG Mean Corpuscular Hemoglobin Concent 34.0 % Red Cell Distribution Width 13.2 % Platelet Count 236 TH/MM3 Mean Platelet Volume 8.2 FL Neutrophils (%) (Auto) 81.4 % Lymphocytes (%) (Auto) 5.3 % Monocytes (%) (Auto) 11.7 % Eosinophils (%) (Auto) 0.7 % Basophils (%) (Auto) 0.9 % Neutrophils # (Auto) 7.9 TH/MM3 Lymphocytes # (Auto) 0.5 TH/MM3 Monocytes # (Auto) 1.1 TH/MM3 Eosinophils # (Auto) 0.1 TH/MM3 Basophils # (Auto) 0.1 TH/MM3 CBC Comment DIFF FINAL Differential Comment Prothrombin Time 12.7 SEC Prothromb Time International Ratio 1.1 RATIO Activated Partial Thromboplast Time 32.0 SEC Blood Urea Nitrogen 20 MG/DL Creatinine 1.04 MG/DL Random Glucose 123 MG/DL Calcium Level 8.4 MG/DL Magnesium Level 2.3 MG/DL Sodium Level 139 MEQ/L Potassium Level 5.1 MEQ/L Chloride Level 105 MEQ/L Carbon Dioxide Level 26.4 MEQ/L Anion Gap 8 MEQ/L Estimat Glomerular Filtration Rate 51 ML/MIN Total Creatine Kinase 54 U/L Troponin I LESS THAN 0.02 NG/ML B-Type Natriuretic Peptide 560 PG/ML Digoxin Level 3.2 NG/ML MDM Medical Decision Making Medical Screen Exam Complete: Yes Emergency Medical Condition: Yes Medical Record Reviewed: Yes Interpretation(s) chest x-ray = CONCLUSION: 1. Minimal bibasilar atelectatic changes. 2. Cardiomegaly. Differential Diagnosis CHF exacerbation versus pneumonia versus COPD exacerbation versus electrolyte abnormality Narrative Course 76-year-old female presents to the emergency department stating that she was sent by physician. She reports shortness of breath and weakness since being discharge in April. EKG, CBC, BMP, BNP, magnesium, CK, troponin, PTT, PT/INR , digoxin level, chest x-ray are ordered and pending. EKG shows atrial fibrillation, HR 49, ST depression in I, II, V4, V5, V6, mild elevation in V1. This appears different when comparing to previous EKG. CBC shows no acute abnormality. BMP shows BUN 20, creatinine 1.04. BNP is 560. Magnesium is 2.3. CK is 54. Troponin is less than 0.02. PTT is 32.0, PT/INR is 12.7/1.1. Digoxin level is 3.2. Chest x-ray shows 1. Minimal bibasilar atelectatic changes; 2. Cardiomegaly. Patient is given Digibind 400 mg IV due to digoxin toxicity with EKG changes due to toxicity. Residents are paged for admission. Dr. Mason accepted admission. Diagnosis Primary Impression: Digoxin toxicity Qualified Codes: T46.0X1A - Poisoning by cardiac-stimulant glycosides and drugs of similar action, accidental (unintentional), initial encounter Admitting Information Admitting Physician Requests: Saritha Elizondo May 15, 2017 13:57
[2017-05-15] MEDS ORDERED: SODIUM CHLORIDE 0.9% FLUSH 10 ML FLUSH IVF PRN (14:00)
[2017-05-15 14:37] LABS: AUTOMATED NEUTROPHIL # 7.9 TH/MM3 (1.8-7.7); BASOPHIL # 0.1 TH/MM3 (0-0.2); BASOPHIL % 0.9 % (0.0-2.0); EOSINOPHIL # 0.1 TH/MM3 (0-0.4); EOSINOPHIL % 0.7 % (0.0-4.0); HEMATOCRIT 33.5 % (35.0-46.0); HEMOGLOBIN 11.4 GM/DL (11.6-15.3); LYMPH % 5.3 % (9.0-44.0); LYMPHOCYTE # 0.5 TH/MM3 (1.0-4.8); MEAN CELL VOLUME 91.5 FL (80.0-100.0); MEAN CORPUSCULAR HEMOGLOBIN 31.1 PG (27.0-34.0); MEAN PLATELET VOLUME 8.2 FL (7.0-11.0); MONO % 11.7 % (0.0-8.0); MONOCYTE # 1.1 TH/MM3 (0-0.9); NEUT % 81.4 % (16.0-70.0); PLATELET COUNT 236 TH/MM3 (150-450); RED BLOOD COUNT 3.66 MIL/MM3 (4.00-5.30); RED CELL DISTRIBUTION WIDTH 13.2 % (11.6-17.2); WHITE BLOOD COUNT 9.7 TH/MM3 (4.0-11.0)
[2017-05-15 14:42] LABS: INTERNATIONAL NORMALIZED RATIO 1.1 RATIO; PROTHROMBIN TIME - PATIENT 12.7 SEC (9.8-11.6)
--- NOTE | 2017-05-15 14:45 | RADRPT ---
EXAM DATE/TIME: 05/15/2017 13:52 [facility] COMPARISON: CHEST SINGLE AP, May 04, 2017, 16:09. INDICATIONS : Short of breath. MEDICAL HISTORY : Stroke. SURGICAL HISTORY : None. ENCOUNTER: Subsequent ACUITY: 3 weeks PAIN SCORE: 2/10 LOCATION: Bilateral chest FINDINGS: The heart is enlarged. The pulmonary vascular pattern is normal. Minimal bibasilar atelectatic clark ges are noted. CONCLUSION: 1. Minimal bibasilar atelectatic changes. 2. Cardiomegaly. Benjamin Corrales MD on May 15, 2017 at 14:39 Board Certified Radiologist. This report was verified electronically.
[2017-05-15 15:19] LABS: BICARBONATE 26.4 MEQ/L (21.0-32.0); BLOOD UREA NITROGEN 20 MG/DL (7-18); CALCIUM 8.4 MG/DL (8.5-10.1); CHLORIDE 105 MEQ/L (98-107); CREATININE 1.04 MG/DL (0.50-1.00); GLOMERULAR FILTRATION RATE 51 ML/MIN (>89); GLUCOSE,RANDOM 123 MG/DL (74-106); MAGNESIUM 2.3 MG/DL (1.5-2.5); SODIUM (NA) 139 MEQ/L (136-145); TROPONIN I LESS THAN 0.02 NG/ML (0.02-0.05)
[2017-05-15 15:21] LABS: DIGOXIN 3.2 NG/ML (0.8-2.0)
[2017-05-15] MEDS ORDERED: DIGOXIN IMMUNE FAB INJ 400 MG in SODIUM CHLORIDE 0.9% INJ 50 ML IV ONE (15:30)
--- NOTE | 2017-05-15 16:29 | HHI.HP ---
[facility] Service Family Medicine Primary Care Physician No Primary Care Physician Admission Diagnosis digoxin toxicity Diagnoses: International Travel<30 Days: No Contact w/Intl Traveler<30days: No Known Affected Area: No History of Present Illness 76 year old female, patient of Dr. Solorzano. She is presenting with increasing shortness of breath and lower extremity edema. She has a questionable history of CHF and COPD (she is not too certain about her past medical history). She has increased feelings of weakness. She lives at [facility] and finds that she is getting short of breath with short distances. She also is requiring two pillows at night due to orthopnea. She has been having some coughing and phlegm production as well. No fevers, chills, or night sweats at home. No hemoptysis. No known sick contacts. She does have some sore throat but no runny nose. Onset of symptoms was about a month ago but has been getting worse over the past week. She has also lost 8 pounds in a 3 month period unintentionally per her report. She has some atypical chest pain that generally happens at night when she is lying in bed. It is localized to the upper chest without radiation. It is non-exertional. It lasts about 10 to 15 minutes and she did feel diaphoretic once when it happened. She is not having any current chest pain. She also has a history of atrial fibrillation, and she is presenting with atrial fibrillation with slow ventricular response. Lab workup has revealed elevated digoxin level with a potassium level of 5.1. She was given DigiFab in the ED. She reports no history of smoking, but had significant exposure to second hand smoke growing up. She has no abdominal pain , nausea, vomiting, diarrhea, constipation, calf tenderness. She was recently admitted to the hospital on 05/04-05/06 for weakness and shortness of breath and at that time was diagnosed with HCAP, bronchiectasis, atrial fibrillation, and edema. She was treated with Levaquin. DVT workup was negative. She was started on Digoxin during that hospitalization. She was also started on Cardizem , Toprol, and Eliquis for her afib. She initially had improvement of her lower extremity edema after discharge, but now has increasing edema. Review of Systems Constitutional: COMPLAINS OF: Diaphoretic episodes, Fatigue, Weight loss, DENIES: Fever, Weight gain, Chills, Dizziness, Change in appetite Endocrine: DENIES: Heat/cold intolerance, Polyuria, Polyphagia Eyes: DENIES: Blurred vision, Vision loss Ears, nose, mouth, throat: DENIES: Vertigo, Ear Pain, Running Nose, Odynophagia Respiratory: COMPLAINS OF: Cough, Shortness of breath, DENIES: Wheezing, Hemoptysis Cardiovascular: COMPLAINS OF: Chest pain, Dyspnea on Exertion, Lower Extremity Edema, Orthopnea, DENIES: Palpitations, Syncope, Claudication Gastrointestinal: DENIES: Abdominal pain, Black stools, Bloody stools, Diarrhea , Nausea, Vomiting Genitourinary: DENIES: Dysuria Musculoskeletal: DENIES: Joint pain, Stiffness, Back pain, Neck pain Hematologic/lymphatic: DENIES: Bruising, Lymphadenopathy Immunologic/allergic: DENIES: Eczema Neurologic: DENIES: Localized weakness, Paresthesias, Speech Problems, Tremor Psychiatric: DENIES: Anxiety, Mood changes, Depression Past Family Social History Past Medical History HTN Hospitalization for Flu Prior cancer in uterus? "mini strokes" Atrial fibrillation Echo- EF 55-60% COPD per EMR; nonsmoker History of CHF? OB History . Menarche at 14 years Past Surgical History Hysterectomy Reported Medications Reported Meds & Active Scripts Active Digoxin 0.25 Mg Tab 0.25 Mg PO DAILY Cardizem CD 24 HR (Diltiazem CD 24 HR) 180 Mg Caper 360 Mg PO DAILY 30 Days Metoprolol Succinate ER 24 HR (Metoprolol Succinate) 50 Mg Tab 100 Mg PO DAILY 30 Days Eliquis (Apixaban) 5 Mg Tab 5 Mg PO BID 30 Days Ipratropium Neb (Ipratropium [place]) 0.5 Mg/2.5 Ml Amp 0.5 Mg NEB Q8HR PRN Reported Cetirizine (Cetirizine HCl) 10 Mg Tab 10 Mg PO DAILY Glucosamine (Glucosamine Sulfate) 1,000 Mg Cap 1,000 Mg PO DAILY Ginkgo Biloba (Ginkgo Biloba [place] Extract) 60 Mg Tablet 1 Tab PO DAILY Vitamin B-12 (Cyanocobalamin) 500 Mcg Tab 500 Mcg PO DAILY Calcium + D & K (Calcium-Vitamins D & K) 500-1,000-40 Mg-Unit-Mcg Chew 1 Tab CHEW Vitamin C (Ascorbic Acid) 250 Mg Tab 500 Mg PO Multiple Vitamin 1 Tab 1 Tab PO DAILY Allergies: Coded Allergies: Penicillins (Verified Allergy, Severe, RASH, 05/15/17) Family History Father/mother reported as Social History Patient ; living at [facility]. No history of alcohol, tobacco or illicit drugs. 12 years of college education. 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 appears comfortable. Pleasant demeanor. Skin: No rashes or lesions HEENT: Normocephalic, no conjunctivitis, no scleral icterus, no nasal discharge , normal pharynx. Neck: No thyromegaly, no lymphadenopathy CV: Irregularly irregular, slow rate (about 60's), pulses intact, normal cap refill Lungs: Crackles in the lung bases, poor respiratory effort, on nasal cannula, no distress Abdomen: Soft, nontender, nondistended, normal bowel sounds Ext: Lower extremity edema pitting up to the knees, no erythema Neuro: Awake, alert, oriented Laboratory Laboratory Tests Test 05/15/17 13:55 White Blood Count 9.7 Red Blood Count 3.66 Hemoglobin 11.4 Hematocrit 33.5 Mean Corpuscular Volume 91.5 Mean Corpuscular Hemoglobin 31.1 Mean Corpuscular Hemoglobin Concent 34.0 Red Cell Distribution Width 13.2 Platelet Count 236 Mean Platelet Volume 8.2 Neutrophils (%) (Auto) 81.4 Lymphocytes (%) (Auto) 5.3 Monocytes (%) (Auto) 11.7 Eosinophils (%) (Auto) 0.7 Basophils (%) (Auto) 0.9 Neutrophils # (Auto) 7.9 Lymphocytes # (Auto) 0.5 Monocytes # (Auto) 1.1 Eosinophils # (Auto) 0.1 Basophils # (Auto) 0.1 CBC Comment DIFF FINAL Differential Comment Prothrombin Time 12.7 Prothromb Time International Ratio 1.1 Activated Partial Thromboplast Time 32.0 Blood Urea Nitrogen 20 Creatinine 1.04 Random Glucose 123 Calcium Level 8.4 Magnesium Level 2.3 Sodium Level 139 Potassium Level 5.1 Chloride Level 105 Carbon Dioxide Level 26.4 Anion Gap 8 Estimat Glomerular Filtration Rate 51 Total Creatine Kinase 54 Troponin I LESS THAN 0.02 B-Type Natriuretic Peptide 560 Digoxin Level 3.2 Result Diagram: 05/15/17 1355 05/15/17 1355 Imaging Last 72 hours Impressions Chest X-Ray 05/15/17 1347 Signed Impressions: Service Date/Time: Monday, May 15, 2017 13:52 - CONCLUSION: 1. Minimal bibasilar atelectatic changes. 2. Cardiomegaly. Benjamin Corrales MD Septic Shock Reassessment Heart: Irregular Lungs: Course, Crackles Capillary Refill: <2 seconds Caprini VTE Risk Assessment Caprini VTE Risk Assessment: Mod/High Risk (score >= 2) Caprini Risk Assessment Model Point Value = 1 Point Value = 2 Point Value = 3 Point Value = 5 Age 41-60 Minor surgery BMI > 25 kg/m2 Swollen legs Varicose veins or History of unexplained or recurrent spontaneous Oral contraceptives or hormone replacement Sepsis (< 1 month) Serious lung disease, including pneumonia (< 1 month) Abnormal pulmonary function Acute myocardial infarction Congestive heart failure (< 1 month) History of inflammatory bowel disease Medical patient at bed rest Age 61-74 Arthroscopic surgery Major open surgery (> 45 min) Laparoscopic surgery (> 45 min) Malignancy Confined to bed (> 72 hours) Immobilizing plaster cast Central venous access Age >= 75 History of VTE Family history of VTE Factor V Leiden Prothrombin [id number] Lupus anticoagulant Anticardiolipin antibodies Elevated serum homocysteine Heparin-induced thrombocytopenia Other congenital or acquired thrombophilia Stroke (< 1 month) Elective arthroplasty Hip, pelvis, or leg fracture Acute spinal cord injury (< 1 month) Prophylaxis Regimen Total Risk Factor Score Risk Level Prophylaxis Regimen 0-1 Low Early ambulation 2 Moderate Order ONE of the following: *Sequential Compression Device (SCD) *Heparin 5000 units SQ BID 3-4 Higher Order ONE of the following medications: *Heparin 5000 units SQ TID *Enoxaparin/Lovenox 40 mg SQ daily (WT < 150 kg, CrCl > 30 mL/min) *Enoxaparin/Lovenox 30 mg SQ daily (WT < 150 kg, CrCl > 10-29 mL/min) *Enoxaparin/Lovenox 30 mg SQ BID (WT < 150 kg, CrCl > 30 mL/min) AND/OR *Sequential Compression Device (SCD) 5 or more Highest Order ONE of the following medications: *Heparin 5000 units SQ TID (Preferred with Epidurals) *Enoxaparin/Lovenox 40 mg SQ daily (WT < 150 kg, CrCl > 30 mL/min) *Enoxaparin/Lovenox 30 mg SQ daily (WT < 150 kg, CrCl > 10-29 mL/min) *Enoxaparin/Lovenox 30 mg SQ BID (WT < 150 kg, CrCl > 30 mL/min) AND *Sequential Compression Device (SCD) Assessment and Plan Assessment and Plan 76 year old female presents with acute CHF exacerbation, digoxin toxicity, atrial fibrillation with slow ventricular response, possible COPD Code Status FULL CODE Discussed Condition With Will discuss with Dr. Mason Problem List: (1) Congestive heart failure ICD Codes: I50.9 - Heart failure, unspecified Status: Acute Plan: Bibasilar atelectasis on chest x-ray with cardiomegaly, BNP elevated to 560. Increasing shortness of breath. - Check ECHO with dopplers - Furosemide 40 mg IV bid - Monitor intake/output, daily weights - Continue metoprolol, add lisinopril once stable (2) Digoxin toxicity ICD Codes: T46.0X1A - Poisoning by cardiac-stimulant glycosides and drugs of similar action, accidental (unintentional), initial encounter Status: Acute Plan: Digoxin level 3.2. No gastrointestinal symptoms. EKG showing afib with SVR. Potassium elevated to 5.1. No neurological symptoms. 400 mg digifab given in ED. - Received digoxin immune ANUPAM once in ED. - Continuous cardiac monitoring, monitor for arrhythmias - Monitor electrolytes, potassium level. Has hyperkalemia up to 5.1. - Treat bradycardia with atropine, isotonic saline if persistent despite digoxin specific antibody (3) Atrial fibrillation with slow ventricular response ICD Codes: I48.91 - Unspecified atrial fibrillation Status: Acute Plan: Poorer prognosis of atrial fibrillation given congestive heart failure. Digoxin supratherapeutic, could be contributing to slow ventricular response. Afib complicated by CHF. No hypotension. - Anticoagulation with Eliquis 5 mg bid - Rate control with Digoxin (on hold for supratherapeutic levels), metoprolol 100 mg daily, diltiazem 360 mg daily - Target rate less than 85 if symptomatic, less than 110 if asymptomatic. Hold medications for bradycardia as needed. - Monitor for hypotension - Careful with beta blockers given COPD history - Elevated digoxin at admission may be responsible for slow ventricular response. Given digoxin immune ANUPAM 400 mg in ED, recheck level in AM. Restart when therapeutic and bradycardia resolved. (4) Acute electrocardiogram changes ICD Codes: R94.31 - Abnormal electrocardiogram [ECG] [EKG] Status: Acute Plan: EKG showing atrial fibrillation with slow ventricular response. Also with some ST segment depressions in V4, V5. Possibly some ST elevation in V1. Initial EKG showing some atrial fibrillation with RVR. Having intermittent atypical chest pain at home, non-exertional. Initial troponin normal. - Serial troponin and EKG's - Cardiac monitoring continuously (5) Renal insufficiency ICD Codes: N28.9 - Disorder of kidney and ureter, unspecified Status: Chronic Plan: Kidney function appears to be at her baseline based on records going back for one month. Her baseline GFR is in the 50's. May be prerenal etiology with symptoms of acute CHF. - Avoid nephrotoxic agents and contrast agents - Renally dose medications - Improve heart function (6) COPD (chronic obstructive pulmonary disease) ICD Codes: J44.9 - Chronic obstructive pulmonary disease, unspecified Status: Chronic Plan: Questionable history of COPD based on chart review. She is a non-smoker. - DuoNebs q4hrs - Albuterol PRN - Incentive spirometer (7) HTN (hypertension) ICD Codes: I10 - Essential (primary) hypertension Status: Chronic Plan: - Continue Diltiazem, metoprolol (8) No contraindication to deep vein thrombosis (DVT) prophylaxis ICD Codes: Z78.9 - Other specified health status Status: Acute Plan: - Continue Eliquis for afib (9) Nutrition, metabolism, and development symptoms ICD Codes: R63.8 - Other symptoms and signs concerning food and fluid intake Status: Acute Plan: Heart healthy diet Monitor I's and O's with CHF exacerbation Monitor potassium, 5.1 at admission with digoxin toxicity Physician Certification 2 Midnight Certification Type: Admission for Inpatient Services Order for Inpatient Services The services are ordered in accordance with Medicare regulations or non- Medicare payer requirements, as applicable. In the case of services not specified as inpatient-only, they are appropriately provided as inpatient services in accordance with the 2-midnight benchmark. Estimated LOS (days): 3 days is the estimated time the patient will need to remain in the hospital, assuming treatment plan goals are met and no additional complications. Post-Hospital Plan: Not yet determined Problem Qualifiers (1) Digoxin toxicity: Qualified Codes: T46.0X1A - Poisoning by cardiac-stimulant glycosides and drugs of similar action, accidental (unintentional), initial encounter (2) HTN (hypertension): Qualified Codes: I10 - Essential (primary) hypertension Matias Arreguin MD R3 May 15, 2017 16:29
[2017-05-15] MEDS ORDERED: SODIUM CHLORIDE 0.9% IV ONE (16:45)
[2017-05-15] MEDS ORDERED: DIGOXIN IMMUNE FAB IV ONE (16:45)
[2017-05-15] MEDS ORDERED: ACETAMINOPHEN/HYDROcodone 325 MG/7.5 MG TAB PO PRN (17:00)
[2017-05-15] MEDS ORDERED: NALOXONE HCL 0.4 MG/ML AMP IV PUSH PRN (17:00)
[2017-05-15] MEDS ORDERED: RESP: ALBUTEROL 2.5 MG/3 ML NEB (PRN) INH (17:00)
[2017-05-15] MEDS ORDERED: LACTULOSE SYRUP 20 GM/30 ML CUP PO PRN (17:00)
[2017-05-15] MEDS ORDERED: MAGNESIUM HYDROXIDE SUSP 30 ML CUP PO PRN (17:00)
[2017-05-15] MEDS ORDERED: SODIUM CHLORIDE 0.9% FLUSH 10 ML FLUSH IV FLUSH PRN (17:00)
[2017-05-15] MEDS ORDERED: BISACODYL 10 MG SUPP RECTAL PRN (17:00)
[2017-05-15] MEDS ORDERED: SENNOSIDES 8.6 MG TAB PO PRN (17:00)
[2017-05-15] MEDS ORDERED: HEPARIN SODIUM - SQ 10,000 UNITS/ML VIAL SQ SCH (17:00)
[2017-05-15] MEDS ORDERED: MORPHINE SULFATE 2 MG/ML INJ IV PRN (18:00)
[2017-05-15] MEDS: FUROSEMIDE 40 MG/4 ML VIAL IVP SCH (18:13)
[2017-05-15] MEDS: ASPIRIN 81 MG CHEW TAB CHEW SCH (18:13)
[2017-05-15] MEDS: PANTOPRAZOLE SOD 40 MG DELAYED RELEASE TAB PO SCH (18:13)
[2017-05-15] MEDS: RESP: ALBUTEROL 2.5 MG/IPRATROPIUM 0.5 MG NEB (SCH) INH (20:19)
[2017-05-15] MEDS: DOCUSATE SODIUM 50 MG/SENNA 8.6 MG TAB PO SCH (21:00)
[2017-05-15] MEDS: SODIUM CHLORIDE 0.9% FLUSH 10 ML FLUSH IV FLUSH SCH (22:40)
[2017-05-15] MEDS: APIXABAN 5 MG TABLET PO SCH (22:40)
[2017-05-16] VITALS (8 sets, daily range): BP systolic 131–177; BP diastolic 69–86; PULSE 54–69; RESP 15–18; TEMP 97.4–99.5; O2SAT 94–97
[2017-05-16] MEDS: RESP: ALBUTEROL 2.5 MG/IPRATROPIUM 0.5 MG NEB (SCH) INH ×6 (03:27→19:52)
[2017-05-16 05:08] LABS: AUTOMATED NEUTROPHIL # 8.4 TH/MM3 (1.8-7.7); BASOPHIL # 0.1 TH/MM3 (0-0.2); BASOPHIL % 0.5 % (0.0-2.0); EOSINOPHIL # 0.1 TH/MM3 (0-0.4); EOSINOPHIL % 1.1 % (0.0-4.0); HEMATOCRIT 32.5 % (35.0-46.0); HEMOGLOBIN 10.9 GM/DL (11.6-15.3); LYMPH % 5.9 % (9.0-44.0); LYMPHOCYTE # 0.6 TH/MM3 (1.0-4.8); MEAN CELL VOLUME 90.5 FL (80.0-100.0); MEAN CORPUSCULAR HEMOGLOBIN 30.3 PG (27.0-34.0); MEAN CORPUSCULAR HGB CONC 33.5 % (32.0-36.0); MEAN PLATELET VOLUME 7.7 FL (7.0-11.0); MONO % 10.1 % (0.0-8.0); NEUT % 82.4 % (16.0-70.0); PLATELET COUNT 230 TH/MM3 (150-450); RED BLOOD COUNT 3.59 MIL/MM3 (4.00-5.30); RED CELL DISTRIBUTION WIDTH 13.2 % (11.6-17.2); WHITE BLOOD COUNT 10.1 TH/MM3 (4.0-11.0)
[2017-05-16 06:03] LABS: BICARBONATE 31.2 MEQ/L (21.0-32.0); CALCIUM 8.4 MG/DL (8.5-10.1); CREATININE 1.02 MG/DL (0.50-1.00); MAGNESIUM 2.1 MG/DL (1.5-2.5)
[2017-05-16 06:07] LABS: DIGOXIN 3.6 NG/ML (0.8-2.0)
[2017-05-16] MEDS ORDERED: NON-FORMULARY DRUG (Glucosamine 1,000 MG) PO SCH (09:00)
[2017-05-16] MEDS: POTASSIUM CHLORIDE 20 MEQ CONTROLLED RELEASE TAB PO SCH ×2 (09:00→22:13)
[2017-05-16] MEDS ORDERED: GINKGO BILOBA LEAF EXTRACT PO SCH (09:00)
[2017-05-16] MEDS: FUROSEMIDE 40 MG/4 ML VIAL IVP SCH (09:17)
[2017-05-16] MEDS: METOPROLOL SUCCINATE 50 MG EXTENDED RELEASE TAB PO SCH (09:17)
[2017-05-16] MEDS: ASPIRIN 81 MG CHEW TAB CHEW SCH (09:18)
[2017-05-16] MEDS: PANTOPRAZOLE SOD 40 MG DELAYED RELEASE TAB PO SCH (09:18)
[2017-05-16] MEDS: CETIRIZINE HCL 10 MG TAB PO SCH (09:18)
[2017-05-16] MEDS: APIXABAN 5 MG TABLET PO SCH ×2 (09:18→22:13)
[2017-05-16] MEDS: DOCUSATE SODIUM 50 MG/SENNA 8.6 MG TAB PO SCH ×2 (09:18→22:13)
[2017-05-16] MEDS: DILTIAZEM-CD 180 MG CAP ER PO SCH (09:19)
[2017-05-16] MEDS: SODIUM CHLORIDE 0.9% FLUSH 10 ML FLUSH IV FLUSH SCH ×2 (09:19→22:13)
[2017-05-16] MEDS ORDERED: POTASSIUM CHLORIDE 10 MEQ CAP PO ONE (11:45)
--- NOTE | 2017-05-16 11:46 | HHI.FPPN ---
Subjective Remarks Sitting up on the side of bed, no distress. Reports that her breathing has improved. She continues to have coughing. She walked to the bathroom and was short of breath when she got back. Swelling in legs is somewhat improved but still present. Digoxin level still elevated, however, hyperkalemia resolved. Bradycardia also resolved per manual reading. Monitor reads some low pulses that are not accurate. No chest pain this morning. No nausea or vomiting. No calf tenderness. (Matias Arreguin MD R3) Objective Vitals Vital Signs Date Time Temp Pulse Resp B/P (MAP) Pulse Ox O2 Delivery O2 Flow Rate FiO2 05/16/17 11: 98.1 54 18 157/69 (98) 97 05/16/17 08:52 95 21 05/16/17 08:15 98.8 67 18 166/86 (112) 95 05/16/17 04:02 97.7 69 18 131/74 (93) 95 05/16/17 03:49 65 05/16/17 00:47 98.7 64 15 140/83 (102) 94 05/15/17 23:57 51 05/15/17 21:13 65 16 134/65 (88) 98 05/15/17 20:22 51 05/15/17 20:21 97 21 05/15/17 17:04 53 18 162/70 (100) 95 Room Air 05/15/17 14:16 97.8 55 18 146/80 (102) 98 Room Air 05/15/17 14:05 98 Room Air 05/15/17 14:05 56 18 98 Room Air 05/15/17 14:05 18 98 Room Air 05/15/17 13:17 98.7 66 14 161/77 (105) 95 I/O 05/15/17 05/15/17 05/15/17 05/16/17 05/16/17 05/16/17 07:00 15:00 23:00 07:00 15:00 23:00 Intake Total 50 ml Balance 50 ml Intake IV Total 50 ml # Voids 1 (Matias Arreguin MD R3) Result Diagram: 05/16/1745305/16/17453 Objective Remarks General: Sitting on side of bed, no distress Skin: No rashes or lesions HEENT: Normocephalic, no conjunctivitis, no scleral icterus, no nasal discharge , normal pharynx. Neck: No thyromegaly, no lymphadenopathy CV: Irregularly irregular, normal rate, pulses intact, normal cap refill Lungs: Crackles in the lung bases but improving, improved respiratory effort Abdomen: Soft, nontender, nondistended, normal bowel sounds Ext: Lower extremity edema pitting up to the shins, same or slightly better Neuro: Awake, alert, oriented (Matias Arreguin MD R3) A/P Assessment and Plan 76 year old female presents with acute CHF exacerbation, digoxin toxicity, atrial fibrillation with slow ventricular response, possible COPD Discharge Planning Pending normal digoxin level, rate control, improvement in CHF exacerbation and breathing status (Matias Arreguin MD R3) Attending Attestation Medical rounds were performed with Dr Nghia Arreguin, Patients admission and hospital course were discussed in detail, Patient was seen and examined, Agree with the contents of this note, See Orders. (Julito Mason MD) Problem List: (1) Congestive heart failure ICD Codes: I50.9 - Heart failure, unspecified Status: Acute Plan: Bibasilar atelectasis on chest x-ray with cardiomegaly, BNP elevated to 560. Increasing shortness of breath. Breathing now improving. - Furosemide 40 mg IV bid, switch to 40 mg PO bid - Monitor intake/output, daily weights - Continue metoprolol (2) Digoxin toxicity ICD Codes: T46.0X1A - Poisoning by cardiac-stimulant glycosides and drugs of similar action, accidental (unintentional), initial encounter Status: Acute Plan: Digoxin level 3.6. No gastrointestinal symptoms. EKG showing afib now with normal rate. Potassium elevated to 5.1 on admission, now normal. No neurological symptoms. 400 mg digifab given in ED. - Continuous cardiac monitoring, monitor for arrhythmias - Monitor electrolytes, potassium level. - Treat bradycardia with atropine, isotonic saline if persistent despite digoxin specific antibody (3) Atrial fibrillation with slow ventricular response ICD Codes: I48.91 - Unspecified atrial fibrillation Status: Acute Plan: Poorer prognosis of atrial fibrillation given congestive heart failure. Digoxin supratherapeutic, could be contributing to slow ventricular response. Afib complicated by CHF. No hypotension. Now with normal rate, needs to be checked manually rather than by monitor. - Anticoagulation with Eliquis 5 mg bid - Rate control with Digoxin (on hold for supratherapeutic levels), metoprolol 100 mg daily, diltiazem 360 mg daily - Target rate less than 85 if symptomatic, less than 110 if asymptomatic. Hold medications for bradycardia as needed. - Monitor for hypotension - Elevated digoxin at admission may be responsible for slow ventricular response. Given digoxin immune ANUPAM 400 mg in ED, recheck level in AM. Restart when therapeutic and bradycardia resolved. (4) Renal insufficiency ICD Codes: N28.9 - Disorder of kidney and ureter, unspecified Status: Chronic Plan: Kidney function appears to be at her baseline based on records going back for one month. Her baseline GFR is in the 50's. May be prerenal etiology with symptoms of acute CHF. - Avoid nephrotoxic agents and contrast agents - Renally dose medications - Improve heart function (5) COPD (chronic obstructive pulmonary disease) ICD Codes: J44.9 - Chronic obstructive pulmonary disease, unspecified Status: Chronic Plan: Questionable history of COPD based on chart review. She is a non-smoker. - DuoNebs q4hrs - Albuterol PRN - Incentive spirometer (6) HTN (hypertension) ICD Codes: I10 - Essential (primary) hypertension Status: Chronic Plan: - Continue Diltiazem, metoprolol (7) No contraindication to deep vein thrombosis (DVT) prophylaxis ICD Codes: Z78.9 - Other specified health status Status: Acute Plan: - Continue Eliquis for afib (8) Nutrition, metabolism, and development symptoms ICD Codes: R63.8 - Other symptoms and signs concerning food and fluid intake Status: Acute Plan: Heart healthy diet Monitor I's and O's with CHF exacerbation Monitor potassium (Matias Arreguin MD R3) Problem Qualifiers (1) Digoxin toxicity: Qualified Codes: T46.0X1A - Poisoning by cardiac-stimulant glycosides and drugs of similar action, accidental (unintentional), initial encounter (2) HTN (hypertension): Qualified Codes: I10 - Essential (primary) hypertension Matias Arreguin MD R3 May 16, 2017 11:46 Julito Mason MD May 20, 2017 14:04
[2017-05-16] MEDS: MULTIVITAMIN TAB PO SCH (12:41)
[2017-05-16] MEDS: FUROSEMIDE 40 MG TAB PO SCH (18:00)
[2017-05-17] VITALS (9 sets, daily range): BP systolic 146–162; BP diastolic 55–88; PULSE 67–88; RESP 17–20; TEMP 97.1–100; O2SAT 93–98
[2017-05-17] MEDS: RESP: ALBUTEROL 2.5 MG/IPRATROPIUM 0.5 MG NEB (SCH) INH ×6 (00:07→20:56)
[2017-05-17 05:47] LABS: HEMATOCRIT 33.9 % (35.0-46.0); HEMOGLOBIN 11.5 GM/DL (11.6-15.3); MEAN CELL VOLUME 90.8 FL (80.0-100.0); MEAN CORPUSCULAR HEMOGLOBIN 30.7 PG (27.0-34.0); MEAN CORPUSCULAR HGB CONC 33.8 % (32.0-36.0); MEAN PLATELET VOLUME 7.9 FL (7.0-11.0); PLATELET COUNT 217 TH/MM3 (150-450); RED BLOOD COUNT 3.73 MIL/MM3 (4.00-5.30); RED CELL DISTRIBUTION WIDTH 13.3 % (11.6-17.2); WHITE BLOOD COUNT 10.7 TH/MM3 (4.0-11.0)
[2017-05-17 06:11] LABS: BICARBONATE 30.1 MEQ/L (21.0-32.0); CALCIUM 8.3 MG/DL (8.5-10.1); CREATININE 1.02 MG/DL (0.50-1.00)
[2017-05-17] MEDS ORDERED: POTASSIUM CHLORIDE 10 MEQ CONTROLLED RELEASE TAB PO ONE (08:15)
--- NOTE | 2017-05-17 08:17 | HHI.DCPOC ---
Discharge Care Plan Diagnosis: (1) Atrial fibrillation with RVR (2) Atrial fibrillation with slow ventricular response (3) Acute electrocardiogram changes (4) Congestive heart failure (5) Digoxin toxicity Goals to Promote Your Health * To prevent worsening of your condition and complications * To maintain your health at the optimal level Directions to Meet Your Goals Take your medications as prescribed Follow your dietary instruction Follow activity as directed Keep your appointments as scheduled Take your immunizations and boosters as scheduled If your symptoms worsen call your PCP, if no PCP go to Urgent Care Center or Emergency Room Smoking is Dangerous to Your Health. Avoid second hand smoke Call the 24-hour hour crisis hotline for domestic abuse at Matias Arreguin MD R3 May 17, 2017 08:17
--- NOTE | 2017-05-17 08:17 | HHI.DCPOC ---
Discharge Care Plan Diagnosis: (1) Atrial fibrillation with RVR (2) Atrial fibrillation with slow ventricular response (3) Acute electrocardiogram changes (4) Congestive heart failure (5) Digoxin toxicity Goals to Promote Your Health * To prevent worsening of your condition and complications * To maintain your health at the optimal level Directions to Meet Your Goals Take your medications as prescribed Follow your dietary instruction Follow activity as directed Keep your appointments as scheduled Take your immunizations and boosters as scheduled If your symptoms worsen call your PCP, if no PCP go to Urgent Care Center or Emergency Room Smoking is Dangerous to Your Health. Avoid second hand smoke Call the 24-hour hour crisis hotline for domestic abuse at Matias Arreguin MD R3 May 17, 2017 08:17
--- NOTE | 2017-05-17 08:17 | HHI.DCPOC ---
Discharge Care Plan Diagnosis: (1) Atrial fibrillation with RVR (2) Atrial fibrillation with slow ventricular response (3) Acute electrocardiogram changes (4) Congestive heart failure (5) Digoxin toxicity Goals to Promote Your Health * To prevent worsening of your condition and complications * To maintain your health at the optimal level Directions to Meet Your Goals Take your medications as prescribed Follow your dietary instruction Follow activity as directed Keep your appointments as scheduled Take your immunizations and boosters as scheduled If your symptoms worsen call your PCP, if no PCP go to Urgent Care Center or Emergency Room Smoking is Dangerous to Your Health. Avoid second hand smoke Call the 24-hour hour crisis hotline for domestic abuse at Matias Arreguin MD R3 May 17, 2017 08:17
[2017-05-17] MEDS: ASPIRIN 81 MG CHEW TAB CHEW SCH (08:42)
[2017-05-17] MEDS: FUROSEMIDE 40 MG TAB PO SCH ×2 (08:43→17:44)
[2017-05-17] MEDS: METOPROLOL SUCCINATE 50 MG EXTENDED RELEASE TAB PO SCH (08:43)
[2017-05-17] MEDS: CETIRIZINE HCL 10 MG TAB PO SCH (08:43)
[2017-05-17] MEDS: PANTOPRAZOLE SOD 40 MG DELAYED RELEASE TAB PO SCH (08:43)
[2017-05-17] MEDS: POTASSIUM CHLORIDE 20 MEQ CONTROLLED RELEASE TAB PO SCH ×2 (08:43→22:00)
[2017-05-17] MEDS: SODIUM CHLORIDE 0.9% FLUSH 10 ML FLUSH IV FLUSH SCH ×2 (08:43→22:00)
[2017-05-17] MEDS: MULTIVITAMIN TAB PO SCH (08:43)
[2017-05-17] MEDS: DOCUSATE SODIUM 50 MG/SENNA 8.6 MG TAB PO SCH ×2 (08:43→21:59)
[2017-05-17] MEDS: APIXABAN 5 MG TABLET PO SCH ×2 (08:43→21:59)
[2017-05-17] MEDS: DILTIAZEM-CD 180 MG CAP ER PO SCH (08:43)
--- NOTE | 2017-05-17 09:06 | EKG ---
Date Performed: 05/15/2017 Time Performed: 14:02:32 PTAGE: 76 years EKG: ATRIAL FIBRILLATION WITH SLOW VENTRICULAR RESPONSE POSSIBLE RIGHT VENTRICULAR CONDUCTION DE LAY SEPTAL MYOCARDIAL INFARCTION MODERATE T-WAVE ABNORMALITY, CONSIDER LATERAL ISCHEMIA Compared to p rior tracing no significant change ABNORMAL ECG PREVIOUS TRACING : 05/05/2017 01.17 DOCTOR: Calos Small Interpretating Date/Time 05/17/2017 09:05:13
--- NOTE | 2017-05-17 09:06 | EKG ---
Date Performed: 05/15/2017 Time Performed: 20:47:04 PTAGE: 76 years EKG: ATRIAL FIBRILLATION WITH SLOW VENTRICULAR RESPONSE SEPTAL MYOCARDIAL INFARCTION ST DEVIATIO N AND MODERATE T-WAVE ABNORMALITY, CONSIDER LATERAL ISCHEMIA Compared to prior tracing no significant change ABNORMAL ECG PREVIOUS TRACING : 05/15/2017 14.02 DOCTOR: Calos Small Interpretating Date/Time 05/17/2017 09:05:22
--- NOTE | 2017-05-17 09:07 | EKG ---
Date Performed: 05/16/2017 Time Performed: 01:06:05 PTAGE: 76 years EKG: ATRIAL FIBRILLATION WITH SLOW VENTRICULAR RESPONSE INCOMPLETE RIGHT BUNDLE BRANCH BLOCK SEP LINDSEY MYOCARDIAL INFARCTION ST DEVIATION AND MODERATE T-WAVE ABNORMALITY, CONSIDER LATERAL ISCHEMIA Com pared to prior tracing no significant change ABNORMAL ECG PREVIOUS TRACING : 05/15/2017 20.47 DOCTOR: Calos Small Interpretating Date/Time 05/17/2017 09:05:32
--- NOTE | 2017-05-17 11:25 | HHI.FPPN ---
Subjective Remarks No acute events. Temperature up to 100 overnight. Shortness of breath when ambulating with walker. Continuing to cough with congestion. Chest pain from coughing, stable, no changes. No diaphoresis. Some lightheadedness with standing. No calf tenderness or swelling. Good appetite. No nausea, vomiting, or diarrhea. White count remains normal. Remaining rate controlled with atrial fibrillation. Objective Vitals Vital Signs Date Time Temp Pulse Resp B/P (MAP) Pulse Ox O2 Delivery O2 Flow Rate FiO2 05/17/17 08:16 98 21 05/17/17 08:00 97.1 88 17 152/70 (97) 95 05/17/17 06:07 98.7 80 20 147/55 (85) 94 05/17/17 04:31 97 21 05/17/17 01:35 100.0 67 20 162/70 (100) 95 05/17/17 00:09 96 21 05/16/17 20:00 97.4 62 18 165/77 (106) 94 05/16/17 19:53 21 05/16/17 15:32 99.5 56 18 160/71 (100) 96 05/16/17 11:17 98.1 54 18 157/69 (98) 97 I/O 05/16/17 05/16/17 05/16/17 05/17/17 05/17/17 05/17/17 07:00 15:00 23:00 07:00 15:00 23:00 Intake Total 480 ml Balance 480 ml Intake Oral 480 ml IV Total 0 ml Result Diagram: 05/17/1715 05/17/1715 Objective Remarks General: Sitting up in chair, no distress, coughing Skin: No rashes or lesions HEENT: Normocephalic, no conjunctivitis, no scleral icterus, no nasal discharge , normal pharynx. Neck: No thyromegaly, no lymphadenopathy CV: Irregularly irregular, normal rate, pulses intact, normal cap refill Lungs: Mild crackles in lung bases, otherwise clear to auscultation, poor respiratory effort, not wearing oxygen Abdomen: Soft, nontender, nondistended, normal bowel sounds Ext: Lower extremity edema pitting up to the shins, same or slightly better Neuro: Awake, alert, oriented A/P Assessment and Plan 76 year old female presents with acute CHF exacerbation, digoxin toxicity, atrial fibrillation with slow ventricular response, possible COPD Discharge Planning Pending improvement in breathing, discussing with patient options including back to her assisted living facility with home health care and PT versus a SNF. She will discuss further with her son and decide which she feels more comfortable with. Today she expresses concerns about her functioning at the [facility] and does not feel safe due to her deconditioning and shortness of breath. Will order a walk test today to see if she has desaturations with walking. Problem List: (1) Congestive heart failure ICD Codes: I50.9 - Heart failure, unspecified Status: Acute Plan: Bibasilar atelectasis on chest x-ray with cardiomegaly, BNP elevated to 560. Pitting edema in legs. Increasing shortness of breath. Breathing now improving. ECHO on 04/14 showing EF of 55-60, mild mitral regurgitation and stenosis, moderate tricuspid regurgitation. - Continue furosemide 40 mg bid, still with significant pitting edema in legs - Monitor intake/output, daily weights - Continue metoprolol - Sodium restriction (2) Digoxin toxicity ICD Codes: T46.0X1A - Poisoning by cardiac-stimulant glycosides and drugs of similar action, accidental (unintentional), initial encounter Status: Acute Plan: Elevated digoxin level at admission to 3.2. No gastrointestinal symptoms. EKG showing afib now with normal rate. Potassium elevated to 5.1 on admission, now normal. No neurological symptoms. 400 mg digifab given in ED. Per Uptodate, the digoxin level is not clinically significant after DigiFab given and should not continue to be followed, as the bound and free levels are combined in the assay and confound the results. - Continuous cardiac monitoring, monitor for arrhythmias - Monitor electrolytes, potassium level. Risk for hypokalemia after DigiFab, plus getting Furosemide for fluid overload. - Treat bradycardia with atropine, isotonic saline if persistent despite digoxin specific antibody (3) Atrial fibrillation with slow ventricular response ICD Codes: I48.91 - Unspecified atrial fibrillation Status: Acute Plan: Poorer prognosis of atrial fibrillation given congestive heart failure. Digoxin supratherapeutic, could be contributing to slow ventricular response. Afib complicated by CHF. No hypotension. Now with normal rate, needs to be checked manually rather than by monitor. - Anticoagulation with Eliquis 5 mg bid - Rate control with Digoxin (on hold for supratherapeutic levels), metoprolol 100 mg daily, diltiazem 360 mg daily - Target rate less than 85 if symptomatic, less than 110 if asymptomatic. Hold medications for bradycardia as needed. - Monitor for hypotension - Elevated digoxin at admission may be responsible for slow ventricular response. Given digoxin immune ANUPAM 400 mg in ED. (4) Renal insufficiency ICD Codes: N28.9 - Disorder of kidney and ureter, unspecified Status: Chronic Plan: Kidney function appears to be at her baseline based on records going back for one month. Her baseline GFR is in the 50's. May be prerenal etiology with symptoms of acute CHF. - Avoid nephrotoxic agents and contrast agents - Renally dose medications - Improve heart function (5) COPD (chronic obstructive pulmonary disease) ICD Codes: J44.9 - Chronic obstructive pulmonary disease, unspecified Status: Chronic Plan: Questionable history of COPD based on chart review. She is a non-smoker. - DuoNebs q4hrs - Albuterol PRN - Incentive spirometer - Check bedside PFT - May consider adding prednisone if not improving (6) HTN (hypertension) ICD Codes: I10 - Essential (primary) hypertension Status: Chronic Plan: - Continue Diltiazem, metoprolol (7) No contraindication to deep vein thrombosis (DVT) prophylaxis ICD Codes: Z78.9 - Other specified health status Status: Acute Plan: - Continue Eliquis for afib (8) Nutrition, metabolism, and development symptoms ICD Codes: R63.8 - Other symptoms and signs concerning food and fluid intake Status: Acute Plan: Heart healthy diet Monitor I's and O's with CHF exacerbation Monitor potassium Problem Qualifiers (1) Digoxin toxicity: Qualified Codes: T46.0X1A - Poisoning by cardiac-stimulant glycosides and drugs of similar action, accidental (unintentional), initial encounter (2) HTN (hypertension): Qualified Codes: I10 - Essential (primary) hypertension Matias Arreguin MD R3 May 17, 2017 11:25
[2017-05-18] VITALS (10 sets, daily range): BP systolic 136–168; BP diastolic 61–81; PULSE 60–88; RESP 16–19; TEMP 96.3–100; O2SAT 93–99
[2017-05-18] MEDS: RESP: ALBUTEROL 2.5 MG/IPRATROPIUM 0.5 MG NEB (SCH) INH ×6 (03:07→19:06)
[2017-05-18 07:13] LABS: HEMATOCRIT 33.7 % (35.0-46.0); HEMOGLOBIN 11.4 GM/DL (11.6-15.3); MEAN CELL VOLUME 89.9 FL (80.0-100.0); MEAN CORPUSCULAR HEMOGLOBIN 30.5 PG (27.0-34.0); MEAN CORPUSCULAR HGB CONC 33.9 % (32.0-36.0); MEAN PLATELET VOLUME 7.8 FL (7.0-11.0); PLATELET COUNT 211 TH/MM3 (150-450); RED BLOOD COUNT 3.75 MIL/MM3 (4.00-5.30); RED CELL DISTRIBUTION WIDTH 13.3 % (11.6-17.2); WHITE BLOOD COUNT 11.1 TH/MM3 (4.0-11.0)
[2017-05-18 07:38] LABS: BICARBONATE 31.3 MEQ/L (21.0-32.0); CALCIUM 8.3 MG/DL (8.5-10.1); CREATININE 0.92 MG/DL (0.50-1.00)
[2017-05-18] MEDS: METOPROLOL SUCCINATE 50 MG EXTENDED RELEASE TAB PO SCH (10:07)
[2017-05-18] MEDS: DOCUSATE SODIUM 50 MG/SENNA 8.6 MG TAB PO SCH ×2 (10:07→21:55)
[2017-05-18] MEDS: POTASSIUM CHLORIDE 20 MEQ CONTROLLED RELEASE TAB PO SCH ×2 (10:08→21:55)
[2017-05-18] MEDS: FUROSEMIDE 40 MG TAB PO SCH ×2 (10:08→18:26)
[2017-05-18] MEDS: MULTIVITAMIN TAB PO SCH (10:09)
[2017-05-18] MEDS: DILTIAZEM-CD 180 MG CAP ER PO SCH (10:09)
[2017-05-18] MEDS: CETIRIZINE HCL 10 MG TAB PO SCH (10:09)
[2017-05-18] MEDS: APIXABAN 5 MG TABLET PO SCH ×2 (10:09→21:55)
[2017-05-18] MEDS: ASPIRIN 81 MG CHEW TAB CHEW SCH (10:09)
[2017-05-18] MEDS: PANTOPRAZOLE SOD 40 MG DELAYED RELEASE TAB PO SCH (10:10)
[2017-05-18] MEDS: SODIUM CHLORIDE 0.9% FLUSH 10 ML FLUSH IV FLUSH SCH ×2 (10:10→21:58)
--- NOTE | 2017-05-18 11:32 | EKG ---
Date Performed: 05/18/2017 Time Performed: 10:31:33 PTAGE: 76 years EKG: ATRIAL FIBRILLATION POSSIBLE RIGHT VENTRICULAR CONDUCTION DELAY ST DEVIATION AND MODERATE T -WAVE ABNORMALITY, CONSIDER LATERAL AND INFERIOR ISCHEMIA ABNORMAL ECG PREVIOUS TRACING : 05/16/2017 01.06 Compared to previous tracing, heart rate has increased. DOCTOR: Ben Paige Interpretating Date/Time 05/18/2017 11:31:41
--- NOTE | 2017-05-18 11:37 | HHI.FPPN ---
Subjective Remarks Mrs. Mcguire was afebrile with stable VS overnight; patient had SBP in 140's-160 's and T from 96.8- 100F. Patient with O2 sat from 93-97% on room air. Ms. Murphy reports that she is doing poorly this morning; she reports chest pain which is 89/10 in severity. Patient also reports increased cough and upper respiratory congestion. Patient also feels sore after walking recently. Patient reports anxiety regarding returning home and like to stay in hospital longer. Objective Vitals Vital Signs Date Time Temp Pulse Resp B/P (MAP) Pulse Ox O2 Delivery O2 Flow Rate FiO2 05/18/17 11:29 96 21 05/18/17 08:00 96.3 74 17 161/75 (103) 97 05/18/17 06:01 100.0 69 18 136/61 (86) 93 05/18/17 00:07 96.8 60 18 152/72 (98) 99 05/18/17 00:00 98.6 70 18 139/61 (87) 94 05/17/17 20:57 93 05/17/17 16:00 98.5 72 17 146/88 (107) 97 05/17/17 12:00 97.1 71 18 146/73 (97) 96 I/O 05/17/17 05/17/17 05/17/17 05/18/17 05/18/17 05/18/17 07:00 15:00 23:00 07:00 15:00 23:00 Intake Total 1000 ml Balance 1000 ml Intake Oral 1000 ml # Voids 7 2 # Bowel Movements 0 Result Diagram: 05/18/17 0620 05/18/17 0620 Imaging Last Impressions Chest X-Ray 05/18/17 0000 Signed Impressions: Service Date/Time: Thursday, May 18, 2017 13:23 - CONCLUSION: No acute disease. Vikram Hopper MD FACR Objective Remarks General: Sitting up in chair, no distress, coughing Skin: No rashes or lesions HEENT:Normal pharynx. Neck: No thyromegaly, no lymphadenopathy CV: Regular rhythm, normal rate, normal peripheral perfusion Lungs: Mild crackles in lung bases, otherwise clear to auscultation, poor respiratory effort Abdomen: Soft, nontender, nondistended, normal bowel sounds Ext: Lower extremity edema pitting up to the shins Neuro: Awake, alert, oriented. Grossly normal CN. Grossly normal peripheral motor/sensory function A/P Assessment and Plan 76 year old female presents with acute CHF exacerbation, digoxin toxicity, atrial fibrillation with slow ventricular response, possible COPD Discharge Planning Plan for SNF per PT recommendation; patient agreeable Problem List: (1) Chest pain ICD Codes: R07.9 - Chest pain, unspecified Status: Acute Plan: Impression: Chest pain reported 05/18 in association with shortness of breath and coughing. T intermittently 100, O2 sat intermittently 93% -We'll check CXR to evaluate for suggestion of pneumonia -Check troponin, EKG to evaluate for possible ACS -Troponin x1 wnl -EKG wnl (2) Shortness of breath ICD Codes: R06.02 - Shortness of breath Status: Acute Plan: Impression: Patient with cough, failed home O2 walk test requiring 3 L O2 via NC -Will plan for O2 on discharge and ambulatory O2 (3) Congestive heart failure ICD Codes: I50.9 - Heart failure, unspecified Status: Acute Plan: Bibasilar atelectasis on chest x-ray with cardiomegaly, BNP elevated to 560. Pitting edema in legs. Increasing shortness of breath. Breathing now improving. ECHO on 04/14 showing EF of 55-60, mild mitral regurgitation and stenosis, moderate tricuspid regurgitation. - Continue furosemide 40 mg bid, still with significant pitting edema in legs - Monitor intake/output, daily weights - Continue metoprolol - Sodium restriction (4) Digoxin toxicity ICD Codes: T46.0X1A - Poisoning by cardiac-stimulant glycosides and drugs of similar action, accidental (unintentional), initial encounter Status: Acute Plan: Elevated digoxin level at admission to 3.2 on home Digoxin 0.25mg daily. No gastrointestinal symptoms. EKG showing afib with normal rate. Potassium elevated to 5.1 on admission, now normal. No neurological symptoms. 400 mg digifab given in ED. Per Uptodate, the digoxin level is not clinically significant after DigiFab given and should not continue to be followed, as the bound and free levels are combined in the assay and confound the results. - Continue telemetry - Monitor electrolytes, potassium level (5) Atrial fibrillation with slow ventricular response ICD Codes: I48.91 - Unspecified atrial fibrillation Status: Acute Plan: Poorer prognosis of atrial fibrillation given congestive heart failure. Digoxin supratherapeutic, could be contributing to slow ventricular response. Afib complicated by CHF. No hypotension. Now with normal rate, needs to be checked manually rather than by monitor. Recently on Digoxin 0.25mg daily. Given digoxin immune ANUPAM 400 mg in ED. - Anticoagulation with Eliquis 5 mg bid - Rate control with metoprolol 100 mg daily, diltiazem 360 mg daily -Will consider increasing Metoprolol due to persistent HTN elevation - Target rate less than 85 if symptomatic, less than 110 if asymptomatic. Hold medications for bradycardia as needed. - Monitor for hypotension - Elevated digoxin at admission may be responsible for slow ventricular response. (6) Renal insufficiency ICD Codes: N28.9 - Disorder of kidney and ureter, unspecified Status: Chronic Plan: Kidney function appears to be at her baseline based on records going back for one month. Her baseline GFR is in the 50's. May be prerenal etiology with symptoms of acute CHF. - Avoid nephrotoxic agents and contrast agents - Renally dose medications - Improve heart function (7) COPD (chronic obstructive pulmonary disease) ICD Codes: J44.9 - Chronic obstructive pulmonary disease, unspecified Status: Chronic Plan: Questionable history of COPD based on chart review. She is a non-smoker. - DuoNebs q4hrs - Albuterol PRN - Incentive spirometer - Check bedside PFT - May consider adding prednisone if not improving (8) HTN (hypertension) ICD Codes: I10 - Essential (primary) hypertension Status: Chronic Plan: Impression: SBP 140's-160 during hospitalization - Continue Diltiazem, metoprolol -Will plan for additional agent since persistent mild HTN (9) No contraindication to deep vein thrombosis (DVT) prophylaxis ICD Codes: Z78.9 - Other specified health status Status: Acute Plan: - Continue Eliquis for afib (10) Nutrition, metabolism, and development symptoms ICD Codes: R63.8 - Other symptoms and signs concerning food and fluid intake Status: Acute Plan: Heart healthy diet Monitor I's and O's with CHF exacerbation Monitor potassium Problem Qualifiers (1) Chest pain: Qualified Codes: R07.9 - Chest pain, unspecified (2) Digoxin toxicity: Qualified Codes: T46.0X1A - Poisoning by cardiac-stimulant glycosides and drugs of similar action, accidental (unintentional), initial encounter (3) HTN (hypertension): Qualified Codes: I10 - Essential (primary) hypertension Glen Solorzano MD, R3 May 18, 2017 11:37
--- NOTE | 2017-05-18 15:16 | RADRPT ---
EXAM DATE/TIME: 05/18/2017 13:23 [facility] COMPARISON: CHEST SINGLE AP, May 15, 2017, 13:52. INDICATIONS : Cough. MEDICAL HISTORY : Hypertension. SURGICAL HISTORY : Appendectomy. Hysterectomy. ENCOUNTER: Subsequent ACUITY: 3 days PAIN SCORE: 0/10 LOCATION: Bilateral chest FINDINGS: A single view of the chest demonstrates the lungs to be symmetrically aerated without evidence of mas s, infiltrate or effusion. The cardiomediastinal contours are unremarkable. Osseous structures are intact. CONCLUSION: No acute disease. Vikram Hopper MD FACR on May 18, 2017 at 15:14 Board Certified Radiologist. This report was verified electronically.
[2017-05-18] MEDS ORDERED: OXYGENDME NAS.CANULA (16:19)
[2017-05-18] MEDS ORDERED: OXYGENTANK NAS.CANULA (16:19)
[2017-05-19] VITALS (8 sets, daily range): BP systolic 121–142; BP diastolic 56–79; PULSE 70–97; RESP 16–18; TEMP 95.9–98.5; O2SAT 96–97
[2017-05-19] MEDS: RESP: ALBUTEROL 2.5 MG/IPRATROPIUM 0.5 MG NEB (SCH) INH ×6 (03:43→19:00)
[2017-05-19 07:42] LABS: AUTOMATED NEUTROPHIL # 7.1 TH/MM3 (1.8-7.7); BASOPHIL % 0.2 % (0.0-2.0); EOSINOPHIL # 0.1 TH/MM3 (0-0.4); EOSINOPHIL % 1.5 % (0.0-4.0); HEMATOCRIT 32.1 % (35.0-46.0); HEMOGLOBIN 10.9 GM/DL (11.6-15.3); LYMPH % 6.1 % (9.0-44.0); LYMPHOCYTE # 0.5 TH/MM3 (1.0-4.8); MEAN CELL VOLUME 90.7 FL (80.0-100.0); MEAN CORPUSCULAR HEMOGLOBIN 30.9 PG (27.0-34.0); MEAN PLATELET VOLUME 8.2 FL (7.0-11.0); MONO % 9.8 % (0.0-8.0); MONOCYTE # 0.8 TH/MM3 (0-0.9); NEUT % 82.4 % (16.0-70.0); PLATELET COUNT 191 TH/MM3 (150-450); RED BLOOD COUNT 3.54 MIL/MM3 (4.00-5.30); RED CELL DISTRIBUTION WIDTH 13.7 % (11.6-17.2); WHITE BLOOD COUNT 8.6 TH/MM3 (4.0-11.0)
[2017-05-19 08:14] LABS: BICARBONATE 33.7 MEQ/L (21.0-32.0); CALCIUM 8.4 MG/DL (8.5-10.1); CREATININE 1.03 MG/DL (0.50-1.00)
[2017-05-19] MEDS: SODIUM CHLORIDE 0.9% FLUSH 10 ML FLUSH IV FLUSH SCH (08:51)
[2017-05-19] MEDS: DOCUSATE SODIUM 50 MG/SENNA 8.6 MG TAB PO SCH (08:52)
[2017-05-19] MEDS: ASPIRIN 81 MG CHEW TAB CHEW SCH (08:52)
[2017-05-19] MEDS: FUROSEMIDE 40 MG TAB PO SCH ×2 (08:52→18:08)
[2017-05-19] MEDS: POTASSIUM CHLORIDE 20 MEQ CONTROLLED RELEASE TAB PO SCH (08:53)
[2017-05-19] MEDS: DILTIAZEM-CD 180 MG CAP ER PO SCH (08:53)
[2017-05-19] MEDS: PANTOPRAZOLE SOD 40 MG DELAYED RELEASE TAB PO SCH (08:53)
[2017-05-19] MEDS: CETIRIZINE HCL 10 MG TAB PO SCH (08:53)
[2017-05-19] MEDS: APIXABAN 5 MG TABLET PO SCH (08:53)
[2017-05-19] MEDS: METOPROLOL SUCCINATE 50 MG EXTENDED RELEASE TAB PO SCH (08:53)
[2017-05-19] MEDS: MULTIVITAMIN TAB PO SCH (08:54)
--- NOTE | 2017-05-19 10:32 | RSPPFT ---
DATE OF PROCEDURE: 05/18/17 COMMENTS: VOLUMES DYNAMIC: FVC and FEV1 moderately reduced. FLOWS: FEV1% and FEF 25-75 normal. IMPRESSION: Probable moderately severe restrictive ventilatory defect with no significant airways obstruction noted. There is no improvement post-bronchodilator.
--- NOTE | 2017-05-19 10:43 | HHI.FPPN ---
Subjective Remarks Mrs. Mcguire was afebrile with stable VS overnight. Patient reports that she is doing well today with exception of bilateral shoulder pain which she received last night. Patient reports that the shortness of breath and chest pain she experienced yesterday has resolved. Patient also reports mild left foot pain. Normal bowel movements and frequent voiding (14 voids overnight) per I/O review. Objective Vitals Vital Signs Date Time Temp Pulse Resp B/P (MAP) Pulse Ox O2 Delivery O2 Flow Rate FiO2 05/19/17 08:17 97 21 05/19/17 08:00 95.9 93 18 127/79 (95) 96 05/19/17 05:08 97.4 80 16 121/56 (77) 97 05/19/17 01:39 96 05/19/17 00:38 98.5 70 18 127/56 (79) 96 05/18/17 20:45 97.8 70 17 141/72 (95) 99 05/18/17 20:00 88 05/18/17 16:00 99.4 75 19 166/69 (101) 95 05/18/17 15:34 95 05/18/17 12:00 97.8 87 16 168/81 (110) 96 05/18/17 11:29 96 21 I/O 05/18/17 05/18/17 05/18/17 05/19/17 05/19/17 05/19/17 07:00 15:00 23:00 07:00 15:00 23:00 Intake Total 795 ml 580 ml Balance 795 ml 580 ml Intake Oral 795 ml 580 ml # Voids 2 10 4 # Bowel Movements 1 0 Result Diagram: 05/19/17 0602 05/19/17 0602 Imaging Last Impressions Chest X-Ray 05/18/17 0000 Signed Impressions: Service Date/Time: Thursday, May 18, 2017 13:23 - CONCLUSION: No acute disease. Vikram Hopper MD FACR Objective Remarks General: Sitting up in chair, no distress Skin: No rashes or lesions Neck/back: No thyromegaly, no lymphadenopathy. No spinous process pain. Bilateral paracervical muscular pain. CV: Regular rhythm, normal rate, normal peripheral perfusion Lungs: CTA B, normal rate Abdomen: Soft, nontender, nondistended, normal bowel sounds Ext: Lower extremity edema pitting up to the shins. No calf asymmetry. Mild pain to palpation of distal left lower extremity diffusely; no bony tenderness appreciated. Homans testing seems negative bilaterally Neuro: Awake, alert, oriented. Grossly normal CN. Grossly normal peripheral motor/sensory function A/P Assessment and Plan 76 year old female presents with acute CHF exacerbation, digoxin toxicity, atrial fibrillation with slow ventricular response, possible COPD Discharge Planning Plan for SNF per PT recommendation; patient agreeable Problem List: (1) Atrial fibrillation with slow ventricular response ICD Codes: I48.91 - Unspecified atrial fibrillation Status: Acute Plan: Impression: Currently rate controlled. Digoxin supratherapeutic on admission. No hypotension. Recently on Digoxin 0.25mg daily. Given digoxin immune ANUPAM 400 mg in ED. - Anticoagulation with Eliquis 5 mg bid - Rate control with metoprolol 100 mg daily, diltiazem 360 mg daily - Target rate less than 85 if symptomatic, less than 110 if asymptomatic. Hold medications for bradycardia as needed. - Monitor for hypotension (2) Congestive heart failure ICD Codes: I50.9 - Heart failure, unspecified Status: Acute Plan: Impression: Bibasilar atelectasis on chest x-ray with cardiomegaly, BNP elevated to 560. Pitting edema in legs. ACS rule-out negative. Suspect secondary to poor output from atrial fibrillation prior to rate control ECHO on 04/14 showing EF of 55-60, mild mitral regurgitation and stenosis, moderate tricuspid regurgitation. - Will decrease Furosemide to 40mg daily with 20KCl on discharge (previously Furosemide 40 mg bid, 20 KCl BID) - Monitor intake/output, daily weights - Continue Metoprolol, Diltiazem - Sodium restriction (3) Digoxin toxicity ICD Codes: T46.0X1A - Poisoning by cardiac-stimulant glycosides and drugs of similar action, accidental (unintentional), initial encounter Status: Acute Plan: Elevated digoxin level at admission to 3.2 on home Digoxin 0.25mg daily. No gastrointestinal symptoms. EKG showing afib with normal rate. Potassium elevated to 5.1 on admission, now normal. No neurological symptoms. 400 mg digifab given in ED. Per Uptodate, the digoxin level is not clinically significant after DigiFab given and should not continue to be followed, as the bound and free levels are combined in the assay and confound the results. - Continue telemetry - Monitor electrolytes, potassium level (4) Shortness of breath ICD Codes: R06.02 - Shortness of breath Status: Acute Plan: Impression: Patient with cough, failed home O2 walk test requiring 3 L O2 via NC. Questionable history of COPD based on chart review. She is a non- smoker. -Will plan for O2 on discharge and ambulatory O2 - DuoNebs q4hrs - Albuterol PRN - Incentive spirometer - Check bedside PFT - May consider adding prednisone if not improving (5) Chest pain ICD Codes: R07.9 - Chest pain, unspecified Status: Resolved Plan: Impression: Chest pain reported 05/18 in association with shortness of breath and coughing. T intermittently 100, O2 sat intermittently 93% CXR without suggestion of acute disease Troponin x1 wnl EKG without ST changes suggestive of ACS (6) Renal insufficiency ICD Codes: N28.9 - Disorder of kidney and ureter, unspecified Status: Chronic Plan: Kidney function appears to be at her baseline based on records going back for one month. Her baseline GFR is in the 50's. May be prerenal etiology with symptoms of acute CHF. - Avoid nephrotoxic agents and contrast agents - Renally dose medications - Improve heart function (7) HTN (hypertension) ICD Codes: I10 - Essential (primary) hypertension Status: Chronic Plan: Impression: SBP 140's-160 during hospitalization - Continue Diltiazem, metoprolol -Will plan for additional agent since persistent mild HTN (8) Debility, unspecified ICD Codes: R53.81 - Other malaise Plan: Impression: Patient evaluated by PT; rehabilitation recommended -Will plan for SNF placement on discharge (9) No contraindication to deep vein thrombosis (DVT) prophylaxis ICD Codes: Z78.9 - Other specified health status Status: Acute Plan: - Continue Eliquis for afib (10) Nutrition, metabolism, and development symptoms ICD Codes: R63.8 - Other symptoms and signs concerning food and fluid intake Status: Acute Plan: Heart healthy diet Monitor I's and O's with CHF exacerbation Monitor potassium Problem Qualifiers (1) Digoxin toxicity: Qualified Codes: T46.0X1A - Poisoning by cardiac-stimulant glycosides and drugs of similar action, accidental (unintentional), initial encounter (2) Chest pain: Qualified Codes: R07.9 - Chest pain, unspecified (3) HTN (hypertension): Qualified Codes: I10 - Essential (primary) hypertension Glen Solorzano MD, R3 May 19, 2017 10:43
[2017-05-19] MEDS ORDERED: CYCLOBENZAPRINE HCL 10 MG TAB PO ONE (10:45)
[2017-05-19] MEDS ORDERED: ACETAMINOPHEN 325 MG TAB PO PRN (10:45)
[2017-05-19] MEDS ORDERED: ACET325T15 PO (10:52)
[2017-05-19] MEDS ORDERED: FURO40TA PO (10:52)
[2017-05-19] MEDS ORDERED: POTA-163 PO (10:52)
[2017-05-19] MEDS ORDERED: PILL SPLITTER OTHER PRN (11:30)
--- NOTE | 2017-05-20 12:03 | PQ ---
Physician Query Response Document PATIENT: DANIELLE PABLO : 1940 ADMIT DATE: 05/15/2017 5:08 PM DISCH DATE: 05/19/2017 7:29 PM RESPONDING PROVIDER #: Lennox QUERY TEXT: CHF Acuity and Type Congestive Heart Failure is documented in the Medical Record. Please document the type and acuity (in cludes probable or suspected) Such as: Type: -- Systolic -- Diastolic -- Combined -- Other, please specify Acuity: -- Acute -- Chronic -- Acute on chronic -- Other, please specify Also please document the underlying cause of the CHF (includes probable or suspected) The patient's Clinical Indicators include: The H Congestive heart failure Bibasilar atelectasis on chest x-ray with cardiomegaly, BNP elevated to 560. Pitting edema in legs. I ncreasing shortness of breath. Breathing now improving. ECHO on 04/14 showing EF of 55-60, mild mitral regurgitation and stenosis, moderate tricuspid regurgitation. Please specify: Query created by: Kira López on 05/19/2017 3:16 PM RESPONSE TEXT: She had acute on chronic heart failure likely due to valvular disease Electronically signed by: Tea Stoner MD 05/20/2017 12:00 PM
--- NOTE | 2017-05-20 12:03 | PQ ---
Physician Query Response Document PATIENT: DANIELLE PABLO : 1940 ADMIT DATE: 05/15/2017 5:08 PM DISCH DATE: 05/19/2017 7:29 PM RESPONDING PROVIDER #: Lennox QUERY TEXT: CHF Acuity and Type Congestive Heart Failure is documented in the Medical Record. Please document the type and acuity (in cludes probable or suspected) Such as: Type: -- Systolic -- Diastolic -- Combined -- Other, please specify Acuity: -- Acute -- Chronic -- Acute on chronic -- Other, please specify Also please document the underlying cause of the CHF (includes probable or suspected) The patient's Clinical Indicators include: The H Congestive heart failure Bibasilar atelectasis on chest x-ray with cardiomegaly, BNP elevated to 560. Pitting edema in legs. I ncreasing shortness of breath. Breathing now improving. ECHO on 04/14 showing EF of 55-60, mild mitral regurgitation and stenosis, moderate tricuspid regurgitation. Please specify: Query created by: Kira López on 05/19/2017 3:16 PM RESPONSE TEXT: She had acute on chronic heart failure likely due to valvular disease Electronically signed by: Tea Stoner MD 05/20/2017 12:00 PM
--- NOTE | 2017-05-20 12:03 | PQ ---
Physician Query Response Document PATIENT: DANIELLE PABLO : 1940 ADMIT DATE: 05/15/2017 5:08 PM DISCH DATE: 05/19/2017 7:29 PM RESPONDING PROVIDER #: Lennox QUERY TEXT: CHF Acuity and Type Congestive Heart Failure is documented in the Medical Record. Please document the type and acuity (in cludes probable or suspected) Such as: Type: -- Systolic -- Diastolic -- Combined -- Other, please specify Acuity: -- Acute -- Chronic -- Acute on chronic -- Other, please specify Also please document the underlying cause of the CHF (includes probable or suspected) The patient's Clinical Indicators include: The H Congestive heart failure Bibasilar atelectasis on chest x-ray with cardiomegaly, BNP elevated to 560. Pitting edema in legs. I ncreasing shortness of breath. Breathing now improving. ECHO on 04/14 showing EF of 55-60, mild mitral regurgitation and stenosis, moderate tricuspid regurgitation. Please specify: Query created by: Kira López on 05/19/2017 3:16 PM RESPONSE TEXT: She had acute on chronic heart failure likely due to valvular disease Electronically signed by: Tea Stoner MD 05/20/2017 12:00 PM
== END 2017-05-19 19:29 | DRG 918 ==
LOC: NEPC 13:15 → NEDA 15:32 → OBSVTOIN 17:08 → NEPGCP 18:43 → N07A 05-16 19:28
PROVIDERS: ADMIT Family Medicine; ATTEND Family Medicine
DX: T46.0X1A Poisoning by cardiac-stimulant glycosides and drugs of similar action, accidental (unintentional), initial encounter (principal); I11.0 Hypertensive heart disease with heart failure; R00.1 Bradycardia, unspecified; I50.9 Heart failure, unspecified; I48.91 Unspecified atrial fibrillation; J98.11 Atelectasis; E87.5 Hyperkalemia; J44.9 Chronic obstructive pulmonary disease, unspecified; I05.2 Rheumatic mitral stenosis with insufficiency; N28.9 Disorder of kidney and ureter, unspecified; Z77.22 Contact with and (suspected) exposure to environmental tobacco smoke (acute) (chronic); Z79.01 Long term (current) use of anticoagulants; Z79.899 Other long term (current) drug therapy; Z85.42 Personal history of malignant neoplasm of other parts of uterus; Z86.73 Personal history of transient ischemic attack (TIA), and cerebral infarction without residual deficits; F41.9 Anxiety disorder, unspecified; Y92.099 Unspecified place in other non-institutional residence as the place of occurrence of the external cause
CPT/HCPCS: 71010; 80048; 80162; 82550; 83735; 83880; 84484; 85025; 85027; 85610; 85730; 93005; 94060; 94150; 94620; 94640; 94664; 99285; J1162; J1940

== ENCOUNTER 2017-07-08 15:15 | Inpatient (IN) | payer MEDICARE ==
[~2017-07-08] VITALS: Ht 154.9 cm; Wt 62.7 kg
[~2017-07-08 15:15] MED LIST changes: +ACET325T15 PO; -DIGO0.25 PO; +FURO40TA PO; -LEVA750T9 PO; -NEBULIZER1 MI1; +POTA-163 PO; +PREPOIN TOPICAL; -WALKER WHEELS/F1 MIS; +WARF-23 PO
[2017-07-08 15:19] VITALS: BP 149/74; PULSE 87; RESP 20; TEMP 99; O2SAT 96
[2017-07-08] MEDS ORDERED: SODIUM CHLORIDE 0.9% FLUSH 10 ML FLUSH IVF PRN (15:30)
[2017-07-08 15:36] VITALS: BP 139/88; PULSE 77; RESP 18; O2SAT 94
--- NOTE | 2017-07-08 15:56 | RADRPT ---
EXAM DATE/TIME: 07/08/2017 15:40 [facility] COMPARISON: CHEST SINGLE AP, May 18, 2017, 13:23. INDICATIONS : Palpiations. MEDICAL HISTORY : Hypertension. SURGICAL HISTORY : Appendectomy. Hysterectomy. ENCOUNTER: Initial ACUITY: 1 day PAIN SCORE: 0/10 LOCATION: Bilateral chest FINDINGS: Mild coarse reticular parenchymal opacities present in lung bases bilaterally. No evidence of consoli dative airspace disease or pleural effusion. Cardiac contours are grossly stable accounting for techn ique and projection. CONCLUSION: Mild basilar parenchymal opacities. Benedicto Campbell MD on July 08, 2017 at 15:53 Board Certified Radiologist. This report was verified electronically.
[2017-07-08 16:02] VITALS: BP 143/82; PULSE 70; RESP 19; O2SAT 98
[2017-07-08 16:07] LABS: AUTOMATED NEUTROPHIL # 6.8 TH/MM3 (1.8-7.7); BASOPHIL % 0.2 % (0.0-2.0); EOSINOPHIL # 0.1 TH/MM3 (0-0.4); EOSINOPHIL % 1.1 % (0.0-4.0); HEMATOCRIT 33.7 % (35.0-46.0); HEMOGLOBIN 11.3 GM/DL (11.6-15.3); LYMPH % 6.7 % (9.0-44.0); LYMPHOCYTE # 0.5 TH/MM3 (1.0-4.8); MEAN CELL VOLUME 88.6 FL (80.0-100.0); MEAN CORPUSCULAR HEMOGLOBIN 29.7 PG (27.0-34.0); MEAN CORPUSCULAR HGB CONC 33.5 % (32.0-36.0); MONOCYTE # 0.7 TH/MM3 (0-0.9); PLATELET COUNT 309 TH/MM3 (150-450); RED CELL DISTRIBUTION WIDTH 14.6 % (11.6-17.2); WHITE BLOOD COUNT 8.2 TH/MM3 (4.0-11.0)
--- NOTE | 2017-07-08 16:07 | PD ---
HPI Chief Complaint: Cardiac Complaint Time Seen by Provider: 15:32 Travel History International Travel<30 days: No Contact w/Intl Traveler<30days: No Traveled to known affect area: No History of Present Illness HPI 76 YO F with PMH of HTN, A. fib, CHF, COPD on warfarin presents to the ED for evaluation of 5 day history of intermittent palpitations with associated dizziness and shortness of breath. She denies fevers, chills, headache, vision changes, facial droop, chest pain, cough, nausea, vomiting, abdominal pain, weakness of the extremities. She endorses chronic lower extremity edema, no worse today. She states that she had lab work drawn by her home health nurse and was called and told to come to the emergency room by Dr. Solorzano. She is followed by the residents. PFSH Past Medical History Arthritis: Yes Asthma: No Atrial Fibrillation: Yes Blood Disorders: No Heart Rhythm Problems: Yes (Hx of A-fib) Cancer: Yes (hx of uterine cancer ) Cardiovascular Problems: Yes (HTN) High Cholesterol: No Chemotherapy: No Chest Pain: Yes Congestive Heart Failure: Yes COPD: No Cerebrovascular Accident: Yes Diminished Hearing: No Endocrine: No GERD: No Genitourinary: No Hiatal Hernia: No Hypertension: Yes Immune Disorder: No Kidney Stones: No Musculoskeletal: Yes (arthritis ) Neurologic: Yes (2 strokes (last one was approximately 5 years ago)) Psychiatric: No Reproductive: No Respiratory: No Migraines: No Radiation Therapy: No Renal Failure: No Seizures: No Sleep Apnea: No Ulcer: Yes Menopausal: Yes : 4 Para: 4 Past Surgical History Abdominal Surgery: No Appendectomy: Yes Cardiac Surgery: No Ear Surgery: No Endocrine Surgery: No Eye Surgery: No Genitourinary Surgery: No Hysterectomy: Yes Oral Surgery: No Thoracic Surgery: No Other Surgery: Yes (hysterectomy ) Social History Alcohol Use: No Tobacco Use: No Substance Use: No Allergies-Medications (Allergen,Severity, Reaction): Coded Allergies: Penicillins (Verified Allergy, Severe, RASH, 07/08/17) Reported Meds & Prescriptions Reported Meds & Active Scripts Active Warfarin 5 Mg Tab 5 Mg PO DAILY Furosemide 40 Mg Tab 40 Mg PO DAILY Potassium Chloride ER (Potassium Chloride) 20 Meq Tab 20 Meq PO DAILY Cardizem CD 24 HR (Diltiazem CD 24 HR) 180 Mg Caper 360 Mg PO DAILY 30 Days Metoprolol Succinate ER 24 HR (Metoprolol Succinate) 50 Mg Tab 100 Mg PO DAILY 30 Days Ipratropium Neb (Ipratropium [place]) 0.5 Mg/2.5 Ml Amp 0.5 Mg NEB Q8HR PRN Eq Acetaminophen (Acetaminophen) 325 Mg Tab 500 Mg PO Q4H PRN Reported Cetirizine (Cetirizine HCl) 10 Mg Tab 10 Mg PO DAILY Glucosamine (Glucosamine Sulfate) 1,000 Mg Cap 1,000 Mg PO DAILY Ginkgo Biloba (Ginkgo Biloba [place] Extract) 60 Mg Tablet 1 Tab PO DAILY Vitamin B-12 (Cyanocobalamin) 500 Mcg Tab 500 Mcg PO DAILY Calcium + D & K (Calcium-Vitamins D & K) 500-1,000-40 Mg-Unit-Mcg Chew 1 Tab CHEW Vitamin C (Ascorbic Acid) 250 Mg Tab 500 Mg PO Multiple Vitamin 1 Tab 1 Tab PO DAILY Review of Systems Except as stated in HPI: all other systems reviewed are Neg Physical Exam Narrative GENERAL: Well-nourished, well-developed pleasant, petite white female in no acute distress. SKIN: Focused skin assessment warm/dry. HEAD: Normocephalic. EYES: No scleral icterus. No injection or drainage. NECK: Supple, trachea midline. No JVD or lymphadenopathy. CARDIOVASCULAR: Irregularly irregular without murmurs, gallops, or rubs. RESPIRATORY: Breath sounds are and equal bilaterally. No accessory muscle use. GASTROINTESTINAL: Abdomen soft, non-tender, nondistended. Active bowel sounds. RECTAL EXAM: External hemorrhoids noted. No masses or tenderness, stool is brown. Guaiac negative. MUSCULOSKELETAL: No cyanosis. Trace edema to the knees bilaterally. NEUROLOGICAL: Awake and alert. Cranial nerves II through XII intact. Motor and sensory grossly within normal limits. Five out of 5 muscle strength in all muscle groups. Normal speech. BACK: Nontender without obvious deformity. No CVA tenderness. Data Data Last Documented VS Vital Signs Date Time Temp Pulse Resp B/P (MAP) Pulse Ox O2 Delivery O2 Flow Rate FiO2 07/08/17 16:02 70 19 143/82 (102) 98 Room Air 07/08/17 15:19 99.0 Orders Orders Electrocardiogram (07/08/17 15:30) Ckmb (Isoenzyme) Profile (07/08/17 15:30) Complete Blood Count With Diff (07/08/17 15:30) Comprehensive Metabolic Panel (07/08/17 15:30) Magnesium (Mg) (07/08/17 15:30) Prothrombin Time / Inr (Pt) (07/08/17 15:30) Act Partial Throm Time (Ptt) (07/08/17 15:30) Troponin I (07/08/17 15:30) Chest, Single Ap (07/08/17 15:30) Ecg Monitoring (07/08/17 15:30) Bilateral Bp Monitoring (07/08/17 15:30) Iv Access Insert/Monitor (07/08/17 15:30) Oximetry (07/08/17 15:30) Sodium Chloride 0.9% Flush (Ns Flush) (07/08/17 15:30) Ct Brain W/O Iv Contrast(Rout) (07/08/17 ) B-Type Natriuretic Peptide (07/08/17 15:54) Type And Screen (07/08/17 16:39) Fresh Frozen Plasma (Ffp) (07/08/17 16:39) Blood Product Administration (07/08/17 16:39) Admit Order (Ed Use Only) (07/08/17 16:48) Labs Laboratory Tests Test 07/08/17 15:00 White Blood Count 8.2 TH/MM3 Red Blood Count 3.80 MIL/MM3 Hemoglobin 11.3 GM/DL Hematocrit 33.7 % Mean Corpuscular Volume 88.6 FL Mean Corpuscular Hemoglobin 29.7 PG Mean Corpuscular Hemoglobin Concent 33.5 % Red Cell Distribution Width 14.6 % Platelet Count 309 TH/MM3 Mean Platelet Volume 9.0 FL Neutrophils (%) (Auto) 83.0 % Lymphocytes (%) (Auto) 6.7 % Monocytes (%) (Auto) 9.0 % Eosinophils (%) (Auto) 1.1 % Basophils (%) (Auto) 0.2 % Neutrophils # (Auto) 6.8 TH/MM3 Lymphocytes # (Auto) 0.5 TH/MM3 Monocytes # (Auto) 0.7 TH/MM3 Eosinophils # (Auto) 0.1 TH/MM3 Basophils # (Auto) 0.0 TH/MM3 CBC Comment DIFF FINAL Differential Comment Prothrombin Time 143.9 SEC Prothromb Time International Ratio 14.5 RATIO Activated Partial Thromboplast Time 38.7 SEC B-Type Natriuretic Peptide 173 PG/ML MDM Medical Decision Making Medical Screen Exam Complete: Yes Emergency Medical Condition: Yes Differential Diagnosis afib versus ACS versus CHF versus COPD versus other Narrative Course 76 YO F with PMH of HTN, A. fib, CHF, COPD on warfarin presents to the ED for evaluation of 5 day history of intermittent palpitations with associated dizziness and shortness of breath. She denies fevers, chills, headache, vision changes, facial droop, chest pain, cough, nausea, vomiting, abdominal pain, weakness of the extremities. She endorses chronic lower extremity edema, no worse today. She states that she had lab work drawn by her home health nurse and was called and told to come to the emergency room by Dr. Solorzano. She is followed by the residents. Patient is hypertensive on presentation. Physical exam reveals irregularly irregular heart rate, otherwise unremarkable.. Guaiac negative on rectal exam. Per chart review the patient has been on Coumadin for ~5 days. EKG rate 80, A. fib. Normal axis. No acute ST changes. Q waves in V1/V2. Reviewed by Dr. Quick. Cardiac enzymes negative 1. CXR: Minimal bibasilar opacities per radiology read. CBC: WBC 8.2. Hemoglobin 11.3. Hematocrit 33.7. INR 14.5. CMP: BUN 22, creatinine 1.12. BNP 173. The patient was administered 2.5 mg vitamin K and 2 units FFP. I discussed the results of the workup and the need for admission. Patient is agreeable. I discussed case with Dr. Witt, resident, who agrees to accept the patient medicine service under Dr. Stoner. Please see medicine notes for disposition. Kaltin Pichardo Jul 08, 2017 16:07
[2017-07-08 16:22] LABS: PROTHROMBIN TIME - PATIENT 143.9 SEC (9.8-11.6)
[2017-07-08 16:37] LABS: INTERNATIONAL NORMALIZED RATIO 14.5 RATIO
[2017-07-08] MEDS ORDERED: PHYTONADIONE 5 MG TAB PO ONE (16:45)
--- NOTE | 2017-07-08 16:58 | RADRPT ---
EXAM DATE/TIME: 07/08/2017 16:40 [facility] COMPARISON: No previous studies available for comparison. INDICATIONS : Dizziness. RADIATION DOSE: 28.95 CTDIvol (mGy) MEDICAL HISTORY : Cerebrovascular disease. Cardiovascular disease Hypertension.Uterine cancer SURGICAL HISTORY : Hysterectomy. ENCOUNTER: Initial ACUITY: 1 day PAIN SCALE: 0/10 LOCATION: cranial TECHNIQUE: Multiple contiguous axial images were obtained of the head. Using automated exposure control and adj ustment of the mA and/or kV according to patient size, radiation dose was kept as low as reasonably a chievable to obtain optimal diagnostic quality images. DICOM format image data is available electro nically for review and comparison. FINDINGS: CEREBRUM: Moderate diffuse cerebral volume loss. The ventricles are in the upper limits of normal for degree of atrophy. Moderate periventricular white matter hypodensities. No evidence of midline shift, mass le armando, hemorrhage or acute infarction. No extra-axial fluid collections are seen. POSTERIOR FOSSA: The cerebellum and brainstem are intact. The 4th ventricle is midline. The cerebellopontine angle i s unremarkable. EXTRACRANIAL: The visualized portion of the orbits is intact. SKULL: The calvaria is intact. No evidence of skull fracture. CONCLUSION: 1. Senescent changes with moderate periventricular small vessel ischemic demyelination. 2. No acute intracranial abnormality. Marcelino Boothe MD on July 08, 2017 at 16:55 Board Certified Radiologist. This report was verified electronically.
--- NOTE | 2017-07-08 17:13 | HHI.HP ---
[facility] Service Family Medicine Primary Care Physician Glen Ruiz , R3 MD Jeanine Admission Diagnosis supratherapeutic INR Diagnoses: International Travel<30 Days: No Contact w/Intl Traveler<30days: No Known Affected Area: No History of Present Illness Mrs. Mcguire is a 76 yo F with PMH of Atrial fibrillation, HTN, prior CV disease who presents at the request of PCP (myself) due to outpatient notification of INR of 12.1 on outpatient blood draw 07/08/2017 at 1235. Mrs. Mcguire reports that she has been doing ok recently without any concern for bleeding. Patient has had continued frequent palpitations over the past several days in which she feels "nervous: and can tell that her heart is beating too fast. She thought about seeking medical evaluation 07/06 but decided not to. This happens at random times of the day and remits spontaneously. Patient has felt some palpitations today but states that palpitations have been less frequent over the past 2 days. Patient also reported some shortness of breath when feeling palpitations earlier this week ( 07/06) but she does not feel any shortness of breath at this time. Patient does not report any associated chest pain. No headaches or numbness/weakness/ tingling recently; she has occasional lightheadedness which she associates with tachycardia.Patient has had normal urination. Normal bowel movements without suggestion of bleeding. Patient has been taking her medications [patient lives at [facility]; I left message with nursing staff there and will attempt to obtain supplemental information at a later time]. Interval History: Patient seen at [place] ED reporting palpitations, dizziness, and shortness of breath along with chronic LE edema. Labs in ED confirmed supratherapeutic INR with INR 14.5 (PT 143.9). EKG obtained showing Afib with normal rate; no obvious ST changes. head CT negative for intracranial bleeding. Troponin 0.02. BNP 173, CMP reassuring. Hemoccult negative. Patient given 2.5mg Vit K and FFP x2 U with plans to admit patient for further evaluation/treatment. Review of Systems Constitutional: COMPLAINS OF: Fatigue (today), Dizziness (intermittent) Eyes: DENIES: Eye inflammation, Eye pain Respiratory: COMPLAINS OF: Shortness of breath (when associated with rapid heartbeat), DENIES: Cough Cardiovascular: COMPLAINS OF: Palpitations, DENIES: Chest pain Gastrointestinal: COMPLAINS OF: Abdominal pain (mild after palpitations), DENIES: Diarrhea Genitourinary: DENIES: Urgency, Dysuria Musculoskeletal: DENIES: Joint pain, Muscle aches Integumentary: DENIES: Abnormal pigmentation, Pruritus Hematologic/lymphatic: DENIES: Bruising, Lymphadenopathy Neurologic: DENIES: Headache, Speech Problems Psychiatric: COMPLAINS OF: Anxiety (with palpitations), DENIES: Confusion Past Family Social History Past Medical History Per patient HTN Hospitalization for Flu Prior cancer in uterus? "mini strokes" Per EMR Atrial fibrillation Echo- EF 55-60% COPD per EMR; nonsmoker Past Surgical History Hysterectomy Allergies: Coded Allergies: Penicillins (Verified Allergy, Severe, RASH, 07/08/17) Family History Dad- CAD in 60's (required surgical intervention) Social History Patient ; living at [facility]. No history of alcohol, tobacco or illicit drugs. 12 years of college education. Patient drinks coffee frequently Physical Exam Vital Signs Vital Signs Date Time Temp Pulse Resp B/P (MAP) Pulse Ox O2 Delivery O2 Flow Rate FiO2 07/08/17 16:02 70 19 143/82 (102) 98 Room Air 07/08/17 15:36 77 18 139/88 (105) 94 Room Air 07/08/17 15:19 99.0 87 20 149/74 (99) 96 Room Air Physical Exam General: No acute distress Skin: No rashes or lesions Neck: No thyromegaly, no lymphadenopathy. CV: Irregularly irregular; normal rate. Normal peripheral perfusion. Lower extremity edema seems improved relative to prior exam Lungs: Normal rate, lungs clear to auscultation bilaterally; seemingly improved from prior exam Abdomen: Soft, nontender, nondistended, normal bowel sounds Ext: No calf asymmetry. No pain to palpation bilaterally Neuro: Awake, alert, oriented. Grossly normal CN. Grossly normal peripheral motor/sensory function Laboratory Laboratory Tests Test 07/08/17 15:00 White Blood Count 8.2 Red Blood Count 3.80 Hemoglobin 11.3 Hematocrit 33.7 Mean Corpuscular Volume 88.6 Mean Corpuscular Hemoglobin 29.7 Mean Corpuscular Hemoglobin Concent 33.5 Red Cell Distribution Width 14.6 Platelet Count 309 Mean Platelet Volume 9.0 Neutrophils (%) (Auto) 83.0 Lymphocytes (%) (Auto) 6.7 Monocytes (%) (Auto) 9.0 Eosinophils (%) (Auto) 1.1 Basophils (%) (Auto) 0.2 Neutrophils # (Auto) 6.8 Lymphocytes # (Auto) 0.5 Monocytes # (Auto) 0.7 Eosinophils # (Auto) 0.1 Basophils # (Auto) 0.0 CBC Comment DIFF FINAL Differential Comment Prothrombin Time 143.9 Prothromb Time International Ratio 14.5 Activated Partial Thromboplast Time 38.7 B-Type Natriuretic Peptide 173 Result Diagram: 07/08/17 1500 Imaging Last Impressions Chest X-Ray 07/08/17 1530 Signed Impressions: Service Date/Time: Saturday, July 08, 2017 15:40 - CONCLUSION: Mild basilar parenchymal opacities. Benedicto Campbell MD Head CT 07/08/17 0000 Signed Impressions: Service Date/Time: Saturday, July 08, 2017 16:40 - CONCLUSION: 1. Senescent changes with moderate periventricular small vessel ischemic demyelination. 2. No acute intracranial abnormality. Marcelino Boothe MD Capfernando VTE Risk Assessment Caprini VTE Risk Assessment: Mod/High Risk (score >= 2) VTE Pharm Contraindication: High risk for bleeding Caprini Risk Assessment Model Point Value = 1 Point Value = 2 Point Value = 3 Point Value = 5 Age 41-60 Minor surgery BMI > 25 kg/m2 Swollen legs Varicose veins or History of unexplained or recurrent spontaneous Oral contraceptives or hormone replacement Sepsis (< 1 month) Serious lung disease, including pneumonia (< 1 month) Abnormal pulmonary function Acute myocardial infarction Congestive heart failure (< 1 month) History of inflammatory bowel disease Medical patient at bed rest Age 61-74 Arthroscopic surgery Major open surgery (> 45 min) Laparoscopic surgery (> 45 min) Malignancy Confined to bed (> 72 hours) Immobilizing plaster cast Central venous access Age >= 75 History of VTE Family history of VTE Factor V Leiden Prothrombin [id number] Lupus anticoagulant Anticardiolipin antibodies Elevated serum homocysteine Heparin-induced thrombocytopenia Other congenital or acquired thrombophilia Stroke (< 1 month) Elective arthroplasty Hip, pelvis, or leg fracture Acute spinal cord injury (< 1 month) Prophylaxis Regimen Total Risk Factor Score Risk Level Prophylaxis Regimen 0-1 Low Early ambulation 2 Moderate Order ONE of the following: *Sequential Compression Device (SCD) *Heparin 5000 units SQ BID 3-4 Higher Order ONE of the following medications: *Heparin 5000 units SQ TID *Enoxaparin/Lovenox 40 mg SQ daily (WT < 150 kg, CrCl > 30 mL/min) *Enoxaparin/Lovenox 30 mg SQ daily (WT < 150 kg, CrCl > 10-29 mL/min) *Enoxaparin/Lovenox 30 mg SQ BID (WT < 150 kg, CrCl > 30 mL/min) AND/OR *Sequential Compression Device (SCD) 5 or more Highest Order ONE of the following medications: *Heparin 5000 units SQ TID (Preferred with Epidurals) *Enoxaparin/Lovenox 40 mg SQ daily (WT < 150 kg, CrCl > 30 mL/min) *Enoxaparin/Lovenox 30 mg SQ daily (WT < 150 kg, CrCl > 10-29 mL/min) *Enoxaparin/Lovenox 30 mg SQ BID (WT < 150 kg, CrCl > 30 mL/min) AND *Sequential Compression Device (SCD) Assessment and Plan Assessment and Plan Mrs. Mcguire is a 76 yo F with: Code Status Full Code Problem List: (1) Supratherapeutic INR ICD Codes: R79.1 - Abnormal coagulation profile Status: Acute Plan: Impression: INR 14.5 today; has been on Warfarin 5mg x7 days for anticoagulation for Atrial fibrillation. No suggestion of bleeding per history or exam Head CT negative for acute pathology; no neurologic symptoms Hemoccult negative EKG- A fib with normal rate; no concerning ST changes CBC, CMP reassuring Troponin negative -Will attempt to correct INR -FFP x2 U per ED order -Vit K 2.5mg oral x1 -Will recheck INR tomorrow morning -With any bleeding will plan to administer Vit K 10mg IV and FFP if needed -Continue telemetry (2) Atrial fibrillation ICD Codes: I48.91 - Unspecified atrial fibrillation Plan: Impression: Intermittent rate control; not recently been receiving anticoagulation or rate control until ~06/30. [id number] >2. Recently started on Warfarin for anticoagulation but supratherapeutic INR today. Reported palpitations at home suspected secondary to intermittent RVR EKG on admission- Atrial fibrillation; normal rate. -Monitor on telemetry while in hospital -Will increase home Metoprolol ER to 150 mg daily -Continue Diltiazem 360 mg daily -Hold anticoagulation until therapeutic INR -Will consider alternative anticoagulation after therapeutic/subtherapeutic INR (3) HTN (hypertension) ICD Codes: I10 - Essential (primary) hypertension Plan: Impression: Patient with PMH of HTN. Mild HTN on admission (SBP in 140's) -Will increase home Metoprolol to 150mg daily due to palpitations at home suspected secondary to intermittent RVR -Continue home Diltiazem ER 360mg daily (4) Leg edema ICD Codes: R60.0 - Localized edema Status: Chronic Plan: Impression: Improved from prior exam; presumed secondary to A fib with RVR leading to impaired cardiac output. BNP on admission 173; improved from BNP in 314 (06/30/2017) CXR with mild basilar parenchymal opacities -Continue to monitor BMP -Continue Furosemide 40mg daily, 20mEq KCl daily -Will consider decreasing to 20mg Lasix with 10mEq KCl tomorrow as improved (5) Physical deconditioning ICD Codes: R53.81 - Other malaise Status: Chronic Plan: Impression: Patient last qualified for PT and OT during 05/2017 hospitalization -Will consult PT while inpatient -Will consult OT while inpatient -Notified patient of fall risks while supratherapeutic INR (6) Creatinine elevation ICD Codes: R79.89 - Other specified abnormal findings of blood chemistry Status: Acute Plan: Impression: Cr on admission 1.12; it has fluctuated from 0.89 to 1.36 since 04/2017 -Will monitor at this time with repeat BMP tomorrow; patient with normal PO intake (7) DVT Prophylaxis Status: Acute Plan: Will defer at this time since INR supratherapeutic (8) Fluids, Electrolytes, and Nutrition Status: Acute Plan: Fluids: Will defer at this time with regular diet Electrolytes: pending on admission Nutrition: Will give heart healthy diet Physician Certification 2 Midnight Certification Type: Admission for Inpatient Services Order for Inpatient Services The services are ordered in accordance with Medicare regulations or non- Medicare payer requirements, as applicable. In the case of services not specified as inpatient-only, they are appropriately provided as inpatient services in accordance with the 2-midnight benchmark. Estimated LOS (days): 3 days is the estimated time the patient will need to remain in the hospital, assuming treatment plan goals are met and no additional complications. Post-Hospital Plan: Home Problem Qualifiers (1) Atrial fibrillation: Qualified Codes: I48.2 - Chronic atrial fibrillation (2) HTN (hypertension): Qualified Codes: I10 - Essential (primary) hypertension Glen Solorzano MD, R3 Jul 08, 2017 17:13
[2017-07-08] MEDS ORDERED: PHYTONADIONE 2.5 MG/SWFI 2.5 ML ORAL SYR PO ONE (17:15)
[2017-07-08] MEDS ORDERED: SENNOSIDES 8.6 MG TAB PO PRN (17:45)
[2017-07-08] MEDS ORDERED: SODIUM CHLORIDE 0.9% FLUSH 10 ML FLUSH IV FLUSH PRN (17:45)
[2017-07-08] MEDS ORDERED: NALOXONE HCL 0.4 MG/ML AMP IV PUSH PRN (17:45)
[2017-07-08] MEDS ORDERED: ACETAMINOPHEN 325 MG TAB PO PRN (17:45)
[2017-07-08] MEDS ORDERED: LACTULOSE SYRUP 20 GM/30 ML CUP PO PRN (17:45)
[2017-07-08] MEDS ORDERED: ONDANSETRON HCL 4 MG/2 ML VIAL IVP PRN (17:45)
[2017-07-08] MEDS ORDERED: BISACODYL 10 MG SUPP RECTAL PRN (17:45)
[2017-07-08] MEDS ORDERED: MAGNESIUM HYDROXIDE SUSP 30 ML CUP PO PRN (17:45)
[2017-07-08 18:09] LABS: ALBUMIN 3.5 GM/DL (3.4-5.0); ALT (GPT) 28 U/L (10-53); AST (GOT) 16 U/L (15-37); BICARBONATE 30.4 MEQ/L (21.0-32.0); BLOOD UREA NITROGEN 22 MG/DL (7-18); CALCIUM 8.5 MG/DL (8.5-10.1); CHLORIDE 104 MEQ/L (98-107); CREATININE 1.12 MG/DL (0.50-1.00); GLOMERULAR FILTRATION RATE 47 ML/MIN (>89); GLUCOSE,RANDOM 92 MG/DL (74-106); MAGNESIUM 2.3 MG/DL (1.5-2.5); SODIUM (NA) 140 MEQ/L (136-145)
[2017-07-08 18:13] LABS: ALKALINE PHOSPHATASE 87 U/L (45-117); TOTAL BILIRUBIN ADULT 0.3 MG/DL (0.2-1.0); TROPONIN I LESS THAN 0.02 NG/ML (0.02-0.05)
[2017-07-08 18:36] VITALS: BP 139/90
[2017-07-08] MEDS ORDERED: METOPROLOL TARTRATE 25 MG TAB PO PRN (18:45)
[2017-07-08 18:50] VITALS: BP 166/79; PULSE 84; RESP 20; TEMP 97.7; O2SAT 94
[2017-07-08 20:00] VITALS: BP 127/83; PULSE 76; RESP 16; TEMP 97.8; O2SAT 96
[2017-07-08] MEDS: DOCUSATE SODIUM 50 MG/SENNA 8.6 MG TAB PO SCH (21:00)
[2017-07-08] MEDS: SODIUM CHLORIDE 0.9% FLUSH 10 ML FLUSH IV FLUSH SCH (21:59)
[2017-07-09] VITALS (12 sets, daily range): BP systolic 130–176; BP diastolic 68–91; PULSE 62–92; RESP 16–20; TEMP 97.1–97.9; O2SAT 95–99
[2017-07-09] MEDS: DILTIAZEM-CD 180 MG CAP ER PO SCH (08:20)
[2017-07-09] MEDS: SODIUM CHLORIDE 0.9% FLUSH 10 ML FLUSH IV FLUSH SCH ×2 (08:20→21:02)
[2017-07-09] MEDS: POTASSIUM CHLORIDE 20 MEQ CONTROLLED RELEASE TAB PO SCH (08:21)
[2017-07-09] MEDS: METOPROLOL SUCCINATE 50 MG EXTENDED RELEASE TAB PO SCH (08:21)
[2017-07-09] MEDS: CYANOCOBALAMIN 1,000 MCG TAB PO SCH (08:21)
[2017-07-09] MEDS: FUROSEMIDE 40 MG TAB PO SCH (08:21)
[2017-07-09] MEDS: DOCUSATE SODIUM 50 MG/SENNA 8.6 MG TAB PO SCH ×2 (08:21→21:00)
[2017-07-09 09:03] LABS: AUTOMATED NEUTROPHIL # 4.1 TH/MM3 (1.8-7.7); BASOPHIL % 0.4 % (0.0-2.0); EOSINOPHIL # 0.1 TH/MM3 (0-0.4); EOSINOPHIL % 2.3 % (0.0-4.0); HEMATOCRIT 33.7 % (35.0-46.0); HEMOGLOBIN 10.9 GM/DL (11.6-15.3); LYMPH % 7.4 % (9.0-44.0); LYMPHOCYTE # 0.4 TH/MM3 (1.0-4.8); MEAN CELL VOLUME 88.6 FL (80.0-100.0); MEAN CORPUSCULAR HEMOGLOBIN 28.8 PG (27.0-34.0); MEAN CORPUSCULAR HGB CONC 32.5 % (32.0-36.0); MEAN PLATELET VOLUME 8.1 FL (7.0-11.0); MONOCYTE # 0.5 TH/MM3 (0-0.9); NEUT % 79.9 % (16.0-70.0); PLATELET COUNT 195 TH/MM3 (150-450); RED CELL DISTRIBUTION WIDTH 14.2 % (11.6-17.2); WHITE BLOOD COUNT 5.1 TH/MM3 (4.0-11.0)
[2017-07-09 09:04] LABS: INTERNATIONAL NORMALIZED RATIO 1.8 RATIO; PROTHROMBIN TIME - PATIENT 18.1 SEC (9.8-11.6)
[2017-07-09 09:22] LABS: BICARBONATE 29.5 MEQ/L (21.0-32.0); CALCIUM 8.7 MG/DL (8.5-10.1); CREATININE 0.87 MG/DL (0.50-1.00)
[2017-07-09] MEDS: RESP: ALBUTEROL 2.5 MG/IPRATROPIUM 0.5 MG NEB (PRN) NEB (09:22)
[2017-07-09] MEDS ORDERED: guaiFENesin E.R. 600 MG TAB PO ONE (16:00)
--- NOTE | 2017-07-09 16:34 | HHI.HP ---
[facility] Service Family Medicine Primary Care Physician Glen Ruiz , Yamile Solorzano MD Admission Diagnosis supratherapeutic INR Diagnoses: (1) Atrial fibrillation Diagnosis: Principal (2) HTN (hypertension) Diagnosis: Principal (3) Leg edema Diagnosis: Principal (4) Physical deconditioning Diagnosis: Principal (5) Creatinine elevation Diagnosis: Principal (6) DVT Prophylaxis Diagnosis: Principal (7) Fluids, Electrolytes, and Nutrition Diagnosis: Principal (8) Supratherapeutic INR Diagnosis: Principal International Travel<30 Days: No Contact w/Intl Traveler<30days: No Known Affected Area: No History of Present Illness Mrs. Mcguire is a 76 yo F with PMH of Atrial fibrillation, HTN, prior CV disease who presents at the request of PCP (DR Solorzano) due to outpatient notification of INR of 12.1 on outpatient blood draw 07/08/2017 at 1235. Mrs. Mcguire reports that she has been doing ok recently without any concern for bleeding. Patient has had continued frequent palpitations over the past several days in which she feels "nervous: and can tell that her heart is beating too fast. She thought about seeking medical evaluation 07/06 but decided not to. This happens at random times of the day and remits spontaneously. Patient has felt some palpitations today but states that palpitations have been less frequent over the past 2 days. Patient also reported some shortness of breath when feeling palpitations earlier this week ( 07/06) but she does not feel any shortness of breath at this time. Patient does not report any associated chest pain. No headaches or numbness/weakness/ tingling recently; she has occasional lightheadedness which she associates with tachycardia.Patient has had normal urination. Normal bowel movements without suggestion of bleeding. Patient has been taking her medications [patient lives at [facility]; it was unclear why her meds were changed recently from her last hospitalization]. Interval History: Patient seen at [place] ED reporting palpitations, dizziness, and shortness of breath along with chronic LE edema. Labs in ED confirmed supratherapeutic INR with INR 14.5 (PT 143.9). EKG obtained showing Afib with normal rate; no obvious ST changes. head CT negative for intracranial bleeding. Troponin 0.02. BNP 173, CMP reassuring. Hemoccult negative. Patient given 2.5mg Vit K and FFP x2 U in ED with plans to admit patient for further evaluation/treatment. Today she is improved with her INR but does not "feel well" ever since she started having the rapid a fib in the past and she reports more fatigue ever since then. 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 Review of Systems Other Constitutional: COMPLAINS OF: Fatigue (today), Dizziness (intermittent) Eyes: DENIES: Eye inflammation, Eye pain Respiratory: COMPLAINS OF: Shortness of breath (when associated with rapid heartbeat), DENIES: Cough Cardiovascular: COMPLAINS OF: Palpitations, DENIES: Chest pain Gastrointestinal: COMPLAINS OF: Abdominal pain (mild after palpitations), DENIES: Diarrhea Genitourinary: DENIES: Urgency, Dysuria Musculoskeletal: DENIES: Joint pain, Muscle aches Integumentary: DENIES: Abnormal pigmentation, Pruritus Hematologic/lymphatic: DENIES: Bruising, Lymphadenopathy Neurologic: DENIES: Headache, Speech Problems Psychiatric: COMPLAINS OF: Anxiety (with palpitations), DENIES: Confusion Past Family Social History Past Medical History Per patient HTN Hospitalization for Flu Prior cancer in uterus? "mini strokes" Per EMR Atrial fibrillation Echo- EF 55-60% COPD per EMR; nonsmoker Past Surgical History Hysterectomy Allergies: Coded Allergies: Penicillins (Verified Allergy, Severe, RASH, 07/08/17) Family History Dad- CAD in 60's (required surgical intervention) Social History Patient ; living at [facility]. No history of alcohol, tobacco or illicit drugs. 12 years of college education. Patient drinks coffee frequently Physical Exam Vital Signs Vital Signs Date Time Temp Pulse Resp B/P (MAP) Pulse Ox O2 Delivery O2 Flow Rate FiO2 07/09/17 15:57 Room Air 07/09/17 12:00 97.2 80 18 139/69 (92) 95 07/09/17 12:00 89 07/09/17 11:38 Nasal Cannula 2.00 07/09/17 09:22 99 Nasal Cannula 2.00 07/09/17 08:00 97.7 92 20 145/78 (100) 97 07/09/17 08:00 89 07/09/17 04:00 97.6 87 19 140/72 (94) 95 07/09/17 04:00 62 07/09/17 03:00 97.2 75 18 144/68 97 07/09/17 02:33 97.1 72 18 138/91 97 07/09/17 00:14 97.2 78 16 144/72 96 07/09/17 00:02 97.6 78 16 141/76 97 07/09/17 00:00 75 07/09/17 00:00 97.4 74 18 176/71 (106) 95 07/08/17 20:00 97.8 76 16 127/83 (98) 96 07/08/17 18:50 97.7 84 20 166/79 (108) 94 07/08/17 18:36 91 19 139/90 (106) 95 Physical Exam General: No acute distress Skin: No rashes or lesions Neck: No thyromegaly, no lymphadenopathy. CV: Irregularly irregular; normal rate. Normal peripheral perfusion. Lower extremity edema seems improved relative to prior exam Lungs: Normal rate, lungs clear to auscultation bilaterally; seemingly improved from prior exam Abdomen: Soft, nontender, nondistended, normal bowel sounds Ext: No calf asymmetry. No pain to palpation bilaterally Neuro: Awake, alert, oriented. Grossly normal CN. Grossly normal peripheral motor/sensory function Laboratory Laboratory Tests Test 07/08/17 16:55 07/09/17 07:36 Blood Urea Nitrogen 22 16 Creatinine 1.12 0.87 Random Glucose 92 89 Total Protein 7.0 Albumin 3.5 Calcium Level 8.5 8.7 Magnesium Level 2.3 Alkaline Phosphatase 87 Aspartate Amino Transf (AST/SGOT) 16 Alanine Aminotransferase (ALT/SGPT) 28 Total Bilirubin 0.3 Sodium Level 140 140 Potassium Level 3.9 3.4 Chloride Level 104 103 Carbon Dioxide Level 30.4 29.5 Anion Gap 6 8 Estimat Glomerular Filtration Rate 47 63 Total Creatine Kinase 36 Troponin I LESS THAN 0.02 LESS THAN 0.02 White Blood Count 5.1 Red Blood Count 3.80 Hemoglobin 10.9 Hematocrit 33.7 Mean Corpuscular Volume 88.6 Mean Corpuscular Hemoglobin 28.8 Mean Corpuscular Hemoglobin Concent 32.5 Red Cell Distribution Width 14.2 Platelet Count 195 Mean Platelet Volume 8.1 Neutrophils (%) (Auto) 79.9 Lymphocytes (%) (Auto) 7.4 Monocytes (%) (Auto) 10.0 Eosinophils (%) (Auto) 2.3 Basophils (%) (Auto) 0.4 Neutrophils # (Auto) 4.1 Lymphocytes # (Auto) 0.4 Monocytes # (Auto) 0.5 Eosinophils # (Auto) 0.1 Basophils # (Auto) 0.0 CBC Comment DIFF FINAL Differential Comment Prothrombin Time 18.1 Prothromb Time International Ratio 1.8 Result Diagram: 07/09/17 0736 07/09/17 0736 Imaging Last Impressions Chest X-Ray 07/08/17 1530 Signed Impressions: Service Date/Time: Saturday, July 08, 2017 15:40 - CONCLUSION: Mild basilar parenchymal opacities. Benedicto Campbell MD Head CT 07/08/17 0000 Signed Impressions: Service Date/Time: Saturday, July 08, 2017 16:40 - CONCLUSION: 1. Senescent changes with moderate periventricular small vessel ischemic demyelination. 2. No acute intracranial abnormality. MD Suresh Negron VTE Risk Assessment Suresh VTE Risk Assessment: Mod/High Risk (score >= 2) VTE Pharm Contraindication: High risk for bleeding Caprini Risk Assessment Model Point Value = 1 Point Value = 2 Point Value = 3 Point Value = 5 Age 41-60 Minor surgery BMI > 25 kg/m2 Swollen legs Varicose veins or History of unexplained or recurrent spontaneous Oral contraceptives or hormone replacement Sepsis (< 1 month) Serious lung disease, including pneumonia (< 1 month) Abnormal pulmonary function Acute myocardial infarction Congestive heart failure (< 1 month) History of inflammatory bowel disease Medical patient at bed rest Age 61-74 Arthroscopic surgery Major open surgery (> 45 min) Laparoscopic surgery (> 45 min) Malignancy Confined to bed (> 72 hours) Immobilizing plaster cast Central venous access Age >= 75 History of VTE Family history of VTE Factor V Leiden Prothrombin [id number] Lupus anticoagulant Anticardiolipin antibodies Elevated serum homocysteine Heparin-induced thrombocytopenia Other congenital or acquired thrombophilia Stroke (< 1 month) Elective arthroplasty Hip, pelvis, or leg fracture Acute spinal cord injury (< 1 month) Prophylaxis Regimen Total Risk Factor Score Risk Level Prophylaxis Regimen 0-1 Low Early ambulation 2 Moderate Order ONE of the following: *Sequential Compression Device (SCD) *Heparin 5000 units SQ BID 3-4 Higher Order ONE of the following medications: *Heparin 5000 units SQ TID *Enoxaparin/Lovenox 40 mg SQ daily (WT < 150 kg, CrCl > 30 mL/min) *Enoxaparin/Lovenox 30 mg SQ daily (WT < 150 kg, CrCl > 10-29 mL/min) *Enoxaparin/Lovenox 30 mg SQ BID (WT < 150 kg, CrCl > 30 mL/min) AND/OR *Sequential Compression Device (SCD) 5 or more Highest Order ONE of the following medications: *Heparin 5000 units SQ TID (Preferred with Epidurals) *Enoxaparin/Lovenox 40 mg SQ daily (WT < 150 kg, CrCl > 30 mL/min) *Enoxaparin/Lovenox 30 mg SQ daily (WT < 150 kg, CrCl > 10-29 mL/min) *Enoxaparin/Lovenox 30 mg SQ BID (WT < 150 kg, CrCl > 30 mL/min) AND *Sequential Compression Device (SCD) Assessment and Plan Assessment and Plan Mrs. Mcguire is a 76 yo F with: Problem List: (1) Supratherapeutic INR ICD Codes: R79.1 - Abnormal coagulation profile Status: Acute Plan: Impression: INR 14.5 today; has been on Warfarin 5mg x7 days for anticoagulation for Atrial fibrillation. No suggestion of bleeding per history or exam Head CT negative for acute pathology; no neurologic symptoms Hemoccult negative EKG- A fib with normal rate; no concerning ST changes CBC, CMP reassuring Troponin negative -Will attempt to correct INR -FFP x2 U per ED order -Vit K 2.5mg oral x1 -INR now low. -With any bleeding will plan to administer Vit K 10mg IV and FFP if needed -Continue telemetry -will give heparin for tonight then can start eliquis probably tomorrow. she says her insurance will cover it. she got her meds "all mixed up" after leaving the rehab place (2) Atrial fibrillation ICD Codes: I48.91 - Unspecified atrial fibrillation Plan: Impression: Intermittent rate control; not recently been receiving anticoagulation or rate control until ~06/30. [id number] >2. Recently started on Warfarin for anticoagulation but supratherapeutic INR today. Reported palpitations at home suspected secondary to intermittent RVR EKG on admission- Atrial fibrillation; normal rate. -Monitor on telemetry while in hospital -Will increase home Metoprolol ER to 150 mg daily -Continue Diltiazem 360 mg daily -Hold anticoagulation until therapeutic INR -Will consider alternative anticoagulation after therapeutic/subtherapeutic INR -she has been followed by Cardiology who will continue to follow so will ask them for their help while she is here (3) HTN (hypertension) ICD Codes: I10 - Essential (primary) hypertension Plan: Impression: Patient with PMH of HTN. Mild HTN on admission (SBP in 140's) -Will increase home Metoprolol to 150mg daily due to palpitations at home suspected secondary to intermittent RVR -Continue home Diltiazem ER 360mg daily (4) Leg edema ICD Codes: R60.0 - Localized edema Status: Chronic Plan: Impression: Improved from prior exam; presumed secondary to A fib with RVR leading to impaired cardiac output. BNP on admission 173; improved from BNP in 314 (06/30/2017) CXR with mild basilar parenchymal opacities -Continue to monitor BMP -Continue Furosemide 40mg daily, 20mEq KCl daily -Will consider decreasing to 20mg Lasix with 10mEq KCl tomorrow as improved (5) Physical deconditioning ICD Codes: R53.81 - Other malaise Status: Chronic Plan: Impression: Patient last qualified for PT and OT during 05/2017 hospitalization -Will consult PT while inpatient -Will consult OT while inpatient -Notified patient of fall risks while supratherapeutic INR (6) Creatinine elevation ICD Codes: R79.89 - Other specified abnormal findings of blood chemistry Status: Acute Plan: Impression: Cr on admission 1.12; it has fluctuated from 0.89 to 1.36 since 04/2017 -Will monitor at this time with repeat BMP tomorrow; patient with normal PO intake (7) DVT Prophylaxis Status: Acute Plan: INR supratherapeutic initially, now better consider Eliquis tomorrow (8) Fluids, Electrolytes, and Nutrition Status: Acute Plan: Fluids: Will defer at this time with regular diet Electrolytes: pending on admission Nutrition: Will give heart healthy diet Problem Qualifiers (1) Atrial fibrillation: Qualified Codes: I48.2 - Chronic atrial fibrillation (2) HTN (hypertension): Qualified Codes: I10 - Essential (primary) hypertension Tea Stoner MD Jul 09, 2017 16:34
[2017-07-09] MEDS ORDERED: ENOXAPARIN SODIUM 80 MG/0.8 ML SYRINGE SQ ONE (18:00)
--- NOTE | 2017-07-09 21:47 | EKG ---
Date Performed: 07/09/2017 Time Performed: 10:54:16 PTAGE: 76 years EKG: Atrial fibrillation. Possible septal infarct - age undetermined Inferior/lateral ST-T mccarty es may be due to myocardial ischemia Abnormal ECG PREVIOUS TRACING : 07/08/2017 15.35 Compared to the previous tracing T wave abnormalities are m ore prominent DOCTOR: Eliezer Gaston Interpretating Date/Time 07/09/2017 21:46:24
--- NOTE | 2017-07-09 23:18 | EKG ---
Date Performed: 07/08/2017 Time Performed: 15:35:56 PTAGE: 76 years EKG: ATRIAL FIBRILLATION POSSIBLE RIGHT VENTRICULAR CONDUCTION DELAY SEPTAL MYOCARDIAL INFARCTIO N ABNORMAL ECG PREVIOUS TRACING : 05/18/2017 10.31 Compared to prior tracing no significant change DOCTOR: Eliezer Gaston Interpretating Date/Time 07/09/2017 23:16:17
[2017-07-10] VITALS (11 sets, daily range): BP systolic 120–164; BP diastolic 60–94; PULSE 57–120; RESP 16–20; TEMP 97.2–98.2; O2SAT 83–98
[2017-07-10 08:56] LABS: AUTOMATED NEUTROPHIL # 5.4 TH/MM3 (1.8-7.7); BASOPHIL % 0.4 % (0.0-2.0); EOSINOPHIL # 0.1 TH/MM3 (0-0.4); EOSINOPHIL % 1.7 % (0.0-4.0); HEMATOCRIT 34.3 % (35.0-46.0); HEMOGLOBIN 11.3 GM/DL (11.6-15.3); LYMPH % 6.8 % (9.0-44.0); LYMPHOCYTE # 0.4 TH/MM3 (1.0-4.8); MEAN CELL VOLUME 88.4 FL (80.0-100.0); MEAN CORPUSCULAR HGB CONC 32.8 % (32.0-36.0); MEAN PLATELET VOLUME 8.3 FL (7.0-11.0); MONO % 8.8 % (0.0-8.0); MONOCYTE # 0.6 TH/MM3 (0-0.9); NEUT % 82.3 % (16.0-70.0); PLATELET COUNT 211 TH/MM3 (150-450); RED BLOOD COUNT 3.88 MIL/MM3 (4.00-5.30); RED CELL DISTRIBUTION WIDTH 14.5 % (11.6-17.2); WHITE BLOOD COUNT 6.6 TH/MM3 (4.0-11.0)
[2017-07-10 09:28] LABS: BICARBONATE 28.7 MEQ/L (21.0-32.0); CALCIUM 8.6 MG/DL (8.5-10.1); CREATININE 0.89 MG/DL (0.50-1.00)
[2017-07-10] MEDS: guaiFENesin E.R. 600 MG TAB PO SCH ×2 (10:00→21:00)
[2017-07-10] MEDS: DILTIAZEM-CD 180 MG CAP ER PO SCH (10:00)
[2017-07-10] MEDS: SODIUM CHLORIDE 0.9% FLUSH 10 ML FLUSH IV FLUSH SCH ×2 (10:00→21:02)
[2017-07-10] MEDS: POTASSIUM CHLORIDE 20 MEQ CONTROLLED RELEASE TAB PO SCH (10:01)
[2017-07-10] MEDS: CYANOCOBALAMIN 1,000 MCG TAB PO SCH (10:01)
[2017-07-10] MEDS: METOPROLOL SUCCINATE 50 MG EXTENDED RELEASE TAB PO SCH (10:01)
[2017-07-10] MEDS: DOCUSATE SODIUM 50 MG/SENNA 8.6 MG TAB PO SCH ×2 (10:01→21:00)
[2017-07-10] MEDS: FUROSEMIDE 40 MG TAB PO SCH (10:01)
--- NOTE | 2017-07-10 13:31 | MB ---
cc: ISSAC PINA DO DATE OF CONSULTATION: 07/10/2017 REASON FOR CONSULTATION: Supratherapuetic INR. HISTORY OF PRESENT ILLNESS: Leigh Mcguire is a pleasant 76 year-old female who I have seen here in the hospital multiple times due to her atrial fibrillation. Apparently she was following up with her primary care physician Dr. Solorzano and was found to have a INR of 12.1. She was sent to the emergency room and there this was confirmed that she has a supratherapuetic INR and so she was given fresh frozen plasma as well as Vitamin K. She states that she has been doing relatively well although she occasionally feels palpitations and she gets nervous about this because she is concerned her heart is beating too fast. This happens random times throughout the day and then stops by itself. Usually its over a quick period of time. She denies any chest pain. She has had some chronic shortness of breath, specifically when feeling palpitations. As far as her supratherapuetic INR she states that she has been taking her coumadin as directed and has not been started on any new medications including antibiotics. PAST MEDICAL HISTORY: 1. Hypertension 2. Questionable history of uterine cancer. 3. TIAs. 4. Atrial fibrillation. 5. Chronic obstructive pulmonary disease. PAST SURGICAL HISTORY: Hysterectomy. ALLERGIES PENICILLIN MEDICATIONS: 1. Sertraline 10 mg daily. 2. Ipratropium 0.5 mg neb every eight hours as needed for short of breath. 3. Coumadin 5 mg daily. 4. Toprol XL 100 mg daily. 5. Cardizem CD 360 mg daily. 6. Potassium 20 mEq daily. 7. Lasix 40 mg daily. FAMILY HISTORY: Denies premature coronary artery disease. There is sudden cardiac within the family. SOCIAL HISTORY: The patient is a . She lives at [facility]. Denies alcohol, tobacco or drug abuse. REVIEW OF SYSTEMS 14 systems were reviewed, including osteopathic pertinent positives and negatives as above otherwise negative. PHYSICAL EXAMINATION: VITAL SIGNS: Temperature 97.7, heart rate 91, blood pressure 132/73. Respirations 20, pulse oximetry 94% on room air. IN GENERAL: The patient appears well, no acute distress. Alert, awake and oriented times three. Extraocular muscles intact. Mucous membranes are moist. NECK: The neck is supple, no jugular venous distention at 45 degrees. No carotid bruits heard bilaterally. Carotid upstroke is brisk in nature. HEART: The heart is irregularly irregular. Positive first and second heart sounds with a 1/6 crescendo, decrescendo murmur to the right sternal border. LUNGS: The lungs are clear to auscultation bilaterally. No wheezes, rales or rhonchi. ABDOMEN: The abdomen is soft, nontender, nondistended, no organomegaly noted. EXTREMITIES: The extremities show no clubbing, cyanosis or edema. Femoral and distal pulses are intact bilaterally. NEUROLOGIC: No focal deficits. SKIN: The skin is warm, dry and intact. Osteopathic, no kyphoscoliosis, lordosis or paraspinal tender points. LABORATORY FINDINGS: Lab work; hemoglobin 11.3, hematocrit 34.3. Platelets 211. Potassium of 3.6, blood urea nitrogen 18, creatinine 0.89, troponin negative times two. B-type natriuretic peptide 173. Electrocardiogram (July 09, 2017 at 10:54) atrial fibrillation with intraventricular response, possible septal infarct age undetermined, nonspecific ST T wave changes. IMPRESSIONS: 1. Supratherapuetic INR from unknown cause. 2. Atrial fibrillation with a Chads vas score of 6. 3. Shortness of breath most likely due to episodes of atrial fibrillation with rapid ventricular response. 4. History of hypertension. 5. Physical deconditioning. RECOMMENDATIONS: 1. Miss Mcguire presented with supratherapuetic INR and at this time I am unsure why. She was previously on Eliquis but this was too expensive. We will have to continue her on coumadin and watch her INR better. Her elevated INR maybe due to dehydration as a possible cause. 2. She may call patient's assistance from the reps from Eliquis or [employer]EMErel[employer] to see if she can get medications at a lower cost, but otherwise she told me these medications were too expensive for her. 3. Atrial fibrillation appears to be relatively controlled at this time. If she continues to have episodes of atrial fibrillation with Rapid ventricular response she may need to be considered for an atrial fibrillation ablation as she is on high does of beta-arie and calcium-channel blockers. She was previously started on Digoxin but because dig toxic at a low dose. 4. Further recommendations will be made based on the hospital course. Thank you for allowing me to see Leigh Mcguire, if there are any questions please do not hesitate to call. Issac Henriquez /12:30 PM /12:41 PM
--- NOTE | 2017-07-10 13:36 | HHI.FPPN ---
Subjective Remarks No acute events overnight. Feels okay this morning, still having palpitations but they are less distressing to her lately. Denies CP/SOB this morning. (Dat Gutierrez MD) Objective Vitals Vital Signs Date Time Temp Pulse Resp B/P (MAP) Pulse Ox O2 Delivery O2 Flow Rate FiO2 07/10/17 08:15 Room Air 07/10/17 08:15 120 120/60 (80) Automatic Cuff 07/10/17 08:00 102 140/94 (109) 07/10/17 08:00 112 07/10/17 08:00 07/10/17 08:00 97.7 112 20 153/80 (104) 93 07/10/17 04:00 91 07/10/17 04:00 108 20 128/74 (92) 95 07/10/17 04:00 101 20 142/71 (94) 94 07/10/17 04:00 97.7 112 20 132/73 (92) 93 07/10/17 00:00 96 07/10/17 00:00 97.6 83 20 164/81 (108) 96 07/09/17 20:51 21 07/09/17 20:15 97 Room Air 07/09/17 20:00 76 07/09/17 20:00 97.9 70 20 130/77 (94) 95 07/09/17 16:48 73 07/09/17 16:00 97.5 84 20 140/70 (93) 97 07/09/17 15:57 Room Air I/O 07/09/17 07/09/17 07/09/17 07/10/17 07/10/17 07/10/17 07:00 15:00 23:00 07:00 15:00 23:00 Intake Total 1289 ml 480 ml 0 ml Output Total 500 ml Balance 1289 ml -20 ml 0 ml Intake Oral 480 ml 0 ml FFP 1279 ml Blood Product IV Normal Saline Flush 10 ml Output Urine Total 500 ml # Voids 3 (Dat Gutierrez MD) Result Diagram: 07/10/1770407/10/17 07 Imaging Last Impressions Chest X-Ray 07/08/17 1530 Signed Impressions: Service Date/Time: Saturday, July 08, 2017 15:40 - CONCLUSION: Mild basilar parenchymal opacities. Benedicto Campbell MD Head CT 07/08/17 0000 Signed Impressions: Service Date/Time: Saturday, July 08, 2017 16:40 - CONCLUSION: 1. Senescent changes with moderate periventricular small vessel ischemic demyelination. 2. No acute intracranial abnormality. Marcelino Boothe MD Objective Remarks Gen: WDWN elderly female, NAD Resp: normal rate and effort, CTAB CV: NRRR, no murmur Abd: Soft, NDNT MSK: No cyanosis or edema Medications and IVs Current Medications Medications (Trade) Dose Ordered Sig/Yosi Route Start Time Stop Time Status Last Admin (NS Flush) 2 ml UNSCH PRN IVF 07/08/17 15:30 (NS Flush) 2 ml UNSCH PRN IV FLUSH 07/08/17 17:45 (NS Flush) 2 ml BID IV FLUSH 07/08/17 21:00 07/10/17 10:00 (Tylenol) 650 mg Q4H PRN PO 07/08/17 17:45 (Zofran Inj) 4 mg Q6H PRN IVP 07/08/17 17:45 (Narcan Inj) 0.4 mg UNSCH PRN IV PUSH 07/08/17 17:45 (Jessica-Colace) 1 tab BID PO 07/08/17 21:00 07/10/17 10:01 (Milk Of Magnesia Liq) 30 ml Q12H PRN PO 07/08/17 17:45 (Senokot) 17.2 mg Q12H PRN PO 07/08/17 17:45 (Dulcolax Supp) 10 mg DAILY PRN RECTAL 07/08/17 17:45 (Lactulose Liq) 30 ml DAILY PRN PO 07/08/17 17:45 (Vitamin B12) 500 mcg DAILY PO 07/09/17 09:00 07/10/17 10:01 (Cardizem Cd) 360 mg DAILY PO 07/09/17 09:00 07/10/17 10:00 (Lasix) 40 mg DAILY PO 07/09/17 09:00 07/10/17 10:01 (KCl) 20 meq DAILY PO 07/09/17 09:00 07/10/17 10:01 (Toprol Xl) 150 mg DAILY PO 07/09/17 09:00 07/10/17 10:01 (Duoneb Neb) 1 ampule Q6HR NEB PRN NEB 07/08/17 18:00 07/09/17 09:22 (Lopressor) 25 mg Q8H PRN PO 07/08/17 18:45 07/09/17 01:55 (Mucinex Er) 600 mg BID PO 07/10/17 09:00 07/10/17 10:00 (Dat Gutierrez MD) A/P Assessment and Plan Mrs. Mcguire is a 76 yo F with: Discharge Planning HH PT or rehab today or tomorrow (Dat Gutierrez MD) Attending Attestation Patient seen and examined. Case reviewed and discussed with the resident team. Agree with plan of care as discussed with me and documented in the resident note. appreciate help of cardiology with her still feeling palpitations despite multiple meds she may need ablation (Tea Stoner MD) Problem List: (1) Supratherapeutic INR ICD Codes: R79.1 - Abnormal coagulation profile Status: Resolved Plan: INR 14.5 on admission; has been on Warfarin 5mg x7 days for anticoagulation for Atrial fibrillation. No suggestion of bleeding per history or exam Head CT negative for acute pathology; no neurologic symptoms Hemoccult negative EKG- A fib with RVR; no concerning ST changes CBC, CMP reassuring Troponin negative x2 - s/p FFP x2 U per ED order + Vit K 2.5mg oral x1 -INR now low -Received 80 mg Lovenox evening of 07/11 - Likely should be placed on NOAC since her insurance will cover and has labile INR -Continue telemetry until cardiology has seen her (rhythm persistently AFib w/ RVR this morning) (2) Atrial fibrillation ICD Codes: I48.91 - Unspecified atrial fibrillation Plan: Intermittent rate control; not recently been receiving anticoagulation or rate control until ~06/30. [id number] >2. Recently started on Warfarin for anticoagulation but supratherapeutic INR today. Reported palpitations at home suspected secondary to intermittent RVR EKG on admission- Atrial fibrillation; normal rate. -Consult cardiology for assistance with rate control, coordination for f/u after discharge; had previously been on digoxin -Monitor on telemetry until cardiology recs in -Continue Metoprolol ER to 150 mg daily -Continue Diltiazem 360 mg daily -See above for anticoagulation (3) HTN (hypertension) ICD Codes: I10 - Essential (primary) hypertension Plan: Patient with PMH of HTN. Mild HTN on admission (SBP in 140's) -Continue Metoprolol to 150mg daily -Continue home Diltiazem ER 360mg daily (4) Leg edema ICD Codes: R60.0 - Localized edema Status: Chronic Plan: Impression: Improved from prior exam; presumed secondary to A fib with RVR leading to impaired cardiac output. BNP on admission 173; improved from BNP in 314 (06/30/2017) CXR with mild basilar parenchymal opacities -Continue to monitor BMP -Continue Furosemide 40mg daily, 20mEq KCl daily (5) Physical deconditioning ICD Codes: R53.81 - Other malaise Status: Chronic Plan: Patient last qualified for PT and OT during 05/2017 hospitalization -PT recommending home health -OT recommending OT at rehab (6) Creatinine elevation ICD Codes: R79.89 - Other specified abnormal findings of blood chemistry Status: Resolved Plan: Cr on admission 1.12; now normalized -Continue to monitor (7) DVT Prophylaxis Status: Acute Plan: INR supratherapeutic initially, now better consider Eliquis tomorrow (8) Fluids, Electrolytes, and Nutrition Status: Acute Plan: Fluids: Will defer at this time with regular diet Electrolytes: pending on admission Nutrition: Will give heart healthy diet DVT: Anticoagulated with lovenox as above; likely will start NOAC tonight (Dat Gutierrez MD) Problem Qualifiers (1) Atrial fibrillation: Qualified Codes: I48.2 - Chronic atrial fibrillation (2) HTN (hypertension): Qualified Codes: I10 - Essential (primary) hypertension Dat Gutierrez MD Jul 10, 2017 13:36 Tea Stoner MD Jul 13, 2017 16:52
[2017-07-10] MEDS: RESP: ALBUTEROL 2.5 MG/IPRATROPIUM 0.5 MG NEB (PRN) NEB ×2 (13:43→20:10)
--- NOTE | 2017-07-10 14:56 | HHI.FF ---
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 My clinical findings support the need for the requested home health care services because: Ltd mobility - disease progression Deconditioned w/ increased weakness Med compliance is questionable I certify that my clinical findings support that this patient is homebound because: Need for psychosocial assistance Poor cardiac reserve Dat Gutierrez MD Jul 10, 2017 2:56 pm
[2017-07-10] MEDS: APIXABAN 5 MG TABLET PO SCH (21:01)
[2017-07-11] VITALS: PULSE 73
[2017-07-11 04:00] VITALS: PULSE 91
[2017-07-11 04:35] VITALS: BP 111/65; PULSE 52; RESP 16; TEMP 98.2; O2SAT 93
[2017-07-11 08:00] VITALS: BP 125/93; PULSE 88; PULSE 98; RESP 20; TEMP 98.3; O2SAT 94
[2017-07-11] MEDS: DOCUSATE SODIUM 50 MG/SENNA 8.6 MG TAB PO SCH (09:11)
[2017-07-11] MEDS: guaiFENesin E.R. 600 MG TAB PO SCH (09:11)
[2017-07-11] MEDS: SODIUM CHLORIDE 0.9% FLUSH 10 ML FLUSH IV FLUSH SCH (09:12)
[2017-07-11] MEDS: CYANOCOBALAMIN 1,000 MCG TAB PO SCH (09:12)
[2017-07-11] MEDS: FUROSEMIDE 40 MG TAB PO SCH (09:12)
[2017-07-11] MEDS: DILTIAZEM-CD 180 MG CAP ER PO SCH (09:12)
[2017-07-11] MEDS: APIXABAN 5 MG TABLET PO SCH (09:12)
[2017-07-11] MEDS: POTASSIUM CHLORIDE 20 MEQ CONTROLLED RELEASE TAB PO SCH (09:12)
[2017-07-11] MEDS: METOPROLOL SUCCINATE 50 MG EXTENDED RELEASE TAB PO SCH (09:12)
[2017-07-11] MEDS ORDERED: METO1TAB9 PO (10:56)
[2017-07-11] MEDS ORDERED: APIX5TAB PO (10:56)
[2017-07-11 12:00] VITALS: BP 135/90; PULSE 104; RESP 20; TEMP 97.7; O2SAT 95
--- NOTE | 2017-07-11 12:00 | HHI.FPPN ---
Subjective Remarks Overnight no acute events. Palpitations she feels have improved. Has mild cough. No CP/SOB. Leg edema improved. (Dat Gutierrez MD) Objective Vitals Vital Signs Date Time Temp Pulse Resp B/P (MAP) Pulse Ox O2 Delivery O2 Flow Rate FiO2 07/11/17 08:00 98.3 98 20 125/93 (104) 94 07/11/17 08:00 88 07/11/17 07:10 Room Air 07/11/17 04:35 98.2 52 16 111/65 (80) 93 07/11/17 04:00 Room Air 07/11/17 04:00 91 07/11/17 00:00 73 07/11/17 00:00 Room Air 07/10/17 23:37 98.2 78 16 135/66 (89) 95 07/10/17 21:17 97.5 78 16 137/71 (93) 83 07/10/17 20:30 97 Room Air 07/10/17 20:10 95 21 07/10/17 20:00 69 07/10/17 16:00 57 07/10/17 16:00 98.1 88 20 130/85 (100) 93 07/10/17 13:43 98 07/10/17 12:00 97.2 114 20 127/67 (87) 96 07/10/17 12:00 112 I/O 07/10/17 07/10/17 07/10/17 07/11/17 07/11/17 07/11/17 07:00 15:00 23:00 07:00 15:00 23:00 Intake Total 0 ml 840 ml 240 ml Output Total 100 ml Balance 0 ml 840 ml 140 ml Intake Oral 0 ml 840 ml 240 ml Output Urine Total 100 ml # Voids 3 4 # Bowel Movements 1 0 (Dat Gutierrez MD) Result Diagram: 07/10/17 0705 07/10/17 0705 Imaging Last Impressions Chest X-Ray 07/08/17 1530 Signed Impressions: Service Date/Time: Saturday, July 08, 2017 15:40 - CONCLUSION: Mild basilar parenchymal opacities. Benedicto Campbell MD Head CT 07/08/17 0000 Signed Impressions: Service Date/Time: Saturday, July 08, 2017 16:40 - CONCLUSION: 1. Senescent changes with moderate periventricular small vessel ischemic demyelination. 2. No acute intracranial abnormality. Marcelino Boothe MD Objective Remarks Gen: WDWN elderly female, NAD Resp: normal rate and effort, CTAB CV: NRRR, no murmur Abd: Soft, NDNT MSK: Trace edema of BLE Medications and IVs Current Medications Medications (Trade) Dose Ordered Sig/[place]osi Route Start Time Stop Time Status Last Admin (NS Flush) 2 ml UNSCH PRN IVF 07/08/17 15:30 (NS Flush) 2 ml UNSCH PRN IV FLUSH 07/08/17 17:45 (NS Flush) 2 ml BID IV FLUSH 07/08/17 21:00 07/11/17 09:12 (Tylenol) 650 mg Q4H PRN PO 07/08/17 17:45 (Zofran Inj) 4 mg Q6H PRN IVP 07/08/17 17:45 (Narcan Inj) 0.4 mg UNSCH PRN IV PUSH 07/08/17 17:45 (Jessica-Colace) 1 tab BID PO 07/08/17 21:00 07/11/17 09:11 (Milk Of Magnesia Liq) 30 ml Q12H PRN PO 07/08/17 17:45 (Senokot) 17.2 mg Q12H PRN PO 07/08/17 17:45 (Dulcolax Supp) 10 mg DAILY PRN RECTAL 07/08/17 17:45 (Lactulose Liq) 30 ml DAILY PRN PO 07/08/17 17:45 (Vitamin B12) 500 mcg DAILY PO 07/09/17 09:00 07/11/17 09:12 (Cardizem Cd) 360 mg DAILY PO 07/09/17 09:00 07/11/17 09:12 (Lasix) 40 mg DAILY PO 07/09/17 09:00 07/11/17 09:12 (KCl) 20 meq DAILY PO 07/09/17 09:00 07/11/17 09:12 (Toprol Xl) 150 mg DAILY PO 07/09/17 09:00 07/11/17 09:12 (Duoneb Neb) 1 ampule Q6HR NEB PRN NEB 07/08/17 18:00 07/10/17 20:10 (Lopressor) 25 mg Q8H PRN PO 07/08/17 18:45 07/09/17 01:55 (Mucinex Er) 600 mg BID PO 07/10/17 09:00 07/11/17 09:11 (Eliquis) 5 mg BID PO 07/10/17 21:00 07/11/17 09:12 (Dat Gutierrez MD) A/P Assessment and Plan Mrs. Mcguire is a 76 yo F with: Discharge Planning HH PT or rehab today or tomorrow (Dat Gutierrez MD) Attending Attestation Patient seen and examined. Case reviewed and discussed with the resident team. Agree with plan of care as discussed with me and documented in the resident note. she is doing well but is a bit nervous about leaving the hospital in general (Tea Stoner MD) Problem List: (1) Supratherapeutic INR ICD Codes: R79.1 - Abnormal coagulation profile Status: Resolved Plan: INR 14.5 on admission; has been on Warfarin 5mg x7 days for anticoagulation for Atrial fibrillation. No suggestion of bleeding per history or exam Head CT negative for acute pathology; no neurologic symptoms Hemoccult negative EKG- A fib with RVR; no concerning ST changes CBC, CMP reassuring Troponin negative x2 - s/p FFP x2 U per ED order + Vit K 2.5mg oral x1 -INR now low -Received 80 mg Lovenox evening of 07/11 - Likely should be placed on NOAC since her insurance will cover and has labile INR - Continue Eliquis 5 mg PO BID on discharge (2) Atrial fibrillation ICD Codes: I48.91 - Unspecified atrial fibrillation Plan: Intermittent rate control EKG on admission- Atrial fibrillation; normal rate -Consulted cardiology, appreciate assistance -Continue Metoprolol ER to 150 mg daily -Continue Diltiazem 360 mg daily -F/u in office; may be candidate for ablation if rate control difficult with meds alone -See above for anticoagulation (Eliquis) (3) HTN (hypertension) ICD Codes: I10 - Essential (primary) hypertension Plan: Patient with PMH of HTN. Mild HTN on admission (SBP in 140's) -Continue Metoprolol to 150mg daily -Continue home Diltiazem ER 360mg daily (4) Leg edema ICD Codes: R60.0 - Localized edema Status: Chronic Plan: mproved from prior exam; presumed secondary to A fib with RVR leading to impaired cardiac output. BNP on admission 173; improved from BNP in 314 (06/30/2017) CXR with mild basilar parenchymal opacities Echo Apr 2017 with normal EF, no diastolic dysfunction -Continue Furosemide 40mg daily, 20mEq KCl daily (5) Physical deconditioning ICD Codes: R53.81 - Other malaise Status: Chronic Plan: Patient last qualified for PT and OT during 05/2017 hospitalization -Home [facility] PT (6) DVT Prophylaxis Status: Acute Plan: On Eliquis (7) Fluids, Electrolytes, and Nutrition Status: Acute Plan: Fluids: Will defer at this time with regular diet Electrolytes: pending on admission Nutrition: Will give heart healthy diet Dispo: Home today (back to [facility]) (Dat Gutierrez MD) Problem Qualifiers (1) Atrial fibrillation: Qualified Codes: I48.2 - Chronic atrial fibrillation (2) HTN (hypertension): Qualified Codes: I10 - Essential (primary) hypertension Dat Gutierrez MD Jul 11, 2017 12:00 Tea Stoner MD Jul 14, 2017 16:44
--- NOTE | 2017-07-11 15:32 | HHI.DS ---
Discharge Summary Admission Date Jul 08, 2017 at 4:49 pm Discharge Date: Jul 11, 2017 Admitting Diagnosis supratherapeutic INR (1) Supratherapeutic INR Diagnosis: Principal ICD Codes: R79.1 - Abnormal coagulation profile Status: Resolved (2) Atrial fibrillation Diagnosis: Principal ICD Codes: I48.91 - Unspecified atrial fibrillation (3) HTN (hypertension) Diagnosis: Secondary ICD Codes: I10 - Essential (primary) hypertension (4) Leg edema Diagnosis: Secondary ICD Codes: R60.0 - Localized edema Status: Chronic (5) Physical deconditioning Diagnosis: Secondary Plan: Patient last qualified for PT and OT during 05/2017 hospitalization -Home [facility] PT ICD Codes: R53.81 - Other malaise Status: Chronic [facility] - Dr. Mary Brief History Mrs. Mcguire is a 76 yo F with PMH of Atrial fibrillation, HTN, prior CV disease who presents at the request of PCP (DR Solorzano) due to outpatient notification of INR of 12.1 on outpatient blood draw 07/08/2017 at 1235. Mrs. Mcguire reports that she has been doing ok recently without any concern for bleeding. Patient has had continued frequent palpitations over the past several days in which she feels "nervous: and can tell that her heart is beating too fast. She thought about seeking medical evaluation 07/06 but decided not to. This happens at random times of the day and remits spontaneously. Patient has felt some palpitations today but states that palpitations have been less frequent over the past 2 days. Patient also reported some shortness of breath when feeling palpitations earlier this week ( 07/06) but she does not feel any shortness of breath at this time. Patient does not report any associated chest pain. No headaches or numbness/weakness/ tingling recently; she has occasional lightheadedness which she associates with tachycardia.Patient has had normal urination. Normal bowel movements without suggestion of bleeding. Patient has been taking her medications [patient lives at [facility]; it was unclear why her meds were changed recently from her last hospitalization]. Interval History: Patient seen at [place] ED reporting palpitations, dizziness, and shortness of breath along with chronic LE edema. Labs in ED confirmed supratherapeutic INR with INR 14.5 (PT 143.9). EKG obtained showing Afib with normal rate; no obvious ST changes. head CT negative for intracranial bleeding. Troponin 0.02. BNP 173, CMP reassuring. Hemoccult negative. Patient given 2.5mg Vit K and FFP x2 U in ED with plans to admit patient for further evaluation/treatment. Today she is improved with her INR but does not "feel well" ever since she started having the rapid a fib in the past and she reports more fatigue ever since then. She unfortunately missed seeing her Events Assistant per her report after her last hospitalization. CBC/BMP: 07/10/17 0705 07/10/17 0705 Significant Findings Laboratory Tests Test 07/08/17 16:55 07/09/17 07:36 07/10/17 07:05 Blood Urea Nitrogen 22 MG/DL (7-18) Creatinine 1.12 MG/DL (0.50-1.00) Estimat Glomerular Filtration Rate 47 ML/MIN (>89) 63 ML/MIN (>89) 62 ML/MIN (>89) Troponin I LESS THAN 0.02 NG/ML LESS THAN 0.02 NG/ML Red Blood Count 3.80 MIL/MM3 (4.00-5.30) 3.88 MIL/MM3 (4.00-5.30) Hemoglobin 10.9 GM/DL (11.6-15.3) 11.3 GM/DL (11.6-15.3) Hematocrit 33.7 % (35.0-46.0) 34.3 % (35.0-46.0) Neutrophils (%) (Auto) 79.9 % (16.0-70.0) 82.3 % (16.0-70.0) Lymphocytes (%) (Auto) 7.4 % (9.0-44.0) 6.8 % (9.0-44.0) Monocytes (%) (Auto) 10.0 % (0.0-8.0) 8.8 % (0.0-8.0) Lymphocytes # (Auto) 0.4 TH/MM3 (1.0-4.8) 0.4 TH/MM3 (1.0-4.8) Prothrombin Time 18.1 SEC (9.8-11.6) Potassium Level 3.4 MEQ/L (3.5-5.1) Imaging Last Impressions Chest X-Ray 07/08/17 1530 Signed Impressions: Service Date/Time: Saturday, July 08, 2017 15:40 - CONCLUSION: Mild basilar parenchymal opacities. Benedicto Campbell MD Head CT 07/08/17 0000 Signed Impressions: Service Date/Time: Saturday, July 08, 2017 16:40 - CONCLUSION: 1. Senescent changes with moderate periventricular small vessel ischemic demyelination. 2. No acute intracranial abnormality. Marcelino Boothe MD PE at Discharge Gen: WDWN elderly female, NAD Resp: normal rate and effort, CTAB CV: NRRR, no murmur Abd: Soft, NDNT MSK: Trace edema of BLE Hospital Course Admitted initially for supratherapeutic INR without evidence of active bleeding on history, exam, or head CT. Given two units FFP and 2.5 mg oral vitamin K, and INR normalized. Her anticoagulation was transitioned to Eliquis which she tolerated without difficulty. She noted chest pain on admission but troponins and EKGs were normal except for AFib with RVR. Due to AFib in RVR her dose of metoprolol ER was increased which she tolerated well. She continued to be intermittently tachycardic so cardiology was consulted who recommended outpatient follow up and consideration of node ablation if tachycardia persists. Due to physical deconditioning PT was also consulted who recommended home health PT. She was deemed medically stable for return to her [facility] with home health care + PT. Pt Condition on Discharge: Good Discharge Disposition: ACLF/ASSISTED Discharge Instructions DIET: Follow Instructions for: As Tolerated, No Restrictions Activities you can perform: Regular-No Restrictions Follow up Referrals: Cardiology - 2 Weeks with Issac Mary DO PCP Follow-up - 1 Week with Glen Solorzano MD, R3 New Medications: Apixaban (Eliquis) 5 Mg Tab 5 MG PO BID for Blood Clot Prevention, #60 TAB 0 Refills Metoprolol Succinate ER 24 HR (Metoprolol Succinate ER 24 HR) 50 Mg Tab 150 MG PO DAILY, #90 TAB 0 Refills Continued Medications: Acetaminophen (Eq Acetaminophen) 325 Mg Tab 500 MG PO Q4H PRN for PAIN SCALE 1 TO 7, #30 TAB Ascorbic Acid (Vitamin C) 250 Mg Tab 500 MG PO for Nutritional Supplement, TAB 0 Refills Calcium-Vitamins D & K (Calcium + D & K) 500-1,000-40 Mg-Unit-Mcg Chew 1 TAB CHEW for Nutritional Supplement, TAB 0 Refills Cetirizine (Cetirizine) 10 Mg Tab 10 MG PO DAILY for Allergies, TAB 0 Refills Cyanocobalamin (Vitamin B-12) 500 Mcg Tab 500 MCG PO DAILY for Nutritional Supplement, #1 BOTTLE 0 Refills Diltiazem CD 24 HR (Cardizem CD 24 HR) 180 Mg Caper 360 MG PO DAILY for 30 Days, #60 CAP Furosemide (Furosemide) 40 Mg Tab 40 MG PO DAILY, #30 TAB 3 Refills Ginkgo Biloba [place] Extract (Ginkgo Biloba) 60 Mg Tablet 1 TAB PO DAILY Glucosamine (Glucosamine) 1,000 Mg Cap 1000 MG PO DAILY for Herbal Supplements, CAP 0 Refills Ipratropium Neb (Ipratropium Neb) 0.5 Mg/2.5 Ml Amp 0.5 MG NEB Q8HR PRN for SHORTNESS OF BREATH, #1 BOX 3 Refills Multiple Vitamin (Multiple Vitamin) 1 Tab 1 TAB PO DAILY for Nutritional Supplement, TAB 0 Refills Potassium Chloride ER (Potassium Chloride ER) 20 Meq Tab 20 MEQ PO DAILY for Electrolyte Replacement, #30 TAB 3 Refills Discontinued Medications: Metoprolol Succinate ER 24 HR (Metoprolol Succinate ER 24 HR) 50 Mg Tab 100 MG PO DAILY for 30 Days, #60 TAB 3 Refills Warfarin (Warfarin) 5 Mg Tab 5 MG PO DAILY for Blood Clot Prevention, #30 TAB 0 Refills aDt Gutierrez MD Jul 11, 2017 3:32 pm
== END 2017-07-11 15:21 | DRG 948 ==
LOC: NEPC 15:15 → NEDA 16:49 → N04B 18:50
PROVIDERS: ADMIT Family Medicine; ATTEND Family Medicine
PROC: 30233K1 Transfusion of Nonautologous Frozen Plasma into Peripheral Vein, Percutaneous Approach (ICD-10-PCS; principal; 2017-07-08)
DX: R79.1 Abnormal coagulation profile (principal); I48.2 Chronic atrial fibrillation; I11.0 Hypertensive heart disease with heart failure; I50.9 Heart failure, unspecified; J44.9 Chronic obstructive pulmonary disease, unspecified; Z79.01 Long term (current) use of anticoagulants; Z86.73 Personal history of transient ischemic attack (TIA), and cerebral infarction without residual deficits; Z85.42 Personal history of malignant neoplasm of other parts of uterus; Z90.710 Acquired absence of both cervix and uterus; R94.4 Abnormal results of kidney function studies
CPT/HCPCS: 36430; 70450; 71010; 80048; 80053; 82550; 83735; 83880; 84484; 85025; 85610; 85730; 86850; 86900; 86901; 86927; 93005; 94640; 94664; J1650; P9017

== ENCOUNTER 2017-07-21 11:44 | Inpatient (IN) | payer MEDICARE ==
[2017-07-21] VITALS (15 sets, daily range): BP systolic 133–151; BP diastolic 73–97; PULSE 65–158; RESP 16–20; TEMP 97.3–97.9; O2SAT 92–99
[~2017-07-21 11:44] MED LIST changes: -PREPOIN TOPICAL; -WARF-23 PO
[2017-07-21] MEDS ORDERED: SODIUM CHLORIDE 0.9% FLUSH 10 ML FLUSH IVF PRN (12:30)
--- NOTE | 2017-07-21 12:42 | PD ---
HPI Chief Complaint: Chest Pain Time Seen by Provider: 12:28 Travel History International Travel<30 days: No Contact w/Intl Traveler<30days: No Traveled to known affect area: No History of Present Illness HPI 76-year-old female states since Thursday night or so she's been feeling chest pain and palpitations. She states she's not sure what she takes for her atrial fibrillation. She's not sure if that's Cardizem or digoxin. She states all she knows is she gets it from [facility]. She states she also has a home health nurse that helps her out. She states she has been taking her medications like she should. She denies any other concurrent complaints but history is significantly limited. PFSH Past Medical History Arthritis: Yes Asthma: No Atrial Fibrillation: Yes Blood Disorders: No Anxiety: No Depression: No Heart Rhythm Problems: Yes (Hx of A-fib) Cancer: Yes (hx of uterine cancer ) Cardiovascular Problems: Yes High Cholesterol: No Chemotherapy: No Chest Pain: Yes Congestive Heart Failure: Yes COPD: No Cerebrovascular Accident: Yes Diminished Hearing: No Endocrine: No GERD: No Genitourinary: No Hiatal Hernia: No Hypertension: Yes Immune Disorder: No Kidney Stones: No Musculoskeletal: Yes Neurologic: Yes Psychiatric: No Reproductive: No Respiratory: No Migraines: No Radiation Therapy: No Renal Failure: No Seizures: No Sleep Apnea: No Ulcer: Yes Menopausal: Yes : 4 Para: 4 Past Surgical History Abdominal Surgery: No Appendectomy: Yes Cardiac Surgery: No Ear Surgery: No Endocrine Surgery: No Eye Surgery: No Genitourinary Surgery: No Hysterectomy: Yes Oral Surgery: No Thoracic Surgery: No Other Surgery: Yes (hysterectomy ) Social History Alcohol Use: No Tobacco Use: No Substance Use: No Allergies-Medications (Allergen,Severity, Reaction): Coded Allergies: Penicillins (Verified Allergy, Severe, RASH, 07/21/17) Reported Meds & Prescriptions Reported Meds & Active Scripts Active Eliquis (Apixaban) 5 Mg Tab 5 Mg PO BID Metoprolol Succinate ER 24 HR (Metoprolol Succinate) 50 Mg Tab 150 Mg PO DAILY Furosemide 40 Mg Tab 40 Mg PO DAILY Potassium Chloride ER (Potassium Chloride) 20 Meq Tab 20 Meq PO DAILY Cardizem CD 24 HR (Diltiazem CD 24 HR) 180 Mg Caper 360 Mg PO DAILY 30 Days Ipratropium Neb (Ipratropium [place]) 0.5 Mg/2.5 Ml Amp 0.5 Mg NEB Q8HR PRN Eq Acetaminophen (Acetaminophen) 325 Mg Tab 500 Mg PO Q4H PRN Reported Cetirizine (Cetirizine HCl) 10 Mg Tab 10 Mg PO DAILY Glucosamine (Glucosamine Sulfate) 1,000 Mg Cap 1,000 Mg PO DAILY Ginkgo Biloba (Ginkgo Biloba [place] Extract) 60 Mg Tablet 1 Tab PO DAILY Vitamin B-12 (Cyanocobalamin) 500 Mcg Tab 500 Mcg PO DAILY Calcium + D & K (Calcium-Vitamins D & K) 500-1,000-40 Mg-Unit-Mcg Chew 1 Tab CHEW Vitamin C (Ascorbic Acid) 250 Mg Tab 500 Mg PO Multiple Vitamin 1 Tab 1 Tab PO DAILY Review of Systems Except as stated in HPI: all other systems reviewed are Neg Physical Exam Narrative GENERAL: Well-nourished, well-developed patient. SKIN: Warm and dry. HEAD: Normocephalic and atraumatic. EYES: No injection or drainage. ENT: No nasal drainage noted. NECK: Supple, trachea midline. CARDIOVASCULAR: irregular rate and rhythm RESPIRATORY: Breath sounds equal bilaterally at apices. No accessory muscle use. GASTROINTESTINAL: Abdomen soft, non-tender, nondistended. EXTREMITIES: No significant pedal edema. NEUROLOGICAL: Awake. Moves all extremities and sensory grossly within normal limits. Normal speech. Data Data Last Documented VS Vital Signs Date Time Temp Pulse Resp B/P (MAP) Pulse Ox O2 Delivery O2 Flow Rate FiO2 07/21/17 15:24 76 16 135/78 (97) 99 Room Air 07/21/17 11:50 97.7 Orders Orders Electrocardiogram (07/21/17 12:09) B-Type Natriuretic Peptide (07/21/17 12:09) Ckmb (Isoenzyme) Profile (07/21/17 12:09) Complete Blood Count With Diff (07/21/17 12:09) Comprehensive Metabolic Panel (07/21/17 12:09) Magnesium (Mg) (07/21/17 12:09) Prothrombin Time / Inr (Pt) (07/21/17 12:09) Act Partial Throm Time (Ptt) (07/21/17 12:09) Troponin I (07/21/17 12:09) Ecg Monitoring (07/21/17 12:28) Bilateral Bp Monitoring (07/21/17 12:28) Iv Access Insert/Monitor (07/21/17 12:28) Oximetry (07/21/17 12:28) Sodium Chloride 0.9% Flush (Ns Flush) (07/21/17 12:30) Chest, Single Ap (07/21/17 ) Digoxin (07/21/17 12:30) Sodium Chloride 0.9% Flush (Ns Flush) (07/21/17 12:45) Diltiazem Inj (Cardizem Inj) (07/21/17 12:45) Diltiazem Inj (Cardizem Inj) (07/21/17 13:30) Diltiazem Inj (Cardizem Inj) (07/21/17 15:00) Admit Order (Ed Use Only) (07/21/17 15:26) Labs Laboratory Tests Test 07/21/17 12:44 07/21/17 14:40 White Blood Count 9.9 TH/MM3 Red Blood Count 4.00 MIL/MM3 Hemoglobin 11.8 GM/DL Hematocrit 35.4 % Mean Corpuscular Volume 88.5 FL Mean Corpuscular Hemoglobin 29.4 PG Mean Corpuscular Hemoglobin Concent 33.2 % Red Cell Distribution Width 14.5 % Platelet Count 313 TH/MM3 Mean Platelet Volume 9.3 FL Neutrophils (%) (Auto) 86.3 % Lymphocytes (%) (Auto) 5.2 % Monocytes (%) (Auto) 8.1 % Eosinophils (%) (Auto) 0.1 % Basophils (%) (Auto) 0.3 % Neutrophils # (Auto) 8.5 TH/MM3 Lymphocytes # (Auto) 0.5 TH/MM3 Monocytes # (Auto) 0.8 TH/MM3 Eosinophils # (Auto) 0.0 TH/MM3 Basophils # (Auto) 0.0 TH/MM3 CBC Comment DIFF FINAL Differential Comment Blood Urea Nitrogen 22 MG/DL Creatinine 1.16 MG/DL Random Glucose 119 MG/DL Total Protein 7.6 GM/DL Albumin 3.7 GM/DL Calcium Level 8.8 MG/DL Magnesium Level 2.2 MG/DL Alkaline Phosphatase 102 U/L Aspartate Amino Transf (AST/SGOT) 27 U/L Alanine Aminotransferase (ALT/SGPT) 62 U/L Total Bilirubin 1.0 MG/DL Sodium Level 135 MEQ/L Potassium Level 4.2 MEQ/L Chloride Level 102 MEQ/L Carbon Dioxide Level 24.3 MEQ/L Anion Gap 9 MEQ/L Estimat Glomerular Filtration Rate 45 ML/MIN Total Creatine Kinase 87 U/L Troponin I LESS THAN 0.02 NG/ML B-Type Natriuretic Peptide 491 PG/ML Digoxin Level LESS THAN 0.1 NG/ML MDM Medical Decision Making Medical Screen Exam Complete: Yes Emergency Medical Condition: Yes Medical Record Reviewed: Yes (past history confirmed) Interpretation(s) CBC & BMP Diagram 07/21/17 12:44 Total Protein 7.6, Albumin 3.7, Calcium Level 8.8, Magnesium Level 2.2, Alkaline Phosphatase 102, Aspartate Amino Transf (AST/SGOT) 27, Alanine Aminotransferase (ALT/SGPT) 62 H, Total Bilirubin 1.0 Last 24 hours Impressions Chest X-Ray 07/21/17 0000 Signed Impressions: Service Date/Time: Friday, July 21, 2017 12:44 - CONCLUSION: Stable appearance with apparent scarring. Maitas Song MD Differential Diagnosis A. fib with RVR, anemia, electrolyte abnormality, IN... Narrative Course Will check blood work, EKG, chest x-ray and dose with Cardizem and monitor patient still with elevated heart rate will repeat bolus patient still with tachycardia will place on drip and admit for further care, patient updated and agrees to plan Critical Care Narrative Aggregate critical care time was 31 minutes. Time to perform other separately billable procedures was not included in the critical care time. My time did not include minutes spent treating any other patients simultaneously or on activities that did not directly contribute to the patient's treatment. The services I provided to this patient were to treat and/or prevent clinically significant deterioration that could result in: IN, I provided critical care services requiring my management, as noted below: Chart data review, documentation time, medication orders and management, vital sign assessments/reviewing monitor data, ordering and reviewing lab tests, ordering and interpreting/reviewing x-rays and diagnostic studies, care of the patient and discussion of the patient with the admitting physicians. Physician Communication Physician Communication dr pickering agrees to admit Diagnosis Primary Impression: Atrial fibrillation with RVR Additional Impression: Chest pain Qualified Codes: R07.9 - Chest pain, unspecified Admitting Information Admitting Physician Requests: Admit Jojo Heaton MD Jul 21, 2017 12:42
[2017-07-21] MEDS ORDERED: DILTIAZEM HCL 25 MG/5 ML VIAL IV ONE ×2 (12:45→15:00)
[2017-07-21] MEDS ORDERED: SODIUM CHLORIDE 0.9% FLUSH 10 ML FLUSH IV FLUSH PRN ×2 (12:45→15:45)
--- NOTE | 2017-07-21 13:19 | RADRPT ---
EXAM DATE/TIME: 07/21/2017 12:44 [place] COMPARISON: CHEST SINGLE AP, July 08, 2017, 15:40. INDICATIONS : Pain right upper chest for 1 month, vertigo, weakness and short of breath MEDICAL HISTORY : Hypertension. SURGICAL HISTORY : Appendectomy. Hysterectomy. ENCOUNTER: Subsequent ACUITY: 1 month PAIN SCORE: 6/10 LOCATION: Right chest FINDINGS: A single AP erect portable view the chest was obtained and again demonstrates mild cardiomegaly. Ther e is mild hazy opacity in the lung bases and infrahilar regions most characteristic of scarring. Ther e are no new confluent infiltrates or effusions. Tracheal calcifications and atherosclerotic calcific ations are again noted. Overlying electrocardiogram leads. Postsurgical changes are noted involving t he right humerus with multiple surgical anchors and degenerative change. A single view of the chest demonstrates the lungs to be symmetrically aerated without evidence of mas s, infiltrate or effusion. The cardiomediastinal contours are unremarkable. Osseous structures are intact. CONCLUSION: Stable appearance with apparent scarring. Matias Song MD on July 21, 2017 at 13:16 Board Certified Radiologist. This report was verified electronically.
[2017-07-21] MEDS: DILTIAZEM INJ 125 MG in SODIUM CHLORIDE 0.9% INJ 100 ML IV PRN (13:41)
[2017-07-21 13:57] LABS: AUTOMATED NEUTROPHIL # 8.5 TH/MM3 (1.8-7.7); BASOPHIL % 0.3 % (0.0-2.0); EOSINOPHIL % 0.1 % (0.0-4.0); HEMATOCRIT 35.4 % (35.0-46.0); HEMOGLOBIN 11.8 GM/DL (11.6-15.3); LYMPH % 5.2 % (9.0-44.0); LYMPHOCYTE # 0.5 TH/MM3 (1.0-4.8); MEAN CELL VOLUME 88.5 FL (80.0-100.0); MEAN CORPUSCULAR HEMOGLOBIN 29.4 PG (27.0-34.0); MEAN CORPUSCULAR HGB CONC 33.2 % (32.0-36.0); MEAN PLATELET VOLUME 9.3 FL (7.0-11.0); MONO % 8.1 % (0.0-8.0); MONOCYTE # 0.8 TH/MM3 (0-0.9); NEUT % 86.3 % (16.0-70.0); PLATELET COUNT 313 TH/MM3 (150-450); RED CELL DISTRIBUTION WIDTH 14.5 % (11.6-17.2); WHITE BLOOD COUNT 9.9 TH/MM3 (4.0-11.0)
[2017-07-21 14:16] LABS: ALBUMIN 3.7 GM/DL (3.4-5.0); AST (GOT) 27 U/L (15-37); BICARBONATE 24.3 MEQ/L (21.0-32.0); BLOOD UREA NITROGEN 22 MG/DL (7-18); CALCIUM 8.8 MG/DL (8.5-10.1); CHLORIDE 102 MEQ/L (98-107); CREATININE 1.16 MG/DL (0.50-1.00); GLOMERULAR FILTRATION RATE 45 ML/MIN (>89); GLUCOSE,RANDOM 119 MG/DL (74-106); MAGNESIUM 2.2 MG/DL (1.5-2.5); SODIUM (NA) 135 MEQ/L (136-145)
[2017-07-21 14:21] LABS: ALKALINE PHOSPHATASE 102 U/L (45-117); ALT (GPT) 62 U/L (10-53); TOTAL PROTEIN 7.6 GM/DL (6.4-8.2); TROPONIN I LESS THAN 0.02 NG/ML (0.02-0.05)
[2017-07-21] MEDS ORDERED: MAGNESIUM HYDROXIDE SUSP 30 ML CUP PO PRN (15:45)
[2017-07-21] MEDS ORDERED: ONDANSETRON HCL 4 MG/2 ML VIAL IVP PRN (15:45)
[2017-07-21] MEDS ORDERED: NALOXONE HCL 0.4 MG/ML AMP IV PUSH PRN (15:45)
[2017-07-21] MEDS ORDERED: BISACODYL 10 MG SUPP RECTAL PRN (15:45)
[2017-07-21] MEDS ORDERED: SENNOSIDES 8.6 MG TAB PO PRN (15:45)
[2017-07-21] MEDS ORDERED: LACTULOSE SYRUP 20 GM/30 ML CUP PO PRN (15:45)
[2017-07-21] MEDS ORDERED: ACETAMINOPHEN 325 MG TAB PO PRN (15:45)
--- NOTE | 2017-07-21 15:51 | HHI.HP ---
[facility] Admission Diagnosis afib with rvr Diagnoses: Chief Complaint: Chest pain, palpitations Travel History International Travel<30 Days: No Contact w/Intl Traveler <30 Da: No Traveled to Known Affected Are: No History of Present Illness Ms. Mcguire is a pleasant 76 year old female with a history of Atrial fibrillation who presented to the ED on 07/21/2017 due to chest pain and palpitation that started on Thursday07/17/2017 . She is not able to provide specific information regarding her chest discomfort. She reports feeling sick to her throat and stomach and some nausea. No radiation of her chest discomfort. She was discharged from hospital on 07/11/2017 (admission on 2016) on Apixaban. She was admitted on 07/08/2017 with supra-therapeutic INR around 12-14. At that time she was on Warfarin. However, due to difficulty managing warfarin, warfarin was discontinued and patient was discharged on Apixaban. Patient lives alone. At the time of this interview, patient denies any chest pain, shortness of breath, fever, chills. No changes in bowel or bladder habits. No bleeding. Review of Systems Except as stated in HPI: all other systems reviewed are Neg Past Family Social History Past Medical History Arthritis, atrial fibrillation, uterine cancer, congestive heart failure, stroke , hypertension Past Surgical History Hysterectomy, appendectomy Reported Medications Eliquis (Apixaban) 5 Mg Tab 5 Mg PO BID Metoprolol Succinate ER 24 HR (Metoprolol Succinate) 50 Mg Tab 150 Mg PO DAILY Furosemide 40 Mg Tab 40 Mg PO DAILY Potassium Chloride ER (Potassium Chloride) 20 Meq Tab 20 Meq PO DAILY Cardizem CD 24 HR (Diltiazem CD 24 HR) 180 Mg Caper 360 Mg PO DAILY 30 Days Ipratropium Neb (Ipratropium [place]) 0.5 Mg/2.5 Ml Amp 0.5 Mg NEB Q8HR PRN Eq Acetaminophen (Acetaminophen) 325 Mg Tab 500 Mg PO Q4H PRN Reported Cetirizine (Cetirizine HCl) 10 Mg Tab 10 Mg PO DAILY Glucosamine (Glucosamine Sulfate) 1,000 Mg Cap 1,000 Mg PO DAILY Ginkgo Biloba (Ginkgo Biloba [place] Extract) 60 Mg Tablet 1 Tab PO DAILY Vitamin B-12 (Cyanocobalamin) 500 Mcg Tab 500 Mcg PO DAILY Calcium + D & K (Calcium-Vitamins D & K) 500-1,000-40 Mg-Unit-Mcg Chew 1 Tab CHEW Vitamin C (Ascorbic Acid) 250 Mg Tab 500 Mg PO Multiple Vitamin 1 Tab 1 Tab PO DAILY Allergies: Coded Allergies: Penicillins (Verified Allergy, Severe, RASH, 07/21/17) Family History Father - CAD, CABG Social History Denies using tobacco, alcohol, illicit drugs. Physical Exam Vital Signs Vital Signs Date Time Temp Pulse Resp B/P (MAP) Pulse Ox O2 Delivery O2 Flow Rate FiO2 07/21/17 15:24 76 16 135/78 (97) 99 Room Air 07/21/17 14:22 116 16 133/75 (94) 99 Room Air 07/21/17 13:41 148/89 (108) 140/91 (107) 07/21/17 13:41 114 148/89 07/21/17 12:47 108 18 137/97 (110) 98 Room Air 07/21/17 11:50 97.7 158 18 150/74 (99) 97 Physical Exam GENERAL: This is a well-nourished, well-developed patient, in no apparent distress. SKIN: No rashes, ecchymoses or lesions. Warm and dry. HEAD: Atraumatic. Normocephalic. No temporal or scalp tenderness. EYES: Pupils equal round and reactive. No injection or drainage. ENT: Nose without bleeding, purulent drainage or septal hematoma. Airway patent. NECK: Trachea midline. No lymphadenopathy. Supple, nontender, no meningeal signs. CARDIOVASCULAR: Irreg Irreg without murmurs, gallops, or rubs. No JVD. RESPIRATORY: Clear to auscultation. Breath sounds equal bilaterally. No wheezes , rales, or rhonchi. GASTROINTESTINAL: Abdomen soft, non-tender, nondistended. No guarding. MUSCULOSKELETAL: Extremities without clubbing, cyanosis, or edema. NEUROLOGICAL: Awake and alert. Cranial nerves II through XII intact. No focal neurological deficits. Normal speech. Laboratory Laboratory Tests Test 07/21/17 12:44 07/21/17 14:40 White Blood Count 9.9 Red Blood Count 4.00 Hemoglobin 11.8 Hematocrit 35.4 Mean Corpuscular Volume 88.5 Mean Corpuscular Hemoglobin 29.4 Mean Corpuscular Hemoglobin Concent 33.2 Red Cell Distribution Width 14.5 Platelet Count 313 Mean Platelet Volume 9.3 Neutrophils (%) (Auto) 86.3 Lymphocytes (%) (Auto) 5.2 Monocytes (%) (Auto) 8.1 Eosinophils (%) (Auto) 0.1 Basophils (%) (Auto) 0.3 Neutrophils # (Auto) 8.5 Lymphocytes # (Auto) 0.5 Monocytes # (Auto) 0.8 Eosinophils # (Auto) 0.0 Basophils # (Auto) 0.0 CBC Comment DIFF FINAL Differential Comment Blood Urea Nitrogen 22 Creatinine 1.16 Random Glucose 119 Total Protein 7.6 Albumin 3.7 Calcium Level 8.8 Magnesium Level 2.2 Alkaline Phosphatase 102 Aspartate Amino Transf (AST/SGOT) 27 Alanine Aminotransferase (ALT/SGPT) 62 Total Bilirubin 1.0 Sodium Level 135 Potassium Level 4.2 Chloride Level 102 Carbon Dioxide Level 24.3 Anion Gap 9 Estimat Glomerular Filtration Rate 45 Total Creatine Kinase 87 Troponin I LESS THAN 0.02 B-Type Natriuretic Peptide 491 Digoxin Level LESS THAN 0.1 Result Diagram: 07/21/17 1244 07/21/17 1244 Imaging Last Impressions Chest X-Ray 07/21/17 0000 Signed Impressions: Service Date/Time: Friday, July 21, 2017 12:44 - CONCLUSION: Stable appearance with apparent scarring. MD Suresh Kim VTE Risk Assessment [place] VTE Risk Assessment: Mod/High Risk (score >= 2) Caprini Risk Assessment Model Point Value = 1 Point Value = 2 Point Value = 3 Point Value = 5 Age 41-60 Minor surgery BMI > 25 kg/m2 Swollen legs Varicose veins or History of unexplained or recurrent spontaneous Oral contraceptives or hormone replacement Sepsis (< 1 month) Serious lung disease, including pneumonia (< 1 month) Abnormal pulmonary function Acute myocardial infarction Congestive heart failure (< 1 month) History of inflammatory bowel disease Medical patient at bed rest Age 61-74 Arthroscopic surgery Major open surgery (> 45 min) Laparoscopic surgery (> 45 min) Malignancy Confined to bed (> 72 hours) Immobilizing plaster cast Central venous access Age >= 75 History of VTE Family history of VTE Factor V Leiden Prothrombin [id number] Lupus anticoagulant Anticardiolipin antibodies Elevated serum homocysteine Heparin-induced thrombocytopenia Other congenital or acquired thrombophilia Stroke (< 1 month) Elective arthroplasty Hip, pelvis, or leg fracture Acute spinal cord injury (< 1 month) Prophylaxis Regimen Total Risk Factor Score Risk Level Prophylaxis Regimen 0-1 Low Early ambulation 2 Moderate Order ONE of the following: *Sequential Compression Device (SCD) *Heparin 5000 units SQ BID 3-4 Higher Order ONE of the following medications: *Heparin 5000 units SQ TID *Enoxaparin/Lovenox 40 mg SQ daily (WT < 150 kg, CrCl > 30 mL/min) *Enoxaparin/Lovenox 30 mg SQ daily (WT < 150 kg, CrCl > 10-29 mL/min) *Enoxaparin/Lovenox 30 mg SQ BID (WT < 150 kg, CrCl > 30 mL/min) AND/OR *Sequential Compression Device (SCD) 5 or more Highest Order ONE of the following medications: *Heparin 5000 units SQ TID (Preferred with Epidurals) *Enoxaparin/Lovenox 40 mg SQ daily (WT < 150 kg, CrCl > 30 mL/min) *Enoxaparin/Lovenox 30 mg SQ daily (WT < 150 kg, CrCl > 10-29 mL/min) *Enoxaparin/Lovenox 30 mg SQ BID (WT < 150 kg, CrCl > 30 mL/min) AND *Sequential Compression Device (SCD) Assessment and Plan Problem List: (1) Atrial fibrillation with RVR ICD Code: I48.91 - Unspecified atrial fibrillation (2) Supratherapeutic INR ICD Code: R79.1 - Abnormal coagulation profile Status: Resolved Assessment and Plan Ms. Mcguire is a 76 year old female with a history of Afib who presents with chest discomfort and palpitations. She is not able to provide specific information regarding her medications. She used to be on warfarin for anti- coagulation. However, in late Jun 2017, patient was switched to Apixaban due to supr-atherapeutic INR. - Atrial fibrillation with RVR - heart rate initially 158. - Chest discomfort is resolved. Troponin was negative. - Cardizem drip was started in the ED. - Will start patient on Metoprolol 25mg BID and try to wean off Cardizem drip. - [id number] score at least 4 (HTN, female, age > 74). - Patient's anti-coagulation was switched to Apixaban in the last admission ( Jul 082016). - Supra-therapeutic INR - Patient is very pleasant but does not appear to be reliable to take her medication. - INR > 18 is likely due to patient's continuation of Warfarin (by mistake). - Fortunately, no bleeding. We will give her a dose of Vitamin K 5mg. - Will monitor PT/INR. Full code. Supra-therapeutic INR. Physician Certification 2 Midnight Certification Type: Admission for Inpatient Services Order for Inpatient Services The services are ordered in accordance with Medicare regulations or non- Medicare payer requirements, as applicable. In the case of services not specified as inpatient-only, they are appropriately provided as inpatient services in accordance with the 2-midnight benchmark. Estimated LOS (days): 2 days is the estimated time the patient will need to remain in the hospital, assuming treatment plan goals are met and no additional complications. Post-Hospital Plan: Home Vincent Mays DO Jul 21, 2017 15:51
--- NOTE | 2017-07-21 16:12 | EKG ---
Date Performed: 07/21/2017 Time Performed: 12:40:24 PTAGE: 76 years EKG: ATRIAL FIBRILLATION WITH RAPID VENTRICULAR RESPONSE POSSIBLE RIGHT VENTRICULAR CONDUCTION D ELAY SEPTAL Q WAVES ABNORMAL ECG PREVIOUS TRACING : 07/09/2017 10.54 Compared to the previous tracing rate faster DOCTOR: Subha Turcios Interpretating Date/Time 07/21/2017 16:11:30
[2017-07-21 17:32] LABS: PROTHROMBIN TIME - PATIENT GREATER THAN 180.0 SEC (9.8-11.6)
[2017-07-21 17:35] LABS: INTERNATIONAL NORMALIZED RATIO GREATER THAN 18.2 RATIO
[2017-07-21] MEDS: SODIUM CHLORIDE 0.9% FLUSH 10 ML FLUSH IV FLUSH SCH (21:00)
[2017-07-22] VITALS (24 sets, daily range): BP systolic 128–146; BP diastolic 72–93; PULSE 64–115; RESP 16–24; TEMP 97.7–98.7; O2SAT 92–98
[2017-07-22] MEDS ORDERED: PHYTONADIONE 5 MG TAB PO ONE ×2 (00:45→18:00)
[2017-07-22] MEDS ORDERED: PHYTONADIONE 2.5 MG/SWFI 2.5 ML ORAL SYR PO ONE (04:00)
[2017-07-22] MEDS: SODIUM CHLORIDE 0.9% FLUSH 10 ML FLUSH IV FLUSH SCH ×2 (07:50→22:30)
[2017-07-22] MEDS: METOPROLOL TARTRATE 25 MG TAB PO SCH ×2 (09:39→22:29)
[2017-07-22] MEDS: DILTIAZEM INJ 125 MG in SODIUM CHLORIDE 0.9% INJ 100 ML IV PRN (11:10)
--- NOTE | 2017-07-22 12:55 | HHI.PR ---
Subjective Remarks Follow up for Afib. Patient is currently doing well. On minimum cardizem drip. No CP, SOB, fever, chills. Rate is controlled. Objective Vitals Vital Signs Date Time Temp Pulse Resp B/P (MAP) Pulse Ox O2 Delivery O2 Flow Rate FiO2 07/22/17 11:10 83 141/86 07/22/17 04:00 70 07/22/17 03:16 77 07/22/17 03:00 97.8 82 24 128/72 (90) 92 07/22/17 02:00 70 07/22/17 01:00 64 07/22/17 00:00 70 07/21/17 23:00 97.3 65 20 133/77 (95) 96 07/21/17 22:58 66 07/21/17 22:00 70 07/21/17 21:00 70 07/21/17 20:00 74 07/21/17 19:04 68 07/21/17 19:00 97.9 73 20 136/84 (101) 96 07/21/17 18:48 97.8 76 20 141/89 (106) 92 07/21/17 18:00 73 07/21/17 17:04 07/21/17 16:44 73 17 151/73 (99) 95 Room Air 07/21/17 15:24 76 16 135/78 (97) 99 Room Air 07/21/17 14:22 116 16 133/75 (94) 99 Room Air 07/21/17 13:41 148/89 (108) 140/91 (107) 07/21/17 13:41 114 148/89 I/O 07/21/17 07/21/17 07/21/17 07/22/17 07/22/17 07/22/17 06:59 14:59 22:59 06:59 14:59 22:59 Intake Total 240 ml 125 ml Balance 240 ml 125 ml Intake Oral 240 ml IV Total 125 ml # Voids 1 Result Diagram: 07/21/17 1244 07/21/17 1244 Imaging Last Impressions Chest X-Ray 07/21/17 0000 Signed Impressions: Service Date/Time: Friday, July 21, 2017 12:44 - CONCLUSION: Stable appearance with apparent scarring. Matias Song MD Objective Remarks GENERAL: Alert, NAD. SKIN: Warm and dry. HEAD: Normocephalic. EYES: No scleral icterus. No injection or drainage. NECK: Supple, trachea midline. No JVD or lymphadenopathy. CARDIOVASCULAR: Irreg Irreg without murmurs, gallops, or rubs. RESPIRATORY: Breath sounds equal bilaterally. No accessory muscle use. GASTROINTESTINAL: Abdomen soft, non-tender, nondistended. MUSCULOSKELETAL: No cyanosis, or edema. BACK: Nontender without obvious deformity. No CVA tenderness. A/P Problem List: (1) Atrial fibrillation with RVR ICD Code: I48.91 - Unspecified atrial fibrillation (2) Supratherapeutic INR ICD Code: R79.1 - Abnormal coagulation profile Status: Resolved Assessment and Plan Ms. Mcguire is a 76 year old female with a history of Afib who presents with chest discomfort and palpitations. She is not able to provide specific information regarding her medications. She used to be on warfarin for anti- coagulation. However, in late Jun 2017, patient was switched to Apixaban due to supr-atherapeutic INR. - Atrial fibrillation with RVR - heart rate initially 158. - Chest discomfort is resolved. Troponin was negative. - Will discontinue Cardizem drip. - Metoprolol 25mg BID - [id number] score at least 4 (HTN, female, age > 74). - Patient's anti-coagulation was switched to Apixaban in the last admission ( Jul 08-2016). - Hold off Apixaban for now. INR today improved over 18 to 6.3. - Supra-therapeutic INR - Patient is very pleasant but does not appear to be reliable to take her medication. - INR > 18 --> 6.3 is likely due to patient's continuation of Warfarin (by mistake). - Fortunately, no bleeding. We gave her a dose of Vitamin K 5mg. - We will transfer the care of this patient to the Family medicine service. Later in the day, her heart rate was going up again. I started patient on Cardizem 60mg QID. If the heart rate is controlled, consider discharging patient on Metoprolol as well as long acting Cardizem. - If possible, a neighbor or someone should check patient's home medications. She is likely taking Warfarin when she is not supposed to take. Start Apixaban when INR < 2.0. Full code. Supra-therapeutic INR. Vincent Mays DO Jul 22, 2017 12:55
--- NOTE | 2017-07-22 13:38 | HHI.FPPN ---
Subjective Remarks Patient transferred to our service this afternoon. No acute events overnight. This morning patient reports that still feels palpitations and has chest tightness after exertion but resolves with sitting. Pt reports that this has been going on for quite some time. Reports feeling palpitations whenever she thinks about things as she becomes anxious. When asked about her medications, she does seem to be very confused about what she is actually taking and what she is suppose to be taking. Today she denies ever taking both warfarin and eliquis. Objective Vitals Vital Signs Date Time Temp Pulse Resp B/P (MAP) Pulse Ox O2 Delivery O2 Flow Rate FiO2 07/22/17 11:10 83 141/86 07/22/17 04:00 70 07/22/17 03:16 77 07/22/17 03:00 97.8 82 24 128/72 (90) 92 07/22/17 02:00 70 07/22/17 01:00 64 07/22/17 00:00 70 07/21/17 23:00 97.3 65 20 133/77 (95) 96 07/21/17 22:58 66 07/21/17 22:00 70 07/21/17 21:00 70 07/21/17 20:00 74 07/21/17 19:04 68 07/21/17 19:00 97.9 73 20 136/84 (101) 96 07/21/17 18:48 97.8 76 20 141/89 (106) 92 07/21/17 18:00 73 07/21/17 17:04 07/21/17 16:44 73 17 151/73 (99) 95 Room Air 07/21/17 15:24 76 16 135/78 (97) 99 Room Air 07/21/17 14:22 116 16 133/75 (94) 99 Room Air 07/21/17 13:41 148/89 (108) 140/91 (107) 07/21/17 13:41 114 148/89 I/O 07/21/17 07/21/17 07/21/17 07/22/17 07/22/17 07/22/17 07:00 15:00 23:00 07:00 15:00 23:00 Intake Total 240 ml 137 ml Balance 240 ml 137 ml Intake Oral 240 ml IV Total 137 ml # Voids 1 Result Diagram: 07/21/17 1244 07/21/17 1244 Objective Remarks GEN: Well-developed, well-nourished patient. No acute distress. Resting comfortably in chair. CV: Irregularly irregular rhythm but at a good rate. No obvious murmurs LUNGS: Clear to auscultation bilaterally. Normal respiratory effort. No wheezes , rales, rhonchi. GI: non distended. EXT: Trace edema bilaterally. No calf tenderness. NEURO/PSYCH: Awake, alert. Appropriate insight and judgment. Normal speech A/P Assessment and Plan Patient is a 76-year-old female with history significant for A. fib, HTN, COPD. Admitted for A. fib with RVR and supratherapeutic Coumadin. Discharge Planning Likely tomorrow pending improvement of INR and rate control * Spoke with Dr. Solorzano PCP about performing a more detailed dementia screen as I suspect that this is significantly contributing to patients more management of medications. wdw Dr. Mason Problem List: (1) Atrial fibrillation with RVR ICD Codes: I48.91 - Unspecified atrial fibrillation Plan: Hx of afib. Symptomatic on admission but now rate controlled. Still complains of subjective palpitations and chest tightness. Troponin neg on admission. Was admitted on 07/08/17 for the same thing. Her metoprolol was increased at that time but I suspect patient was not taking the increased dose. She was also suppose to follow up with cardiology for possible ablation due to persist tachycardia. -cardiac telemetry -will need anticoagulation (see plan below) -continues to be subjectively symptomatic. Pt to keep log of when she feels symptomatic in the hospital so that we can correlate with rate on tely -echo 04/2017: EF of 55-60%. Mild mitral valve regurg and stenosis. Mild to moderate tricuspid valve regurg. Medications: * metoprolol tartrate 25mg daily, may need to be increased to back to home dose * s/p diltiazem * Home cardizem 360mg on HOLD (2) Supratherapeutic INR ICD Codes: R79.1 - Abnormal coagulation profile Status: Resolved Plan: This is pt's second admission within a month for supratherapeutic INR. She was not suppose to be taking Coumadin after the last admission. INR on admission was >18 but with no signs of active bleeding. Clinically stable at this time. -s/p Vit K on admission. -Repeat not yet performed as pt declined labs this AM. -continue to monitor INR -HOLD home Eliquis until INR improves (3) COPD (chronic obstructive pulmonary disease) ICD Codes: J44.9 - Chronic obstructive pulmonary disease, unspecified Status: Chronic Plan: Symptoms of chest tightness may also be related to COPD symptoms. May benefit from diltiazem rather than metoprolol for afib control. -if pt remains controlled while in the hospital, will defer to the ambulance paramedic that the patient is suppose to follow up with, Dr. Mary (4) Fluids, Electrolytes, and Nutrition Status: Acute Plan: Diet: Heart healthy Fluids: none, PO hydration Electrolytes: mild hyponatremia, continue to monitor. DVT PPX: SCD, currently due to supratherapeutic INR GI PPX: none Eleonora Olivares MD, R3 Jul 22, 2017 13:38
[2017-07-22] MEDS ORDERED: RESP: ALBUTEROL 2.5 MG/3 ML NEB (PRN) INH (16:00)
[2017-07-22] MEDS ORDERED: DILTIAZEM HCL 60 MG TAB PO ONE (16:00)
[2017-07-22 16:15] LABS: INTERNATIONAL NORMALIZED RATIO 6.3 RATIO
[2017-07-22 16:18] LABS: BICARBONATE 29.8 MEQ/L (21.0-32.0); BLOOD UREA NITROGEN 21 MG/DL (7-18); CALCIUM 8.5 MG/DL (8.5-10.1); CHLORIDE 101 MEQ/L (98-107); CREATININE 1.06 MG/DL (0.50-1.00); GLOMERULAR FILTRATION RATE 50 ML/MIN (>89); GLUCOSE,RANDOM 119 MG/DL (74-106); SODIUM (NA) 137 MEQ/L (136-145)
[2017-07-22 16:22] LABS: TROPONIN I LESS THAN 0.02 NG/ML (0.02-0.05)
[2017-07-22] MEDS ORDERED: PILL SPLITTER OTHER PRN (18:00)
[2017-07-22] MEDS: DILTIAZEM HCL 60 MG TAB PO SCH (18:51)
[2017-07-22] MEDS ORDERED: PHYTONADIONE 5 MG/SWFI 5 ML ORAL SYR PO ONE (19:00)
[2017-07-23] VITALS (27 sets, daily range): BP systolic 122–140; BP diastolic 73–82; PULSE 69–126; RESP 16–20; TEMP 97.8–98.3; O2SAT 93–100
[2017-07-23] MEDS: DILTIAZEM HCL 60 MG TAB PO SCH ×2 (05:06)
[2017-07-23] MEDS ORDERED: DILTIAZEM HCL 30 MG TAB PO ONE (05:45)
[2017-07-23] MEDS ORDERED: DILTIAZEM HCL 90 MG TAB PO SCH (06:00)
[2017-07-23 06:49] LABS: INTERNATIONAL NORMALIZED RATIO 1.8 RATIO; PROTHROMBIN TIME - PATIENT 17.9 SEC (9.8-11.6)
[2017-07-23] MEDS: SODIUM CHLORIDE 0.9% FLUSH 10 ML FLUSH IV FLUSH SCH ×2 (09:54→20:56)
[2017-07-23] MEDS: FUROSEMIDE 20 MG TAB PO SCH (09:54)
[2017-07-23] MEDS: METOPROLOL TARTRATE 25 MG TAB PO SCH (09:54)
--- NOTE | 2017-07-23 10:09 | HHI.FPPN ---
Subjective Remarks No acute events overnight. Vital signs unremarkable except for increased pulse around 90s to 110s. Patient reports throat tightness that is worse with exertion but no associated chest pain. Patient also reports that she does not quite feel ready to be discharged today because of the continued symptoms of this throat tightness. (Eleonora Olivares MD, R3) Objective Vitals Vital Signs Date Time Temp Pulse Resp B/P (MAP) Pulse Ox O2 Delivery O2 Flow Rate FiO2 07/23/17 09:00 120 07/23/17 08:00 126 07/23/17 07:38 98.0 97 16 122/79 (93) 93 07/23/17 07:19 93 07/23/17 06:00 87 07/23/17 05:00 94 07/23/17 04:00 88 07/23/17 03:00 97.8 91 18 140/80 (100) 100 07/23/17 03:00 91 07/23/17 02:00 91 07/23/17 00:00 98 07/22/17 23:00 97.7 92 16 138/78 (98) 98 07/22/17 23:00 80 07/22/17 22:00 92 07/22/17 20:00 95 07/22/17 19:00 98.2 98 18 146/88 (107) 96 07/22/17 18:00 104 07/22/17 17:00 115 07/22/17 16:00 106 07/22/17 15:00 108 07/22/17 14:00 95 07/22/17 13:00 79 07/22/17 12:00 82 07/22/17 11:35 98.7 83 18 141/86 (104) 98 07/22/17 11:10 83 141/86 07/22/17 11:00 97 07/22/17 10:00 89 I/O 07/22/17 07/22/17 07/22/17 07/23/17 07/23/17 07/23/17 07:00 15:00 23:00 07:00 15:00 23:00 Intake Total 240 ml 137 ml 480 ml 720 ml Output Total 800 ml Balance 240 ml 137 ml -320 ml 720 ml Intake Oral 240 ml 480 ml 720 ml IV Total 137 ml Output Urine Total 800 ml # Voids 1 3 (Eleonora Olivares MD, R3) Result Diagram: 07/21/17 1244 07/22/17 1527 Objective Remarks GEN: Well-developed, well-nourished patient. No acute distress. Resting comfortably in chair. CV: Irregularly irregular rhythm but mildly tachycardic. No obvious murmurs LUNGS: Mild bibasilar crackles but with good air movement. Normal respiratory effort. GI: non distended. EXT: 1+ edema bilaterally. No calf tenderness. NEURO/PSYCH: Awake, alert. Appropriate insight and judgment. Normal speech (Eleonora Olivares MD, R3) A/P Assessment and Plan Patient is a 76-year-old female with history significant for A. fib, HTN, COPD. Admitted for A. fib with RVR and supratherapeutic Coumadin. Discharge Planning Tomorrow pending better rate control * Spoke with Dr. Solorzano PCP about performing a more detailed dementia screen as I suspect that this is significantly contributing to patients more management of medications. * PT consulted for evaluation * Patient was already having home health set up. We'll need to continue this therapy versus rehabilitation based on PT evaluation sdw Dr. Mason (Eleonora Olivares MD, R3) Attending Attestation Medical rounds were performed with Dr Eleonora Olivares, patient seen and examined, Agree with documentation, See Orders (Julito Mason MD) Problem List: (1) Atrial fibrillation with RVR ICD Codes: I48.91 - Unspecified atrial fibrillation Status: Chronic Plan: Hx of afib. Symptomatic on admission but now rate controlled. Troponins neg . Was admitted on 07/08/17 for the same issue. Her metoprolol was increased at that time but I suspect patient was not taking the increased dose. She was also suppose to follow up with cardiology for possible ablation due to persist tachycardia. Patient still symptomatic and heart rate continues to be slightly elevated. Patient clinically stable. -cardiac telemetry -will need anticoagulation (see plan below) -echo 04/2017: EF of 55-60%. Mild mitral valve regurg and stenosis. Mild to moderate tricuspid valve regurg. Medications: * metoprolol tartrate 25mg daily, will increase this afternoon if rate continues to be elevated * Resume home Cardizem dose 360 mg daily * Resume home Lasix for lower extremity edema * s/p diltiazem IV (2) Supratherapeutic INR ICD Codes: R79.1 - Abnormal coagulation profile Status: Resolved Plan: This is pt's second admission within a month for supratherapeutic INR. She was not suppose to be taking Coumadin after the last admission. INR on admission was >18 but with no signs of active bleeding. INR improving, now 1.8. No signs of active bleeding -s/p Vit K x2 -Resume Eliquis 07/24/17 if INR goes below therapeutic range (3) COPD (chronic obstructive pulmonary disease) ICD Codes: J44.9 - Chronic obstructive pulmonary disease, unspecified Status: Chronic Plan: Symptoms of chest tightness may also be related to COPD symptoms. -if pt remains controlled while in the hospital, will refer to the stacker operator that the patient is suppose to follow up with (Dr. Mary) (4) Fluids, Electrolytes, and Nutrition Status: Acute Plan: Diet: Heart healthy Fluids: none, PO hydration Electrolytes: continue to monitor.and replace as needed DVT PPX: SCD, currently due to supratherapeutic INR GI PPX: none (Eleonora Olivares MD, R3) Eleonora Olivares MD, R3 Jul 23, 2017 10:08 Julito Mason MD Jul 24, 2017 14:07
[2017-07-23] MEDS: METOPROLOL SUCCINATE 50 MG EXTENDED RELEASE TAB PO SCH (11:46)
[2017-07-23] MEDS: DILTIAZEM-CD 180 MG CAP ER PO SCH (11:47)
[2017-07-24] VITALS (27 sets, daily range): BP systolic 120–141; BP diastolic 64–99; PULSE 66–112; RESP 16–20; TEMP 97.2–98.5; O2SAT 93–98
[2017-07-24 06:08] LABS: INTERNATIONAL NORMALIZED RATIO 1.3 RATIO
[2017-07-24] MEDS ORDERED: POTASSIUM CHLORIDE 20 MEQ CONTROLLED RELEASE TAB PO ONE (10:00)
[2017-07-24] MEDS ORDERED: FUROSEMIDE 20 MG TAB PO ONE (10:00)
[2017-07-24] MEDS: DILTIAZEM-CD 180 MG CAP ER PO SCH (10:24)
[2017-07-24] MEDS: METOPROLOL SUCCINATE 50 MG EXTENDED RELEASE TAB PO SCH (10:25)
[2017-07-24] MEDS: PANTOPRAZOLE SOD 40 MG DELAYED RELEASE TAB PO SCH (10:26)
[2017-07-24] MEDS: FUROSEMIDE 20 MG TAB PO SCH (10:26)
[2017-07-24] MEDS: SODIUM CHLORIDE 0.9% FLUSH 10 ML FLUSH IV FLUSH SCH ×2 (10:27→20:03)
[2017-07-24] MEDS: APIXABAN 5 MG TABLET PO SCH ×2 (10:27→20:03)
--- NOTE | 2017-07-24 10:38 | HHI.FPPN ---
Subjective Remarks No acute events overnight. VS unremarkable. Pulse has improved. Reports that her last episode of feeling tachycardiac was around yesterday afternoon. Is worsened after meals. Also endorses throat tightness. When patient does endorse this feeling, she notes it is worsened when she is anxious about something. Nurse reports that patient's subjective feeling of tachycardia did not correlate with increased rate on cardiac telemetry. Pt reports ambulating up to the bathroom without issues but does want to walk around more to make sure she is feeling okay. (Eleonora Olivares MD, R3) Objective Vitals Vital Signs Date Time Temp Pulse Resp B/P (MAP) Pulse Ox O2 Delivery O2 Flow Rate FiO2 07/24/17 07:53 97.2 98 16 126/73 (90) 96 07/24/17 07:11 91 07/24/17 06:00 82 07/24/17 05:00 82 07/24/17 04:08 98.5 108 20 126/80 (95) 93 07/24/17 04:00 78 07/24/17 03:00 106 07/24/17 02:00 94 07/24/17 01:00 81 07/24/17 00:00 97.7 76 20 120/64 (82) 94 07/24/17 00:00 81 07/23/17 23:00 90 07/23/17 22:00 100 07/23/17 21:00 84 07/23/17 20:00 77 07/23/17 19:28 98.3 87 20 126/82 (97) 97 07/23/17 19:00 78 07/23/17 18:33 69 07/23/17 17:45 78 07/23/17 16:11 83 07/23/17 15:18 98.1 98 16 126/73 (90) 96 07/23/17 15:00 83 07/23/17 14:13 91 07/23/17 13:09 100 07/23/17 12:13 117 07/23/17 11:40 98.0 97 16 122/79 (93) 93 07/23/17 11:00 109 I/O 07/23/17 07/23/17 07/23/17 07/24/17 07/24/17 07/24/17 07:00 15:00 23:00 07:00 15:00 23:00 Intake Total 720 ml 1170 ml 460 ml Output Total 0 ml Balance 720 ml 1170 ml 460 ml Intake Oral 720 ml 1170 ml 460 ml Emesis 0 ml # Voids 3 8 3 # Bowel Movements 0 (Eleonora Olivares MD, R3) Result Diagram: 07/21/17 1244 07/22/17 1527 Objective Remarks GEN: Well-developed, well-nourished patient. No acute distress. Resting comfortably while sitting in bed. CV: Irregularly irregular rhythm but with good rate. No obvious murmurs LUNGS: Mild bibasilar crackles but with good air movement. Normal respiratory effort. GI: non distended. NEURO/PSYCH: Awake, alert. Appropriate insight and judgment. Normal speech (Eleonora Olivares MD, R3) A/P Assessment and Plan Patient is a 76-year-old female with history significant for A. fib, HTN, COPD. Admitted for A. fib with RVR and supratherapeutic Coumadin. Discharge Planning Today or tomorowing pending improvement in symptoms. * Spoke with Dr. Solorzano PCP about performing a more detailed dementia screen as I suspect that this is significantly contributing to patients more management of medications. * Home health PT on discharge * will need to follow up with Cardiology (Dr. Mary) at discharge sdw Dr. Mason (Eleonora Olivares MD, R3) Attending Attestation Medical rounds were performed with Dr Eleonora Olivares, patient seen and examined, Agree with documentation, See Orders (Julito Mason MD) Problem List: (1) Atrial fibrillation with RVR ICD Codes: I48.91 - Unspecified atrial fibrillation Status: Chronic Plan: Hx of afib. Symptomatic on admission but now rate controlled. Troponins neg . Was admitted on 07/08/17 for the same issue. Her metoprolol was increased at that time but I suspect patient was not taking the increased dose. She was also suppose to follow up with cardiology for possible ablation due to persist tachycardia. Patient still symptomatic and heart rate continues to be slightly elevated. Patient clinically stable. -Subject symptoms of tachycardia may be related to GERD and anxiety as well. * PPI started -cardiac telemetry -will need anticoagulation (see plan below) -echo 04/2017: EF of 55-60%. Mild mitral valve regurg and stenosis. Mild to moderate tricuspid valve regurg. Medications: * metoprolol succinate 150mg daily * Cardizem dose 360 mg daily * Lasix for lower extremity edema * s/p diltiazem IV (2) Supratherapeutic INR ICD Codes: R79.1 - Abnormal coagulation profile Status: Resolved Plan: This is pt's second admission within a month for supratherapeutic INR. She was not suppose to be taking Coumadin after the last admission. INR on admission was >18 but with no signs of active bleeding. INR improving, now 1.3. No signs of active bleeding -s/p Vit K x2 -Resume Eliquis 07/24/17 (3) COPD (chronic obstructive pulmonary disease) ICD Codes: J44.9 - Chronic obstructive pulmonary disease, unspecified Status: Chronic Plan: Symptoms of chest tightness may also be related to COPD symptoms. -if pt remains controlled while in the hospital, will refer to the impregnating machine operator that the patient is suppose to follow up with (Dr. Mary) (4) Fluids, Electrolytes, and Nutrition Status: Acute Plan: Diet: Heart healthy Fluids: none, PO hydration Electrolytes: continue to monitor.and replace as needed DVT PPX: SCD, Eliquis GI PPX: PPI due to symptoms of GERD (Eleonora Olivares MD, R3) Eleonora Olivares MD, R3 Jul 24, 2017 10:38 Julito Mason MD Jul 24, 2017 14:12
[2017-07-24] MEDS ORDERED: DILTIAZEM-CD 180 MG CAP ER PO SCH (12:00)
--- NOTE | 2017-07-24 12:50 | HHI.FPPN ---
Addendum to progress note ADDENDUM Reason for addendum: Additonal documentation Additional information Went to re-evaluate patient this afternoon. Rate around 90s, stable. Patient reports that she is about the same but is really scared to be sent home as she lives alone. She is concerned as she still reports episodes of tachycardia and SOB when she becomes anxious. Also still concerned about throat tightness. Pt will likely have poor understanding of medication management which prompted repeat admission. She also needs to be seen by cardiology for possible ablation as an outpatient. Unsure if patient really understands disease process. Would benefit from SNF prior to returning home as patient is high risk of returning very quickly. dw Dr. Isabella Olivares,Eleonora Ruiz MD, R3 Jul 24, 2017 12:50
[2017-07-25] VITALS (14 sets, daily range): BP systolic 113–138; BP diastolic 67–82; PULSE 72–112; RESP 18; TEMP 97.9–98.2; O2SAT 94–97
[2017-07-25] MEDS: SODIUM CHLORIDE 0.9% FLUSH 10 ML FLUSH IV FLUSH SCH (07:40)
[2017-07-25] MEDS: APIXABAN 5 MG TABLET PO SCH (07:40)
[2017-07-25] MEDS: PANTOPRAZOLE SOD 40 MG DELAYED RELEASE TAB PO SCH (07:40)
[2017-07-25] MEDS: DILTIAZEM-CD 180 MG CAP ER PO SCH (07:40)
[2017-07-25] MEDS: FUROSEMIDE 20 MG TAB PO SCH (07:40)
[2017-07-25] MEDS: METOPROLOL SUCCINATE 50 MG EXTENDED RELEASE TAB PO SCH (07:40)
--- NOTE | 2017-07-25 08:21 | HHI.FPPN ---
Subjective Remarks No acute events overnight. Vital signs unremarkable. Pulses well-controlled in the 70s this morning. Patient again continues to report that she feels increased heart rate when she is anxious. She also feels like she'll benefit from more exercise walking around the floor. Also endorses some mild congestion and would like Mucinex. Patient otherwise denies any acute pain or other concerns. She declines going to rehabilitation because she states that she does not know the people there. Social reports she is not sure if she is ready to be discharged as she continues to have these anxious episodes. Objective Vitals Vital Signs Date Time Temp Pulse Resp B/P (MAP) Pulse Ox O2 Delivery O2 Flow Rate FiO2 07/25/17 06:00 77 07/25/17 05:00 73 07/25/17 04:00 Room Air 07/25/17 04:00 97.9 76 18 128/67 (87) 97 07/25/17 04:00 76 07/25/17 03:00 75 07/25/17 02:00 72 07/25/17 01:00 73 07/25/17 00:00 98.1 86 18 138/82 (100) 97 07/25/17 00:00 Room Air 07/25/17 00:00 86 07/24/17 23:00 71 07/24/17 22:00 69 07/24/17 21:00 66 07/24/17 20:00 70 07/24/17 20:00 98.0 70 20 121/86 (98) 96 07/24/17 20:00 Room Air 07/24/17 18:11 71 07/24/17 17:18 66 07/24/17 16:00 76 07/24/17 15:36 97.3 78 16 141/99 (113) 96 07/24/17 15:00 88 07/24/17 14:25 81 07/24/17 13:00 98 07/24/17 12:45 97.8 88 16 125/81 (96) 98 07/24/17 12:00 112 07/24/17 11:00 98 07/24/17 10:00 106 07/24/17 09:00 88 I/O 07/24/17 07/24/17 07/24/17 07/25/17 07/25/17 07/25/17 07:00 15:00 23:00 07:00 15:00 23:00 Intake Total 460 ml 1320 ml 240 ml Output Total 0 ml 800 ml Balance 460 ml 1320 ml -560 ml Intake Oral 460 ml 1320 ml 240 ml Output Urine Total 800 ml Emesis 0 ml # Voids 3 10 # Bowel Movements 0 2 0 Result Diagram: 07/21/17 1244 07/22/17 1527 Objective Remarks GEN: Well-developed, well-nourished patient. No acute distress. Resting comfortably while sitting in bed. CV: Irregularly irregular rhythm but with good rate. No obvious murmurs LUNGS: Clear to auscultation bilaterally. No crackles noted. Normal respiratory effort. GI: non distended. Extremities: 1+ pitting edema bilaterally NEURO/PSYCH: Awake, alert. Appropriate insight and judgment. Normal speech A/P Assessment and Plan Patient is a 76-year-old female with history significant for A. fib, HTN, COPD. Admitted for A. fib with RVR and supratherapeutic Coumadin. Discharge Planning Today as patient is medically stable. * Home health PT and nursing on discharge as patient declines SNF. * will need to follow up with Cardiology (Dr. Mary) at discharge dw Dr. Mason Problem List: (1) Atrial fibrillation with RVR ICD Codes: I48.91 - Unspecified atrial fibrillation Status: Resolved Plan: Hx of afib. Symptomatic on admission but now rate controlled. Troponins neg . Was admitted on 07/08/17 for the same issue. Her metoprolol was increased at that time but I suspect patient was not taking the increased dose. She was also suppose to follow up with cardiology for possible ablation due to persist tachycardia. Patient clinically stable. -Subjective symptoms of tachycardia may be related to GERD and anxiety as well. * PPI started -cardiac telemetry -will need anticoagulation (see plan below) -echo 04/2017: EF of 55-60%. Mild mitral valve regurg and stenosis. Mild to moderate tricuspid valve regurg. Medications: * metoprolol succinate 150mg daily * Cardizem dose 360 mg daily * Lasix for lower extremity edema * s/p diltiazem IV (2) Supratherapeutic INR ICD Codes: R79.1 - Abnormal coagulation profile Status: Resolved Plan: This is pt's second admission within a month for supratherapeutic INR. She was not suppose to be taking Coumadin after the last admission. INR on admission was >18 but with no signs of active bleeding. INR improving, now 1.3. No signs of active bleeding -s/p Vit K x2 -Resume Eliquis 07/24/17 (3) COPD (chronic obstructive pulmonary disease) ICD Codes: J44.9 - Chronic obstructive pulmonary disease, unspecified Status: Chronic Plan: Symptoms of chest tightness may also be related to COPD symptoms. (4) Fluids, Electrolytes, and Nutrition Status: Acute Plan: Diet: Heart healthy Fluids: none, PO hydration Electrolytes: continue to monitor.and replace as needed DVT PPX: SCD, Eliquis GI PPX: PPI due to symptoms of GERD Eleonora Olivares MD, R3 Jul 25, 2017 08:21
[2017-07-25] MEDS ORDERED: PANT40TA3 PO (08:24)
--- NOTE | 2017-07-25 08:26 | HHI.DCPOC ---
Discharge Care Plan Diagnosis: (1) Supratherapeutic INR (2) Atrial fibrillation (3) Physical deconditioning (4) COPD (chronic obstructive pulmonary disease) Goals to Promote Your Health * To prevent worsening of your condition and complications * To maintain your health at the optimal level Directions to Meet Your Goals Take your medications as prescribed Follow your dietary instruction Follow activity as directed Keep your appointments as scheduled Take your immunizations and boosters as scheduled If your symptoms worsen call your PCP, if no PCP go to Urgent Care Center or Emergency Room Smoking is Dangerous to Your Health. Avoid second hand smoke Call the 24-hour hour crisis hotline for domestic abuse at Eleonora Olivares MD, R3 Jul 25, 2017 08:26
--- NOTE | 2017-07-25 08:28 | HHI.FF ---
Face to Face Verification Diagnosis: (1) Atrial fibrillation with RVR (2) Supratherapeutic INR (3) Physical deconditioning Physical Therapy Order: Evaluate and Treat Home Health Nursing Order: Medical education Signs/symptoms of disease process Medication education-adverse effect I have seen patient Leigh Mcguire on 07/25/17. My clinical findings support the need for the requested home health care services because: Med compliance is questionable I certify that my clinical findings support that this patient is homebound because: Impaired cognitive ability/safety Eleonora Olivares MD, R3 Jul 25, 2017 08:28
--- NOTE | 2017-07-25 08:30 | HHI.FPPN ---
Objective Vitals Vital Signs Date Time Temp Pulse Resp B/P (MAP) Pulse Ox O2 Delivery O2 Flow Rate FiO2 07/25/17 06:00 77 07/25/17 05:00 73 07/25/17 04:00 Room Air 07/25/17 04:00 97.9 76 18 128/67 (87) 97 07/25/17 04:00 76 07/25/17 03:00 75 07/25/17 02:00 72 07/25/17 01:00 73 07/25/17 00:00 98.1 86 18 138/82 (100) 97 07/25/17 00:00 Room Air 07/25/17 00:00 86 07/24/17 23:00 71 07/24/17 22:00 69 07/24/17 21:00 66 07/24/17 20:00 70 07/24/17 20:00 98.0 70 20 121/86 (98) 96 07/24/17 20:00 Room Air 07/24/17 18:11 71 07/24/17 17:18 66 07/24/17 16:00 76 07/24/17 15:36 97.3 78 16 141/99 (113) 96 07/24/17 15:00 88 07/24/17 14:25 81 07/24/17 13:00 98 07/24/17 12:45 97.8 88 16 125/81 (96) 98 07/24/17 12:00 112 07/24/17 11:00 98 07/24/17 10:00 106 07/24/17 09:00 88 I/O 07/24/17 07/24/17 07/24/17 07/25/17 07/25/17 07/25/17 07:00 15:00 23:00 07:00 15:00 23:00 Intake Total 460 ml 1320 ml 240 ml Output Total 0 ml 800 ml Balance 460 ml 1320 ml -560 ml Intake Oral 460 ml 1320 ml 240 ml Output Urine Total 800 ml Emesis 0 ml # Voids 3 10 # Bowel Movements 0 2 0 Result Diagram: 07/21/17 1244 07/22/17 1527 Objective Remarks GEN: Well-developed, well-nourished patient. No acute distress. Resting comfortably while sitting in bed. CV: Irregularly irregular rhythm but with good rate. No obvious murmurs LUNGS: Mild bibasilar crackles but with good air movement. Normal respiratory effort. GI: non distended. NEURO/PSYCH: Awake, alert. Appropriate insight and judgment. Normal speech A/P Assessment and Plan Patient is a 76-year-old female with history significant for A. fib, HTN, COPD. Admitted for A. fib with RVR and supratherapeutic Coumadin. Discharge Planning Today or tomorowing pending improvement in symptoms. * Spoke with Dr. Solorzano PCP about performing a more detailed dementia screen as I suspect that this is significantly contributing to patients more management of medications. * Home health PT on discharge * will need to follow up with Cardiology (Dr. Mary) at discharge sdw Dr. Mason Problem List: (1) Atrial fibrillation with RVR ICD Codes: I48.91 - Unspecified atrial fibrillation Status: Chronic Plan: Hx of afib. Symptomatic on admission but now rate controlled. Troponins neg . Was admitted on 07/08/17 for the same issue. Her metoprolol was increased at that time but I suspect patient was not taking the increased dose. She was also suppose to follow up with cardiology for possible ablation due to persist tachycardia. Patient still symptomatic and heart rate continues to be slightly elevated. Patient clinically stable. -Subject symptoms of tachycardia may be related to GERD and anxiety as well. * PPI started -cardiac telemetry -will need anticoagulation (see plan below) -echo 04/2017: EF of 55-60%. Mild mitral valve regurg and stenosis. Mild to moderate tricuspid valve regurg. Medications: * metoprolol succinate 150mg daily * Cardizem dose 360 mg daily * Lasix for lower extremity edema * s/p diltiazem IV (2) Supratherapeutic INR ICD Codes: R79.1 - Abnormal coagulation profile Status: Resolved Plan: This is pt's second admission within a month for supratherapeutic INR. She was not suppose to be taking Coumadin after the last admission. INR on admission was >18 but with no signs of active bleeding. INR improving, now 1.3. No signs of active bleeding -s/p Vit K x2 -Resume Eliquis 07/24/17 (3) COPD (chronic obstructive pulmonary disease) ICD Codes: J44.9 - Chronic obstructive pulmonary disease, unspecified Status: Chronic Plan: Symptoms of chest tightness may also be related to COPD symptoms. -if pt remains controlled while in the hospital, will refer to the examination grader that the patient is suppose to follow up with (Dr. Mary) (4) Fluids, Electrolytes, and Nutrition Status: Acute Plan: Diet: Heart healthy Fluids: none, PO hydration Electrolytes: continue to monitor.and replace as needed DVT PPX: SCD, Eliquis GI PPX: PPI due to symptoms of GERD Eleonora Olivares MD, R3 Jul 25, 2017 08:30
[2017-07-25] MEDS ORDERED: guaiFENesin E.R. 600 MG TAB PO SCH (09:00)
[2017-07-25] MEDS ORDERED: POTASSIUM CHLORIDE 10 MEQ CONTROLLED RELEASE TAB PO SCH (09:00)
--- NOTE | 2017-07-25 11:29 | HHI.DS ---
Discharge Summary Admission Date Jul 21, 2017 at 15:29 Discharge Date: Jul 25, 2017 Admitting Diagnosis afib with rvr (1) Atrial fibrillation with RVR Plan: Hx of afib. Symptomatic on admission but now rate controlled. Troponins neg . Was admitted on 07/08/17 for the same issue. Her metoprolol was increased at that time but I suspect patient was not taking the increased dose. She was also suppose to follow up with cardiology for possible ablation due to persist tachycardia. Patient clinically stable. -Subjective symptoms of tachycardia may be related to GERD and anxiety as well. * PPI started -cardiac telemetry -will need anticoagulation (see plan below) -echo 04/2017: EF of 55-60%. Mild mitral valve regurg and stenosis. Mild to moderate tricuspid valve regurg. Medications: * metoprolol succinate 150mg daily * Cardizem dose 360 mg daily * Lasix for lower extremity edema * s/p diltiazem IV ICD Codes: I48.91 - Unspecified atrial fibrillation Status: Resolved (2) Supratherapeutic INR Plan: This is pt's second admission within a month for supratherapeutic INR. She was not suppose to be taking Coumadin after the last admission. INR on admission was >18 but with no signs of active bleeding. INR improving, now 1.3. No signs of active bleeding -s/p Vit K x2 -Resume Staceyquis 07/24/17 ICD Codes: R79.1 - Abnormal coagulation profile Status: Resolved (3) COPD (chronic obstructive pulmonary disease) Plan: Symptoms of chest tightness may also be related to COPD symptoms. ICD Codes: J44.9 - Chronic obstructive pulmonary disease, unspecified Status: Chronic (4) Fluids, Electrolytes, and Nutrition Plan: Diet: Heart healthy Fluids: none, PO hydration Electrolytes: continue to monitor.and replace as needed DVT PPX: SCD, Eliquis GI PPX: PPI due to symptoms of GERD Status: Acute Brief History Ms. Mcguire is a pleasant 76 year old female with a history of Atrial fibrillation who presented to the ED on 07/21/2017 due to chest pain and palpitation that started on Thursday07/17/2017 . She is not able to provide specific information regarding her chest discomfort. She reports feeling sick to her throat and stomach and some nausea. No radiation of her chest discomfort. She was discharged from hospital on 07/11/2017 (admission on 2016) on Apixaban. She was admitted on 07/08/2017 with supra-therapeutic INR around 12-14. At that time she was on Warfarin. However, due to difficulty managing warfarin, warfarin was discontinued and patient was discharged on Apixaban. Patient lives alone. At the time of this interview, patient denies any chest pain, shortness of breath, fever, chills. No changes in bowel or bladder habits. No bleeding. CBC/BMP: 07/21/17 1244 07/22/17 1527 Significant Findings Laboratory Tests Test 07/22/17 15:27 07/23/17 04:39 07/24/17 05:20 Prothrombin Time 63.0 SEC (9.8-11.6) 17.9 SEC (9.8-11.6) 13.0 SEC (9.8-11.6) Prothromb Time International Ratio 6.3 RATIO Blood Urea Nitrogen 21 MG/DL (7-18) Creatinine 1.06 MG/DL (0.50-1.00) Random Glucose 119 MG/DL (74-106) Estimat Glomerular Filtration Rate 50 ML/MIN (>89) Troponin I LESS THAN 0.02 NG/ML PE at Discharge GEN: Well-developed, well-nourished patient. No acute distress. Resting comfortably while sitting in bed. CV: Irregularly irregular rhythm but with good rate. No obvious murmurs LUNGS: Clear to auscultation bilaterally. No crackles noted. Normal respiratory effort. GI: non distended. Extremities: 1+ pitting edema bilaterally NEURO/PSYCH: Awake, alert. Appropriate insight and judgment. Normal speech Hospital Course Patient is a 76-year-old female with history significant for A. fib, HTN, COPD. Admitted for A. fib with RVR and supratherapeutic Coumadin. Suspect that patient was not taking her medications appropriately after her last discharge which prompted uncontrolled rate and supratherapeutic INR. Also suspect patient has some dementia which has contributed to this as well. Rate was controlled initially with dilitzaem drip with transition to home PO medications and home dosages. Patient continued to have anxiety about her symptoms and feelings of tachycardia despite monitored rate being appropriate. Suspect anxiety is significantly contributing to symptoms. Offered group home facility at discharge to help with transition prior to going home but patient declined. Patient is medically stable to be discharge home with home health. Expressed to patient that she must take medications as stated from this hospitalization and not resuming other home medications. Patient was also instructed to follow up with cardiology for more long-term treatment of her afib. Patient was discharged in stable condition Pt Condition on Discharge: Stable Discharge Disposition: Disch w/ Home Health Serv Discharge Instructions DIET: Follow Instructions for: Heart Healthy Diet Activities you can perform: Regular-No Restrictions Follow up Referrals: Cardiology - 1 Week with Issac Mary DO PCP Follow-up - 1 Week with Glen Solorzano MD, R3 New Medications: Pantoprazole (Pantoprazole) 40 Mg Tab 40 MG PO DAILY, #30 TAB Continued Medications: Acetaminophen (Eq Acetaminophen) 325 Mg Tab 500 MG PO Q4H PRN for PAIN SCALE 1 TO 7, #30 TAB Apixaban (Eliquis) 5 Mg Tab 5 MG PO BID for Blood Clot Prevention, #60 TAB 0 Refills Ascorbic Acid (Vitamin C) 250 Mg Tab 500 MG PO for Nutritional Supplement, TAB 0 Refills Calcium-Vitamins D & K (Calcium + D & K) 500-1,000-40 Mg-Unit-Mcg Chew 1 TAB CHEW for Nutritional Supplement, TAB 0 Refills Cetirizine (Cetirizine) 10 Mg Tab 10 MG PO DAILY for Allergies, TAB 0 Refills Cyanocobalamin (Vitamin B-12) 500 Mcg Tab 500 MCG PO DAILY for Nutritional Supplement, #1 BOTTLE 0 Refills Diltiazem CD 24 HR (Cardizem CD 24 HR) 180 Mg Caper 360 MG PO DAILY for 30 Days, #60 CAP Furosemide (Furosemide) 40 Mg Tab 40 MG PO DAILY, #30 TAB 3 Refills Glucosamine (Glucosamine) 1,000 Mg Cap 1000 MG PO DAILY for Herbal Supplements, CAP 0 Refills Ipratropium Neb (Ipratropium Neb) 0.5 Mg/2.5 Ml Amp 0.5 MG NEB Q8HR PRN for SHORTNESS OF BREATH, #1 BOX 3 Refills Metoprolol Succinate ER 24 HR (Metoprolol Succinate ER 24 HR) 50 Mg Tab 150 MG PO DAILY, #90 TAB 0 Refills Multiple Vitamin (Multiple Vitamin) 1 Tab 1 TAB PO DAILY for Nutritional Supplement, TAB 0 Refills Potassium Chloride ER (Potassium Chloride ER) 20 Meq Tab 20 MEQ PO DAILY for Electrolyte Replacement, #30 TAB 3 Refills Discontinued Medications: Ginkgo Biloba Tebbetts Extract (Ginkgo Biloba) 60 Mg Tablet 1 TAB PO DAILY Eleonora Olivares MD, R3 Jul 25, 2017 11:29
== END 2017-07-25 16:01 | disposition home health service (06) | DRG 309 ==
LOC: NEPC 11:44 → NEDA 15:29 → HCIS 17:32
PROVIDERS: ADMIT Family Medicine; ATTEND Family Medicine
DX: I48.91 Unspecified atrial fibrillation (principal); E87.1 Hypo-osmolality and hyponatremia; I11.0 Hypertensive heart disease with heart failure; I50.9 Heart failure, unspecified; J44.9 Chronic obstructive pulmonary disease, unspecified; M19.90 Unspecified osteoarthritis, unspecified site; R79.1 Abnormal coagulation profile; I08.1 Rheumatic disorders of both mitral and tricuspid valves; F41.9 Anxiety disorder, unspecified; K21.9 Gastro-esophageal reflux disease without esophagitis; Z86.73 Personal history of transient ischemic attack (TIA), and cerebral infarction without residual deficits; Z79.01 Long term (current) use of anticoagulants; Z90.710 Acquired absence of both cervix and uterus; Z85.42 Personal history of malignant neoplasm of other parts of uterus
CPT/HCPCS: 71045; 80048; 80053; 80162; 82550; 83735; 83880; 84484; 85025; 85610; 85730; 93005; 94664; 96365; 96366; 96375; 96376; J7613

== ENCOUNTER 2017-08-26 14:18 | Inpatient (IN) | payer MEDICARE, OTHER ==
[2017-08-26] VITALS (7 sets, daily range): BP systolic 127–155; BP diastolic 75–88; PULSE 66–89; RESP 14–22; TEMP 98.5–98.7; O2SAT 95–98
[~2017-08-26] VITALS: Ht 162.6 cm; Wt 64.9 kg
[~2017-08-26 14:18] MED LIST changes: -GINK60TA10 PO; +PANT40TA3 PO
--- NOTE | 2017-08-26 15:09 | PD ---
HPI Chief Complaint: Chest Pain Time Seen by Provider: 15:08 Travel History International Travel<30 days: No Contact w/Intl Traveler<30days: No Traveled to known affect area: No History of Present Illness HPI 76-year-old female with history of CAD, CHF, A. fib, presents to [facility] department for evaluation of generalized weakness. Patient states that she was discharged 5 days ago from [facility] after a 19 day stay. She states that they did "3 things to her heart." She is uncertain of what they did. She states she has not followed up with cardiology. She states she has had shortness of breath on exertion. This is the worsening over the last week. She developed a cough with yellow phlegm yesterday. She also said intermittent chest pain. Currently not having any pain at this time. Has no other symptoms to report. PFSH Past Medical History Arthritis: Yes Asthma: No Atrial Fibrillation: Yes Blood Disorders: No Anxiety: No Depression: No Heart Rhythm Problems: Yes (Hx of A-fib) Cancer: Yes (hx of uterine cancer ) Cardiovascular Problems: Yes High Cholesterol: No Chemotherapy: No Chest Pain: No Congestive Heart Failure: Yes COPD: No Cerebrovascular Accident: Yes (more than 10 years ago) Diminished Hearing: No Endocrine: No GERD: No Genitourinary: No Hiatal Hernia: No Hypertension: Yes Immune Disorder: No Kidney Stones: No Musculoskeletal: Yes Neurologic: Yes Psychiatric: No Reproductive: No Respiratory: No Migraines: No Radiation Therapy: No Renal Failure: No Seizures: No Sleep Apnea: No Ulcer: Yes (denies) Menopausal: Yes : 4 Para: 4 Past Surgical History Abdominal Surgery: No Appendectomy: Yes (denies) Cardiac Surgery: No Ear Surgery: No Endocrine Surgery: No Eye Surgery: No Genitourinary Surgery: No Hysterectomy: Yes Oral Surgery: No Thoracic Surgery: No Other Surgery: Yes (hysterectomy / right shoulder) Social History Alcohol Use: No Tobacco Use: No Substance Use: No Allergies-Medications (Allergen,Severity, Reaction): Coded Allergies: Penicillins (Verified Allergy, Severe, RASH, 07/21/17) Reported Meds & Prescriptions Reported Meds & Active Scripts Active Pantoprazole (Pantoprazole Sodium) 40 Mg Tab 40 Mg PO DAILY Eliquis (Apixaban) 5 Mg Tab 5 Mg PO BID Metoprolol Succinate ER 24 HR (Metoprolol Succinate) 50 Mg Tab 150 Mg PO DAILY Furosemide 40 Mg Tab 40 Mg PO DAILY Potassium Chloride ER (Potassium Chloride) 20 Meq Tab 20 Meq PO DAILY Ipratropium Neb (Ipratropium [place]) 0.5 Mg/2.5 Ml Amp 0.5 Mg NEB Q8HR PRN Eq Acetaminophen (Acetaminophen) 325 Mg Tab 500 Mg PO Q4H PRN Reported Virtussin A-C Liq (Guaifenesin-Codeine Liq) 100-10 Mg/5 Ml Soln 10 Ml PO Q6H PRN Coumadin (Warfarin) 1 Mg Tab 1 Mg PO DAILY Metoprolol Tartrate 100 Mg Tab 100 Mg PO DAILY Diltiazem (Diltiazem HCl) 120 Mg Tab 120 Mg PO QID Cetirizine (Cetirizine HCl) 10 Mg Tab 10 Mg PO DAILY Glucosamine (Glucosamine Sulfate) 1,000 Mg Cap 1,000 Mg PO DAILY Vitamin B-12 (Cyanocobalamin) 500 Mcg Tab 500 Mcg PO DAILY Calcium + D & K (Calcium-Vitamins D & K) 500-1,000-40 Mg-Unit-Mcg Chew 1 Tab CHEW Vitamin C (Ascorbic Acid) 250 Mg Tab 500 Mg PO Multiple Vitamin 1 Tab 1 Tab PO DAILY Review of Systems Except as stated in HPI: all other systems reviewed are Neg Physical Exam Narrative GENERAL: Well-nourished female patient, ambulatory with walker assistance, in no acute distress. SKIN: Focused skin assessment warm/dry. HEAD: Atraumatic. Normocephalic. EYES: Pupils equal and round. No scleral icterus. No injection or drainage. ENT: No nasal bleeding or discharge. Mucous membranes pink and moist. NECK: Trachea midline. No JVD. CARDIOVASCULAR: Regular rate and irregular rhythm. RESPIRATORY: No accessory muscle use. Diminished. Scattered rhonchi, inspiratory wheeze intermittently. Breath sounds equal bilaterally. GASTROINTESTINAL: Abdomen soft, non-tender, nondistended. Hepatic and splenic margins not palpable. MUSCULOSKELETAL: No obvious deformities. No clubbing. No cyanosis. No edema. NEUROLOGICAL: Awake and alert. No obvious cranial nerve deficits. Motor grossly within normal limits. Normal speech. PSYCHIATRIC: Appropriate mood and affect; insight and judgment normal. Data Data Last Documented VS Vital Signs Date Time Temp Pulse Resp B/P (MAP) Pulse Ox O2 Delivery O2 Flow Rate FiO2 08/26/17 17:56 89 22 98 Room Air 08/26/17 14:21 98.7 Orders Orders Electrocardiogram (08/26/17 ) Electrocardiogram (08/26/17 15:30) Basic Metabolic Panel (Bmp) (08/26/17 15:30) Ckmb (Isoenzyme) Profile (08/26/17 15:30) Complete Blood Count With Diff (08/26/17 15:30) Magnesium (Mg) (08/26/17 15:30) Prothrombin Time / Inr (Pt) (08/26/17 15:30) Act Partial Throm Time (Ptt) (08/26/17 15:30) Troponin I (08/26/17 15:30) Lipase (08/26/17 15:30) Chest, Single Ap (08/26/17 15:30) Ecg Monitoring (08/26/17 15:30) Bilateral Bp Monitoring (08/26/17 15:30) Iv Access Insert/Monitor (08/26/17 15:30) Oximetry (08/26/17 15:30) Oxygen Administration (08/26/17 15:30) Sodium Chloride 0.9% Flush (Ns Flush) (08/26/17 15:30) B-Type Natriuretic Peptide (08/26/17 15:35) Influenzae A/B Antigen (08/26/17 15:35) Sodium Chlor 0.9% 1000 Ml Inj (Ns 1000 M (08/26/17 17:30) Troponin I (08/26/17 18:23) Ckmb (Isoenzyme) Profile (08/26/17 18:23) Electrocardiogram (08/26/17 ) Admit Order (Ed Use Only) (08/26/17 18:52) Labs Laboratory Tests Test 08/26/17 15:34 08/26/17 15:49 08/26/17 18:50 White Blood Count 9.8 TH/MM3 Red Blood Count 3.61 MIL/MM3 Hemoglobin 10.6 GM/DL Hematocrit 31.9 % Mean Corpuscular Volume 88.2 FL Mean Corpuscular Hemoglobin 29.3 PG Mean Corpuscular Hemoglobin Concent 33.2 % Red Cell Distribution Width 16.1 % Platelet Count 224 TH/MM3 Mean Platelet Volume 8.6 FL Neutrophils (%) (Auto) 84.3 % Lymphocytes (%) (Auto) 4.6 % Monocytes (%) (Auto) 9.5 % Eosinophils (%) (Auto) 0.9 % Basophils (%) (Auto) 0.7 % Neutrophils # (Auto) 8.2 TH/MM3 Lymphocytes # (Auto) 0.4 TH/MM3 Monocytes # (Auto) 0.9 TH/MM3 Eosinophils # (Auto) 0.1 TH/MM3 Basophils # (Auto) 0.1 TH/MM3 CBC Comment DIFF FINAL Differential Comment Prothrombin Time 88.2 SEC Prothromb Time International Ratio 8.8 RATIO Activated Partial Thromboplast Time 43.2 SEC Blood Urea Nitrogen 25 MG/DL Creatinine 1.53 MG/DL Random Glucose 118 MG/DL Calcium Level 7.8 MG/DL Magnesium Level 2.3 MG/DL Sodium Level 138 MEQ/L Potassium Level 3.9 MEQ/L Chloride Level 101 MEQ/L Carbon Dioxide Level 29.9 MEQ/L Anion Gap 7 MEQ/L Estimat Glomerular Filtration Rate 33 ML/MIN Total Creatine Kinase 34 U/L 25 U/L Troponin I LESS THAN 0.02 NG/ML LESS THAN 0.02 NG/ML Lipase 322 U/L B-Type Natriuretic Peptide 354 PG/ML MDM Medical Decision Making Medical Screen Exam Complete: Yes Emergency Medical Condition: Yes Medical Record Reviewed: Yes Differential Diagnosis CHF exacerbation versus ACS versus pneumonia Narrative Course 76-year-old female presents emergency department for evaluation. Patient appears without distress. She does seem tired and weak and short of breath with any ambulation. Laboratory Tests Test 08/26/17 15:34 08/26/17 15:49 08/26/17 18:50 White Blood Count 9.8 TH/MM3 Red Blood Count 3.61 MIL/MM3 Hemoglobin 10.6 GM/DL Hematocrit 31.9 % Mean Corpuscular Volume 88.2 FL Mean Corpuscular Hemoglobin 29.3 PG Mean Corpuscular Hemoglobin Concent 33.2 % Red Cell Distribution Width 16.1 % Platelet Count 224 TH/MM3 Mean Platelet Volume 8.6 FL Neutrophils (%) (Auto) 84.3 % Lymphocytes (%) (Auto) 4.6 % Monocytes (%) (Auto) 9.5 % Eosinophils (%) (Auto) 0.9 % Basophils (%) (Auto) 0.7 % Neutrophils # (Auto) 8.2 TH/MM3 Lymphocytes # (Auto) 0.4 TH/MM3 Monocytes # (Auto) 0.9 TH/MM3 Eosinophils # (Auto) 0.1 TH/MM3 Basophils # (Auto) 0.1 TH/MM3 CBC Comment DIFF FINAL Differential Comment Prothrombin Time 88.2 SEC Prothromb Time International Ratio 8.8 RATIO Activated Partial Thromboplast Time 43.2 SEC Blood Urea Nitrogen 25 MG/DL Creatinine 1.53 MG/DL Random Glucose 118 MG/DL Calcium Level 7.8 MG/DL Magnesium Level 2.3 MG/DL Sodium Level 138 MEQ/L Potassium Level 3.9 MEQ/L Chloride Level 101 MEQ/L Carbon Dioxide Level 29.9 MEQ/L Anion Gap 7 MEQ/L Estimat Glomerular Filtration Rate 33 ML/MIN Lipase 322 U/L B-Type Natriuretic Peptide 354 PG/ML Total Creatine Kinase 25 U/L Troponin I LESS THAN 0.02 NG/ML Last Impressions Chest X-Ray 08/26/17 1530 Signed Impressions: Service Date/Time: Saturday, August 26, 2017 15:46 - CONCLUSION: Compensated cardiomegaly with minimal fluid right minor fissure. Board Certified Radiologist. This report was verified electronically. MD Welch discussed the patient with my attending physician who is also assess the patient. Patient will be discharged home with a [id number] order placed for evaluation and assistance with medication. This plan is discussed with the patient and shes verbalizes concern about going home. We did ambulate the patient and following a short while, she is still short of breath. Patient will be admitted observation for further evaluation. Diagnosis Primary Impression: Physical deconditioning Additional Impressions: Chest pain Qualified Codes: R07.9 - Chest pain, unspecified Supratherapeutic INR Admitting Information Admitting Physician Requests: Observation Referrals: Primary Care Physician Patient Instructions: Chest Pain (ED), General Instructions Additional Instructions: Follow-up with your primary care provider Stop taking your Coumadin until you follow-up with your primary care provider. Follow-up should be within the next 2-3 days. Return immediately with any acute worsening symptoms. Med/Other Pt SpecificInfo: Med Stopped Disposition: 01 DISCHARGE HOME Condition: Stable Glo Gates LAUREN Aug 26, 2017 15:09
[2017-08-26] MEDS ORDERED: DILT120T PO (15:21)
[2017-08-26] MEDS ORDERED: METO100T PO (15:21)
[2017-08-26] MEDS ORDERED: GUAI1SOL7 PO (15:21)
[2017-08-26] MEDS ORDERED: COUM1TAB PO (15:21)
[2017-08-26] MEDS ORDERED: SODIUM CHLORIDE 0.9% FLUSH 10 ML FLUSH IVF PRN (15:30)
--- NOTE | 2017-08-26 15:59 | RADRPT ---
EXAM DATE/TIME: 08/26/2017 15:46 [facility] COMPARISON: CHEST SINGLE AP, July 21, 2017, 12:44. INDICATIONS : Chest pain. MEDICAL HISTORY : Hypertension. SURGICAL HISTORY : Appendectomy. Hysterectomy. ENCOUNTER: Initial ACUITY: 1 day PAIN SCORE: 4/10 LOCATION: Bilateral chest FINDINGS: The lungs are clear. The heart is minimally enlarged. The pulmonary vascularity is normal. There is n o evidence for infiltrate or failure. Minimal fluid is seen in the right minor fissure. The portion of the bony skeleton visualized is unremarkable. CONCLUSION: Compensated cardiomegaly with minimal fluid right minor fissure. Board Certified Radiologist. This report was verified electronically.
[2017-08-26 16:08] LABS: AUTOMATED NEUTROPHIL # 8.2 TH/MM3 (1.8-7.7); BASOPHIL # 0.1 TH/MM3 (0-0.2); BASOPHIL % 0.7 % (0.0-2.0); EOSINOPHIL # 0.1 TH/MM3 (0-0.4); EOSINOPHIL % 0.9 % (0.0-4.0); HEMATOCRIT 31.9 % (35.0-46.0); HEMOGLOBIN 10.6 GM/DL (11.6-15.3); LYMPH % 4.6 % (9.0-44.0); LYMPHOCYTE # 0.4 TH/MM3 (1.0-4.8); MEAN CELL VOLUME 88.2 FL (80.0-100.0); MEAN CORPUSCULAR HEMOGLOBIN 29.3 PG (27.0-34.0); MEAN CORPUSCULAR HGB CONC 33.2 % (32.0-36.0); MEAN PLATELET VOLUME 8.6 FL (7.0-11.0); MONO % 9.5 % (0.0-8.0); MONOCYTE # 0.9 TH/MM3 (0-0.9); NEUT % 84.3 % (16.0-70.0); PLATELET COUNT 224 TH/MM3 (150-450); RED BLOOD COUNT 3.61 MIL/MM3 (4.00-5.30); RED CELL DISTRIBUTION WIDTH 16.1 % (11.6-17.2); WHITE BLOOD COUNT 9.8 TH/MM3 (4.0-11.0)
[2017-08-26 16:16] LABS: BICARBONATE 29.9 MEQ/L (21.0-32.0); BLOOD UREA NITROGEN 25 MG/DL (7-18); CALCIUM 7.8 MG/DL (8.5-10.1); CHLORIDE 101 MEQ/L (98-107); CREATININE 1.53 MG/DL (0.50-1.00); GLOMERULAR FILTRATION RATE 33 ML/MIN (>89); GLUCOSE,RANDOM 118 MG/DL (74-106); MAGNESIUM 2.3 MG/DL (1.5-2.5); SODIUM (NA) 138 MEQ/L (136-145)
[2017-08-26 16:17] LABS: PROTHROMBIN TIME - PATIENT 88.2 SEC (9.8-11.6)
[2017-08-26 16:20] LABS: TROPONIN I LESS THAN 0.02 NG/ML (0.02-0.05)
[2017-08-26 16:30] LABS: INTERNATIONAL NORMALIZED RATIO 8.8 RATIO
--- NOTE | 2017-08-26 17:04 | PD ---
Physical Exam Date Seen by Provider: Aug 26, 2017 Narrative This patient presents with the chief complaint of chest pain. Data Data Last Documented VS Vital Signs Date Time Temp Pulse Resp B/P (MAP) Pulse Ox O2 Delivery O2 Flow Rate FiO2 08/26/17 15:32 98 Room Air 08/26/17 15:07 100 20 08/26/17 14:21 98.7 Orders Orders Electrocardiogram (08/26/17 ) Electrocardiogram (08/26/17 15:30) Basic Metabolic Panel (Bmp) (08/26/17 15:30) Ckmb (Isoenzyme) Profile (08/26/17 15:30) Complete Blood Count With Diff (08/26/17 15:30) Magnesium (Mg) (08/26/17 15:30) Prothrombin Time / Inr (Pt) (08/26/17 15:30) Act Partial Throm Time (Ptt) (08/26/17 15:30) Troponin I (08/26/17 15:30) Lipase (08/26/17 15:30) Chest, Single Ap (08/26/17 15:30) Ecg Monitoring (08/26/17 15:30) Bilateral Bp Monitoring (08/26/17 15:30) Iv Access Insert/Monitor (08/26/17 15:30) Oximetry (08/26/17 15:30) Oxygen Administration (08/26/17 15:30) Sodium Chloride 0.9% Flush (Ns Flush) (08/26/17 15:30) B-Type Natriuretic Peptide (08/26/17 15:35) Influenzae A/B Antigen (08/26/17 15:35) Labs Laboratory Tests Test 08/26/17 15:34 White Blood Count 9.8 TH/MM3 Red Blood Count 3.61 MIL/MM3 Hemoglobin 10.6 GM/DL Hematocrit 31.9 % Mean Corpuscular Volume 88.2 FL Mean Corpuscular Hemoglobin 29.3 PG Mean Corpuscular Hemoglobin Concent 33.2 % Red Cell Distribution Width 16.1 % Platelet Count 224 TH/MM3 Mean Platelet Volume 8.6 FL Neutrophils (%) (Auto) 84.3 % Lymphocytes (%) (Auto) 4.6 % Monocytes (%) (Auto) 9.5 % Eosinophils (%) (Auto) 0.9 % Basophils (%) (Auto) 0.7 % Neutrophils # (Auto) 8.2 TH/MM3 Lymphocytes # (Auto) 0.4 TH/MM3 Monocytes # (Auto) 0.9 TH/MM3 Eosinophils # (Auto) 0.1 TH/MM3 Basophils # (Auto) 0.1 TH/MM3 CBC Comment DIFF FINAL Differential Comment Prothrombin Time 88.2 SEC Prothromb Time International Ratio 8.8 RATIO Activated Partial Thromboplast Time 43.2 SEC Blood Urea Nitrogen 25 MG/DL Creatinine 1.53 MG/DL Random Glucose 118 MG/DL Calcium Level 7.8 MG/DL Magnesium Level 2.3 MG/DL Sodium Level 138 MEQ/L Potassium Level 3.9 MEQ/L Chloride Level 101 MEQ/L Carbon Dioxide Level 29.9 MEQ/L Anion Gap 7 MEQ/L Estimat Glomerular Filtration Rate 33 ML/MIN Total Creatine Kinase 34 U/L Troponin I LESS THAN 0.02 NG/ML Lipase 322 U/L MDM Supervised Visit with BHARGAV: Yes Narrative Course I, Dr. Moralez, have reviewed the advance practice practitioner's documentation and am in agreement, met with the patient face to face, made the diagnosis, and the medical decision making was done by me. *My assessment and Findings: Patient is awake and alert and is asking to go to the bathroom. Her most pertinent finding is an INR greater than 8. She is not taking her medications appropriately. Please see Glo Gates NP's note for results of laboratory and radiographic evaluation, ED course, final diagnosis and disposition Dina Moralez MD Aug 26, 2017 17:04
[2017-08-26] MEDS ORDERED: SODIUM CHLOR 0.9% 1000 ML INJ 1,000 ML IV ONE (17:30)
--- NOTE | 2017-08-26 17:59 | HHI.FF ---
Face to Face Verification Diagnosis: (1) Shortness of breath (2) Congestive heart failure (3) Chest pain (4) Physical deconditioning (5) Supratherapeutic INR Physical Therapy Order: Evaluate and Treat Occupational Therapy Order: Evaluate and Treat Home Health Nursing Order: Medical education CHF education Medication education-adverse effect I have seen patient Leigh Mcguire on 08/26/17. My clinical findings support the need for the requested home health care services because: Ltd mobility - disease progression Patient has SOB Deconditioned w/ increased weakness Med compliance is questionable I certify that my clinical findings support that this patient is homebound because: Unsteady gait/balance Dina Moralez MD Aug 26, 2017 17:59
[2017-08-26 19:22] LABS: TROPONIN I LESS THAN 0.02 NG/ML (0.02-0.05)
[2017-08-26] MEDS ORDERED: SODIUM CHLORIDE 0.9% FLUSH 10 ML FLUSH IV FLUSH PRN ×2 (19:30→20:45)
--- NOTE | 2017-08-26 19:46 | HHI.HP ---
[facility] Service Family Medicine Primary Care Physician Glen Ruiz , R3 MD Jeanine Admission Diagnosis CHEST PAIN; SOB; DYSPNEA ON EXERTION; FATIGUE; SUPRATHERAPEUTIC INR Diagnoses: International Travel<30 Days: No Contact w/Intl Traveler<30days: No Known Affected Area: No History of Present Illness Mrs. Mcguire is a 76 y/o F presenting to the ED with multiple complaints. She was recently discharged [facility] after a 19 day hospitalization for bronchitis and unknown cardiac procedure. Regarding the cardiac procedure, the patient states that she had "something done to her heart 3 times because her heart wasn't right." She does not remember the name of the procedure for what she was diagnosed with. She also states that she was diagnosed with bronchitis and was given breathing treatments, however was not given antibiotics. Insert discharge last Thursday, the patient states that she has "just has not felt like herself." She endorses having episodes of anorexia, nausea with vomiting, constipation, and chest pressure. The chest pressure started the same day she was discharged, but stopped on Thursday morning. She describes the chest pain as a pressure over her sternum that cause shortness of breath and diaphoresis. During this timeframe she also had increased cough with green sputum production. Patient also endorses nausea with 3 episodes of vomiting over this time. She denies any hematemesis but does state that the emesis consisted of part food product with part mucus. She has been able to eat and drink over this timeframe, but just not her normal amount. She has also developed constipation with her last bowel movement coming this past Thursday. She is not taking any medications to alleviate her symptoms at this time. Regarding her history the patient is unable to fully complete the reported history as she states that her "memory is bad." She is unable to give me any past medical history or any medications that she is currently taken by memory. He does have a back with all of her medications that she is currently taking, however there are multiple duplicate medications including long and short acting metoprolol as well as Coumadin and all liquids. The patient states that she does not have a schedule to take her medications, however she states that she "just reads the bottle and takes whenever she has." Per chart review patient does have a history of poor medical compliance. (Jorge Corea MD R2) Review of Systems ROS Limitations: Poor Historian Constitutional: COMPLAINS OF: Fever (subjective ), Chills Eyes: COMPLAINS OF: Blurred vision, DENIES: Double Vision Ears, nose, mouth, throat: COMPLAINS OF: Throat pain, Running Nose Respiratory: COMPLAINS OF: Cough, Sputum production, Shortness of breath, DENIES: Hemoptysis Cardiovascular: COMPLAINS OF: Chest pain, Syncope Gastrointestinal: COMPLAINS OF: Abdominal pain, Constipation, Nausea, Vomiting , DENIES: Diarrhea Genitourinary: DENIES: Hematuria, Dysuria Musculoskeletal: COMPLAINS OF: Joint pain, Back pain Integumentary: DENIES: Rash Hematologic/lymphatic: DENIES: Lymphadenopathy Immunologic/allergic: DENIES: Urticaria Neurologic: COMPLAINS OF: Headache Psychiatric: DENIES: Anxiety, Confusion, Depression, Hallucinations (Jorge Corea MD R2) Past Family Social History Past Medical History Patient endorses no PMHx verbally Per EMR Atrial fibrillation Echo- EF 55-60% COPD per EMR; nonsmoker HTN Prior cancer in uterus TIAs OB History . Menarche at 14 years. All uncomplicated, full term births. Past Surgical History Hysterectomy 2 pins placed in R shoulder (Jorge Corea MD R2) Allergies: Coded Allergies: Penicillins (Verified Allergy, Severe, RASH, 07/21/17) Family History Father - , CAD Mother - , unknown history Social History Patient ; living at [facility] by herself and does all ADLs herself. 12 years of college education. Patient drinks coffee frequently. No reported history of alcohol, tobacco or illicit drugs. (Jorge Corea MD R2) Physical Exam Vital Signs Vital Signs Date Time Temp Pulse Resp B/P (MAP) Pulse Ox O2 Delivery O2 Flow Rate FiO2 08/26/17 19:12 79 18 155/88 (110) 95 Room Air 08/26/17 17:56 89 22 98 Room Air 08/26/17 17:50 86 18 155/88 (110) 96 Room Air 08/26/17 15:32 98 Room Air 08/26/17 15:32 98 Room Air 08/26/17 15:07 100 20 98 Room Air 08/26/17 14:21 98.7 66 14 130/75 (93) 98 Physical Exam GENERAL: Elderly female lying in bed in no acute distress. HEENT: Atraumatic, normocephalic with EOMI. PERRLA. MMM. No rhinorrhea. No LAD, JVD, or thyroid abnormality appreciated. RESPIRATORY: Patient with fine crackles at the bilateral bases with good overall air movement. No increased work of breathing on room air. Patient able to converse and complete sentences. CARDIOVASCULAR: Regular rate and rhythm with no MGR appreciated. Radial and DP pulses 2+ and symmetric bilaterally. Brisk capillary refill. ABDOMEN: Soft, nontender, nondistended with positive bowel sounds in all 4 quadrants. No hepatosplenomegaly appreciated. EXTREMITIES: No cyanosis. Patient with bilateral lower extremity 2+ edema to the midshin. Patient ambulating well per her report. MUSCULOSKELETAL: No calf tenderness. SKIN: Essentially clear with no significant rash or lesions. Adequate skin turgor. No hematoma appreciated on the bilateral wrists or groin area consistent with possible cardiac catheterization. PSYCHIATRIC: Fair insight. No overt depression. NEUROLOGICAL: Speech- Fluent. No dysarthria or dysphasia. Poor focus, attention, and comprehension. Cranial nerves- 2 through 12 intact. Motor/sensory/reflexes- Face- No facial droop. No tongue deviation. RUE- 5/5 strength in all musc groups, sensation intact. Reflexes 2+. LUE- 5/5 strength in all musc groups, sensation intact. Reflexes 2+. RLE- 5/5 strength in all musc groups, sensation intact. Reflexes 2+. LLE- 5/5 strength in all musc groups, sensation intact. Reflexes 2+. Pronator drift test-negative Babinski-negative Rapid alternating movements-negative No hemispace neglect. Able to repeat phrases. Able to name simple objects. Shot term memory poor. Laboratory Laboratory Tests Test 08/26/17 15:34 08/26/17 15:49 08/26/17 18:50 White Blood Count 9.8 Red Blood Count 3.61 Hemoglobin 10.6 Hematocrit 31.9 Mean Corpuscular Volume 88.2 Mean Corpuscular Hemoglobin 29.3 Mean Corpuscular Hemoglobin Concent 33.2 Red Cell Distribution Width 16.1 Platelet Count 224 Mean Platelet Volume 8.6 Neutrophils (%) (Auto) 84.3 Lymphocytes (%) (Auto) 4.6 Monocytes (%) (Auto) 9.5 Eosinophils (%) (Auto) 0.9 Basophils (%) (Auto) 0.7 Neutrophils # (Auto) 8.2 Lymphocytes # (Auto) 0.4 Monocytes # (Auto) 0.9 Eosinophils # (Auto) 0.1 Basophils # (Auto) 0.1 CBC Comment DIFF FINAL Differential Comment Prothrombin Time 88.2 Prothromb Time International Ratio 8.8 Activated Partial Thromboplast Time 43.2 Blood Urea Nitrogen 25 Creatinine 1.53 Random Glucose 118 Calcium Level 7.8 Magnesium Level 2.3 Sodium Level 138 Potassium Level 3.9 Chloride Level 101 Carbon Dioxide Level 29.9 Anion Gap 7 Estimat Glomerular Filtration Rate 33 Total Creatine Kinase 34 25 Troponin I LESS THAN 0.02 LESS THAN 0.02 Lipase 322 B-Type Natriuretic Peptide 354 Date/Time Source Procedure Growth Status 08/26/17 15:51 Nasal Washing Influenza Types A,B Antigen (KRISTAL) - Final NEGATIVE FOR FLU A AND B ANTIGEN.... Complete (Jorge Corea MD R2) Physical Exam CV: At time of my evaluation patient has irregular rhythm with controlled rate at 80, no neck vein distention or hepatojugular reflux. Remainder exam as noted above (Rossy Small MD) Result Diagram: 08/26/17 1534 08/26/17 1534 Imaging Last 72 hours Impressions Chest X-Ray 08/26/17 1530 Signed Impressions: Service Date/Time: Saturday, August 26, 2017 15:46 - CONCLUSION: Compensated cardiomegaly with minimal fluid right minor fissure. Board Certified Radiologist. This report was verified electronically. (Jorge Corea MD R2) Caprini VTE Risk Assessment Caprini VTE Risk Assessment: Mod/High Risk (score >= 2) Caprini Risk Assessment Model Point Value = 1 Point Value = 2 Point Value = 3 Point Value = 5 Age 41-60 Minor surgery BMI > 25 kg/m2 Swollen legs Varicose veins or History of unexplained or recurrent spontaneous Oral contraceptives or hormone replacement Sepsis (< 1 month) Serious lung disease, including pneumonia (< 1 month) Abnormal pulmonary function Acute myocardial infarction Congestive heart failure (< 1 month) History of inflammatory bowel disease Medical patient at bed rest Age 61-74 Arthroscopic surgery Major open surgery (> 45 min) Laparoscopic surgery (> 45 min) Malignancy Confined to bed (> 72 hours) Immobilizing plaster cast Central venous access Age >= 75 History of VTE Family history of VTE Factor V Leiden Prothrombin [id number] Lupus anticoagulant Anticardiolipin antibodies Elevated serum homocysteine Heparin-induced thrombocytopenia Other congenital or acquired thrombophilia Stroke (< 1 month) Elective arthroplasty Hip, pelvis, or leg fracture Acute spinal cord injury (< 1 month) Prophylaxis Regimen Total Risk Factor Score Risk Level Prophylaxis Regimen 0-1 Low Early ambulation 2 Moderate Order ONE of the following: *Sequential Compression Device (SCD) *Heparin 5000 units SQ BID 3-4 Higher Order ONE of the following medications: *Heparin 5000 units SQ TID *Enoxaparin/Lovenox 40 mg SQ daily (WT < 150 kg, CrCl > 30 mL/min) *Enoxaparin/Lovenox 30 mg SQ daily (WT < 150 kg, CrCl > 10-29 mL/min) *Enoxaparin/Lovenox 30 mg SQ BID (WT < 150 kg, CrCl > 30 mL/min) AND/OR *Sequential Compression Device (SCD) 5 or more Highest Order ONE of the following medications: *Heparin 5000 units SQ TID (Preferred with Epidurals) *Enoxaparin/Lovenox 40 mg SQ daily (WT < 150 kg, CrCl > 30 mL/min) *Enoxaparin/Lovenox 30 mg SQ daily (WT < 150 kg, CrCl > 10-29 mL/min) *Enoxaparin/Lovenox 30 mg SQ BID (WT < 150 kg, CrCl > 30 mL/min) AND *Sequential Compression Device (SCD) (Jorge Corea MD R2) Assessment and Plan Assessment and Plan Mrs. Mcguire is a 76 y/o presenting to the ED with chest pain found to have a supratherapeutic INR on anticoagulation with medical noncompliance. Code Status Full Code Discussed Condition With Glo Fregoso ED PA (Jorge Corea MD R2) Attending Attestation Patient seen and examined this morning with Dr. Nichols, please see note from this morning for interval update. H&P reviewed and corroborated with patient at bedside. Patient unaware of having echo done during recent hospitalization at [facility]. Last echo in our records from early April 2017, and given patient's clinical presentation we will repeat at this time. recent TSH WNL. Lipids pending, along with A1C in pt with hyperglycemia. Of note patient is not on JUAN-I /ARB. Consider adding if clinically indicated after review of updated echo, precaution creatinine 1.5 with baseline at 1. Patient education provided regarding duplication of anticoagulant and beta arie therapy, she is agreeable to continuing eliquis and discontinuing Coumadin once anticoagulant rx can be restarted. Patient will require home health to oversee medication adherence, blood pressure and pulse monitoring, daily weights and overall management of Afib/ heart failure (likely HFpEF/ diastolic dysfunction) care plan. Discontinue glucosamine (interaction with anticoagulant therapy). Transition diltiazem to once daily dosing, cautious coadministration with metoprolol succinate, DC duplicate short acting metoprolol. Add statin as clinically appropriate. Review ischemia workup, trops neg, inverted T in I, V2, avL vs baseline. I HAVE REVIEWED THE RECORD AND AGREE WITH THE ABOVE NOTE AND PLAN OF CARE WAS DISCUSSED. I HAVE AUTHORIZED THE ORDER FOR PLACEMENT IN OBSERVATION STATUS. (Rossy Small MD) Problem List: (1) Supratherapeutic INR ICD Codes: R79.1 - Abnormal coagulation profile Status: Resolved Plan: -INR 8.8 today; has been on Warfarin 1mg per day for anticoagulation for Atrial fibrillation. No suggestion of bleeding per history or exam. -Head CT deferred as INR is less than 9 with no signs of bleeding on exam or per history -EKG- A fib with normal rate; no concerning ST changes -CBC reassuring (Baseline Hgb per chart review 10.5-11.5) -CMP with BUN to creatinine ratio of 16 -Troponin negative x2 -Repeat INR tomorrow morning -Hemoccult pending -With any bleeding, plan to administer Vit K 10mg IV and FFP as needed with appropriate imaging (2) Atrial fibrillation ICD Codes: I48.91 - Unspecified atrial fibrillation Status: Acute Plan: -Intermittent rate control per chart review. [id number] >2. HAS-BLED >2 , high risk. Per patient, has been on both Eliquis and Warfarin (1mg daily) since being discharged from . -Patient has also been taking Diltiazem with both Metoprolol Succinate and Tartrate dosages. -EKG on admission - Atrial fibrillation with controlled rate. Inverted T waves in leads I, aVL, and V2. No acute ST changes per previous EKG. (Per Medical Team Read) -Cardiac Telemetry -Resume Metoprolol 150mg daily (previous dose per chart review), will use short acting tartrate for titration in hospital -Continue Diltiazem 120mg QID per most recent prescription (previously on 360mg daily per chart review) -Hold anticoagulation until therapeutic INR (3) Chest pain ICD Codes: R07.9 - Chest pain, unspecified Status: Acute Plan: -Patient with "chest fullness" since discharge from where she was diagnosed with bronchitis per her report. -Tessalon pearls for cough -Mucinex BID for congestion -EKG as above -Troponin negative x2, one pending -CXR: Compensated cardiomegaly with minimal fluid in right minor fissure -BMP: 354 -Lasix IV 20mg ordered once (Potassium WNL) -Resume home PO lasix tomorrow (4) Constipation ICD Codes: K59.00 - Constipation, unspecified Status: Acute Plan: -Patient with recent constipation -Constipation protocol in place (5) Nausea & vomiting ICD Codes: R11.2 - Nausea with vomiting, unspecified Status: Acute Plan: -Patient with reported nausea and 3 episodes of nonbloody vomiting since Thursday -Zofran as needed for N/V -Continue to monitor (6) HTN (hypertension) ICD Codes: I10 - Essential (primary) hypertension Status: Chronic Plan: - (7) Leg edema ICD Codes: R60.0 - Localized edema Status: Chronic Plan: presumed secondary to A fib with RVR leading to impaired cardiac output. BNP on admission 173; improved from BNP in 314 (06/30/2017) CXR with mild basilar parenchymal opacities -Continue to monitor BMP -Continue Furosemide 40mg daily, 20mEq KCl daily -Will consider decreasing to 20mg Lasix with 10mEq KCl tomorrow as improved (8) Creatinine elevation ICD Codes: R79.89 - Other specified abnormal findings of blood chemistry Status: Acute Plan: -Cr on admission 1.12; it has fluctuated from 0.89 to 1.36 since 04/2017 -Given (9) Physical deconditioning ICD Codes: R53.81 - Other malaise Status: Acute Plan: -Will consult PT while inpatient -Will consult OT while inpatient -Notified patient of fall risks while supratherapeutic INR (10) DVT Prophylaxis Status: Acute Plan: -Defer medical prophylaxis due to supratherapeutic INR -SCDs (11) Fluids, Electrolytes, and Nutrition Status: Acute Plan: -Fluids: Defer at this time with heart healthy diet -Electrolytes: WNL, continue to monitor -Nutrition: Heart healthy diet (Corea,Jorge H MD R2) Problem Qualifiers (1) Atrial fibrillation: Qualified Codes: I48.2 - Chronic atrial fibrillation (2) Chest pain: Qualified Codes: R07.1 - Chest pain on breathing (3) Constipation: Qualified Codes: K59.00 - Constipation, unspecified (4) Nausea & vomiting: Qualified Codes: R11.2 - Nausea with vomiting, unspecified (5) HTN (hypertension): Qualified Codes: I10 - Essential (primary) hypertension Jorge Corea MD R2 Aug 26, 2017 19:46 Rossy Small MD Aug 27, 2017 12:29
[2017-08-26] MEDS ORDERED: BISACODYL 10 MG SUPP RECTAL PRN (20:45)
[2017-08-26] MEDS ORDERED: NALOXONE HCL 0.4 MG/ML AMP IV PUSH PRN (20:45)
[2017-08-26] MEDS ORDERED: SENNOSIDES 8.6 MG TAB PO PRN (20:45)
[2017-08-26] MEDS ORDERED: LACTULOSE SYRUP 20 GM/30 ML CUP PO PRN (20:45)
[2017-08-26] MEDS ORDERED: MAGNESIUM HYDROXIDE SUSP 30 ML CUP PO PRN (20:45)
[2017-08-26] MEDS ORDERED: PILL SPLITTER OTHER PRN (20:45)
[2017-08-26] MEDS ORDERED: ACETAMINOPHEN 325 MG TAB PO PRN (20:45)
[2017-08-26] MEDS ORDERED: ONDANSETRON HCL 4 MG/2 ML VIAL IVP PRN (20:45)
[2017-08-26] MEDS: SODIUM CHLORIDE 0.9% FLUSH 10 ML FLUSH IV FLUSH SCH ×2 (21:00→21:34)
[2017-08-26] MEDS: DILTIAZEM HCL 60 MG TAB PO SCH (21:34)
[2017-08-26] MEDS: DOCUSATE SODIUM 50 MG/SENNA 8.6 MG TAB PO SCH (21:34)
[2017-08-26] MEDS ORDERED: FUROSEMIDE 20 MG/2 ML VIAL IV PUSH ONE (21:45)
[2017-08-27] VITALS (11 sets, daily range): BP systolic 99–128; BP diastolic 60–81; PULSE 66–106; RESP 16–20; TEMP 97.7–98.7; O2SAT 93–100
[2017-08-27 01:19] LABS: AUTOMATED NEUTROPHIL # 8.7 TH/MM3 (1.8-7.7); BASOPHIL # 0.1 TH/MM3 (0-0.2); BASOPHIL % 1.4 % (0.0-2.0); EOSINOPHIL # 0.1 TH/MM3 (0-0.4); EOSINOPHIL % 1.2 % (0.0-4.0); HEMATOCRIT 31.9 % (35.0-46.0); HEMOGLOBIN 10.5 GM/DL (11.6-15.3); LYMPH % 3.5 % (9.0-44.0); LYMPHOCYTE # 0.3 TH/MM3 (1.0-4.8); MEAN CELL VOLUME 87.6 FL (80.0-100.0); MEAN CORPUSCULAR HEMOGLOBIN 28.7 PG (27.0-34.0); MEAN CORPUSCULAR HGB CONC 32.8 % (32.0-36.0); MEAN PLATELET VOLUME 8.3 FL (7.0-11.0); MONO % 7.1 % (0.0-8.0); MONOCYTE # 0.7 TH/MM3 (0-0.9); NEUT % 86.8 % (16.0-70.0); PLATELET COUNT 218 TH/MM3 (150-450); RED BLOOD COUNT 3.64 MIL/MM3 (4.00-5.30); RED CELL DISTRIBUTION WIDTH 16.2 % (11.6-17.2)
[2017-08-27 01:56] LABS: OVALOCYTES 1+ (NORMAL)
[2017-08-27 03:42] LABS: ALBUMIN 3.1 GM/DL (3.4-5.0); ALKALINE PHOSPHATASE 62 U/L (45-117); ALT (GPT) 24 U/L (10-53); AST (GOT) 10 U/L (15-37); BLOOD UREA NITROGEN 24 MG/DL (7-18); CALCIUM 7.8 MG/DL (8.5-10.1); CHLORIDE 102 MEQ/L (98-107); CREATININE 1.16 MG/DL (0.50-1.00); GLOMERULAR FILTRATION RATE 45 ML/MIN (>89); GLUCOSE,RANDOM 178 MG/DL (74-106); SODIUM (NA) 138 MEQ/L (136-145); TOTAL BILIRUBIN ADULT 0.6 MG/DL (0.2-1.0); TROPONIN I LESS THAN 0.02 NG/ML (0.02-0.05)
[2017-08-27] MEDS ORDERED: POTASSIUM CHLORIDE 10 MEQ CONTROLLED RELEASE TAB PO ONE (07:15)
[2017-08-27] MEDS: SODIUM CHLORIDE 0.9% FLUSH 10 ML FLUSH IV FLUSH SCH ×4 (08:41→21:20)
[2017-08-27] MEDS: DOCUSATE SODIUM 50 MG/SENNA 8.6 MG TAB PO SCH ×2 (08:41→21:21)
[2017-08-27] MEDS: FUROSEMIDE 40 MG TAB PO SCH (08:42)
[2017-08-27] MEDS: DILTIAZEM HCL 60 MG TAB PO SCH ×4 (08:42→21:21)
[2017-08-27] MEDS: CETIRIZINE HCL 10 MG TAB PO SCH (08:42)
[2017-08-27] MEDS: PANTOPRAZOLE SOD 40 MG DELAYED RELEASE TAB PO SCH (08:42)
[2017-08-27] MEDS: MULTIVITAMIN TAB PO SCH (08:42)
[2017-08-27] MEDS: CYANOCOBALAMIN 1,000 MCG TAB PO SCH (08:42)
[2017-08-27] MEDS: POTASSIUM CHLORIDE 20 MEQ CONTROLLED RELEASE TAB PO SCH (08:43)
[2017-08-27] MEDS ORDERED: NON-FORMULARY DRUG (Glucosamine 1,000 MG) PO SCH (09:00)
[2017-08-27] MEDS: METOPROLOL TARTRATE 50 MG TAB PO SCH ×3 (09:00→21:21)
[2017-08-27] MEDS ORDERED: INFLUENZA VIRUS VACCINE (QUADRIVALENT) 0.5 ML SYR IM ONE (10:00)
--- NOTE | 2017-08-27 10:00 | HHI.FPPN ---
Subjective Remarks Doing well this AM. Still Reports feeling lightheaded, fatigued, and weak. She described it as if she were drinking alcohol. She denies any particular chest pressure or pain. She has noticed more swelling in her legs since being hospitalized but says "that happens." (Scotty Nichols MD, R3) Objective Vitals Vital Signs Date Time Temp Pulse Resp B/P (MAP) Pulse Ox O2 Delivery O2 Flow Rate FiO2 08/27/17 09:55 98.0 106 20 118/79 (92) 93 08/27/17 07:20 100 21 08/27/17 04:57 81 08/27/17 04:13 98.1 89 18 99/62 (74) 93 08/27/17 00:00 66 08/26/17 23:44 98.5 67 18 127/76 (93) 95 08/26/17 20:25 08/26/17 19:43 98 08/26/17 19:12 79 18 155/88 (110) 95 Room Air 08/26/17 17:56 89 22 98 Room Air 08/26/17 17:50 86 18 155/88 (110) 96 Room Air 08/26/17 15:32 98 Room Air 08/26/17 15:32 98 Room Air 08/26/17 15:07 100 20 98 Room Air 08/26/17 14:21 98.7 66 14 130/75 (93) 98 I/O 08/26/17 08/26/17 08/26/17 08/27/17 08/27/17 08/27/17 07:00 15:00 23:00 07:00 15:00 23:00 Intake Total 250 ml Balance 250 ml Intake Oral 250 ml # Voids 3 (Scotty Nichols MD, R3) Result Diagram: 08/27/17 0105 08/27/17 0230 Imaging Last 72 hours Impressions Chest X-Ray 08/26/17 1530 Signed Impressions: Service Date/Time: Saturday, August 26, 2017 15:46 - CONCLUSION: Compensated cardiomegaly with minimal fluid right minor fissure. Board Certified Radiologist. This report was verified electronically. Objective Remarks GENERAL: Elderly female lying in bed in no acute distress. HEENT: Atraumatic, normocephalic with EOMI. PERRLA. MMM. No rhinorrhea. No LAD, JVD, or thyroid abnormality appreciated. RESPIRATORY: Patient with fine crackles at the bilateral bases with good overall air movement. No increased work of breathing on room air. Patient able to converse and complete sentences. CARDIOVASCULAR: Irregular rate, approximately 100 bpm. No murmurs appreciated. No JVD. ABDOMEN: Soft, slightly tender to deep palpation. EXTREMITIES: No cyanosis. Patient with bilateral lower extremity 2+ edema to the midshin. MUSCULOSKELETAL: No calf tenderness. SKIN: Essentially clear with no significant rash or lesions. Adequate skin turgor. No hematoma appreciated on the bilateral wrists or groin area consistent with possible cardiac catheterization. PSYCHIATRIC: Fair insight. No overt depression. NEUROLOGICAL: Speech- Fluent. No dysarthria or dysphasia. Poor focus, attention, and comprehension. Cranial nerves- 2 through 12 intact. Shot term memory poor. (Scotty Nichols MD, R3) A/P Assessment and Plan Mrs. Mcguire is a 76 y/o presenting to the ED with chest pain found to have a supratherapeutic INR on anticoagulation with medical noncompliance. Discharge Planning Today 08/27/2017 after ECHOcardiogram. Will require Home health for medical administration. (Scotty Nichols MD, R3) Attending Attestation Patient seen and examined this morning with Dr. Nichols, H&P reviewed and corroborated with patient at bedside. Patient unaware of having echo done during recent hospitalization at [facility]. Last echo in our records from early April 2017, and given patient's clinical presentation we will repeat at this time. recent TSH WNL. Lipids pending, along with A1C in pt with hyperglycemia. Of note patient is not on JUAN-I /ARB. Consider adding if clinically indicated after review of updated echo, precaution creatinine 1.5 with baseline at 1. Patient education provided regarding duplication of anticoagulant and beta arie therapy, she is agreeable to continuing eliquis and discontinuing Coumadin once anticoagulant rx can be restarted. Patient will require home health to oversee medication adherence, blood pressure and pulse monitoring, daily weights and overall management of Afib/ heart failure ( likely HFpEF/ diastolic dysfunction) care plan. Discontinue glucosamine ( interaction with anticoagulant therapy). Transition diltiazem to once daily dosing, cautious coadministration with metoprolol succinate, DC duplicate short acting metoprolol. Add statin as clinically appropriate. Review ischemia workup , enzymes neg, fu repeat ECG and consider outpt chemical stress if unable to confirm this was done with [facility] admission. I HAVE REVIEWED THE RECORD AND AGREE WITH THE ABOVE NOTE AND PLAN OF CARE WAS DISCUSSED. I HAVE AUTHORIZED THE ORDER FOR PLACEMENT IN OBSERVATION STATUS. (Rossy Small MD) Problem List: (1) Atrial fibrillation ICD Codes: I48.91 - Unspecified atrial fibrillation Status: Acute Plan: -Intermittent rate control per chart review. [id number] >2. HAS-BLED >2 , high risk. Per patient, has been on both Eliquis and Warfarin (1mg daily) since being discharged from . -Patient has also been taking Diltiazem 120 mg QID, metorpolol succ 150 mg daily and metoprolol tartrate 100 mg daily. -EF of 55-60% on recent ECHO performed in Apr 2018. Cardiomegaly on CXR. May be sign of Heart failure with presevered EF (HFpEF). Would benefit from gentle fluid restriction and diuresis to reduce volume load on heart. Also, high doses of metoprolol can exacerbate fluid retention in HFpEF. PLAN: Stop Metop tartrate home dosing. Continue Met succ 150 mg daily. Continue with ER Cardizem at 360 mg daily. Stop immediate release 4 times per day as compliance / medical adherence is an issue. Repeat ECHO to reassess cardiac function. Never on an JUAN inhibitor and benefits in HFpEF is not fully supported in literature, however may be of benefit if needed. Can be started as an outpatient with her PCP. (2) Supratherapeutic INR ICD Codes: R79.1 - Abnormal coagulation profile Status: Resolved Plan: -INR 8.8 on admission. Stop coumadin. Restart Eliquis 5 mg BID. -EKG- A fib with normal rate; no concerning ST changes -CBC reassuring (Baseline Hgb per chart review 10.5-11.5) -CMP with BUN to creatinine ratio of 16 -Troponin negative x2 (3) Chest pain ICD Codes: R07.9 - Chest pain, unspecified Status: Acute Plan: -Patient with "chest fullness" since discharge from where she was diagnosed with bronchitis per her report. -Tessalon pearls for cough -Mucinex BID for congestion -EKG only sign for inverted T waves in lateral leads which are new. -Troponin negative x3 -CXR: Compensated cardiomegaly with minimal fluid in right minor fissure -BMP: 354 -Lasix IV 20mg ordered once. -Resume home PO lasix tomorrow. (4) Constipation ICD Codes: K59.00 - Constipation, unspecified Status: Acute Plan: -Patient with recent constipation -Constipation protocol in place (5) HTN (hypertension) ICD Codes: I10 - Essential (primary) hypertension Status: Chronic Plan: Continue with rate control and diuresis. BP 120/60 on last check. (6) Leg edema ICD Codes: R60.0 - Localized edema Status: Chronic Plan: presumed secondary to A fib with RVR leading to impaired cardiac output. BNP on admission 173; improved from BNP in 314 (06/30/2017) CXR with mild basilar parenchymal opacities -Continue to monitor BMP -Continue Furosemide 40mg daily, 20mEq KCl daily (7) Creatinine elevation ICD Codes: R79.89 - Other specified abnormal findings of blood chemistry Status: Acute Plan: -Cr on admission 1.53; it has fluctuated from 0.89 to 1.36 since 04/2017 (8) Physical deconditioning ICD Codes: R53.81 - Other malaise Status: Acute Plan: -Will consult PT while inpatient -Will consult OT while inpatient -Notified patient of fall risks while supratherapeutic INR (9) DVT Prophylaxis Status: Acute Plan: -Defer medical prophylaxis due to supratherapeutic INR -SCDs (10) Fluids, Electrolytes, and Nutrition Status: Acute Plan: -Fluids: Defer at this time with heart healthy diet -Electrolytes: WNL, continue to monitor. K 3.1 this morning will get 50 meq PO KCL while in hospital. -Nutrition: Heart healthy diet SDW Dr. Small. (Scotty Nichols MD, R3) Problem Qualifiers (1) Chest pain: Qualified Codes: R07.1 - Chest pain on breathing (2) Constipation: Qualified Codes: K59.00 - Constipation, unspecified (3) HTN (hypertension): Qualified Codes: I10 - Essential (primary) hypertension Scotty Nichols MD, R3 Aug 27, 2017 10:00 Rossy Small MD Aug 27, 2017 12:41
[2017-08-27 10:34] LABS: CHOLESTEROL 148 MG/DL (120-200); MAGNESIUM 2.1 MG/DL (1.5-2.5); TRIGLYCERIDES 76 MG/DL (42-150)
[2017-08-27 10:36] LABS: CHOLESTEROL/ HDL RATIO 2.73 RATIO; HDL CHOLESTEROL 54.2 MG/DL (40.0-60.0); LDL CHOLESTEROL 79 MG/DL (0-99)
--- NOTE | 2017-08-27 12:01 | HHI.FF ---
Face to Face Verification Diagnosis: (1) Exertional dyspnea (2) Heart failure with preserved ejection fraction (3) Mitral regurgitation (4) Supratherapeutic INR (5) Atrial fibrillation (6) HTN (hypertension) (7) Shortness of breath (8) Diabetes (9) Leg edema Physical Therapy Order: Evaluate and Treat Home Health Nursing Order: Medical education Signs/symptoms of disease process Diabetic education CHF education Medication education-adverse effect Nursing assessment with vital signs I have seen patient Leigh Mcguire on 08/27/17. My clinical findings support the need for the requested home health care services because: Med compliance is questionable Limited ability to care for self I certify that my clinical findings support that this patient is homebound because: Impaired cognitive ability/safety Need for psychosocial assistance Poor cardiac reserve Planned discharge held d/t prelim ECHO read. CV consult placed, case d/w Cardiology. Scotty Nichols MD, R3 Aug 27, 2017 12:01 Rossy Small MD Aug 28, 2017 07:04
[2017-08-27 12:06] LABS: INTERNATIONAL NORMALIZED RATIO 5.5 RATIO
[2017-08-27] MEDS ORDERED: CARD360C PO (14:32)
--- NOTE | 2017-08-27 14:43 | EKG ---
Date Performed: 08/26/2017 Time Performed: 14:45:29 PTAGE: 76 years EKG: ATRIAL FIBRILLATION INCOMPLETE RIGHT BUNDLE BRANCH BLOCK ST DEVIATION AND MODERATE T-WAVE A BNORMALITY, CONSIDER LATERAL ISCHEMIA ABNORMAL ECG PREVIOUS TRACING : 07/21/2017 12.40 Rate has slowed since prior tracing, but ST-T changes are m ore prominent. Clinical correlation is recommended. DOCTOR: Jacob Jarrett Interpretating Date/Time 08/27/2017 14:36:46
--- NOTE | 2017-08-27 14:55 | EKG ---
Date Performed: 08/27/2017 Time Performed: 08:57:51 PTAGE: 76 years EKG: ATRIAL FIBRILLATION WITH RAPID VENTRICULAR RESPONSE INCOMPLETE RIGHT BUNDLE BRANCH BLOCK ST DEVIATION AND MODERATE T-WAVE ABNORMALITY, CONSIDER LATERAL ISCHEMIA ABNORMAL ECG PREVIOUS TRACING : 08/26/2017 14.45 Since the prior tracing, there has been no significant clark DOCTOR: aJcob Jarrett Interpretating Date/Time 08/27/2017 14:47:54
[2017-08-27] MEDS ORDERED: DOXY1LIQ3 PO (15:56)
[2017-08-27 16:46] LABS: HEMOGLOBIN A1C 7.1 % (4.3-6.0)
[2017-08-28] VITALS (11 sets, daily range): BP systolic 114–131; BP diastolic 60–87; PULSE 60–103; RESP 16–20; TEMP 98–99.1; O2SAT 95–98
[2017-08-28] MEDS: METOPROLOL TARTRATE 50 MG TAB PO SCH (05:55)
--- NOTE | 2017-08-28 06:47 | MB ---
cc: ABRAN BILL M.D. DATE OF CONSULTATION 08/27/2017 HISTORY Leigh is a very pleasant 76-year-old lady who moved to [place] from [place] in the fall. She began developing chest pain back then but it is getting progressively worse, severe at times. It occurs at rest. It is worse with exertion. It is associated with shortness of breath. It starts in the substernal chest area, radiates to the shoulders bilaterally. The patient was found to have moderate to severe MR on 2-D echo today with an EF of 55%. Otherwise denies any fevers, chills, cough, GI or bleeding, PND, orthopnea, COPD, syncope or dizziness. PAST MEDICAL HISTORY 1. Per History of Present Illness. 2. She was treated at [facility] for 19 days for bronchitis. She had some sort of "heart procedure" but it indeterminate what it was. 3. Atrial fibrillation. 4. COPD. 5. Hypertension. 6. Uterine cancer. 7. TIAs. 8. Hysterectomy. 9. Three pins in right shoulder. ALLERGIES PENICILLIN. SOCIAL HISTORY Denies tobacco or alcohol use. MEDICATIONS IN THE HOSPITAL 1. Zyrtec. 2. Vitamin B12 500 mcg daily. 3. Lasix 40 p.o. daily. 4. Pantoprazole 40 daily. 5. KCl 20 mEq daily. 6. Multivitamin 1 tablet daily. 7. Metoprolol 50 q. 8 hours. 8. Cardizem 120 q.i.d. PHYSICAL EXAMINATION Vital Signs: Blood pressure 120/63, pulse 77, temperature 98.7, respiratory rate 16. Sats 96% on room air. General: She is alert and oriented x 3, in no acute distress Neck: Supple. No JVD or bruit. Cardiovascular: S1, S2. No murmurs, rubs, or gallops. Lungs: Clear to auscultation bilaterally. Abdomen: Soft, nontender, nondistended with positive bowel sounds. Extremities: No lower extremity edema. LABORATORY DATA White count 10.0, hemoglobin 10.5, hematocrit 31.9, platelet count 218. INR is 5.5. Sodium 138, potassium 3.1, chloride 102, bicarb 31, BUN 24, creatinine 1.16, glucose 178. Troponin less than 0.2 x3. BNP is 354. LDL is 79. EKG A-fib with a rate of 76 beats per minute, T-wave inversion in lead V2. Repeat EKG today - A-fib with a rate of 107 beats/minute, T-wave inversion with ST depression in V2, V4, V5, V6. Chest x-ray - Compensated cardiomegaly with minimal fluid right minor fissure. 3-D echo was done but not reported in the computer. Unofficial verbal report is moderate to severe MR. Pulmonary hypertension. EF 55-60%. FINAL DIAGNOSES 1. Unstable angina due. 2. [place] [employer] Class IV angina. 3. A-fib8. 4. Moderate to severe mitral regurgitation. 5. Pulmonary hypertension. 6. Supratherapeutic INR. 7. Chronic renal insufficiency. DISCUSSION At this point in time I do think it is medically necessary to proceed with left heart catheterization and right heart catheterization given the patient's decompensated congestive heart failure, new onset moderate to severe mitral regurgitation, [place] [employer] Class IV angina, ischemic EKG changes on resting EKG. Currently her INR is supratherapeutic and we cannot do her cath until INR is less than 2.0. I do not think it needs to be done urgently based on her severely elevated INR. Suspect we will need to wait until Thursday or Thursday of next week to proceed with catheterization. Meanwhile, she is agreeing with Lasix, metoprolol, Cardizem for rate control. MD MARYAM Bolden/YISSEL /7:35 PM /6:16 AM
[2017-08-28 07:29] LABS: BICARBONATE 29.3 MEQ/L (21.0-32.0); CALCIUM 8.6 MG/DL (8.5-10.1); CREATININE 1.24 MG/DL (0.50-1.00)
[2017-08-28] MEDS: CYANOCOBALAMIN 1,000 MCG TAB PO SCH (09:08)
[2017-08-28] MEDS: DOCUSATE SODIUM 50 MG/SENNA 8.6 MG TAB PO SCH ×2 (09:08→21:00)
[2017-08-28] MEDS: DILTIAZEM-CD 300 MG CAP ER PO SCH (09:08)
[2017-08-28] MEDS: POTASSIUM CHLORIDE 20 MEQ CONTROLLED RELEASE TAB PO SCH (09:08)
[2017-08-28] MEDS: SODIUM CHLORIDE 0.9% FLUSH 10 ML FLUSH IV FLUSH SCH ×3 (09:08→22:10)
[2017-08-28] MEDS: FUROSEMIDE 40 MG TAB PO SCH (09:09)
[2017-08-28] MEDS: MULTIVITAMIN TAB PO SCH (09:09)
[2017-08-28] MEDS: CETIRIZINE HCL 10 MG TAB PO SCH (09:09)
[2017-08-28] MEDS: PANTOPRAZOLE SOD 40 MG DELAYED RELEASE TAB PO SCH (09:09)
--- NOTE | 2017-08-28 09:13 | ECHRPT ---
Indication: CONCLUSIONS The left ventricular systolic function is normal with an estimated ejection fraction in the range of 55-60%. Wall thickness is measured at the upper limits of normal. The right ventricular size is normal. The left atrial size is severely dilated. The right atrial size is moderately dilated. The aortic root and proximal ascending aorta are not well visualized. Mild thickening of the mitral valve leaflets. Moderate mitral valve regurgitation. There is moderate to severe tricuspid valve regurgitation. The pulmonary valve is not well visualized. The inferior vena cava is dilated. severe mitral annular calcification with peak gradient = 14 mm hg, mean gradient = 4 mm hg c/w upper limit of normal to mild stenosis BP: 99 / 62 HR: Rhythm: MEASUREMENTS (Male / Female) Normal Values Technical Quality:Fair 2D ECHO LV Diastolic Diameter PLAX 4.2 cm 4.2 - 5.9 / 3.9 - 5.3 cm LV Systolic Diameter PLAX 3.1 cm IVS Diastolic Thickness 1.5 cm 0.6 - 1.0 / 0.6 - 0.9 cm LVPW Diastolic Thickness 1.2 cm 0.6 - 1.0 / 0.6 - 0.9 cm LV Relative Wall Thickness 0.6 RV Internal Dim ED PLAX 1.9 cm M-MODE Aortic Root Diameter MM 3.0 cm LA Systolic Diameter MM 6.2 cm LA Ao Ratio MM 2.1 AV Cusp Separation MM 1.3 cm DOPPLER Mitral E Point Velocity 190.0 cm/s Mitral A Point Velocity 62.4 cm/s Mitral E to A Ratio 3.0 TR Peak Velocity 317.0 cm/s TR Peak Gradient 40.2 mmHg Right Atrial Pressure 10.0 mmHg Pulmonary Artery Systolic Pressu 50.2 mmHg Right Ventricular Systolic Press 50.2 mmHg FINDINGS LEFT VENTRICLE The left ventricular systolic function is normal with an estimated ejection fraction in the range of 55-60%. Wall thickness is measured at the upper limits of normal. RIGHT VENTRICLE The right ventricular size is normal. LEFT ATRIUM The left atrial size is severely dilated. RIGHT ATRIUM The right atrial size is moderately dilated. ATRIAL SEPTUM Normal atrial septal thickness without atrial level shunting by limited color doppler interrogation. AORTA The aortic root and proximal ascending aorta are not well visualized. MITRAL VALVE Mild thickening of the mitral valve leaflets. Moderate mitral valve regurgitation. AORTIC VALVE Trileaflet aortic valve. No aortic valve stenosis or regurgitation. TRICUSPID VALVE There is moderate to severe tricuspid valve regurgitation. PULMONARY VALVE The pulmonary valve is not well visualized. VESSELS The inferior vena cava is dilated. PERICARDIUM No pericardial effusion. Calos Small MD, FACC, FSCAI Edited by: [employer] (Electronically Signed) Final Date:27 August 2017 14:58 Amended: 28 August 2017 09:12
--- NOTE | 2017-08-28 11:20 | PD.CARD.PN ---
Subjective Subjective Remarks alert in nad Objective Medications Current Medications Medications (Trade) Dose Ordered Sig/Yosi Route Start Time Stop Time Status Last Admin (ZyrTEC) 10 mg DAILY PO 08/27/17 09:00 08/28/17 09:09 (Vitamin B12) 500 mcg DAILY PO 08/27/17 09:00 08/28/17 09:08 (Lasix) 40 mg DAILY PO 08/27/17 09:00 08/28/17 09:09 (Protonix) 40 mg DAILY PO 08/27/17 09:00 08/28/17 09:09 (KCl) 20 meq DAILY PO 08/27/17 09:00 08/28/17 09:08 (Theragran) 1 tab DAILY PO 08/27/17 09:00 08/28/17 09:09 (Pill Splitter) 1 ea UNSCH PRN OTHER 08/26/17 20:45 (NS Flush) 2 ml UNSCH PRN IV FLUSH 08/26/17 20:45 (NS Flush) 2 ml BID IV FLUSH 08/26/17 21:00 08/28/17 09:08 (Tylenol) 650 mg Q4H PRN PO 08/26/17 20:45 (Zofran Inj) 4 mg Q6H PRN IVP 08/26/17 20:45 (Narcan Inj) 0.4 mg UNSCH PRN IV PUSH 08/26/17 20:45 (Jessica-Colace) 1 tab BID PO 08/26/17 21:00 08/28/17 09:08 (Milk Of Magnesia Liq) 30 ml Q12H PRN PO 08/26/17 20:45 (Senokot) 17.2 mg Q12H PRN PO 08/26/17 20:45 (Dulcolax Supp) 10 mg DAILY PRN RECTAL 08/26/17 20:45 (Lactulose Liq) 30 ml DAILY PRN PO 08/26/17 20:45 (Cardizem Cd) 300 mg DAILY PO 08/28/17 09:00 08/28/17 09:08 (Toprol Xl) 150 mg DAILY PO 08/28/17 20:00 Vital Signs / I&O Vital Signs Date Time Temp Pulse Resp B/P (MAP) Pulse Ox O2 Delivery O2 Flow Rate FiO2 08/28/17 08:41 98.6 60 18 128/60 (82) 98 08/28/17 04:07 98.7 87 20 131/77 (95) 96 08/28/17 00:00 89 08/27/17 23:20 98.7 66 20 117/81 (93) 95 08/27/17 20:18 97.7 89 20 117/71 (86) 95 08/27/17 19:10 95 08/27/17 15:55 97.7 77 16 128/62 (84) 96 I/O 08/27/17 08/27/17 08/27/17 08/28/17 08/28/17 08/28/17 06:59 14:59 22:59 06:59 14:59 22:59 Intake Total 250 ml 480 ml Balance 250 ml 480 ml Intake Oral 250 ml 480 ml # Voids 3 6 1 Physical Exam GENERAL: SKIN: Warm and dry. HEAD: Normocephalic. EYES: No scleral icterus. No injection or drainage. NECK: Supple, trachea midline. No JVD or lymphadenopathy. CARDIOVASCULAR: Regular rate and rhythm without murmurs, gallops, or rubs. RESPIRATORY: Breath sounds equal bilaterally. No accessory muscle use. GASTROINTESTINAL: Abdomen soft, non-tender, nondistended. MUSCULOSKELETAL: No cyanosis, or edema. BACK: Nontender without obvious deformity. No CVA tenderness. Laboratory Laboratory Tests Test 08/27/17 11:20 08/28/17 05:10 Prothrombin Time 55.0 SEC Prothromb Time International Ratio 5.5 RATIO Activated Partial Thromboplast Time 43.7 SEC Blood Urea Nitrogen 27 MG/DL Creatinine 1.24 MG/DL Random Glucose 118 MG/DL Calcium Level 8.6 MG/DL Sodium Level 137 MEQ/L Potassium Level 3.7 MEQ/L Chloride Level 102 MEQ/L Carbon Dioxide Level 29.3 MEQ/L Anion Gap 6 MEQ/L Estimat Glomerular Filtration Rate 42 ML/MIN Assessment and Plan Problem List: (1) Unstable angina ICD Codes: I20.0 - Unstable angina (2) Mitral regurgitation ICD Codes: I34.0 - Nonrheumatic mitral (valve) insufficiency (3) Mitral stenosis ICD Codes: I05.0 - Rheumatic mitral stenosis (4) Pulmonary HTN ICD Codes: I27.20 - Pulmonary hypertension, unspecified (5) Supratherapeutic INR ICD Codes: R79.1 - Abnormal coagulation profile Status: Resolved (6) Atrial fibrillation ICD Codes: I48.91 - Unspecified atrial fibrillation Status: Acute (7) HTN (hypertension) ICD Codes: I10 - Essential (primary) hypertension Status: Chronic (8) Congestive heart failure ICD Codes: I50.9 - Heart failure, unspecified Status: Acute (9) COPD (chronic obstructive pulmonary disease) ICD Codes: J44.9 - Chronic obstructive pulmonary disease, unspecified Status: Chronic Assessment and Plan 1.) [place]/ccs class 4 angina/mr/ms/p-htn - rhc/lhc when inr < 2.0 Problem Qualifiers (1) Atrial fibrillation: Qualified Codes: I48.2 - Chronic atrial fibrillation (2) HTN (hypertension): Qualified Codes: I10 - Essential (primary) hypertension Calos Small MD Aug 28, 2017 11:20
--- NOTE | 2017-08-28 11:52 | HHI.FPPN ---
Subjective Remarks DOing well this am. no acute events overnight. Playing cards on side of bed. Still feeling "drunk." No chest pain or sob, however does endorse a cough and chest congestion. No bleeding. (Scotty Nichols MD, R3) Objective Vitals Vital Signs Date Time Temp Pulse Resp B/P (MAP) Pulse Ox O2 Delivery O2 Flow Rate FiO2 08/28/17 08:41 98.6 60 18 128/60 (82) 98 08/28/17 04:07 98.7 87 20 131/77 (95) 96 08/28/17 00:00 89 08/27/17 23:20 98.7 66 20 117/81 (93) 95 08/27/17 20:18 97.7 89 20 117/71 (86) 95 08/27/17 19:10 95 08/27/17 15:55 97.7 77 16 128/62 (84) 96 I/O 08/27/17 08/27/17 08/27/17 08/28/17 08/28/17 08/28/17 07:00 15:00 23:00 07:00 15:00 23:00 Intake Total 250 ml 480 ml Balance 250 ml 480 ml Intake Oral 250 ml 480 ml # Voids 3 6 1 (Scotty Nichols MD, R3) Result Diagram: 08/27/17 0105 08/28/17 0510 Objective Remarks GENERAL: Elderly female lying in bed in no acute distress. HEENT: Atraumatic, normocephalic with EOMI. PERRLA. MMM. No rhinorrhea. No LAD, JVD, or thyroid abnormality appreciated. RESPIRATORY: Patient with fine crackles at the bilateral bases with good overall air movement. No increased work of breathing on room air. Patient able to converse and complete sentences. CARDIOVASCULAR: Irregular rate, approximately 100 bpm. No JVD. ABDOMEN: Soft, slightly tender to deep palpation. EXTREMITIES: No cyanosis. Patient with bilateral lower extremity 2+ edema to the midshin. Improved today on exam. MUSCULOSKELETAL: No calf tenderness. SKIN: Essentially clear with no significant rash or lesions. Adequate skin turgor. No hematoma appreciated on the bilateral wrists or groin area consistent with possible cardiac catheterization. PSYCHIATRIC: Fair insight. No overt depression. NEUROLOGICAL: Speech- Fluent. No dysarthria or dysphasia. Poor focus, attention, and comprehension. Cranial nerves- 2 through 12 intact. (Scotty Nichols MD, R3) Objective Remarks CV irreg rhythm, rate 80-90s, holosystolic murmer appreciated at BUSB (Rossy Small MD) A/P Assessment and Plan Mrs. Mcguire is a 76 y/o presenting to the ED with chest pain found to have a supratherapeutic INR on anticoagulation with medical noncompliance. Discharge Planning Today 08/27/2017 after ECHOcardiogram. Will require Home health for medical administration. (Scotty Nichols MD, R3) Attending Attestation Patient seen and examined. Case reviewed and discussed with Dr Nichols. Agree with plan of care as discussed with me and documented in the resident note. I HAVE AUTHORIZED THE ORDER FOR ADMISSION TO AN IN-PATIENT STATUS. (Rossy Small MD) Problem List: (1) Atrial fibrillation ICD Codes: I48.91 - Unspecified atrial fibrillation Status: Acute Plan: Heart failure with presevered EF (HFpEF): -Rate controlled overnight. ECHO performed on 08/27/2017 showed: EF in the range of 55-60%. Wall thickness is measured at the upper limits of normal. The left atrial size is severely dilated. The right atrial size is moderately dilated. Moderate mitral valve regurgitation. There is moderate to severe tricuspid valve regurgitation. PLAN: Consulted cardiology evaluated by Dr. Small. He recommended getting a cardiac cath given ECHo findings, moderate/severe MVR, Class IV angina, and ischemic EKG changes at rest. Would wait until INR is less than 2.0. Will trend INR daily. Stop Metop tartrate home dosing. Continue Met succ 150 mg daily. Continue with ER Cardizem at 360 mg daily. Stop immediate release 4 times per day as compliance / medical adherence is an issue. Never on an JESÚS inhibitor and benefits in HFpEF is not fully supported in literature, however may be of benefit if needed. Can be started as an outpatient with her PCP. (2) Diabetes ICD Codes: E11.9 - Type 2 diabetes mellitus without complications Plan: A1c 7.1 -- DMT2. Switch to diabetic diet. Check accuchecks fasting and 2 hours after dinner. ISS if having elevated BG. Goal A1c 7-8. (3) Supratherapeutic INR ICD Codes: R79.1 - Abnormal coagulation profile Status: Resolved Plan: -INR 8.8 on admission. Stop coumadin. INR on 08/27/2017: 5.5. (4) Chest pain ICD Codes: R07.9 - Chest pain, unspecified Status: Acute Plan: -Patient with "chest fullness" since discharge from where she was diagnosed with bronchitis per her report. Persistent throughout hospitalization. -EKG showed inverted T waves in lateral lead (AVL, I, and V2). Also with ST depression in precordial lead V5,V6. Likely cardiac strain. -Cardiac risk factors include arrhythmia (atrial fibrillation), hypertension, age, T2DM. -Troponin negative x3 -CXR: Compensated cardiomegaly with minimal fluid in right minor fissure. -BMP: 354 -Lasix PO 20mg daily. (5) Constipation ICD Codes: K59.00 - Constipation, unspecified Status: Acute Plan: -Patient with recent constipation -Constipation protocol in place (6) HTN (hypertension) ICD Codes: I10 - Essential (primary) hypertension Status: Chronic Plan: Well controlled. Add jesús/arb if elevated. (7) Creatinine elevation ICD Codes: R79.89 - Other specified abnormal findings of blood chemistry Status: Acute Plan: -Cr on admission 1.53; it has fluctuated from 0.89 to 1.36 since 04/2017 (8) Fluids, Electrolytes, and Nutrition Status: Acute Plan: -Fluids: Defer at this time with heart healthy diet -Electrolytes: WNL, continue to monitor. K+ corrected 3.7 on 08/28/17. -Nutrition: Heart healthy diet SDW Dr. Small. (Scotty Nichols MD, R3) Problem Qualifiers (1) Chest pain: Qualified Codes: R07.1 - Chest pain on breathing (2) Constipation: Qualified Codes: K59.00 - Constipation, unspecified (3) HTN (hypertension): Qualified Codes: I10 - Essential (primary) hypertension Scotty Nichols MD, R3 Aug 28, 2017 11:52 Rossy Small MD Aug 28, 2017 14:07
[2017-08-28 12:34] LABS: INTERNATIONAL NORMALIZED RATIO 3.9 RATIO; PROTHROMBIN TIME - PATIENT 38.8 SEC (9.8-11.6)
[2017-08-28] MEDS: METOPROLOL SUCCINATE 50 MG EXTENDED RELEASE TAB PO SCH (22:10)
[2017-08-29] VITALS (9 sets, daily range): BP systolic 119–130; BP diastolic 60–85; PULSE 80–104; RESP 19–20; TEMP 97.8–100.1; O2SAT 96–98
--- NOTE | 2017-08-29 07:04 | HHI.FPPN ---
Subjective Remarks Patient doing well this AM. Low grade fever last night but denies feeling sweaty or with fever. She is eating breakfast this morning without difficulty. Still feeling "off" and slightly "out of it". Her breathing is fine at rest however upon exertion (walking > 10 feet) she becomes winded. (Scotty Nichols MD, R3) Objective Vitals Vital Signs Date Time Temp Pulse Resp B/P (MAP) Pulse Ox O2 Delivery O2 Flow Rate FiO2 08/29/17 03:18 100.1 84 20 119/85 (96) 96 08/28/17 23:10 98.0 95 20 114/77 (89) 95 08/28/17 20:14 98.2 98 16 120/70 (87) 95 08/28/17 19:53 98 08/28/17 16:30 98.4 97 18 125/87 (100) 98 08/28/17 15:34 86 08/28/17 12:00 99.1 103 16 128/63 (84) 96 08/28/17 11:58 83 08/28/17 08:41 98.6 60 18 128/60 (82) 98 08/28/17 08:04 78 I/O 08/28/17 08/28/17 08/28/17 08/29/17 08/29/17 08/29/17 07:00 15:00 23:00 07:00 15:00 23:00 Intake Total 480 ml Balance 480 ml Intake Oral 480 ml # Voids 6 2 4 # Bowel Movements 1 1 (Scotty Nichols MD, R3) Result Diagram: 08/27/17 0105 08/28/17 0510 Imaging Last 72 hours Impressions Chest X-Ray 08/26/17 1530 Signed Impressions: Service Date/Time: Saturday, August 26, 2017 15:46 - CONCLUSION: Compensated cardiomegaly with minimal fluid right minor fissure. Board Certified Radiologist. This report was verified electronically. Objective Remarks GEN: NAD comfortable HEENT: PERRL EOMI RESP: COARSE CRACKLES THROUGHOUT ALL LUNG GUO. )2 sat > 90% on r.a. no accessory muscle use. GI: SOFT NT ND CV: Irregular rate 80-90, holosystolic murmur appreciated at BUSB. Ext: improved lower extremity edema today 1+ to mid shins b/l. No calf tenderness on exam. CV irreg rhythm, rate 80-90s, holosystolic murmer appreciated at BUSB (Scotty Nichols MD, R3) A/P Assessment and Plan Mrs. Mcguire is a 76 y/o presenting to the ED with chest pain found to have a supratherapeutic INR on anticoagulation with medical noncompliance. Discharge Planning Today 08/27/2017 after ECHOcardiogram. Will require Home health for medical administration. (Scotty Nichols MD, R3) Attending Attestation Patient seen and examined. Case reviewed and discussed with Dr Nichols. Agree with plan of care as discussed with me and documented in the resident note. (Rossy Small MD) Problem List: (1) Atrial fibrillation ICD Codes: I48.91 - Unspecified atrial fibrillation Status: Acute Plan: Heart failure with presevered EF (HFpEF): -Rate controlled overnight. ECHO performed on 08/27/2017 showed: EF in the range of 55-60%. Wall thickness is measured at the upper limits of normal. The left atrial size is severely dilated. The right atrial size is moderately dilated. Moderate mitral valve regurgitation. There is moderate to severe tricuspid valve regurgitation. PLAN: Consulted cardiology evaluated by Dr. Small. He recommended getting a cardiac cath given ECHO findings, moderate/severe MVR, Class IV angina, and ischemic EKG changes at rest. Would wait until INR is less than 2.0. Will trend INR daily. Stop Metop tartrate home dosing. Continue Met succinate 150 mg daily. Continue with ER Cardizem at 300 mg daily. Stop immediate release 4 times per day as compliance / medical adherence is an issue. Never on an JUAN inhibitor and benefits in HFpEF is not fully supported in literature, however may be of benefit if needed. Can be started as an outpatient with her PCP. (2) Fever, low grade ICD Codes: R50.9 - Fever, unspecified Plan: We'll continue to monitor with vitals every 4 hours. Not showing signs of infection at this time. Coarse crackles throughout the lungs. If persistent elevation of temperature, would get a repeat chest x-ray, and possibly start IV antibiotics for a community-acquired pneumonia. Also would pursue a full septic workup at that time, including blood cultures and urine cultures. (3) Diabetes ICD Codes: E11.9 - Type 2 diabetes mellitus without complications Plan: A1c 7.1 -- DMT2. Switch to diabetic diet. Check accuchecks fasting and 2 hours after dinner. 2- Hour postprandial sugars were 137 (at goal). ISS if having elevated BG. Goal A1c 7-8. (4) Supratherapeutic INR ICD Codes: R79.1 - Abnormal coagulation profile Status: Resolved Plan: -INR 8.8 on admission. Stop coumadin. 4 monitor INRs daily, once less than 2.0, can proceed with a cardiac catheter. Per cardiology, the patient should be started on a heparin IV drip at that time. She has persistently been in an irregular rhythm throughout her hospitalization. (5) Chest pain ICD Codes: R07.9 - Chest pain, unspecified Status: Acute Plan: -Patient with "chest fullness" since discharge from where she was diagnosed with bronchitis per her report. Persistent throughout hospitalization. -EKG showed inverted T waves in lateral lead (AVL, I, and V2). Also with ST depression in precordial lead V5,V6. Likely cardiac strain. -Cardiac risk factors include arrhythmia (atrial fibrillation), hypertension, age, T2DM. -Troponin negative x3 -CXR: Compensated cardiomegaly with minimal fluid in right minor fissure. -BMP: 354 -Lasix PO 20mg daily. (6) Constipation ICD Codes: K59.00 - Constipation, unspecified Status: Acute Plan: -Patient with recent constipation -Constipation protocol in place (7) HTN (hypertension) ICD Codes: I10 - Essential (primary) hypertension Status: Chronic Plan: Well controlled. Add juan/arb if elevated. (8) Creatinine elevation ICD Codes: R79.89 - Other specified abnormal findings of blood chemistry Status: Acute Plan: -Cr on admission 1.53; it has fluctuated from 0.89 to 1.36 since 04/2017 We'll follow BMP. (9) Fluids, Electrolytes, and Nutrition Status: Acute Plan: -Fluids: Defer at this time with heart healthy diet -Electrolytes: WNL, continue to monitor. K+ corrected 3.7 on 08/28/17. -Nutrition: Heart healthy diet DW Dr. Small. (Magdalena,Scotty AMADOR, R3) Problem Qualifiers (1) Chest pain: Qualified Codes: R07.1 - Chest pain on breathing (2) Constipation: Qualified Codes: K59.00 - Constipation, unspecified (3) HTN (hypertension): Qualified Codes: I10 - Essential (primary) hypertension Scotty Nichols MD, R3 Aug 29, 2017 07:04 Rossy Small MD Aug 29, 2017 17:22
[2017-08-29] MEDS: DOCUSATE SODIUM 50 MG/SENNA 8.6 MG TAB PO SCH ×2 (09:00→21:42)
[2017-08-29] MEDS: POTASSIUM CHLORIDE 20 MEQ CONTROLLED RELEASE TAB PO SCH (09:35)
[2017-08-29] MEDS: CETIRIZINE HCL 10 MG TAB PO SCH (09:35)
[2017-08-29] MEDS: MULTIVITAMIN TAB PO SCH (09:35)
[2017-08-29] MEDS: METOPROLOL SUCCINATE 50 MG EXTENDED RELEASE TAB PO SCH (09:35)
[2017-08-29] MEDS: FUROSEMIDE 40 MG TAB PO SCH (09:37)
[2017-08-29] MEDS: PANTOPRAZOLE SOD 40 MG DELAYED RELEASE TAB PO SCH (09:37)
[2017-08-29] MEDS: DILTIAZEM-CD 300 MG CAP ER PO SCH (09:37)
[2017-08-29] MEDS: SODIUM CHLORIDE 0.9% FLUSH 10 ML FLUSH IV FLUSH SCH ×2 (09:38→21:42)
[2017-08-29] MEDS: CYANOCOBALAMIN 1,000 MCG TAB PO SCH (09:38)
[2017-08-29 12:25] LABS: INTERNATIONAL NORMALIZED RATIO 3.1 RATIO
[2017-08-29 12:36] LABS: BICARBONATE 29.7 MEQ/L (21.0-32.0); CALCIUM 8.3 MG/DL (8.5-10.1); CREATININE 1.17 MG/DL (0.50-1.00)
--- NOTE | 2017-08-29 18:36 | PD.CARD.PN ---
Subjective Subjective Remarks alert in nad Objective Medications Current Medications Medications (Trade) Dose Ordered Sig/Yosi Route Start Time Stop Time Status Last Admin (ZyrTEC) 10 mg DAILY PO 08/27/17 09:00 08/29/17 09:35 (Vitamin B12) 500 mcg DAILY PO 08/27/17 09:00 08/29/17 09:38 (Lasix) 40 mg DAILY PO 08/27/17 09:00 08/29/17 09:37 (Protonix) 40 mg DAILY PO 08/27/17 09:00 08/29/17 09:37 (KCl) 20 meq DAILY PO 08/27/17 09:00 08/29/17 09:35 (Theragran) 1 tab DAILY PO 08/27/17 09:00 08/29/17 09:35 (Pill Splitter) 1 ea UNSCH PRN OTHER 08/26/17 20:45 (NS Flush) 2 ml UNSCH PRN IV FLUSH 08/26/17 20:45 (NS Flush) 2 ml BID IV FLUSH 08/26/17 21:00 08/29/17 09:38 (Tylenol) 650 mg Q4H PRN PO 08/26/17 20:45 (Zofran Inj) 4 mg Q6H PRN IVP 08/26/17 20:45 (Narcan Inj) 0.4 mg UNSCH PRN IV PUSH 08/26/17 20:45 (Jessica-Colace) 1 tab BID PO 08/26/17 21:00 08/28/17 09:08 (Milk Of Magnesia Liq) 30 ml Q12H PRN PO 08/26/17 20:45 (Senokot) 17.2 mg Q12H PRN PO 08/26/17 20:45 (Dulcolax Supp) 10 mg DAILY PRN RECTAL 08/26/17 20:45 (Lactulose Liq) 30 ml DAILY PRN PO 08/26/17 20:45 (Cardizem Cd) 300 mg DAILY PO 08/28/17 09:00 08/29/17 09:37 (Toprol Xl) 150 mg DAILY PO 08/28/17 20:00 08/29/17 09:35 Vital Signs / I&O Vital Signs Date Time Temp Pulse Resp B/P (MAP) Pulse Ox O2 Delivery O2 Flow Rate FiO2 08/29/17 16:22 98.2 80 20 120/60 (80) 98 08/29/17 13:06 104 08/29/17 12:07 98.2 100 20 122/80 (94) 98 08/29/17 07:58 97.8 08/29/17 03:18 100.1 84 20 119/85 (96) 96 08/28/17 23:10 98.0 95 20 114/77 (89) 95 08/28/17 20:14 98.2 98 16 120/70 (87) 95 08/28/17 19:53 98 I/O 08/28/17 08/28/17 08/28/17 08/29/17 08/29/17 08/29/17 07:00 15:00 23:00 07:00 15:00 23:00 Intake Total 480 ml Balance 480 ml Intake Oral 480 ml # Voids 6 2 4 1 # Bowel Movements 1 1 1 Physical Exam GENERAL: SKIN: Warm and dry. HEAD: Normocephalic. EYES: No scleral icterus. No injection or drainage. NECK: Supple, trachea midline. No JVD or lymphadenopathy. CARDIOVASCULAR: Regular rate and rhythm without murmurs, gallops, or rubs. RESPIRATORY: Breath sounds equal bilaterally. No accessory muscle use. GASTROINTESTINAL: Abdomen soft, non-tender, nondistended. MUSCULOSKELETAL: No cyanosis, or edema. BACK: Nontender without obvious deformity. No CVA tenderness. Laboratory Laboratory Tests Test 08/29/17 11:40 Prothrombin Time 31.0 SEC Prothromb Time International Ratio 3.1 RATIO Blood Urea Nitrogen 22 MG/DL Creatinine 1.17 MG/DL Random Glucose 173 MG/DL Calcium Level 8.3 MG/DL Sodium Level 135 MEQ/L Potassium Level 4.1 MEQ/L Chloride Level 101 MEQ/L Carbon Dioxide Level 29.7 MEQ/L Anion Gap 4 MEQ/L Estimat Glomerular Filtration Rate 45 ML/MIN Assessment and Plan Problem List: (1) Unstable angina ICD Codes: I20.0 - Unstable angina (2) Mitral regurgitation ICD Codes: I34.0 - Nonrheumatic mitral (valve) insufficiency (3) Mitral stenosis ICD Codes: I05.0 - Rheumatic mitral stenosis (4) Pulmonary HTN ICD Codes: I27.20 - Pulmonary hypertension, unspecified (5) Supratherapeutic INR ICD Codes: R79.1 - Abnormal coagulation profile Status: Resolved (6) Atrial fibrillation ICD Codes: I48.91 - Unspecified atrial fibrillation Status: Acute (7) HTN (hypertension) ICD Codes: I10 - Essential (primary) hypertension Status: Chronic (8) Congestive heart failure ICD Codes: I50.9 - Heart failure, unspecified Status: Acute (9) COPD (chronic obstructive pulmonary disease) ICD Codes: J44.9 - Chronic obstructive pulmonary disease, unspecified Status: Chronic Assessment and Plan 1.) USA/ccs class 4 angina/mr/ms/p-htn - rhc/lhc when inr < 2.0, inr=3.1 today Problem Qualifiers (1) Atrial fibrillation: Qualified Codes: I48.2 - Chronic atrial fibrillation (2) HTN (hypertension): Qualified Codes: I10 - Essential (primary) hypertension Calos Small MD Aug 29, 2017 18:36
--- NOTE | 2017-08-29 19:15 | HHI.FPPN ---
Addendum to progress note ADDENDUM Reason for addendum: Additonal documentation Additional information Mrs. Mcguire is a very pleasant 76 y/o female with a PMHx fo a fib, hypertension , heart failure with presevred EF (55-60%), and anxiety/depression who presented to ED with general malaise, vague chest congestion, and feeling "off" . A chest pain work up was significant for severe valvular disease, ST depression in lateral leads, and T wave inversion in anterior leads. She also was classified as having Class IV anginal symptoms. An echocardiogram was significant for dilated atria, severe/moderate mitral and tricuspid valve regurgitation. This warranted a cardiology consult, and it was decided that once her INR is < 2.0, she should be started on IV heparin drip, and taken for a cardiac catheterization. We are managing her fluids (BNP >300 on admission, and CXR suggestive of pulmonary congestion/fluid), managing her blood pressure, and trending INR daily. She has been stable since being hospitalized. Scotty Nichols MD, R3 Aug 29, 2017 19:15
--- NOTE | 2017-08-29 19:38 | MB ---
cc: MADDIEMARGARITO DATE OF CONSULTATION 08/29/17 REASON FOR CONSULTATION Mental status change. HISTORY OF PRESENT ILLNESS This patient is a 76-year-old woman who presents with chest pain as well as shortness of breath. Echocardiogram showed an EF of 55% and severe mitral regurgitation. The patient has been found to have decompensated congestive heart failure. She is also high on her INR. She is on Coumadin for atrial fibrillation. She has been noted to have some intermittent confusion and difficulty with her memory. She is unaware of these symptoms herself, but this has been noticed in the hospital. PAST MEDICAL HISTORY 1. Atrial fibrillation, 2. Congestive heart failure, 3. Chronic obstructive pulmonary disease 4. Hypertension, 5. Uterine cancer 6. TIA in the past, 7. Hysterectomy 8. Shoulder surgery. MEDICATIONS Current - 1. Toprol XL 150 mg daily. 2. Diltiazem 300 mg daily. 3. Zyrtec. 4. Vitamin B12 500 mg daily. 5. Lasix 40 mg daily. 6. Protonix 40 mg daily. 7. Potassium chloride 8. Theragran. 9. Jessica-Colace. 10. Tylenol. 11. Zofran p.r.n. 12. Narcan p.r.n. NEUROLOGIC EXAMINATION Blood pressure is 120/60, pulse 80, respiratory rate is 20, temperature 98 degrees. Higher cortical function - she is alert, oriented x3. She recalls 1/3 objects in three minutes. Her remote memory appears to be intact. She can calculate normally. She can name objects normally. Speech is fluent with no paraphasic errors. She has mild confusion. Cranial nerves II-XII are normal. The pupils are 2 mm symmetric and reactive. There is no ptosis. Motor exam shows no focal deficit with essentially 5/5 strength in both upper and lower extremities. There is no drift. Reflexes are symmetric. LABORATORY DATA White count is 10,000, hemoglobin is 10.5, hematocrit 31.9%, platelet count 218,000, PT 31, INR 3.1, on the INR was 8.8. Sodium is 135, potassium 4.1, chloride 101, CO2 29.7, BUN is 22, creatinine 1.17, GFR is 35. IMPRESSION Mild mental status change, I suspect probably related to encephalopathy versus early onset dementia. RECOMMENDATIONS I would like to get a CT scan of the brain to rule out any structural etiology. Check additional labs including a thyroid panel and a B12 level. MD CONCEPCIÓN Carson/ /6:58 PM /7:27 PM
--- NOTE | 2017-08-29 21:13 | RADRPT ---
EXAM DATE/TIME: 08/29/2017 21:00 [facility] COMPARISON: CT BRAIN W/O CONTRAST, July 08, 2017, 16:40. INDICATIONS : Encephalopathy. RADIATION DOSE: 48.31 CTDIvol (mGy) MEDICAL HISTORY : Cardiovascular disease. Cerebrovascular disease. Uterina cancer SURGICAL HISTORY : Appendectomy. Hysterectomy. ENCOUNTER: Initial ACUITY: 1 day PAIN SCALE: 0/10 LOCATION: cranial TECHNIQUE: Multiple contiguous axial images were obtained of the head. Using automated exposure control and adj ustment of the mA and/or kV according to patient size, radiation dose was kept as low as reasonably a chievable to obtain optimal diagnostic quality images. DICOM format image data is available electro nically for review and comparison. FINDINGS: CEREBRUM: There is mild generalized atrophy. Ventricles are normal in size given the degree of atrophy present. There is mild to moderate periventricular white matter low attenuation, stable from the prior study. No midline shift, mass lesion, hemorrhage or acute infarction. No extra-axial fluid collections ar e seen. POSTERIOR FOSSA: The cerebellum and brainstem are intact. The 4th ventricle is midline. The cerebellopontine angle i s unremarkable. EXTRACRANIAL: Visualized sinuses are clear. SKULL: The calvaria is intact. No evidence of skull fracture. CONCLUSION: 1. Stable noncontrast head CT. No acute intracranial abnormality is identified. 2. Chronic changes include mild stable atrophy and chronic periventricular white matter change charac teristic of chronic microvascular ischemia. Benedicto Jackman MD on August 29, 2017 at 21:09 Board Certified Radiologist. This report was verified electronically.
[2017-08-30] VITALS (10 sets, daily range): BP systolic 111–137; BP diastolic 63–91; PULSE 85–116; RESP 18–20; TEMP 97.5–98.5; O2SAT 95–98
[2017-08-30 08:58] LABS: AUTOMATED NEUTROPHIL # 6.3 TH/MM3 (1.8-7.7); BASOPHIL % 0.6 % (0.0-2.0); EOSINOPHIL # 0.2 TH/MM3 (0-0.4); EOSINOPHIL % 2.4 % (0.0-4.0); HEMATOCRIT 32.6 % (35.0-46.0); HEMOGLOBIN 10.9 GM/DL (11.6-15.3); LYMPH % 6.4 % (9.0-44.0); LYMPHOCYTE # 0.5 TH/MM3 (1.0-4.8); MEAN CELL VOLUME 86.6 FL (80.0-100.0); MEAN CORPUSCULAR HEMOGLOBIN 28.9 PG (27.0-34.0); MEAN CORPUSCULAR HGB CONC 33.4 % (32.0-36.0); MEAN PLATELET VOLUME 8.2 FL (7.0-11.0); MONO % 8.6 % (0.0-8.0); MONOCYTE # 0.7 TH/MM3 (0-0.9); PLATELET COUNT 244 TH/MM3 (150-450); RED BLOOD COUNT 3.76 MIL/MM3 (4.00-5.30); RED CELL DISTRIBUTION WIDTH 15.9 % (11.6-17.2); WHITE BLOOD COUNT 7.7 TH/MM3 (4.0-11.0)
[2017-08-30] MEDS: MULTIVITAMIN TAB PO SCH (09:00)
[2017-08-30 09:17] LABS: INTERNATIONAL NORMALIZED RATIO 2.4 RATIO; PROTHROMBIN TIME - PATIENT 24.6 SEC (9.8-11.6)
[2017-08-30 09:21] LABS: BICARBONATE 29.3 MEQ/L (21.0-32.0); CALCIUM 8.5 MG/DL (8.5-10.1); CREATININE 1.19 MG/DL (0.50-1.00)
[2017-08-30] MEDS: CYANOCOBALAMIN 1,000 MCG TAB PO SCH (09:31)
[2017-08-30] MEDS: PANTOPRAZOLE SOD 40 MG DELAYED RELEASE TAB PO SCH (09:31)
[2017-08-30] MEDS: DOCUSATE SODIUM 50 MG/SENNA 8.6 MG TAB PO SCH ×2 (09:32→20:48)
[2017-08-30] MEDS: FUROSEMIDE 40 MG TAB PO SCH (09:32)
[2017-08-30] MEDS: POTASSIUM CHLORIDE 20 MEQ CONTROLLED RELEASE TAB PO SCH (09:32)
[2017-08-30] MEDS: CETIRIZINE HCL 10 MG TAB PO SCH (09:32)
[2017-08-30] MEDS: METOPROLOL SUCCINATE 50 MG EXTENDED RELEASE TAB PO SCH (09:32)
[2017-08-30] MEDS: DILTIAZEM-CD 300 MG CAP ER PO SCH (09:32)
[2017-08-30] MEDS: SODIUM CHLORIDE 0.9% FLUSH 10 ML FLUSH IV FLUSH SCH ×2 (09:35→20:48)
--- NOTE | 2017-08-30 11:03 | PD.CARD.PN ---
Subjective Subjective Remarks alert in nad Objective Medications Current Medications Medications (Trade) Dose Ordered Sig/Yosi Route Start Time Stop Time Status Last Admin (ZyrTEC) 10 mg DAILY PO 08/27/17 09:00 08/30/17 09:32 (Vitamin B12) 500 mcg DAILY PO 08/27/17 09:00 08/30/17 09:31 (Lasix) 40 mg DAILY PO 08/27/17 09:00 08/30/17 09:32 (Protonix) 40 mg DAILY PO 08/27/17 09:00 08/30/17 09:31 (KCl) 20 meq DAILY PO 08/27/17 09:00 08/30/17 09:32 (Theragran) 1 tab DAILY PO 08/27/17 09:00 08/30/17 09:00 (Pill Splitter) 1 ea UNSCH PRN OTHER 08/26/17 20:45 (NS Flush) 2 ml UNSCH PRN IV FLUSH 08/26/17 20:45 (NS Flush) 2 ml BID IV FLUSH 08/26/17 21:00 08/30/17 09:35 (Tylenol) 650 mg Q4H PRN PO 08/26/17 20:45 (Zofran Inj) 4 mg Q6H PRN IVP 08/26/17 20:45 (Narcan Inj) 0.4 mg UNSCH PRN IV PUSH 08/26/17 20:45 (Jessica-Colace) 1 tab BID PO 08/26/17 21:00 08/30/17 09:32 (Milk Of Magnesia Liq) 30 ml Q12H PRN PO 08/26/17 20:45 (Senokot) 17.2 mg Q12H PRN PO 08/26/17 20:45 (Dulcolax Supp) 10 mg DAILY PRN RECTAL 08/26/17 20:45 (Lactulose Liq) 30 ml DAILY PRN PO 08/26/17 20:45 (Cardizem Cd) 300 mg DAILY PO 08/28/17 09:00 08/30/17 09:32 (Toprol Xl) 150 mg DAILY PO 08/28/17 20:00 08/30/17 09:32 Vital Signs / I&O Vital Signs Date Time Temp Pulse Resp B/P (MAP) Pulse Ox O2 Delivery O2 Flow Rate FiO2 08/30/17 09:17 98.4 113 18 126/84 (98) 97 08/30/17 04:00 98.5 95 19 111/63 (79) 98 08/30/17 04:00 Room Air 08/30/17 03:49 105 08/30/17 00:00 Room Air 08/30/17 00:00 98.1 85 20 127/73 (91) 98 08/29/17 23:48 94 08/29/17 21:42 Room Air 08/29/17 21:18 90 08/29/17 20:10 98.9 103 19 130/74 (92) 97 08/29/17 19:47 97 08/29/17 16:22 98.2 80 20 120/60 (80) 98 08/29/17 13:06 104 08/29/17 12:07 98.2 100 20 122/80 (94) 98 I/O 08/29/17 08/29/17 08/29/17 08/30/17 08/30/17 08/30/17 07:00 15:00 23:00 07:00 15:00 23:00 Intake Total 240 ml Output Total 500 ml Balance -260 ml Intake Oral 240 ml Output Urine Total 500 ml # Voids 1 # Bowel Movements 1 0 Physical Exam GENERAL: SKIN: Warm and dry. HEAD: Normocephalic. EYES: No scleral icterus. No injection or drainage. NECK: Supple, trachea midline. No JVD or lymphadenopathy. CARDIOVASCULAR: Regular rate and rhythm without murmurs, gallops, or rubs. RESPIRATORY: Breath sounds equal bilaterally. No accessory muscle use. GASTROINTESTINAL: Abdomen soft, non-tender, nondistended. MUSCULOSKELETAL: No cyanosis, or edema. BACK: Nontender without obvious deformity. No CVA tenderness. Laboratory Laboratory Tests Test 08/29/17 11:40 08/30/17 08:25 Prothrombin Time 31.0 SEC 24.6 SEC Prothromb Time International Ratio 3.1 RATIO 2.4 RATIO Blood Urea Nitrogen 22 MG/DL 21 MG/DL Creatinine 1.17 MG/DL 1.19 MG/DL Random Glucose 173 MG/DL 116 MG/DL Calcium Level 8.3 MG/DL 8.5 MG/DL Sodium Level 135 MEQ/L 138 MEQ/L Potassium Level 4.1 MEQ/L 4.0 MEQ/L Chloride Level 101 MEQ/L 101 MEQ/L Carbon Dioxide Level 29.7 MEQ/L 29.3 MEQ/L Anion Gap 4 MEQ/L 8 MEQ/L Estimat Glomerular Filtration Rate 45 ML/MIN 44 ML/MIN Vitamin B12 Level 1029 PG/ML Thyroid Stimulating Hormone 3rd Gen 3.760 uIU/ML White Blood Count 7.7 TH/MM3 Red Blood Count 3.76 MIL/MM3 Hemoglobin 10.9 GM/DL Hematocrit 32.6 % Mean Corpuscular Volume 86.6 FL Mean Corpuscular Hemoglobin 28.9 PG Mean Corpuscular Hemoglobin Concent 33.4 % Red Cell Distribution Width 15.9 % Platelet Count 244 TH/MM3 Mean Platelet Volume 8.2 FL Neutrophils (%) (Auto) 82.0 % Lymphocytes (%) (Auto) 6.4 % Monocytes (%) (Auto) 8.6 % Eosinophils (%) (Auto) 2.4 % Basophils (%) (Auto) 0.6 % Neutrophils # (Auto) 6.3 TH/MM3 Lymphocytes # (Auto) 0.5 TH/MM3 Monocytes # (Auto) 0.7 TH/MM3 Eosinophils # (Auto) 0.2 TH/MM3 Basophils # (Auto) 0.0 TH/MM3 CBC Comment DIFF FINAL Differential Comment Assessment and Plan Problem List: (1) Unstable angina ICD Codes: I20.0 - Unstable angina (2) Mitral regurgitation ICD Codes: I34.0 - Nonrheumatic mitral (valve) insufficiency (3) Mitral stenosis ICD Codes: I05.0 - Rheumatic mitral stenosis (4) Pulmonary HTN ICD Codes: I27.20 - Pulmonary hypertension, unspecified (5) Supratherapeutic INR ICD Codes: R79.1 - Abnormal coagulation profile Status: Resolved (6) Atrial fibrillation ICD Codes: I48.91 - Unspecified atrial fibrillation Status: Acute (7) HTN (hypertension) ICD Codes: I10 - Essential (primary) hypertension Status: Chronic (8) Congestive heart failure ICD Codes: I50.9 - Heart failure, unspecified Status: Acute (9) COPD (chronic obstructive pulmonary disease) ICD Codes: J44.9 - Chronic obstructive pulmonary disease, unspecified Status: Chronic Assessment and Plan 1.) USA/ccs class 4 angina/mr/ms/p-htn - rhc/lhc when inr < 2.0 and cleared by neurology, inr=2.4 today Problem Qualifiers (1) Atrial fibrillation: Qualified Codes: I48.2 - Chronic atrial fibrillation (2) HTN (hypertension): Qualified Codes: I10 - Essential (primary) hypertension Calos Small MD Aug 30, 2017 11:03
--- NOTE | 2017-08-30 11:56 | HHI.FPPN ---
Subjective Remarks Patient is doing well this morning. She complains of some mild shortness of breath when getting up which is not new for her. No fever, chills, nausea, vomiting. She does mention a story about being at [facility] and a online content editor walking and in jumping up on her bed wearing cowboy boots. (Asad Witt MD, R3) Objective Vitals Vital Signs Date Time Temp Pulse Resp B/P (MAP) Pulse Ox O2 Delivery O2 Flow Rate FiO2 08/30/17 09:17 98.4 113 18 126/84 (98) 97 08/30/17 04:00 98.5 95 19 111/63 (79) 98 08/30/17 04:00 Room Air 08/30/17 03:49 105 08/30/17 00:00 Room Air 08/30/17 00:00 98.1 85 20 127/73 (91) 98 08/29/17 23:48 94 08/29/17 21:42 Room Air 08/29/17 21:18 90 08/29/17 20:10 98.9 103 19 130/74 (92) 97 08/29/17 19:47 97 08/29/17 16:22 98.2 80 20 120/60 (80) 98 08/29/17 13:06 104 08/29/17 12:07 98.2 100 20 122/80 (94) 98 I/O 08/29/17 08/29/17 08/29/17 08/30/17 08/30/17 08/30/17 07:00 15:00 23:00 07:00 15:00 23:00 Intake Total 240 ml Output Total 500 ml Balance -260 ml Intake Oral 240 ml Output Urine Total 500 ml # Voids 1 # Bowel Movements 1 0 (Asad Witt MD, R3) Result Diagram: 08/30/17 0825 08/30/17 0825 Objective Remarks GEN: NAD comfortable HEENT: PERRL EOMI RESP: Relatively clear to auscultation. GI: SOFT NT ND CV: Irregular rate 60-80, holosystolic murmur appreciated at BUSB. Ext: improved lower extremity edema today 1+ to mid shins b/l. No calf tenderness on exam. Psych: awake alert and oriented 3; however, mentions unusual story (see history of present illness) (Asad Witt MD, R3) A/P Assessment and Plan Mrs. Mcguire is a 76 y/o presenting to the ED with chest pain found to have a supratherapeutic INR on anticoagulation with medical noncompliance. Found to have severe MVR. Cardiology consulted. Plans to have catheterization when INR <2.0 Discharge Planning Will require Home health for medical administration. Patient currently refusing [facility] facility and/or home health care. Case management consulted. Son "Alli" is contact lens manufacturer at [phone] (Asad Witt MD, R3) Attending Attestation Patient seen and examined. Case reviewed and discussed with the resident team. Agree with plan of care as discussed with me and documented in the resident note. Ms Mcguire has unfortunately had multiple problems with her INRs. 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 However, she is consistent with this story and has not had any other signs of Psychiatric problems. She denies any history of seeing Psychiatry or taking meds. (Tea Stoner MD) Problem List: (1) Mitral regurgitation ICD Codes: I34.0 - Nonrheumatic mitral (valve) insufficiency Status: Acute Plan: Cardiology consulted USA/ccs class 4 angina/mr/ms/p-htn - rhc/lhc when inr < 2.0 and cleared by neurology, inr=2.4 today (2) Pulmonary HTN ICD Codes: I27.20 - Pulmonary hypertension, unspecified Status: Acute Plan: See plan above (3) Mitral stenosis ICD Codes: I05.0 - Rheumatic mitral stenosis Plan: See plan above (4) Atrial fibrillation ICD Codes: I48.91 - Unspecified atrial fibrillation Status: Acute Plan: Consulted cardiology evaluated by Dr. Small. Stop Metop tartrate home dosing. Continue Met succinate 150 mg daily. Continue with ER Cardizem at 300 mg daily. Stop immediate release 4 times per day as compliance / medical adherence is an issue. Supratherapeutic INR, see below Never on an JUAN inhibitor and benefits in HFpEF is not fully supported in literature, however may be of benefit if needed. Can be started as an outpatient with her PCP. (5) Altered mental status ICD Codes: R41.82 - Altered mental status, unspecified Status: Acute Plan: Neurology consulted. Likely encephalopathy versus early onset dementia CT scan 08/29--> stable noncontrast head CT. No acute intracranial abnormality. Chronic changes including mild stable atrophy and chronic periventricular white matter change characteristic of chronic microvascular ischemia. Vitamin B12 and TSH within normal limits Case management consulted to help with placement. Currently patient refusing [facility] facility and/or home health (6) Diabetes ICD Codes: E11.9 - Type 2 diabetes mellitus without complications Status: Chronic Plan: A1c 7.1 -- DMT2. Checking bedside glucose. Consider sliding scale if needed. (7) Supratherapeutic INR ICD Codes: R79.1 - Abnormal coagulation profile Status: Resolved Plan: -INR 8.8 on admission from non-compliance 4 monitor INRs daily, once less than 2.0, can proceed with a cardiac cath. Per cardiology, the patient should be started on a heparin IV drip at that time. (8) Chest pain ICD Codes: R07.9 - Chest pain, unspecified Status: Acute Plan: Cardiac workup has been negative to this point. Cardiology consulted Plan as above. (9) HTN (hypertension) ICD Codes: I10 - Essential (primary) hypertension Status: Chronic Plan: Well controlled. Add juan/arb if elevated. (10) Creatinine elevation ICD Codes: R79.89 - Other specified abnormal findings of blood chemistry Status: Acute Plan: Improved since admission. Patient likely has stage III CKD (consider outpatient nephrology referral by PCP ) (11) Fluids, Electrolytes, and Nutrition Status: Acute Plan: -Fluids: Defer at this time with heart healthy diet -Electrolytes: continue to monitor. -Nutrition: Heart healthy diet (Asad Witt MD, R3) Problem Qualifiers (1) Mitral regurgitation: Qualified Codes: I34.0 - Nonrheumatic mitral (valve) insufficiency (2) Mitral stenosis: Qualified Codes: I34.2 - Nonrheumatic mitral (valve) stenosis (3) Altered mental status: Qualified Codes: R41.82 - Altered mental status, unspecified (4) Diabetes: Qualified Codes: E11.8 - Type 2 diabetes mellitus with unspecified complications (5) Chest pain: Qualified Codes: R07.1 - Chest pain on breathing (6) HTN (hypertension): Qualified Codes: I10 - Essential (primary) hypertension Asad Witt MD, R3 Aug 30, 2017 11:56 Tea Stoner MD Aug 31, 2017 12:31
[2017-08-31] VITALS (9 sets, daily range): BP systolic 122–142; BP diastolic 57–85; PULSE 88–113; RESP 18–20; TEMP 97.7–98.5; O2SAT 93–99
[2017-08-31] MEDS: FUROSEMIDE 40 MG TAB PO SCH (08:59)
[2017-08-31] MEDS: METOPROLOL SUCCINATE 50 MG EXTENDED RELEASE TAB PO SCH (08:59)
[2017-08-31] MEDS: DILTIAZEM-CD 300 MG CAP ER PO SCH (08:59)
[2017-08-31] MEDS: CYANOCOBALAMIN 1,000 MCG TAB PO SCH (09:00)
[2017-08-31] MEDS: MULTIVITAMIN TAB PO SCH (09:00)
[2017-08-31] MEDS: SODIUM CHLORIDE 0.9% FLUSH 10 ML FLUSH IV FLUSH SCH ×2 (09:00→21:49)
[2017-08-31] MEDS: POTASSIUM CHLORIDE 20 MEQ CONTROLLED RELEASE TAB PO SCH (09:00)
[2017-08-31] MEDS: PANTOPRAZOLE SOD 40 MG DELAYED RELEASE TAB PO SCH (09:00)
[2017-08-31] MEDS: DOCUSATE SODIUM 50 MG/SENNA 8.6 MG TAB PO SCH ×2 (09:00→21:49)
[2017-08-31] MEDS: CETIRIZINE HCL 10 MG TAB PO SCH (09:00)
[2017-08-31 10:21] LABS: HEMATOCRIT 33.1 % (35.0-46.0); MEAN CELL VOLUME 87.5 FL (80.0-100.0); MEAN CORPUSCULAR HEMOGLOBIN 29.2 PG (27.0-34.0); MEAN CORPUSCULAR HGB CONC 33.4 % (32.0-36.0); MEAN PLATELET VOLUME 8.5 FL (7.0-11.0); PLATELET COUNT 246 TH/MM3 (150-450); RED BLOOD COUNT 3.78 MIL/MM3 (4.00-5.30); RED CELL DISTRIBUTION WIDTH 16.5 % (11.6-17.2); WHITE BLOOD COUNT 6.3 TH/MM3 (4.0-11.0)
[2017-08-31 10:29] LABS: PROTHROMBIN TIME - PATIENT 20.5 SEC (9.8-11.6)
[2017-08-31 10:48] LABS: BICARBONATE 28.4 MEQ/L (21.0-32.0); CALCIUM 8.4 MG/DL (8.5-10.1)
--- NOTE | 2017-08-31 11:34 | HHI.FPPN ---
Subjective Remarks Ms Mcguire had no acute events overnight. Cardiology plans to take for heart cath when INR <2.0 and cleared by neurology; INR at 2.0 today. Pt having no pain , SOB, CP or concerns and is waiting for the procedure to be done. (Krzysztof Lerma MD R1) Objective Vitals Vital Signs Date Time Temp Pulse Resp B/P (MAP) Pulse Ox O2 Delivery O2 Flow Rate FiO2 08/31/17 08:00 98.1 105 20 123/84 (97) 93 08/31/17 04:00 98.0 102 18 122/57 (78) 99 08/31/17 04:00 Room Air 08/31/17 03:55 91 08/31/17 00:01 113 08/31/17 00:00 Room Air 08/31/17 00:00 97.7 88 18 135/76 (95) 96 08/30/17 20:32 116 08/30/17 20:00 97.5 102 20 135/91 (106) 95 08/30/17 20:00 Room Air 08/30/17 17:31 98.5 96 20 137/89 (105) 97 08/30/17 13:15 97.7 108 18 123/81 (95) 96 08/30/17 12:00 116 I/O 08/30/17 08/30/17 08/30/17 08/31/17 08/31/17 08/31/17 07:00 15:00 23:00 07:00 15:00 23:00 Intake Total 240 ml 0 ml Output Total 500 ml 1450 ml Balance -260 ml -1450 ml Intake Oral 240 ml 0 ml Output Urine Total 500 ml 1450 ml # Bowel Movements 0 0 (Krzysztof Lerma MD R1) Result Diagram: 08/31/17 0920 08/31/17 0920 Objective Remarks GEN: NAD comfortable HEENT: PERRL EOMI RESP: Relatively clear to auscultation. GI: SOFT NT ND CV: Irregular rate 60-80, holosystolic murmur appreciated at BUSB. Ext: improved lower extremity edema today 1+ to mid shins b/l. No calf tenderness on exam. Psych: awake alert and oriented 3; however, mentions unusual story (see history of present illness) Medications and IVs Current Medications Medications (Trade) Dose Ordered Sig/Yosi Route Start Time Stop Time Status Last Admin (ZyrTEC) 10 mg DAILY PO 08/27/17 09:00 08/31/17 09:00 (Vitamin B12) 500 mcg DAILY PO 08/27/17 09:00 08/31/17 09:00 (Lasix) 40 mg DAILY PO 08/27/17 09:00 08/31/17 08:59 (Protonix) 40 mg DAILY PO 08/27/17 09:00 08/31/17 09:00 (KCl) 20 meq DAILY PO 08/27/17 09:00 08/31/17 09:00 (Theragran) 1 tab DAILY PO 08/27/17 09:00 08/31/17 09:00 (Pill Splitter) 1 ea UNSCH PRN OTHER 08/26/17 20:45 (NS Flush) 2 ml UNSCH PRN IV FLUSH 08/26/17 20:45 (NS Flush) 2 ml BID IV FLUSH 08/26/17 21:00 08/31/17 09:00 (Tylenol) 650 mg Q4H PRN PO 08/26/17 20:45 (Zofran Inj) 4 mg Q6H PRN IVP 08/26/17 20:45 (Narcan Inj) 0.4 mg UNSCH PRN IV PUSH 08/26/17 20:45 (Jessica-Colace) 1 tab BID PO 08/26/17 21:00 08/31/17 09:00 (Milk Of Magnesia Liq) 30 ml Q12H PRN PO 08/26/17 20:45 (Senokot) 17.2 mg Q12H PRN PO 08/26/17 20:45 (Dulcolax Supp) 10 mg DAILY PRN RECTAL 08/26/17 20:45 (Lactulose Liq) 30 ml DAILY PRN PO 08/26/17 20:45 (Cardizem Cd) 300 mg DAILY PO 08/28/17 09:00 08/31/17 08:59 (Toprol Xl) 150 mg DAILY PO 08/28/17 20:00 08/31/17 08:59 (Krzysztof Lerma MD R1) Urinary Catheter: No (Krzysztof Lerma MD R1) A/P Assessment and Plan Mrs. Mcguire is a 76 y/o presenting to the ED with chest pain found to have a supratherapeutic INR on anticoagulation with medical noncompliance. Found to have severe MVR. Cardiology and neurology consulted. Plans to have catheterization when INR <2.0 and neurology signs off. Discharge Planning Will require Home health for medical administration. Patient currently refusing half-way facility and/or home health care. Case management consulted. Son "Alli" is mailroom personnel at [phone] (Krzysztof Lerma MD R1) Attending Attestation Patient seen and examined. Case reviewed and discussed with the resident team. Agree with plan of care as discussed with me and documented in the resident note. hope she can go for cath today (Tea Stoner MD) Problem List: (1) Mitral regurgitation ICD Codes: I34.0 - Nonrheumatic mitral (valve) insufficiency Status: Acute Plan: Cardiology consulted [place]/ccs class 4 angina/mr/ms/p-htn - rhc/lhc when inr < 2.0 and cleared by neurology, inr=2.0 today (2) Pulmonary HTN ICD Codes: I27.20 - Pulmonary hypertension, unspecified Status: Acute Plan: See plan above (3) Mitral stenosis ICD Codes: I05.0 - Rheumatic mitral stenosis Plan: See plan above (4) Atrial fibrillation ICD Codes: I48.91 - Unspecified atrial fibrillation Status: Acute Plan: Consulted cardiology evaluated by Dr. Small. Stop Metoprolol tartrate home dosing. Continue Met succinate 150 mg daily. Continue with ER Cardizem at 300 mg daily. Stop immediate release 4 times per day as compliance / medical adherence is an issue. Supratherapeutic INR, see below Never on an JUAN inhibitor and benefits in HFpEF is not fully supported in literature, however may be of benefit if needed. Can be started as an outpatient with her PCP. (5) Altered mental status ICD Codes: R41.82 - Altered mental status, unspecified Status: Acute Plan: Neurology consulted. Likely encephalopathy versus early onset dementia CT scan 08/29--> stable noncontrast head CT. No acute intracranial abnormality. Chronic changes including mild stable atrophy and chronic periventricular white matter change characteristic of chronic microvascular ischemia. Vitamin B12 and TSH within normal limits Case management consulted to help with placement. Currently patient refusing half-way facility and/or home health (6) Diabetes ICD Codes: E11.9 - Type 2 diabetes mellitus without complications Status: Chronic Plan: A1c 7.1 -- DMT2. Checking bedside glucose. Consider sliding scale if needed. (7) Supratherapeutic INR ICD Codes: R79.1 - Abnormal coagulation profile Status: Resolved Plan: -INR 8.8 on admission from non-compliance 4 monitor INRs daily, once less than 2.0, can proceed with a cardiac cath. Per cardiology, the patient should be started on a heparin IV drip at that time. -INR 2.0 today; check INR tomorrow and start heparin gtt if INR<2.0 (8) Chest pain ICD Codes: R07.9 - Chest pain, unspecified Status: Acute Plan: Cardiac workup has been negative to this point. Cardiology consulted Plan as above. (9) HTN (hypertension) ICD Codes: I10 - Essential (primary) hypertension Status: Chronic Plan: Well controlled. Add juan/arb if elevated. (10) Creatinine elevation ICD Codes: R79.89 - Other specified abnormal findings of blood chemistry Status: Acute Plan: Resolved. Steadily improved following admission and 1.0 today. Patient likely has stage III CKD (consider outpatient nephrology referral by PCP ) (11) Fluids, Electrolytes, and Nutrition Status: Acute Plan: -Fluids: Defer at this time with heart healthy diet -Electrolytes: continue to monitor. -Nutrition: Heart healthy diet Anticoagulation: CM consult to assist in authorizing xarelto or another novel AC since pt failed outpt coumadin therapy with supratherapeutic INR on admit (Krzysztof Lerma MD R1) Problem Qualifiers (1) Mitral regurgitation: Qualified Codes: I34.0 - Nonrheumatic mitral (valve) insufficiency (2) Mitral stenosis: Qualified Codes: I34.2 - Nonrheumatic mitral (valve) stenosis (3) Altered mental status: Qualified Codes: R41.82 - Altered mental status, unspecified (4) Diabetes: Qualified Codes: E11.8 - Type 2 diabetes mellitus with unspecified complications (5) Chest pain: Qualified Codes: R07.1 - Chest pain on breathing (6) HTN (hypertension): Qualified Codes: I10 - Essential (primary) hypertension Krzysztof Lerma MD R1 Aug 31, 2017 11:34 Tea Stoner MD Aug 31, 2017 12:31
[2017-08-31] MEDS ORDERED: HEPARIN-NS/PF FLUSH BAG 2,000 ML IV FLUSH ONE (14:38)
--- NOTE | 2017-08-31 15:36 | CATHPROC ---
ison furniture HIS Report Study Information Study Number Admission Scheduled Start Study Start [id number] Aug 28 2017 7:16AM 08/31/2017 Aug 31 2017 2:23PM [place] Service Cardiac Catheterization Admit Source Facility Department Emergency department [facility] - Audio Visual Engineer Physician and Clinical Staff Initial Calos Villar Casing Grader Mik Ayala,AMNA Recorder Yaa Tapia BSN Scrub Hosterman, Elvin,RT(R) Procedures Performed Procedure Location (Site) Vessel Name Coronary Angiograms LCA Left Coronary Coronary Angiograms RCA Right Coronary LV Gram-hand inj. LV LV Ventricle Equipment Time Global Marketing Operations Manager Description Size Mfg Part Number Used/Scraped CATHETER, FR5 SWAN SOLE 14:24 ClaraStream FR 5 [id number] *[id number] Used MONITOR TRANSDUCER, TRUWAVE [id number] 14:24 MCKEON SOROT * Used W/STOCKCOCK *[id number] [id number] *[id number] [id number] *[id number] 14:24 MEDLINE INDUSTRIES PACK, CCL CUSTOM * Used *[id number] 14:24 iConText PACER PEN, SKIN DUAL W/ RULER * Used *[id number] 14:24 Ooploo MEDICAL SHEATH, FR5.5 PRELUDE 11CM FR 5.5 Used 038ACT# [id number] 14:24 Ooploo MEDICAL WIRE, 3MMJ .035 180CM 180CM Used *[id number] 14:24 NAMIC MANIFOLD, 4 PORT * Used *[id number] 14:24 NYCOMED OMNIPAQUE, 350 MG, 150ML 150ML [id number] Used [id number] 14:24 GARZA MEDICAL BLANKET,WARM AIR CCL * Used *[id number] 14:24 TERUMO MEDICAL SHEATH, FR4 TERUMO (10CM) FR 4 Used *[id number] History: Current Medications Medication Dosage/Unit Route Frequency Last Date/Time Taken LASIX CARDIZEM Toprol History: Allergies Allergy Reaction Penicillins RASH History: Risk Factors Family History of Hypertension Dyslipidemia Previous MA Previous Heart Failure Premature CAD Yes No Yes No Yes Prior Valve Prior PCI Prior CABG Surgery No No No Cerebrovascular Peripheral Artery Chronic Lung On Dialysis Diabetes Disease Disease Disease No Yes No Yes No History: Symptoms/Diagnosis Selection Items Chest pain SOB History: Stress Tests Stress or Imaging Studies Performed No History: Arrhythmias Selection Items Atrial fibrillation History: Other Disease Selection Items CHF COPD HTN History: Other Current Smoker No Labs Hgb (g/dl) Hct (%) RBC (MIL/MM3) WBC (l/cumm) Platelets (thousands) 11.60-17.00 35.00-51.00 4.00-5.90 4.00-11.00 150.00-450.00 11.0 33.1 3.7 6.3 246 Glucose (mg/dl) BUN (mg/dl) Creatinine (mg/dl) BUN:Creatinine (1:x) 74.00-106.00 7.00-18.00 0.50-1.30 10.00-20.00 106 18 1.0 18 Na (meq/l) K (meq/l) 136.00-145.00 3.50-5.10 137 3.9 INR (PTT:PT) 0.90-1.10 2 CPK-MB (ng/ML) 0.50-3.60 Not Drawn Medication Medication Total Dose (Bolus/Oral) Medication Total Dosage/Unit 1% XYLOCAINE 20 mL Medications (Bolus/Oral) Medication Time Given Dosage/Unit Administered By Reason 1% XYLOCAINE 08/31/2017 3:01:32 PM 20 mL Geovanny, Calos 20 mL 1% XYLOCAINE given in lab by Calos Small in Right Groin via Subcutaneous. Medication (Drip) Medication Time Given Dosage/Unit Concentration/Unit Diluent (ml) Solutio n IV Solutions 08/31/2017 2:35:42 PM 50 mL (IV) NaCl .9 IV Solutions given in lab by Mik Ayala, RN in Right Antecubital via Peripheral IV. Pump/Drip Edmar w using NaCl .9. Initial Case Assessment Cardiovascular HR Rhythm NIBP Chest Pain 70 afib 121/76 0 Edema Present Skin color Skin Moderate Normal Warm Dry Circulatory - Right Pulses Dorsalis Pedis Femoral 2 2 Scale (0,1,2,3,4,d) Circulatory - Left Pulses Dorsalis Pedis Femoral 2 2 Scale (0,1,2,3,4,d) Neurological State Oriented to time-place- Alert Moves all extremities person Respiration - General Respiration Rate SpO2 (%) (B/min) 15 94 Final Case Assessment Cardiovascular HR Rhythm NIBP Chest Pain 78 afib 130/84 0 Edema Present Skin color Skin Moderate Normal Warm Dry Circulatory - Right Pulses Dorsalis Pedis Femoral 2 2 Scale (0,1,2,3,4,d) Scale (0,1,2,3,4,d) Neurological State Oriented to time-place- Alert Moves all extremities person Respiration - General Respiration Rate SpO2 (%) O2 (lpm) (B/min) 20 92 0 Chronological Log Time Study Chronological Log 14:35:23 Patient arrived via Bed. 14:35:26 Patient Name, D.O.B, / Armband Verified By R.N. 14:35:26 Consent signed by the physician and the patient and verified by the Audio Visual Engineer staff. 14:35:27 Pre-op and post- op instructions given; patient acknowledges understanding of instructions. 14:35:28 Verbal Stimulation=2 Physical Stimulation=2 Airway=2 Respiration=2 TOTAL=8. (0=absent, 1=li mited, 2=present) 14:35:34 Patient has been NPO for More than 6Hrs. 14:35:37 Skin Breakdown- none per pt 14:35:38 Patient Warmer Placed on the Table. 14:35:39 Shelia Prominences Protected 14:35:41 A # 20 IV was noted in the Antecubital (right). Grade = 0 14:35:42 IV Solutions given in lab by Mik Ayala RN in Right Antecubital via Peripheral IV. Pum p/Drip Flow using NaCl .9. 14:35:43 History and physical on the chart or being dictated. Assessment: Initial Case, HR=70 BPM, Rhythm=afib, AQMD=474/76 mmhg, Chest Pain=0, Edema=Mod, Co tiffany=Normal, Skin = Warm, Dry Right Pulses: David Ped=2, Femoral=2 14:35:44 Left Pulses: David Ped=2, Femoral=2 Neurological: State=Alert, Ox3, GOMEZ Respiration: Resp=15 B/min, SpO2=94 % 14:44:35 Reference ECG taken Vitals capture started with the following parameters, Patient=Adult, Interval=3 min, Initial Pr onqnfz=261 mmHg, 14:44:52 Deflation Rate=5 mmHg, Cuff placed on Left Arm 14:45:23 HR=89 bpm, IZMJ=600/76 mmhg, SpO2=95.0 %, Resp=26 B/min, Pain=0, Keny=10, Kennedy=2 14:47:32 Bilateral groins prepped with 2% chlorhexidine, and draped after a 3 minute waiting time. 14:48:26 HR=86 bpm, FNHY=275/80 mmhg, SpO2=97.0 %, Resp=13 B/min, Pain=0, Keny=10, Kennedy=2 14:49:22 MD paged 14:51:24 HR=72 bpm, NAHT=426/88 mmhg, SpO2=95.0 %, Resp=21 B/min, Pain=0, Keny=10, Kennedy=2 14:52:17 Pressure channel 1 zeroed. 14:54:26 HR=84 bpm, SJOJ=989/78 mmhg, SpO2=92.0 %, Resp=14 B/min, Pain=0, Keny=10, Kennedy=2 14:57:26 HR=78 bpm, KXAS=845/82 mmhg, SpO2=95.0 %, Resp=23 B/min, Pain=0, Keny=10, Kennedy=2 14:58:38 MD arrived. 15:00:31 HR=74 bpm, UWGL=148/68 mmhg, SpO2=94.0 %, Resp=15 B/min, Pain=0, Keny=10, Kennedy=2 15:00:58 Case Start Time Out. Correct patient, correct procedure, correct physician, power injector loaded, or not loaded with contrast with 15:00:58 surgical team present. Time Out Concurred by MD and individual staff in procedure. Time Out #2 - Consents verified, patient in correct position, all results are labled and displa yed, safety precautions 15:00:58 taken. Time Out concurred by MD, individual staff and ELECTRIC MOTOR REPAIRING SUPERVISOR in procedure. 15:01:32 20 mL 1% XYLOCAINE given in lab by Calos Small in Right Groin via Subcutaneous. 15:02:37 Access site was Right Femoral Artery. 15:02:45 A SHEATH, FR4 TERUMO (10CM) FR 4 was advanced into the Fem Art (right) using the Percutaneo us technique. 15:03:27 HR=75 bpm, CWXH=693/68 mmhg, SpO2=95.0 %, Resp=25 B/min, Pain=0, Keny=10, Kennedy=2 15:03:31 Saturation: Site=Ao (Aorta) , O2=93.2 %, Hgb=11 gm/dl, Condition=Condition 1. Used in [facility]. 15:04:17 Access site was Right Femoral Vein. 15:04:42 A SHEATH, FR5.5 PRELUDE 11CM FR 5.5 was advanced into the Fem Vein (right) using the Percut aneous technique. 15:04:53 A CATHETER, FR5 SWAN SOLE MONITOR FR 5 was inserted via Fem Vein (right) 15:06:29 HR=88 bpm, OBUM=468/81 mmhg, SpO2=95.0 %, Resp=26 B/min, Pain=0, Keny=10, Kennedy=2 15:09:27 HR=85 bpm, QUKL=281/71 mmhg, SpO2=93.0 %, Resp=22 B/min, Pain=0, Keny=10, Kennedy=2 Recorded Pressure: PCW, HR=94, Condition=Condition 1 15:09:30 (Pulmonary Capillary Wedge) PCW 35/35/28 Recorded Pressure: MPA, HR=80, Condition=Condition 1 15:09:54 (Main Pulmonary Artery) MPA 37/18/27 15:10:32 Saturation: Site=PA (Pulmonary Artery) , O2=61.9 %, Hgb=11 gm/dl, Condition=Condition 1. Us ed in calculation. Recorded Pressure: RV, QM=406, Condition=Condition 1 15:11:03 (Right Ventricle) RV 37/8/10 Recorded Pressure: RA, HR=79, Condition=Condition 1 15:11:43 (Right Atrium) RA 1414/11 15:11:59 Saturation: Site=RA (Right Atrium) , O2=60.5 %, Hgb=11 gm/dl, Condition=Condition 1. Used i n calculation. 15:12:28 HR=75 bpm, XLZP=232/75 mmhg, SpO2=94.0 %, Resp=24 B/min 15:12:29 [place] Sole Catheter Removed A JR 4.0 INFINITI CATHETER FR 4 was advanced over a wire. OMNIPAQUE, 350 MG, 150ML 150ML was us ed for 15:12:58 injections. Recorded Pressure: LV, HR=81, Condition=Condition 1 15:13:43 (Left Ventricle) LV 129/8/15 15:13:53 The LV was manually injected with 10 cc's and visualized. OMNIPAQUE, 350 MG, 150ML 150ML us ed. Recorded Pressure: LV, Ao, HR=68, Condition=Condition 1 15:14:15 (Left Ventricle) LV 124/9/15, (Aorta) Ao 127/66/93 15:15:17 The RCA was injected and visualized at various angles. OMNIPAQUE, 350 MG, 150ML 150ML used . 15:15:28 HR=77 bpm, KNPZ=101/80 mmhg, SpO2=92.0 %, Resp=17 B/min, Pain=0, Keny=10, Kennedy=2 15:16:06 Catheter was removed A JL 4.0 INFINITI CATHETER FR 4 was advanced over a wire. OMNIPAQUE, 350 MG, 150ML 150ML was us ed for 15:16:19 injections. 15:16:52 The LCA was injected and visualized at various angles. OMNIPAQUE, 350 MG, 150ML 150ML used . 15:17:45 Case End 15:18:28 HR=76 bpm, DTPN=875/80 mmhg, SpO2=92.0 %, Resp=22 B/min, Pain=0, Keny=10, Kennedy=2 15:20:28 Arterial sheath removed; pressure applied to access site. 15:20:39 No case complications noted. 15:20:41 Cine recording checked. 15:21:04 DOCU called. Spoke to [facility] r/t [facility] 15:21:27 Bedside Report will be given. 15:21:28 HR=84 bpm, VJLE=816/86 mmhg, SpO2=91.0 %, Resp=25 B/min, Pain=0, Keny=10, Kennedy=2 15:22:38 A Left and Right Heart Cath was performed. Assessment: Final Case, HR=78 BPM, Rhythm=afib, UHEC=297/84 mmhg, Chest Pain=0, Edema=Mod, [place] r=Normal, Skin = Warm, Dry 15:23:52 Right Pulses: David Ped=2, Femoral=2 Neurological: State=Alert, Ox3, GOMEZ Respiration: Resp=20 B/min, SpO2=92 %, O2=0 lpm 15:24:29 HR=89 bpm, IJLE=621/84 mmhg, SpO2=92.0 %, Resp=21 B/min, Pain=0, Keny=10, Kennedy=2 15:25:10 Venous Sheath removed; pressure applied to access site. 15:27:29 HR=84 bpm, KSTB=941/85 mmhg, SpO2=95.0 %, Resp=26 B/min, Pain=0, Keny=10, Kennedy=2 15:30:29 HR=83 bpm, LVHX=317/83 mmhg, SpO2=92.0 %, Resp=22 B/min, Pain=0, Keny=10, Kennedy=2 15:33:15 Sterile dressing applied to site 15:33:31 HR=94 bpm, LHWZ=320/94 mmhg, SpO2=93.0 %, Resp=20 B/min, Pain=0, Keny=10, Kennedy=2 15:37:42 Patient moved to [facility] End Study - Contrast Media Used In Study Contrast Total Opened (mL) Total Used (mL) Total Wasted (mL) Omnipaque 40 40 0 End Study - Maximum Contrast Load Max Contrast Load (mL) 318.4 End Study - Radiation Exposure Fluoro Time (minutes) 3.2 End Study - Sheaths Sheaths Pulled By Sheath Hold Time (min) Elvin Bird 20 End Study - Patient Disposition Complications Transferred To Interventional Outcome No Audio Visual Engineer Holding No attempt made
[2017-08-31] MEDS ORDERED: MISC INFORMATION XX ONE (16:00)
[2017-08-31] MEDS ORDERED: BACITRACIN OINT 0.9 GM PKT TOP ONE (16:00)
[2017-08-31] MEDS ORDERED: SODIUM CHLORIDE 0.9% FLUSH 10 ML FLUSH IV FLUSH PRN (16:00)
[2017-08-31] MEDS: RIVAROXABAN 15 MG TAB PO SCH (19:01)
[2017-09-01] VITALS (7 sets, daily range): BP systolic 115–139; BP diastolic 65–79; PULSE 90–108; RESP 16–20; TEMP 97.6–98.5; O2SAT 95–97
[2017-09-01] MEDS ORDERED: IOHEXOL 350 MG/ML 50 ML BTL (for Cath Lab) OTHER ONE (07:13)
[2017-09-01 08:04] LABS: BASOPHIL % 0.7 % (0.0-2.0); EOSINOPHIL # 0.1 TH/MM3 (0-0.4); EOSINOPHIL % 2.3 % (0.0-4.0); HEMATOCRIT 28.4 % (35.0-46.0); HEMOGLOBIN 9.4 GM/DL (11.6-15.3); LYMPH % 7.7 % (9.0-44.0); LYMPHOCYTE # 0.4 TH/MM3 (1.0-4.8); MEAN CELL VOLUME 87.2 FL (80.0-100.0); MEAN CORPUSCULAR HEMOGLOBIN 28.8 PG (27.0-34.0); MEAN CORPUSCULAR HGB CONC 33.1 % (32.0-36.0); MEAN PLATELET VOLUME 8.3 FL (7.0-11.0); MONO % 13.4 % (0.0-8.0); MONOCYTE # 0.7 TH/MM3 (0-0.9); NEUT % 75.9 % (16.0-70.0); PLATELET COUNT 216 TH/MM3 (150-450); RED BLOOD COUNT 3.25 MIL/MM3 (4.00-5.30); RED CELL DISTRIBUTION WIDTH 16.1 % (11.6-17.2); WHITE BLOOD COUNT 5.2 TH/MM3 (4.0-11.0)
[2017-09-01 08:12] LABS: INTERNATIONAL NORMALIZED RATIO 3.3 RATIO; PROTHROMBIN TIME - PATIENT 33.1 SEC (9.8-11.6)
[2017-09-01 08:45] LABS: BICARBONATE 30.2 MEQ/L (21.0-32.0); CALCIUM 8.3 MG/DL (8.5-10.1); CREATININE 1.06 MG/DL (0.50-1.00)
[2017-09-01] MEDS: DILTIAZEM-CD 300 MG CAP ER PO SCH (09:00)
[2017-09-01] MEDS: CYANOCOBALAMIN 1,000 MCG TAB PO SCH (09:32)
[2017-09-01] MEDS: SODIUM CHLORIDE 0.9% FLUSH 10 ML FLUSH IV FLUSH SCH (09:32)
[2017-09-01] MEDS: CETIRIZINE HCL 10 MG TAB PO SCH (09:33)
[2017-09-01] MEDS: PANTOPRAZOLE SOD 40 MG DELAYED RELEASE TAB PO SCH (09:33)
[2017-09-01] MEDS: POTASSIUM CHLORIDE 20 MEQ CONTROLLED RELEASE TAB PO SCH (09:33)
[2017-09-01] MEDS: FUROSEMIDE 40 MG TAB PO SCH (09:34)
[2017-09-01] MEDS: DOCUSATE SODIUM 50 MG/SENNA 8.6 MG TAB PO SCH (09:34)
[2017-09-01] MEDS: METOPROLOL SUCCINATE 50 MG EXTENDED RELEASE TAB PO SCH (09:34)
[2017-09-01] MEDS: MULTIVITAMIN TAB PO SCH (09:34)
--- NOTE | 2017-09-01 10:06 | HHI.FPPN ---
Subjective Remarks Ms Mcguire tolerated the heart cath yesterday well. There were no acute events overnight but she did not sleep as well as she would like. Complains of being a little out of breath and lightheaded ambulating and a little bit of a sore throat following the procedure. Denies CP, N/V/D and leg pain. (Krzysztof Lerma MD R1) Objective Vitals Vital Signs Date Time Temp Pulse Resp B/P (MAP) Pulse Ox O2 Delivery O2 Flow Rate FiO2 09/01/17 08:00 98.0 107 20 137/79 (98) 95 09/01/17 04:00 98.5 90 16 115/65 (82) 95 09/01/17 04:00 Room Air 09/01/17 03:49 108 09/01/17 00:11 99 09/01/17 00:00 Room Air 09/01/17 00:00 97.6 92 18 116/76 (89) 96 08/31/17 21:53 111 08/31/17 20:00 98.0 100 20 123/80 (94) 95 08/31/17 20:00 Room Air 08/31/17 16:00 98.5 109 20 142/85 (104) 95 08/31/17 15:46 96 Room Air 08/31/17 12:00 97.7 92 20 124/73 (90) 96 08/31/17 12:00 105 I/O 08/31/17 08/31/17 08/31/17 09/01/17 09/01/17 09/01/17 06:59 14:59 22:59 06:59 14:59 22:59 Intake Total 0 ml 0 ml 600 ml Output Total 1450 ml 1550 ml Balance -1450 ml -1550 ml 600 ml Intake Oral 0 ml 0 ml 600 ml Output Urine Total 1450 ml 1550 ml # Voids 2 # Bowel Movements 0 2 0 (Krzysztof Lerma MD R1) Result Diagram: 09/01/1762009/01/17620 Objective Remarks GEN: Well-developed, well nourished elderly female sitting in a chair at bedside in [facility] HEENT: EOMI. MMM. NCAT RESP: Upper lung williamson clear to auscultation; mild bibasilar crackles; no wheezing GI: Soft, nontender, nondistended CV: Irregularly irregular rate/rhythm, holosystolic murmur appreciated at BUSB. Ext: Bilateral LE extremity edema today 1+ to mid shins. No calf tenderness. Neuro/Psych: AO 3; CN II-XII grossly intact. Normal speech, mood and affect. Medications and IVs Current Medications Medications (Trade) Dose Ordered Sig/Yosi Route Start Time Stop Time Status Last Admin (ZyrTEC) 10 mg DAILY PO 08/27/17 09:00 09/01/17 09:33 (Vitamin B12) 500 mcg DAILY PO 08/27/17 09:00 09/01/17 09:32 (Lasix) 40 mg DAILY PO 08/27/17 09:00 09/01/17 09:34 (Protonix) 40 mg DAILY PO 08/27/17 09:00 09/01/17 09:33 (KCl) 20 meq DAILY PO 08/27/17 09:00 09/01/17 09:33 (Theragran) 1 tab DAILY PO 08/27/17 09:00 09/01/17 09:34 (Pill Splitter) 1 ea UNSCH PRN OTHER 08/26/17 20:45 (Tylenol) 650 mg Q4H PRN PO 08/26/17 20:45 (Zofran Inj) 4 mg Q6H PRN IVP 08/26/17 20:45 (Narcan Inj) 0.4 mg UNSCH PRN IV PUSH 08/26/17 20:45 (Jessica-Colace) 1 tab BID PO 08/26/17 21:00 09/01/17 09:34 (Milk Of Magnesia Liq) 30 ml Q12H PRN PO 08/26/17 20:45 (Senokot) 17.2 mg Q12H PRN PO 08/26/17 20:45 (Dulcolax Supp) 10 mg DAILY PRN RECTAL 08/26/17 20:45 (Lactulose Liq) 30 ml DAILY PRN PO 08/26/17 20:45 (Cardizem Cd) 300 mg DAILY PO 08/28/17 09:00 09/01/17 09:00 (Toprol Xl) 150 mg DAILY PO 08/28/17 20:00 09/01/17 09:34 (NS Flush) 2 ml BID IV FLUSH 08/31/17 21:00 09/01/17 09:32 (NS Flush) 2 ml UNSCH PRN IV FLUSH 08/31/17 16:00 (Xarelto) 15 mg DAILY@1800 PO 08/31/17 19:00 08/31/17 19:01 (Krzysztof Lerma MD R1) Urinary Catheter: No (Krzysztof Lerma MD R1) A/P Assessment and Plan Mrs. Mcguire is a 76 y/o presenting to the ED with chest pain found to have a supratherapeutic INR on anticoagulation with medical noncompliance. Found to have severe MVR. Cardiology and neurology consulted. Cath performed yesterday by Dr Small with findings of mild CAD, EF60%, PASP 37mmHg. Formal report is pending. Discharge Planning Will require [facility] for medical administration. Can DC today. Case management consulted. Son "Alli" is press set up person at [phone] (Krzysztof Lerma MD R1) Attending Attestation Patient seen and examined. Case reviewed and discussed with the resident team. Agree with plan of care as discussed with me and documented in the resident note. spoke to her again about going to a SNF but she refuses as she is very happy in her apartment. she has her son visit and agrees to [facility]. She does have allergies and has been using a nebulizer at home which she is eager to go back to using. she declines any scripts for that at this time. Xarelto was discussed as her INRs are all over the place and she agreed to that med at this time (Tea Stoner MD) Problem List: (1) Mitral regurgitation ICD Codes: I34.0 - Nonrheumatic mitral (valve) insufficiency Status: Acute Plan: Cardiology consulted [place]/ccs class 4 angina/mr/ms/p-htn - heart cath performed 08/31 with formal results pending; informal results of mild CAD, EF60%, PASP 37mmHg. (2) Pulmonary HTN ICD Codes: I27.20 - Pulmonary hypertension, unspecified Status: Acute Plan: See plan above (3) Mitral stenosis ICD Codes: I05.0 - Rheumatic mitral stenosis Plan: See plan above (4) Atrial fibrillation ICD Codes: I48.91 - Unspecified atrial fibrillation Status: Acute Plan: Consulted cardiology evaluated by Dr. Small. Stop Metoprolol tartrate home dosing. Continue Met succinate 150 mg daily. Continue with ER Cardizem at 300 mg daily. Stop immediate release 4 times per day Supratherapeutic INR, see below Never on an JUAN inhibitor and benefits in HFpEF is not fully supported in literature, however may be of benefit if needed. Can be started as an outpatient with her PCP. (5) Altered mental status ICD Codes: R41.82 - Altered mental status, unspecified Status: Acute Plan: Neurology consulted. Likely encephalopathy versus early onset dementia CT scan 08/29--> stable noncontrast head CT. No acute intracranial abnormality. Chronic changes including mild stable atrophy and chronic periventricular white matter change characteristic of chronic microvascular ischemia. Vitamin B12 and TSH within normal limits Case management consulted to help with placement. Currently patient refusing senior care facility and/or home health (6) Diabetes ICD Codes: E11.9 - Type 2 diabetes mellitus without complications Status: Chronic Plan: A1c 7.1 -- DMT2. Checking bedside glucose. Consider sliding scale if needed. (7) Supratherapeutic INR ICD Codes: R79.1 - Abnormal coagulation profile Status: Resolved Plan: -INR 8.8 on admission from non-compliance -Monitor INRs daily -INR 3.3 today w/o coumadin or heparin -Vitamin K 5mg PO once prior to DC (8) Chest pain ICD Codes: R07.9 - Chest pain, unspecified Status: Acute Plan: Cardiac workup has been negative to this point. Cardiology consulted Plan as above. (9) HTN (hypertension) ICD Codes: I10 - Essential (primary) hypertension Status: Chronic Plan: Well controlled. Add juan/arb if elevated. (10) Creatinine elevation ICD Codes: R79.89 - Other specified abnormal findings of blood chemistry Status: Acute Plan: Resolving. Steadily improved following admission and 1.06 today. Patient likely has stage III CKD (consider outpatient nephrology referral by PCP ) (11) Fluids, Electrolytes, and Nutrition Status: Acute Plan: -Fluids: PO fluids -Electrolytes: continue to monitor. -Nutrition: Heart healthy diet Anticoagulation: started xarelto 15mg daily w/evening meal (renal dosing for CrCl 46 and BEERS criteria for age) -CM consult to assist in authorizing xarelto or another novel AC since pt failed outpt coumadin therapy with supratherapeutic INR on admit (Krzysztof Lerma MD R1) Problem Qualifiers (1) Mitral regurgitation: Qualified Codes: I34.0 - Nonrheumatic mitral (valve) insufficiency (2) Mitral stenosis: Qualified Codes: I34.2 - Nonrheumatic mitral (valve) stenosis (3) Altered mental status: Qualified Codes: R41.82 - Altered mental status, unspecified (4) Diabetes: Qualified Codes: E11.8 - Type 2 diabetes mellitus with unspecified complications (5) Chest pain: Qualified Codes: R07.1 - Chest pain on breathing (6) HTN (hypertension): Qualified Codes: I10 - Essential (primary) hypertension Krzysztof Lerma MD R1 Sep 01, 2017 10:06 Tea Stoner MD Sep 01, 2017 14:21
[2017-09-01] MEDS ORDERED: XARE15TA PO (11:31)
[2017-09-01] MEDS ORDERED: METO1TAB9 PO (11:44)
[2017-09-01] MEDS ORDERED: DILT300C3 PO (11:44)
--- NOTE | 2017-09-01 13:14 | MA ---
cc: ABRAN BILL M.D. DATE 08/31/2017 PROCEDURE PERFORMED 1. Right heart catheterization. 2. Left heart catheterization. 3. Left ventriculography. 4. Coronary angiography. INDICATION FOR PROCEDURE 1. Moderate to severe mitral regurgitation. 2. Moderate pulmonary hypertension. 3. Mild mitral valve stenosis. 4. Congestive heart failure; [place] Heart [employer] Class IV congestive heart failure. 5. Altered mental status. 6. Encephalopathy. PROCEDURE The patient was brought to the cardiac catheterization laboratory and prepped and draped in the usual sterile fashion. 10 cc of 1% lidocaine was used to locally anesthetize the right common femoral artery. A 4 Czech sheath was successfully placed in the right common femoral artery. A 5.5 Czech sheath was placed in the right common femoral vein. Right heart catheterization was performed first with the following findings: Pulmonary capillary wedge pressure was 35/35-28, V wave 35. PA pressure 37/18-27. RV pressure 37/8-10. RA pressure 14/14-11. Cardiac output by Magnus 4.5 liters per minute. Cardiac index 2.7 liters per meter squared per minute. SPR is 1462.7. On room air the femoral artery sat is 93.2%, PA sat 61.9%, RA sat 60.5%. Left heart catheterization was then performed with 4 Czech JR4 and JL4 catheters with the following findings. LV pressure 120/12-18. EF is 60%. The right coronary is large and dominant. There is mild disease throughout most of the length of the right coronary artery, up to 10-20% angiographically. There is a slightly posterior takeoff. The left main coronary has no significant disease angiographically. The left circumflex is a small vessel with no significant disease angiographically. The first obtuse marginal vessel is a 0.25 mm vessel with no significant obstructive disease. The second obtuse marginal vessel is an 1.5 to 2 mm vessel with mild ostial disease up to 20-30% angiographically. The LAD is non-transapical and has no significant obstructive disease. It is very tortuous in the mid to distal segment. There is a large diagonal vessel approaching the apex which is extremely tortuous with no significant obstructive disease. CONCLUSIONS 1. Angiographically mild two-vessel coronary artery disease in a right-dominant system. 2. Normal LV systolic function, ejection fraction 60%. 3. Mild pulmonary hypertension as detailed above. 4. Heavy mitral annular calcification seen fluoroscopically. RECOMMENDATIONS Recommend continued medical management of atrial fibrillation, congestive heart failure and mild coronary artery disease. MD MARYAM Bolden/LEONCIO /3:21 PM /12:42 PM
[2017-09-01] MEDS ORDERED: PHYTONADIONE 5 MG/SWFI 5 ML ORAL SYR PO ONE (13:15)
[2017-09-01] MEDS ORDERED: POVIDONE IODINE 7.5% SCRUB 118 ML BOTTLE TOPICAL SCH (13:30)
[2017-09-01] MEDS ORDERED: ceFAZolin 2 GM PREMIX 50 ML IV SCH (13:30)
[2017-09-01] MEDS ORDERED: TRANEXAMIC ACID 1 GM PRIOR TO PROCEDURE IV SCH ×2 (14:00)
[2017-09-01] MEDS ORDERED: PHYTONADIONE 5 MG TAB PO ONE (14:00)
--- NOTE | 2017-09-01 15:04 | PD.CARD.PN ---
Subjective Subjective Remarks alert in nad Objective Medications Current Medications Medications (Trade) Dose Ordered Sig/Yosi Route Start Time Stop Time Status Last Admin (ZyrTEC) 10 mg DAILY PO 08/27/17 09:00 09/01/17 09:33 (Vitamin B12) 500 mcg DAILY PO 08/27/17 09:00 09/01/17 09:32 (Lasix) 40 mg DAILY PO 08/27/17 09:00 09/01/17 09:34 (Protonix) 40 mg DAILY PO 08/27/17 09:00 09/01/17 09:33 (KCl) 20 meq DAILY PO 08/27/17 09:00 09/01/17 09:33 (Theragran) 1 tab DAILY PO 08/27/17 09:00 09/01/17 09:34 (Pill Splitter) 1 ea UNSCH PRN OTHER 08/26/17 20:45 (Tylenol) 650 mg Q4H PRN PO 08/26/17 20:45 (Zofran Inj) 4 mg Q6H PRN IVP 08/26/17 20:45 (Narcan Inj) 0.4 mg UNSCH PRN IV PUSH 08/26/17 20:45 (Jessica-Colace) 1 tab BID PO 08/26/17 21:00 09/01/17 09:34 (Milk Of Magnesia Liq) 30 ml Q12H PRN PO 08/26/17 20:45 (Senokot) 17.2 mg Q12H PRN PO 08/26/17 20:45 (Dulcolax Supp) 10 mg DAILY PRN RECTAL 08/26/17 20:45 (Lactulose Liq) 30 ml DAILY PRN PO 08/26/17 20:45 (Cardizem Cd) 300 mg DAILY PO 08/28/17 09:00 09/01/17 09:00 (Toprol Xl) 150 mg DAILY PO 08/28/17 20:00 09/01/17 09:34 (NS Flush) 2 ml BID IV FLUSH 08/31/17 21:00 09/01/17 09:32 (NS Flush) 2 ml UNSCH PRN IV FLUSH 08/31/17 16:00 (Xarelto) 15 mg DAILY@1800 PO 08/31/17 19:00 08/31/17 19:01 Vital Signs / I&O Vital Signs Date Time Temp Pulse Resp B/P (MAP) Pulse Ox O2 Delivery O2 Flow Rate FiO2 09/01/17 08:00 98.0 107 20 137/79 (98) 95 09/01/17 04:00 98.5 90 16 115/65 (82) 95 09/01/17 04:00 Room Air 09/01/17 03:49 108 09/01/17 00:11 99 09/01/17 00:00 Room Air 09/01/17 00:00 97.6 92 18 116/76 (89) 96 08/31/17 21:53 111 08/31/17 20:00 98.0 100 20 123/80 (94) 95 08/31/17 20:00 Room Air 08/31/17 16:00 98.5 109 20 142/85 (104) 95 08/31/17 15:46 96 Room Air I/O 08/31/17 08/31/17 08/31/17 09/01/17 09/01/17 09/01/17 07:00 15:00 23:00 07:00 15:00 23:00 Intake Total 0 ml 0 ml 600 ml Output Total 1450 ml 1550 ml Balance -1450 ml -1550 ml 600 ml Intake Oral 0 ml 0 ml 600 ml Output Urine Total 1450 ml 1550 ml # Voids 2 # Bowel Movements 0 2 0 Physical Exam GENERAL: SKIN: Warm and dry. HEAD: Normocephalic. EYES: No scleral icterus. No injection or drainage. NECK: Supple, trachea midline. No JVD or lymphadenopathy. CARDIOVASCULAR: Regular rate and rhythm without murmurs, gallops, or rubs. RESPIRATORY: Breath sounds equal bilaterally. No accessory muscle use. GASTROINTESTINAL: Abdomen soft, non-tender, nondistended. MUSCULOSKELETAL: No cyanosis, or edema. BACK: Nontender without obvious deformity. No CVA tenderness. Laboratory Laboratory Tests Test 09/01/17 06:21 White Blood Count 5.2 TH/MM3 Red Blood Count 3.25 MIL/MM3 Hemoglobin 9.4 GM/DL Hematocrit 28.4 % Mean Corpuscular Volume 87.2 FL Mean Corpuscular Hemoglobin 28.8 PG Mean Corpuscular Hemoglobin Concent 33.1 % Red Cell Distribution Width 16.1 % Platelet Count 216 TH/MM3 Mean Platelet Volume 8.3 FL Neutrophils (%) (Auto) 75.9 % Lymphocytes (%) (Auto) 7.7 % Monocytes (%) (Auto) 13.4 % Eosinophils (%) (Auto) 2.3 % Basophils (%) (Auto) 0.7 % Neutrophils # (Auto) 4.0 TH/MM3 Lymphocytes # (Auto) 0.4 TH/MM3 Monocytes # (Auto) 0.7 TH/MM3 Eosinophils # (Auto) 0.1 TH/MM3 Basophils # (Auto) 0.0 TH/MM3 CBC Comment DIFF FINAL Differential Comment Prothrombin Time 33.1 SEC Prothromb Time International Ratio 3.3 RATIO Blood Urea Nitrogen 18 MG/DL Creatinine 1.06 MG/DL Random Glucose 98 MG/DL Calcium Level 8.3 MG/DL Sodium Level 140 MEQ/L Potassium Level 3.8 MEQ/L Chloride Level 103 MEQ/L Carbon Dioxide Level 30.2 MEQ/L Anion Gap 7 MEQ/L Estimat Glomerular Filtration Rate 50 ML/MIN Assessment and Plan Problem List: (1) Unstable angina ICD Codes: I20.0 - Unstable angina (2) Mitral regurgitation ICD Codes: I34.0 - Nonrheumatic mitral (valve) insufficiency Status: Acute (3) Mitral stenosis ICD Codes: I05.0 - Rheumatic mitral stenosis (4) Pulmonary HTN ICD Codes: I27.20 - Pulmonary hypertension, unspecified Status: Acute (5) Supratherapeutic INR ICD Codes: R79.1 - Abnormal coagulation profile Status: Resolved (6) Atrial fibrillation ICD Codes: I48.91 - Unspecified atrial fibrillation Status: Acute (7) HTN (hypertension) ICD Codes: I10 - Essential (primary) hypertension Status: Chronic (8) Congestive heart failure ICD Codes: I50.9 - Heart failure, unspecified Status: Acute (9) COPD (chronic obstructive pulmonary disease) ICD Codes: J44.9 - Chronic obstructive pulmonary disease, unspecified Status: Chronic Assessment and Plan 1.) Mild pulmonary HTN 2.) Severe MR - euvolemic on current meds 3.) mild mitral stenosis - continue medical management 4.) Afib - assymptomatic, rate controlled, on xarelto 5.) Ok to dc from cv standpoint, f/u with me in my office next day Problem Qualifiers (1) Mitral regurgitation: Qualified Codes: I34.0 - Nonrheumatic mitral (valve) insufficiency (2) Mitral stenosis: Qualified Codes: I34.2 - Nonrheumatic mitral (valve) stenosis (3) Atrial fibrillation: Qualified Codes: I48.2 - Chronic atrial fibrillation (4) HTN (hypertension): Qualified Codes: I10 - Essential (primary) hypertension Calos Small MD Sep 01, 2017 15:04
[2017-09-01] MEDS ORDERED: TRANEXAMIC ACID 1 GM POST-OP IV SCH ×2 (17:00)
[2017-09-01] MEDS: RIVAROXABAN 15 MG TAB PO SCH (17:43)
--- NOTE | 2017-09-01 18:50 | EKG ---
Date Performed: 09/01/2017 Time Performed: 10:30:50 PTAGE: 76 years EKG: ATRIAL FIBRILLATION POSSIBLE ANTERIOR MYOCARDIAL INFARCTION , PROBABLY OLD MODERATE T-WAVE ABNORMALITY, CONSIDER LATERAL ISCHEMIA ABNORMAL ECG Since the prior tracing, there has been no signif icant change PREVIOUS TRACING : 08/31/2017 19.00 DOCTOR: Alison Haskins Interpretating Date/Time 09/01/2017 18:46:24
--- NOTE | 2017-09-01 18:50 | EKG ---
Date Performed: 08/31/2017 Time Performed: 19:00:50 PTAGE: 76 years EKG: ATRIAL FIBRILLATION WITH RAPID VENTRICULAR RESPONSE ST DEVIATION AND MODERATE T-WAVE ABNORM ALITY, CONSIDER LATERAL ISCHEMIA ABNORMAL ECG Since the prior tracing, there has been no significant change PREVIOUS TRACING : 08/27/2017 08.57 DOCTOR: Alison Haskins Interpretating Date/Time 09/01/2017 18:46:14
--- NOTE | 2017-09-02 10:53 | HHI.DS ---
Discharge Summary Admission Date Aug 28, 2017 at 07:16 Discharge Date: Sep 01, 2017 Admitting Diagnosis CHEST PAIN; SOB; DYSPNEA ON EXERTION; FATIGUE; SUPRATHERAPEUTIC INR (1) Mitral regurgitation Diagnosis: Principal Plan: Cardiology consulted [place]/ccs class 4 angina/mr/ms/p-htn - heart cath performed 08/31 with formal results pending; informal results of mild CAD, EF60%, PASP 37mmHg. ICD Codes: I34.0 - Nonrheumatic mitral (valve) insufficiency Status: Acute (2) Pulmonary HTN Diagnosis: Secondary Plan: See plan above ICD Codes: I27.20 - Pulmonary hypertension, unspecified Status: Acute (3) Mitral stenosis Diagnosis: Principal Plan: See plan above ICD Codes: I05.0 - Rheumatic mitral stenosis (4) Atrial fibrillation Diagnosis: Secondary Plan: Consulted cardiology evaluated by Dr. Small. Stop Metoprolol tartrate home dosing. Continue Met succinate 150 mg daily. Continue with ER Cardizem at 300 mg daily. Stop immediate release 4 times per day Supratherapeutic INR, see below Never on an JUAN inhibitor and benefits in HFpEF is not fully supported in literature, however may be of benefit if needed. Can be started as an outpatient with her PCP. ICD Codes: I48.91 - Unspecified atrial fibrillation Status: Acute (5) Altered mental status Diagnosis: Secondary Plan: Neurology consulted. Likely encephalopathy versus early onset dementia CT scan 08/29--> stable noncontrast head CT. No acute intracranial abnormality. Chronic changes including mild stable atrophy and chronic periventricular white matter change characteristic of chronic microvascular ischemia. Vitamin B12 and TSH within normal limits Case management consulted to help with placement. Currently patient refusing fpc facility and/or home health ICD Codes: R41.82 - Altered mental status, unspecified Status: Acute (6) Diabetes Diagnosis: Secondary Plan: A1c 7.1 -- DMT2. Checking bedside glucose. Consider sliding scale if needed. ICD Codes: E11.9 - Type 2 diabetes mellitus without complications Status: Chronic (7) Supratherapeutic INR Diagnosis: Secondary Plan: -INR 8.8 on admission from non-compliance -Monitor INRs daily -INR 3.3 today w/o coumadin or heparin -Vitamin K 5mg PO once prior to DC ICD Codes: R79.1 - Abnormal coagulation profile Status: Resolved (8) Chest pain Diagnosis: Principal Plan: Cardiac workup has been negative to this point. Cardiology consulted Plan as above. ICD Codes: R07.9 - Chest pain, unspecified Status: Acute (9) HTN (hypertension) Diagnosis: Secondary Plan: Well controlled. Add juan/arb if elevated. ICD Codes: I10 - Essential (primary) hypertension Status: Chronic (10) Creatinine elevation Diagnosis: Secondary Plan: Resolving. Steadily improved following admission and 1.06 today. Patient likely has stage III CKD (consider outpatient nephrology referral by PCP ) ICD Codes: R79.89 - Other specified abnormal findings of blood chemistry Status: Acute (11) Fluids, Electrolytes, and Nutrition Diagnosis: Secondary Plan: -Fluids: PO fluids -Electrolytes: continue to monitor. -Nutrition: Heart healthy diet Anticoagulation: started xarelto 15mg daily w/evening meal (renal dosing for CrCl 47 and BEERS criteria for age) -CM consult to assist in authorizing xarelto or another novel AC since pt failed outpt coumadin therapy with supratherapeutic INR on admit Status: Acute Consultants Cardiology Procedures Cardiac catheter Brief History Mrs. Mcguire is a 76 y/o F presenting to the ED with multiple complaints. She was recently discharged [facility] after a 19 day hospitalization for bronchitis and unknown cardiac procedure. Regarding the cardiac procedure, the patient states that she had "something done to her heart 3 times because her heart wasn't right." She does not remember the name of the procedure for what she was diagnosed with. She also states that she was diagnosed with bronchitis and was given breathing treatments, however was not given antibiotics. Insert discharge last Thursday, the patient states that she has "just has not felt like herself." She endorses having episodes of anorexia, nausea with vomiting, constipation, and chest pressure. The chest pressure started the same day she was discharged, but stopped on Thursday morning. She describes the chest pain as a pressure over her sternum that cause shortness of breath and diaphoresis. During this timeframe she also had increased cough with green sputum production. Patient also endorses nausea with 3 episodes of vomiting over this time. She denies any hematemesis but does state that the emesis consisted of part food product with part mucus. She has been able to eat and drink over this timeframe, but just not her normal amount. She has also developed constipation with her last bowel movement coming this past Thursday. She is not taking any medications to alleviate her symptoms at this time. Regarding her history the patient is unable to fully complete the reported history as she states that her "memory is bad." She is unable to give me any past medical history or any medications that she is currently taken by [facility]. He does have a back with all of her medications that she is currently taking, however there are multiple duplicate medications including long and short acting metoprolol as well as Coumadin and all liquids. The patient states that she does not have a schedule to take her medications, however she states that she "just reads the bottle and takes whenever she has." Per chart review patient does have a history of poor medical compliance. CBC/BMP: 09/01/17 0621 09/01/17 0621 Significant Findings Laboratory Tests Test 08/31/17 09:20 09/01/17 06:21 Red Blood Count 3.78 MIL/MM3 (4.00-5.30) 3.25 MIL/MM3 (4.00-5.30) Hemoglobin 11.0 GM/DL (11.6-15.3) 9.4 GM/DL (11.6-15.3) Hematocrit 33.1 % (35.0-46.0) 28.4 % (35.0-46.0) Prothrombin Time 20.5 SEC (9.8-11.6) 33.1 SEC (9.8-11.6) Calcium Level 8.4 MG/DL (8.5-10.1) 8.3 MG/DL (8.5-10.1) Estimat Glomerular Filtration Rate 54 ML/MIN (>89) 50 ML/MIN (>89) Neutrophils (%) (Auto) 75.9 % (16.0-70.0) Lymphocytes (%) (Auto) 7.7 % (9.0-44.0) Monocytes (%) (Auto) 13.4 % (0.0-8.0) Lymphocytes # (Auto) 0.4 TH/MM3 (1.0-4.8) Creatinine 1.06 MG/DL (0.50-1.00) Imaging Last Impressions Head CT 08/29/17 0000 Signed Impressions: Service Date/Time: Tuesday, August 29, 2017 21:00 - CONCLUSION: 1. Stable noncontrast head CT. No acute intracranial abnormality is identified. 2. Chronic changes include mild stable atrophy and chronic periventricular white matter change characteristic of chronic microvascular ischemia. Benedicto Jackman MD Chest X-Ray 08/26/17 1530 Signed Impressions: Service Date/Time: Saturday, August 26, 2017 15:46 - CONCLUSION: Compensated cardiomegaly with minimal fluid right minor fissure. Board Certified Radiologist. This report was verified electronically. PE at Discharge GEN: Well-developed, well nourished elderly female sitting in a chair at bedside in NAD HEENT: EOMI. MMM. NCAT RESP: Upper lung williamson clear to auscultation; mild bibasilar crackles; no wheezing GI: Soft, nontender, nondistended CV: Irregularly irregular rate/rhythm, holosystolic murmur appreciated at BUSB. Ext: Bilateral LE extremity edema today 1+ to mid shins. No calf tenderness. Neuro/Psych: AO 3; CN II-XII grossly intact. Normal speech, mood and affect. Hospital Course Cardiology was consulted for unstable angina, mitral regurgitation, mitral stenosis, pulmonary hypertension. She was found to be supratherapeutic on her INR. Cardiology waited for her INR to be less than 2 prior to undergoing cardiac catheterization. It was determined that the patient would be better suited to be on xarelto. Her medical compliance is questionable; she does not know which medications she should be taking despite being told numerous times. She initially was refusing home health or fpc, however on discharge she reluctantly agreed to home health. For the above medical problems, cardiology recommended continued medical management. She will be followed with cardiology as an outpatient. Pt Condition on Discharge: Stable Discharge Disposition: Discharge Home Discharge Instructions DIET: Follow Instructions for: Heart Healthy Diet Activities you can perform: Weight Bearing as Enedelia Follow up Referrals: PCP Follow-up - 2-3 Days [facility]/ with [facility] New Medications: Doxylamine-Dextromethorphan Liq (Robitussin Nighttime Cough Liq) 12.5-30 Mg/10 Ml Soln 10 ML PO Q6H PRN for COUGH AND/OR COLD SYMPTOMS, #1 BOTTLE 0 Refills Diltiazem CD 24 HR (Diltiazem CD 24 HR) 300 Mg Caper 300 MG PO DAILY, #30 CAP Metoprolol Succinate ER 24 HR (Metoprolol Succinate ER 24 HR) 50 Mg Tab 150 MG PO DAILY, #90 TAB Rivaroxaban (Xarelto) 15 Mg Tab 15 MG PO DAILY@1800, #30 TAB 0 Refills Continued Medications: Acetaminophen (Eq Acetaminophen) 325 Mg Tab 500 MG PO Q4H PRN for PAIN SCALE 1 TO 7, #30 TAB Ascorbic Acid (Vitamin C) 250 Mg Tab 500 MG PO for Nutritional Supplement, TAB 0 Refills Calcium-Vitamins D & K (Calcium + D & K) 500-1,000-40 Mg-Unit-Mcg Chew 1 TAB CHEW for Nutritional Supplement, TAB 0 Refills Cetirizine (Cetirizine) 10 Mg Tab 10 MG PO DAILY for Allergies, TAB 0 Refills Cyanocobalamin (Vitamin B-12) 500 Mcg Tab 500 MCG PO DAILY for Nutritional Supplement, #1 BOTTLE 0 Refills Furosemide (Furosemide) 40 Mg Tab 40 MG PO DAILY, #30 TAB 3 Refills Ipratropium Neb (Ipratropium Neb) 0.5 Mg/2.5 Ml Amp 0.5 MG NEB Q8HR PRN for SHORTNESS OF BREATH, #1 BOX 3 Refills Metoprolol Succinate ER 24 HR (Metoprolol Succinate ER 24 HR) 50 Mg Tab 150 MG PO DAILY, #90 TAB 0 Refills Multiple Vitamin (Multiple Vitamin) 1 Tab 1 TAB PO DAILY for Nutritional Supplement, TAB 0 Refills Pantoprazole (Pantoprazole) 40 Mg Tab 40 MG PO DAILY, #30 TAB Potassium Chloride ER (Potassium Chloride ER) 20 Meq Tab 20 MEQ PO DAILY for Electrolyte Replacement, #30 TAB 3 Refills Discontinued Medications: Apixaban (Eliquis) 5 Mg Tab 5 MG PO BID for Blood Clot Prevention, #60 TAB 0 Refills Diltiazem (Diltiazem) 120 Mg Tab 120 MG PO QID for Angina, #120 TAB 0 Refills Glucosamine (Glucosamine) 1,000 Mg Cap 1000 MG PO DAILY for Herbal Supplements, CAP 0 Refills Guaifenesin-Codeine Liq (Virtussin A-C Liq) 100-10 Mg/5 Ml Soln 10 ML PO Q6H PRN for COUGH, #1 BOTTLE 0 Refills Metoprolol Tartrate (Metoprolol Tartrate) 100 Mg Tab 100 MG PO DAILY, #30 TAB 0 Refills Warfarin (Coumadin) 1 Mg Tab 1 MG PO DAILY for Prevent Blood Clot, #30 TAB 0 Refills Asad Witt MD, R3 Sep 02, 2017 10:53
== END 2017-09-01 18:45 | disposition home health service (06) | DRG 286 ==
LOC: NEPE 14:18 → NEDA 18:57 → NEPGCP 20:27 → OBSVTOIN 08-28 07:16 → N04A 08-29 19:52
PROVIDERS: ADMIT Family Medicine; ATTEND Family Medicine
PROC: B2151ZZ Fluoroscopy of Left Heart using Low Osmolar Contrast (ICD-10-PCS; 2017-08-31)
PROC: B2111ZZ Fluoroscopy of Multiple Coronary Arteries using Low Osmolar Contrast (ICD-10-PCS; 2017-08-31)
PROC: 4A023N8 Measurement of Cardiac Sampling and Pressure, Bilateral, Percutaneous Approach (ICD-10-PCS; principal; 2017-08-31 14:45)
DX: I13.0 Hypertensive heart and chronic kidney disease with heart failure and stage 1 through stage 4 chronic kidney disease, or unspecified chronic kidney disease (principal); G93.40 Encephalopathy, unspecified; E11.22 Type 2 diabetes mellitus with diabetic chronic kidney disease; E11.65 Type 2 diabetes mellitus with hyperglycemia; I50.33 Acute on chronic diastolic (congestive) heart failure; I27.20 Pulmonary hypertension, unspecified; I08.1 Rheumatic disorders of both mitral and tricuspid valves; J44.9 Chronic obstructive pulmonary disease, unspecified; I48.2 Chronic atrial fibrillation; N18.3 Chronic kidney disease, stage 3 (moderate); K59.00 Constipation, unspecified; R79.1 Abnormal coagulation profile; I25.110 Atherosclerotic heart disease of native coronary artery with unstable angina pectoris; R11.2 Nausea with vomiting, unspecified; F32.9 Major depressive disorder, single episode, unspecified; F41.9 Anxiety disorder, unspecified; M19.90 Unspecified osteoarthritis, unspecified site; R53.1 Weakness; Z86.73 Personal history of transient ischemic attack (TIA), and cerebral infarction without residual deficits; Z85.42 Personal history of malignant neoplasm of other parts of uterus; Z79.01 Long term (current) use of anticoagulants; Z23 Encounter for immunization; Z91.14 Patient's other noncompliance with medication regimen
CPT/HCPCS: 70450; 71045; 80048; 80053; 80061; 82550; 82607; 82810; 82948; 83036; 83690; 83735; 83880; 84443; 84484; 85025; 85027; 85610; 85730; 87804; 90471; 90686; 93005; 93306; 93460; 94150; 96374; C1769; C1893; G0008; G0378; G8987-GO; G8987-GP; G8988-GO; G8988-GP; G8989-GO; J1644; J1940; J7030; Q2038; Q9967

== ENCOUNTER 2017-09-04 14:08 | Inpatient (IN) | payer MEDICARE, OTHER ==
[2017-09-04] VITALS (11 sets, daily range): BP systolic 121–152; BP diastolic 67–91; PULSE 72–128; RESP 17–20; TEMP 97.4–98.6; O2SAT 95–98
[~2017-09-04] VITALS: Ht 154.9 cm; Wt 61.0 kg
[~2017-09-04 14:08] MED LIST changes: -APIX5TAB PO; -CARD180C5 PO; +DILT300C3 PO; +DOXY1LIQ3 PO; -GLUC100013 PO; +XARE15TA PO
[2017-09-04] MEDS ORDERED: SODIUM CHLORIDE 0.9% FLUSH 10 ML FLUSH IVF PRN (14:45)
[2017-09-04] MEDS ORDERED: DILTIAZEM INJ 125 MG in SODIUM CHLORIDE 0.9% INJ 100 ML IV PRN ×2 (14:45→18:15)
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
[2017-09-04] MEDS ORDERED: DILTIAZEM HCL 50 MG/10 ML VIAL IV PUSH ONE (15:00)
[2017-09-04 15:25] LABS: AUTOMATED NEUTROPHIL # 5.4 TH/MM3 (1.8-7.7); BASOPHIL % 0.4 % (0.0-2.0); EOSINOPHIL # 0.1 TH/MM3 (0-0.4); EOSINOPHIL % 1.6 % (0.0-4.0); HEMATOCRIT 30.5 % (35.0-46.0); HEMOGLOBIN 9.9 GM/DL (11.6-15.3); LYMPH % 5.9 % (9.0-44.0); LYMPHOCYTE # 0.4 TH/MM3 (1.0-4.8); MEAN CELL VOLUME 87.7 FL (80.0-100.0); MEAN CORPUSCULAR HEMOGLOBIN 28.6 PG (27.0-34.0); MEAN CORPUSCULAR HGB CONC 32.6 % (32.0-36.0); MONO % 10.7 % (0.0-8.0); MONOCYTE # 0.7 TH/MM3 (0-0.9); NEUT % 81.4 % (16.0-70.0); PLATELET COUNT 242 TH/MM3 (150-450); RED BLOOD COUNT 3.47 MIL/MM3 (4.00-5.30); RED CELL DISTRIBUTION WIDTH 16.4 % (11.6-17.2); WHITE BLOOD COUNT 6.6 TH/MM3 (4.0-11.0)
[2017-09-04 15:33] LABS: INTERNATIONAL NORMALIZED RATIO 1.1 RATIO; PROTHROMBIN TIME - PATIENT 11.4 SEC (9.8-11.6)
[2017-09-04 15:40] LABS: BICARBONATE 30.2 MEQ/L (21.0-32.0); MAGNESIUM 2.3 MG/DL (1.5-2.5)
[2017-09-04 15:41] LABS: BILIRUBIN, URINE NEG (NEG); BLOOD, URINE NEG (NEG); GLUCOSE,URINE NEG (NEG); KETONE, URINE NEG (NEG); NITRITE,URINE NEG (NEG); PH, URINE 7.5 (5.0-8.5); SQUAMOUS EPITHELIAL CELL URINE <1 /hpf (0-5); URINE COLOR LIGHT-YELLOW (YELLW/STRAW); URINE LEUKOCYTE ESTERASE NEG (NEG)
[2017-09-04 15:44] LABS: TROPONIN I 0.02 NG/ML (0.02-0.05)
--- NOTE | 2017-09-04 15:53 | RADRPT ---
EXAM DATE/TIME: 09/04/2017 15:09 [place] COMPARISON: CHEST SINGLE AP, August 26, 2017, 15:46. INDICATIONS : Patient states that she feels that her heart is racing, chest discomfort. MEDICAL HISTORY : Cardiovascular disease. Cerebrovascular disease. Uterina cancer SURGICAL HISTORY : Hysterectomy. Appendectomy. ENCOUNTER: Initial ACUITY: 1 day PAIN SCORE: 6/10 LOCATION: Bilateral upper chest FINDINGS: A single view of the chest demonstrates the lungs to be symmetrically aerated without evidence of mas s, infiltrate or effusion. There is persistent linear opacity along the minor fissure suggesting pos sible tiny amount of fluid; this is unchanged in appearance from prior chest x-ray. The heart is enl arged, similar to prior. Osseous structures are intact. CONCLUSION: The lungs are clear. Stable cardiomegaly. Remington Grover MD on September 04, 2017 at 15:51 Board Certified Radiologist. This report was verified electronically.
--- NOTE | 2017-09-04 16:29 | PD ---
Physical Exam Narrative GENERAL: 76 y/o female in no apparent distress SKIN: Focused skin assessment warm/dry. HEAD: Atraumatic. Normocephalic. EYES: No scleral icterus. No injection or drainage. ENT: No nasal bleeding or discharge. Mucous membranes pink and moist. NECK: Trachea midline. No JVD. CARDIOVASCULAR: irregular rate and rhythm. RESPIRATORY: No accessory muscle use. no increased effort MUSCULOSKELETAL: No obvious deformities. No edema. Data Data Last Documented VS Vital Signs Date Time Temp Pulse Resp B/P (MAP) Pulse Ox O2 Delivery O2 Flow Rate FiO2 09/04/17 16:01 116 17 133/91 (105) 95 Room Air 09/04/17 14:28 98.6 Orders Orders Electrocardiogram (09/04/17 14:36) Basic Metabolic Panel (Bmp) (09/04/17 14:36) Ckmb (Isoenzyme) Profile (09/04/17 14:36) Complete Blood Count With Diff (09/04/17 14:36) Magnesium (Mg) (09/04/17 14:36) Prothrombin Time / Inr (Pt) (09/04/17 14:36) Act Partial Throm Time (Ptt) (09/04/17 14:36) Troponin I (09/04/17 14:36) Chest, Single Ap (09/04/17 14:36) Ecg Monitoring (09/04/17 14:36) Bilateral Bp Monitoring (09/04/17 14:36) Iv Access Insert/Monitor (09/04/17 14:36) Oximetry (09/04/17 14:36) Oxygen Administration (09/04/17 14:36) Sodium Chloride 0.9% Flush (Ns Flush) (09/04/17 14:45) Diltiazem Inj (Cardizem Inj) (09/04/17 14:45) Diltiazem Inj (Cardizem Inj) (09/04/17 15:00) Urinalysis - C+S If Indicated (09/04/17 14:38) Labs Laboratory Tests Test 09/04/17 14:40 09/04/17 14:50 Urine Color LIGHT-YELLOW Urine Turbidity CLEAR Urine pH 7.5 Urine Specific [place] 1.005 Urine Protein NEG mg/dL Urine Glucose (UA) NEG mg/dL Urine Ketones NEG mg/dL Urine Occult Blood NEG Urine Nitrite NEG Urine Bilirubin NEG Urine Urobilinogen LESS THAN 2.0 MG/DL Urine Leukocyte Esterase NEG Urine Squamous Epithelial Cells <1 /hpf Microscopic Urinalysis Comment CULT NOT INDICATED White Blood Count 6.6 TH/MM3 Red Blood Count 3.47 MIL/MM3 Hemoglobin 9.9 GM/DL Hematocrit 30.5 % Mean Corpuscular Volume 87.7 FL Mean Corpuscular Hemoglobin 28.6 PG Mean Corpuscular Hemoglobin Concent 32.6 % Red Cell Distribution Width 16.4 % Platelet Count 242 TH/MM3 Mean Platelet Volume 8.0 FL Neutrophils (%) (Auto) 81.4 % Lymphocytes (%) (Auto) 5.9 % Monocytes (%) (Auto) 10.7 % Eosinophils (%) (Auto) 1.6 % Basophils (%) (Auto) 0.4 % Neutrophils # (Auto) 5.4 TH/MM3 Lymphocytes # (Auto) 0.4 TH/MM3 Monocytes # (Auto) 0.7 TH/MM3 Eosinophils # (Auto) 0.1 TH/MM3 Basophils # (Auto) 0.0 TH/MM3 CBC Comment DIFF FINAL Differential Comment Prothrombin Time 11.4 SEC Prothromb Time International Ratio 1.1 RATIO Activated Partial Thromboplast Time 25.0 SEC Blood Urea Nitrogen 14 MG/DL Creatinine 1.00 MG/DL Random Glucose 101 MG/DL Calcium Level 8.0 MG/DL Magnesium Level 2.3 MG/DL Sodium Level 140 MEQ/L Potassium Level 3.8 MEQ/L Chloride Level 105 MEQ/L Carbon Dioxide Level 30.2 MEQ/L Anion Gap 5 MEQ/L Estimat Glomerular Filtration Rate 54 ML/MIN Total Creatine Kinase 39 U/L Troponin I 0.02 NG/ML [facility] Supervised Visit with BHARGAV: Yes Interpretation(s) CBC & BMP Diagram 09/04/17 14:50 Calcium Level 8.0 L, Magnesium Level 2.3 Last 24 hours Impressions Chest X-Ray 09/04/17 1436 Signed Impressions: Service Date/Time: Monday, September 04, 2017 15:09 - CONCLUSION: The lungs are clear. Stable cardiomegaly. Remington Grover MD Narrative Course I, Dr. baugh, have reviewed the advance practice practitioner's documentation and am in agreement, met with the patient face to face, made the diagnosis, and the medical decision making was done by me. *My assessment and Findings: 76 y/o female presents with afib with rvr, rate controlled on cardizem drip now, will admit for transition but to oral medications Diagnosis Primary Impression: Atrial fibrillation with RVR Jojo Baugh MD Sep 04, 2017 16:29
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
[2017-09-04] MEDS: RIVAROXABAN 15 MG TAB PO SCH (18:00)
[2017-09-04] MEDS ORDERED: SODIUM CHLORIDE 0.9% FLUSH 10 ML FLUSH IV FLUSH PRN (18:15)
[2017-09-04] MEDS ORDERED: ACETAMINOPHEN 325 MG TAB PO PRN (18:45)
[2017-09-04] MEDS ORDERED: RESP: IPRATROPIUM 0.5 MG/2.5 ML NEB NEB PRN (18:45)
[2017-09-04] MEDS ORDERED: guaiFENesin/DEXTROMETHORPHAN 200 MG/20 MG/10 ML CUP PO PRN (19:30)
[2017-09-04] MEDS ORDERED: PILL SPLITTER OTHER PRN (19:30)
[2017-09-04] MEDS: SODIUM CHLORIDE 0.9% FLUSH 10 ML FLUSH IV FLUSH SCH (21:00)
--- NOTE | 2017-09-04 23:19 | EKG ---
Date Performed: 09/04/2017 Time Performed: 14:44:54 PTAGE: 76 years EKG: ATRIAL FIBRILLATION WITH RAPID VENTRICULAR RESPONSE ST/T-WAVE ABNORMALITY, CONSIDER LATERAL ISCHEMIA ABNORMAL ECG PREVIOUS TRACING : 09/01/2017 10.30 No significant change from previous tracing noted. DOCTOR: Ben Paige Interpretating Date/Time 09/04/2017 23:17:55
[2017-09-05] VITALS (21 sets, daily range): BP systolic 117–138; BP diastolic 75–94; PULSE 63–111; RESP 16–18; TEMP 98–98.5; O2SAT 95–97
[2017-09-05] MEDS: MULTIVITAMIN TAB PO SCH (08:52)
[2017-09-05] MEDS: SODIUM CHLORIDE 0.9% FLUSH 10 ML FLUSH IV FLUSH SCH ×2 (08:52→20:01)
[2017-09-05] MEDS: ASPIRIN 81 MG CHEW TAB PO SCH (08:52)
[2017-09-05] MEDS: CETIRIZINE HCL 10 MG TAB PO SCH (08:52)
[2017-09-05] MEDS: FUROSEMIDE 40 MG TAB PO SCH (08:53)
[2017-09-05] MEDS: METOPROLOL SUCCINATE 50 MG EXTENDED RELEASE TAB PO SCH (08:53)
[2017-09-05] MEDS: CYANOCOBALAMIN 1,000 MCG TAB PO SCH (08:54)
[2017-09-05] MEDS: POTASSIUM CHLORIDE 20 MEQ CONTROLLED RELEASE TAB PO SCH (09:00)
[2017-09-05] MEDS: PANTOPRAZOLE SOD 40 MG DELAYED RELEASE TAB PO SCH (09:00)
[2017-09-05] MEDS ORDERED: INFLUENZA VIRUS VACCINE (QUADRIVALENT) 0.5 ML SYR IM ONE (10:00)
--- NOTE | 2017-09-05 10:36 | HHI.FPPN ---
Subjective Remarks Patient seen and examined this morning at bedside. No acute events overnight. Patient states she still feels palpitations. No active chest pain does feel pressure-like sensation in her throat. Patient endorses headache and sore throat. Denies shortness of breath or chest pain. (Elio Mtz MD, R1) Objective Vitals Vital Signs Date Time Temp Pulse Resp B/P (MAP) Pulse Ox O2 Delivery O2 Flow Rate FiO2 09/05/17 06:25 96 114/77 09/05/17 05:00 93 09/05/17 04:00 98.0 90 18 119/75 (90) 97 09/05/17 04:00 Room Air 09/05/17 04:00 90 09/05/17 03:00 89 09/05/17 02:00 86 09/05/17 01:00 90 09/05/17 00:00 63 09/05/17 00:00 98.1 63 18 117/77 (90) 96 09/04/17 23:00 72 09/04/17 22:00 79 09/04/17 21:00 86 09/04/17 20:00 98.3 93 20 121/67 (85) 97 09/04/17 20:00 93 09/04/17 18:24 97.4 98 20 144/68 (93) 97 09/04/17 18:00 89 17 152/75 (100) 98 Room Air 09/04/17 16:33 98 17 152/83 (106) 96 Room Air 09/04/17 16:01 116 17 133/91 (105) 95 Room Air 09/04/17 15:37 125 142/89 09/04/17 15:16 128 18 142/89 (106) 97 Room Air 09/04/17 15:05 97 Room Air 09/04/17 15:05 97 Room Air 09/04/17 14:28 98.6 117 17 139/89 (106) 95 I/O 09/04/17 09/04/17 09/04/17 09/05/17 09/05/17 09/05/17 07:00 15:00 23:00 07:00 15:00 23:00 Intake Total 530 ml Output Total 700 ml Balance -170 ml Intake Oral 480 ml IV Total 50 ml Output Urine Total 700 ml # Bowel Movements 0 (Elio Mtz MD, R1) Result Diagram: 09/04/17 1450 09/04/17 1450 Imaging Last Impressions Chest X-Ray 09/04/17 1436 Signed Impressions: Service Date/Time: Monday, September 04, 2017 15:09 - CONCLUSION: The lungs are clear. Stable cardiomegaly. Remington Grover MD Objective Remarks GENERAL: This is a well-nourished, well-developed patient, in no apparent distress. SKIN: No rashes, ecchymoses or lesions. Cool and dry. HEAD: Atraumatic. Normocephalic. No temporal or scalp tenderness. NECK: Trachea midline. No JVD, no meningeal signs. CARDIOVASCULAR: Irregularly irregular rate/rhythm, holosystolic murmur, no gallops or rubs. RESPIRATORY: Clear to auscultation. Breath sounds equal bilaterally. No wheezes , rales, or rhonchi. NEUROLOGICAL: Awake and alert. Motor and sensory grossly within normal limits. Normal speech. (lEio Mtz MD, R1) A/P Assessment and Plan 76-year-old female with past history of A. fib, hypertension who had been discharged from the hospital 2 days prior. Unable to obtain home medications, presented to the ED in A. fib with RVR. (Elio Mtz MD, R1) Attending Attestation Patient interviewed Examination performed Casediscussed in detail with resident team Agree with above documentation See Orders (Julito Mason MD) Problem List: (1) Atrial fibrillation ICD Codes: I48.91 - Unspecified atrial fibrillation Status: Acute Plan: Presented with Afib with RVR as reported to be seen on EKG. Recently discharged from hospital, had controlled A. fib at that time. Has not been able to take outpatient medications since discharge. -Cardizem bolus given in ED -Cardizem drip started will switch to po due to issue obtaining IV access - Rate controlled currently in -Home metoprolol dose verified with last hospital visit, continued -Continued home Xarelto -Monitor on telemetry -Follow-up cardiac consult, previously seen by Dr. Small (2) Chest pain ICD Codes: R07.9 - Chest pain, unspecified Status: Acute Plan: Has "chest pain" however may be confounding pain with the abnormal feeling of palpitations 2/2 her current Afib with RVR. Initial troponin .02, low risk. As reported in the EMR, EKG showed Afib with RVR. -See plan for Afib - troponin x2 negative -Monitor on Tele -Monitor for signs/symptoms of [place] (3) HTN (hypertension) ICD Codes: I10 - Essential (primary) hypertension Plan: Continue home medications continue to monitor VS (4) Fluids, Electrolytes, and Nutrition Status: Acute Plan: Fluids: -Tolerating by mouth fluids Electrolytes: -Monitor replete as needed Nutrition: -Heart healthy diet (Elio Mtz MD, R1) Elio Mtz MD, R1 Sep 05, 2017 10:36 Julito Mason MD Sep 05, 2017 20:23
--- NOTE | 2017-09-05 13:07 | MB ---
cc: ABRAN BILL M.D. DATE OF CONSULTATION: 09/05/2017. REASON FOR CONSULTATION: HISTORY OF PRESENT ILLNESS: Leigh is a very pleasant 76-year-old lady with history of atrial fibrillation, mild two-vessel coronary artery disease, ejection fraction 60%, mild pulmonary hypertension and severe mitral valve regurgitation who was recently admitted. The patient was discharged. She was not able to fill her medications and missed a day of medications. She re-presents with a chief complaint of palpitations. She was found to be in atrial fibrillation with rapid ventricular response. She was placed on a Cardizem drip. This morning she is feeling much better. She denies any fevers, chills, cough, GI or bleeding, paroxysmal nocturnal dyspnea, orthopnea, syncope or dizziness. PAST MEDICAL HISTORY: Her past medical history includes: 1. Encephalopathy. 2. Arthritis. 3. Uterine cancer. 4. CVA. 5. TIA. 6. Hysterectomy. SOCIAL HISTORY: Denies tobacco or alcohol use. ALLERGIES: Penicillin. MEDICATIONS PRIOR TO ADMISSION: 1. Diltiazem 300 milligrams daily. 2. Metoprolol Extended-Relief 50 milligrams daily. 3. Xarelto 15 milligrams daily. 4. Robitussin. 5. Pantoprazole. 6. Lasix 40 daily. 7. Potassium chloride 20 milliequivalents daily. 8. Ipratropium. MEDICATIONS IN THE HOSPITAL: 1. Aspirin 81 milligrams daily. 2. Zyrtec. 3. Vitamin B12. 4. Lasix 40 daily. 5. Metoprolol Extended Release 150 milligrams daily. 6. Pantoprazole 40 milligrams daily. 7. Potassium 20 milliequivalents daily. 8. Cardizem drip. 9. Xarelto 15 milligrams daily. PHYSICAL EXAMINATION: VITAL SIGNS: Pulse 96, blood pressure 114/77, temperature 98.0, respiratory rate 18. GENERAL: She is alert and oriented times three and in no acute distress. NECK: The neck is supple. No jugular venous distention. No bruits. CARDIOVASCULAR EXAM: S1 and 2. No murmurs, rubs or gallops. LUNGS: Clear to auscultation bilaterally. ABDOMEN: The abdomen is soft, nontender and nondistended with positive bowel sounds. EXTREMITIES: No lower extremity edema. EKGS: EKG on admission shows atrial fibrillation at a rate of 133 beats per minute and late R wave transition, nonspecific S-T-T wave changes. IMAGING STUDIES: Chest x-ray shows the lungs are clear, stable cardiomegaly. LABS: White count 6.6, hemoglobin 9.9, hematocrit 30.5, platelet count 242,000. Troponin is 0.02 x2. Sodium 140, potassium 3.8, chloride 105, bicarbonate 30.2, BUN 13, creatinine 1.0. INR 1.1. DIAGNOSES: She has the following diagnoses: 1. Atrial fibrillation with rapid ventricular response. 2. Chronic atrial fibrillation. 3. History of CVA. 4. History of TIA. 5. Severe mitral regurgitation. 6. Pulmonary hypertension. 7. Coronary artery disease. DISCUSSION: At this point in time, I think just starting her back on her medications that she was previously on is reasonable. I think it is okay to try to simplify her medication regimen by increasing her beta arie and possibly weaning her off the calcium channel arie. She has a [id number] score of 5. Therefore, Xarelto is indicated. I have instructed her to follow up with me in my office on September 07. I discussed compliance issues with Matias, her nurse, and the patient in detail. I also instructed Matias that the Cardizem drip as only necessary if she has a sustained heart rate greater than 130 for more than an hour. MD MARYAM Bolden/DAHLIA /10:16 AM /12:33 PM
[2017-09-05 14:16] LABS: AUTOMATED NEUTROPHIL # 5.3 TH/MM3 (1.8-7.7); BASOPHIL % 0.5 % (0.0-2.0); EOSINOPHIL # 0.1 TH/MM3 (0-0.4); EOSINOPHIL % 2.2 % (0.0-4.0); HEMATOCRIT 31.8 % (35.0-46.0); HEMOGLOBIN 10.4 GM/DL (11.6-15.3); LYMPH % 6.8 % (9.0-44.0); LYMPHOCYTE # 0.4 TH/MM3 (1.0-4.8); MEAN CELL VOLUME 88.5 FL (80.0-100.0); MEAN CORPUSCULAR HEMOGLOBIN 29.1 PG (27.0-34.0); MEAN CORPUSCULAR HGB CONC 32.8 % (32.0-36.0); MEAN PLATELET VOLUME 7.8 FL (7.0-11.0); MONO % 8.6 % (0.0-8.0); MONOCYTE # 0.6 TH/MM3 (0-0.9); NEUT % 81.9 % (16.0-70.0); PLATELET COUNT 253 TH/MM3 (150-450); RED BLOOD COUNT 3.59 MIL/MM3 (4.00-5.30); RED CELL DISTRIBUTION WIDTH 16.5 % (11.6-17.2); WHITE BLOOD COUNT 6.5 TH/MM3 (4.0-11.0)
[2017-09-05 14:52] LABS: BICARBONATE 31.2 MEQ/L (21.0-32.0); CALCIUM 8.6 MG/DL (8.5-10.1); CREATININE 1.24 MG/DL (0.50-1.00)
[2017-09-05] MEDS: RIVAROXABAN 15 MG TAB PO SCH (18:03)
[2017-09-06] VITALS (24 sets, daily range): BP systolic 119–146; BP diastolic 77–98; PULSE 83–127; RESP 16–20; TEMP 97.6–98.3; O2SAT 95–98
[2017-09-06 06:31] LABS: HEMATOCRIT 28.3 % (35.0-46.0); HEMOGLOBIN 9.8 GM/DL (11.6-15.3); MEAN CELL VOLUME 86.3 FL (80.0-100.0); MEAN CORPUSCULAR HGB CONC 34.7 % (32.0-36.0); MEAN PLATELET VOLUME 7.9 FL (7.0-11.0); PLATELET COUNT 222 TH/MM3 (150-450); RED BLOOD COUNT 3.28 MIL/MM3 (4.00-5.30); RED CELL DISTRIBUTION WIDTH 16.1 % (11.6-17.2)
[2017-09-06 06:57] LABS: BICARBONATE 29.2 MEQ/L (21.0-32.0); CALCIUM 8.5 MG/DL (8.5-10.1); CREATININE 1.03 MG/DL (0.50-1.00)
[2017-09-06] MEDS: METOPROLOL SUCCINATE 50 MG EXTENDED RELEASE TAB PO SCH (08:51)
[2017-09-06] MEDS: POTASSIUM CHLORIDE 20 MEQ CONTROLLED RELEASE TAB PO SCH (08:52)
[2017-09-06] MEDS: FUROSEMIDE 40 MG TAB PO SCH (08:52)
[2017-09-06] MEDS: CETIRIZINE HCL 10 MG TAB PO SCH (08:52)
[2017-09-06] MEDS: ASPIRIN 81 MG CHEW TAB PO SCH (08:52)
[2017-09-06] MEDS: CYANOCOBALAMIN 1,000 MCG TAB PO SCH (08:53)
[2017-09-06] MEDS: MULTIVITAMIN TAB PO SCH (08:53)
[2017-09-06] MEDS: PANTOPRAZOLE SOD 40 MG DELAYED RELEASE TAB PO SCH (08:53)
[2017-09-06] MEDS: SODIUM CHLORIDE 0.9% FLUSH 10 ML FLUSH IV FLUSH SCH ×2 (08:54→21:00)
[2017-09-06] MEDS ORDERED: DIGOXIN 0.5 MG/2 ML VIAL IV PUSH ONE (09:15)
--- NOTE | 2017-09-06 09:24 | PD.CARD.PN ---
Subjective Subjective Remarks c/o palpitations Objective Medications Current Medications Medications (Trade) Dose Ordered Sig/Yosi Route Start Time Stop Time Status Last Admin (NS Flush) 2 ml UNSCH PRN IVF 09/04/17 14:45 (Xarelto) 15 mg DAILY@1800 PO 09/04/17 18:00 09/05/17 18:03 (NS Flush) 2 ml UNSCH PRN IV FLUSH 09/04/17 18:15 (NS Flush) 2 ml BID IV FLUSH 09/04/17 21:00 09/06/17 08:54 (Aspirin Chew) 81 mg DAILY PO 09/05/17 09:00 09/06/17 08:52 Diltiazem HCl 125 mg/Sodium Chloride 125 ml @ 5 mls/hr TITRATE PRN IV 09/04/17 18:15 Future Hold 09/05/17 06:25 (Tylenol) 500 mg Q4H PRN PO 09/04/17 18:45 (ZyrTEC) 10 mg DAILY PO 09/05/17 09:00 09/06/17 08:52 (Vitamin B12) 500 mcg DAILY PO 09/05/17 09:00 09/06/17 08:53 (Lasix) 40 mg DAILY PO 09/05/17 09:00 09/06/17 08:52 (Atrovent Neb) 0.5 mg Q8HR NEB PRN NEB 09/04/17 18:45 (Toprol Xl) 150 mg DAILY PO 09/05/17 09:00 09/06/17 08:51 (Protonix) 40 mg DAILY PO 09/05/17 09:00 09/06/17 08:53 (KCl) 20 meq DAILY PO 09/05/17 09:00 09/06/17 08:52 (Robitussin Dm 200-20 Mg/10 ml Liq) 10 ml Q6H PRN PO 09/04/17 19:30 (Theragran) 1 tab DAILY PO 09/05/17 09:00 09/06/17 08:53 (Pill Splitter) 1 ea UNSCH PRN OTHER 09/04/17 19:30 Vital Signs / I&O Vital Signs Date Time Temp Pulse Resp B/P (MAP) Pulse Ox O2 Delivery O2 Flow Rate FiO2 09/06/17 07:31 97.6 127 20 126/98 (107) 97 09/06/17 07:31 97 Room Air 09/06/17 07:31 127 09/06/17 06:00 116 09/06/17 05:00 119 09/06/17 04:00 98.3 105 20 119/77 (91) 98 09/06/17 04:00 105 09/06/17 04:00 Room Air 09/06/17 03:00 123 09/06/17 02:00 100 09/06/17 01:00 89 09/06/17 00:00 96 09/06/17 00:00 98.0 96 18 146/92 (110) 96 09/06/17 00:00 Room Air 09/05/17 23:00 111 09/05/17 22:00 103 09/05/17 21:00 100 09/05/17 20:00 Room Air 09/05/17 20:00 98 09/05/17 20:00 98.2 98 18 138/86 (103) 97 09/05/17 18:00 98 09/05/17 17:00 98 09/05/17 16:00 98.5 108 16 119/86 (97) 95 09/05/17 16:00 108 09/05/17 15:00 96 09/05/17 14:00 96 09/05/17 13:00 94 09/05/17 12:00 96 09/05/17 12:00 98.3 96 16 119/80 (93) 95 09/05/17 11:00 100 09/05/17 10:00 106 I/O 09/05/17 09/05/17 09/05/17 09/06/17 09/06/17 09/06/17 06:59 14:59 22:59 06:59 14:59 22:59 Intake Total 530 ml 876 ml 480 ml Output Total 700 ml 740 ml 800 ml Balance -170 ml 136 ml -320 ml Intake Oral 480 ml 840 ml 480 ml IV Total 50 ml 36 ml Output Urine Total 700 ml 740 ml 800 ml # Bowel Movements 0 1 0 Physical Exam GENERAL: SKIN: Warm and dry. HEAD: Normocephalic. EYES: No scleral icterus. No injection or drainage. NECK: Supple, trachea midline. No JVD or lymphadenopathy. CARDIOVASCULAR: Regular rate and rhythm without murmurs, gallops, or rubs. RESPIRATORY: Breath sounds equal bilaterally. No accessory muscle use. GASTROINTESTINAL: Abdomen soft, non-tender, nondistended. MUSCULOSKELETAL: No cyanosis, or edema. BACK: Nontender without obvious deformity. No CVA tenderness. Laboratory Laboratory Tests Test 09/05/17 14:02 09/06/17 05:52 White Blood Count 6.5 TH/MM3 7.0 TH/MM3 Red Blood Count 3.59 MIL/MM3 3.28 MIL/MM3 Hemoglobin 10.4 GM/DL 9.8 GM/DL Hematocrit 31.8 % 28.3 % Mean Corpuscular Volume 88.5 FL 86.3 FL Mean Corpuscular Hemoglobin 29.1 PG 30.0 PG Mean Corpuscular Hemoglobin Concent 32.8 % 34.7 % Red Cell Distribution Width 16.5 % 16.1 % Platelet Count 253 TH/MM3 222 TH/MM3 Mean Platelet Volume 7.8 FL 7.9 FL Neutrophils (%) (Auto) 81.9 % Lymphocytes (%) (Auto) 6.8 % Monocytes (%) (Auto) 8.6 % Eosinophils (%) (Auto) 2.2 % Basophils (%) (Auto) 0.5 % Neutrophils # (Auto) 5.3 TH/MM3 Lymphocytes # (Auto) 0.4 TH/MM3 Monocytes # (Auto) 0.6 TH/MM3 Eosinophils # (Auto) 0.1 TH/MM3 Basophils # (Auto) 0.0 TH/MM3 CBC Comment DIFF FINAL Differential Comment Blood Urea Nitrogen 16 MG/DL 18 MG/DL Creatinine 1.24 MG/DL 1.03 MG/DL Random Glucose 141 MG/DL 118 MG/DL Calcium Level 8.6 MG/DL 8.5 MG/DL Sodium Level 137 MEQ/L 137 MEQ/L Potassium Level 4.1 MEQ/L 3.9 MEQ/L Chloride Level 101 MEQ/L 103 MEQ/L Carbon Dioxide Level 31.2 MEQ/L 29.2 MEQ/L Anion Gap 5 MEQ/L 5 MEQ/L Estimat Glomerular Filtration Rate 42 ML/MIN 52 ML/MIN Assessment and Plan Problem List: (1) Mitral regurgitation ICD Codes: I34.0 - Nonrheumatic mitral (valve) insufficiency Status: Acute (2) Atrial fibrillation ICD Codes: I48.91 - Unspecified atrial fibrillation Status: Acute Assessment and Plan 1.) AF with rvr - symptomatic, give dig .5 mg iv now, add cardizem drip if patient remains symptomatic with hr > 100 in 2 hours, d/w nurse, Calos Garcia MD Sep 06, 2017 09:24
--- NOTE | 2017-09-06 10:21 | HHI.FPPN ---
Subjective Remarks Patient seen and examined this morning. Temperature 97.6, pulse ranging between 105-127, respiratory rate 20, blood pressure 126/98, pulse ox 97 on room air. She is actively feeling like her heart is racing. She was evaluated by the nurse charge rn and started on digoxin 2.5 mg. She feels that medication along with the metoprolol has helped her some. At this time will monitor if she continues to be having tachycardia from her A. fib she will be restarted on the Cardizem drip. She does not feel prepared nor safe to go home at this time due to the symptomatic A. fib with RVR team is in agreement. Objective Vitals Vital Signs Date Time Temp Pulse Resp B/P (MAP) Pulse Ox O2 Delivery O2 Flow Rate FiO2 09/06/17 07:31 97.6 127 20 126/98 (107) 97 09/06/17 07:31 97 Room Air 09/06/17 07:31 127 09/06/17 06:00 116 09/06/17 05:00 119 09/06/17 04:00 98.3 105 20 119/77 (91) 98 09/06/17 04:00 105 09/06/17 04:00 Room Air 09/06/17 03:00 123 09/06/17 02:00 100 09/06/17 01:00 89 09/06/17 00:00 96 09/06/17 00:00 98.0 96 18 146/92 (110) 96 09/06/17 00:00 Room Air 09/05/17 23:00 111 09/05/17 22:00 103 09/05/17 21:00 100 09/05/17 20:00 Room Air 09/05/17 20:00 98 09/05/17 20:00 98.2 98 18 138/86 (103) 97 09/05/17 18:00 98 09/05/17 17:00 98 09/05/17 16:00 98.5 108 16 119/86 (97) 95 09/05/17 16:00 108 09/05/17 15:00 96 09/05/17 14:00 96 09/05/17 13:00 94 09/05/17 12:00 96 09/05/17 12:00 98.3 96 16 119/80 (93) 95 09/05/17 11:00 100 I/O 09/05/17 09/05/17 09/05/17 09/06/17 09/06/17 09/06/17 07:00 15:00 23:00 07:00 15:00 23:00 Intake Total 530 ml 876 ml 480 ml Output Total 700 ml 740 ml 800 ml Balance -170 ml 136 ml -320 ml Intake Oral 480 ml 840 ml 480 ml IV Total 50 ml 36 ml Output Urine Total 700 ml 740 ml 800 ml # Bowel Movements 0 1 0 Result Diagram: 09/06/17 0552 09/06/17 0552 Imaging Last Impressions Chest X-Ray 09/04/17 1436 Signed Impressions: Service Date/Time: Monday, September 04, 2017 15:09 - CONCLUSION: The lungs are clear. Stable cardiomegaly. Remington Grover MD Objective Remarks GENERAL: This is a well-nourished, well-developed patient, in no apparent distress. SKIN: No rashes, ecchymoses or lesions. Cool and dry. HEAD: Atraumatic. Normocephalic. No temporal or scalp tenderness. NECK: Trachea midline. No JVD, no meningeal signs. CARDIOVASCULAR: Irregularly irregular rate/rhythm, holosystolic murmur, no gallops or rubs. RESPIRATORY: Clear to auscultation. Breath sounds equal bilaterally. No wheezes , rales, or rhonchi. NEUROLOGICAL: Awake and alert. Motor and sensory grossly within normal limits. Normal speech. Medications and IVs Current Medications Medications (Trade) Dose Ordered Sig/Yosi Route Start Time Stop Time Status Last Admin (NS Flush) 2 ml UNSCH PRN IVF 09/04/17 14:45 (Xarelto) 15 mg DAILY@1800 PO 09/04/17 18:00 09/05/17 18:03 (NS Flush) 2 ml UNSCH PRN IV FLUSH 09/04/17 18:15 (NS Flush) 2 ml BID IV FLUSH 09/04/17 21:00 09/06/17 08:54 (Aspirin Chew) 81 mg DAILY PO 09/05/17 09:00 09/06/17 08:52 Diltiazem HCl 125 mg/Sodium Chloride 125 ml @ 5 mls/hr TITRATE PRN IV 09/04/17 18:15 Future Hold 09/05/17 06:25 (Tylenol) 500 mg Q4H PRN PO 09/04/17 18:45 (ZyrTEC) 10 mg DAILY PO 09/05/17 09:00 09/06/17 08:52 (Vitamin B12) 500 mcg DAILY PO 09/05/17 09:00 09/06/17 08:53 (Lasix) 40 mg DAILY PO 09/05/17 09:00 09/06/17 08:52 (Atrovent Neb) 0.5 mg Q8HR NEB PRN NEB 09/04/17 18:45 (Toprol Xl) 150 mg DAILY PO 09/05/17 09:00 09/06/17 08:51 (Protonix) 40 mg DAILY PO 09/05/17 09:00 09/06/17 08:53 (KCl) 20 meq DAILY PO 09/05/17 09:00 09/06/17 08:52 (Robitussin Dm 200-20 Mg/10 ml Liq) 10 ml Q6H PRN PO 09/04/17 19:30 (Theragran) 1 tab DAILY PO 09/05/17 09:00 09/06/17 08:53 (Pill Splitter) 1 ea UNSCH PRN OTHER 09/04/17 19:30 A/P Assessment and Plan 76-year-old female with past history of A. fib, hypertension who had been discharged from the hospital 2 days prior. Unable to obtain home medications, admitted for A. fib with RVR Discharge Planning Pending clearance by cardiology medical workup for A. fib with RVR continuing at this time. Problem List: (1) Atrial fibrillation ICD Codes: I48.91 - Unspecified atrial fibrillation Status: Acute Plan: Presented with Afib with RVR as reported to be seen on EKG. Recently discharged from hospital, had controlled A. fib at that time. Has not been able to take outpatient medications since discharge. -Cardiology consulted, Dr. Small, recommendations appreciated -Heart rate currently in the 105's to 127 range, currently not rate controlled -Continue metoprolol 150 mg daily -Patient given 1 dose of digoxin 0.5 mg IV for attempted rate control -If digoxin fails to obtain rate control patient will be started back on Cardizem drip -Continued home Xarelto -Monitor on telemetry (2) Chest pain ICD Codes: R07.9 - Chest pain, unspecified Status: Acute Plan: Has "chest pain" however may be confounding pain with the abnormal feeling of palpitations 2/2 her current Afib with RVR. Initial troponin .02, low risk. As reported in the EMR, EKG showed Afib with RVR. -See plan for Afib - troponin x2 negative -Monitor on Tele -Monitor for signs/symptoms of [place] (3) HTN (hypertension) ICD Codes: I10 - Essential (primary) hypertension Plan: Continue home medications, Lasix and metoprolol continue to monitor VS (4) Fluids, Electrolytes, and Nutrition Status: Acute Plan: Fluids: -Tolerating by mouth fluids Electrolytes: -Monitor replete as needed Nutrition: -Heart healthy diet Abiel Vee MD, R3 Sep 06, 2017 10:21
[2017-09-06] MEDS: RIVAROXABAN 15 MG TAB PO SCH (18:05)
[2017-09-07] VITALS (17 sets, daily range): BP systolic 108–142; BP diastolic 69–93; PULSE 71–111; RESP 16–20; TEMP 97.8–98.6; O2SAT 96–98
[2017-09-07 06:45] LABS: HEMATOCRIT 29.7 % (35.0-46.0); HEMOGLOBIN 9.9 GM/DL (11.6-15.3); MEAN CELL VOLUME 86.1 FL (80.0-100.0); MEAN CORPUSCULAR HEMOGLOBIN 28.8 PG (27.0-34.0); MEAN CORPUSCULAR HGB CONC 33.5 % (32.0-36.0); MEAN PLATELET VOLUME 8.2 FL (7.0-11.0); PLATELET COUNT 231 TH/MM3 (150-450); RED BLOOD COUNT 3.45 MIL/MM3 (4.00-5.30); RED CELL DISTRIBUTION WIDTH 15.8 % (11.6-17.2); WHITE BLOOD COUNT 6.5 TH/MM3 (4.0-11.0)
[2017-09-07 06:55] LABS: BICARBONATE 28.9 MEQ/L (21.0-32.0); CREATININE 0.93 MG/DL (0.50-1.00)
[2017-09-07] MEDS ORDERED: CALCIUM CARBONATE 1.25 GM (CA 500 MG) TAB PO ONE (07:30)
[2017-09-07] MEDS: METOPROLOL SUCCINATE 50 MG EXTENDED RELEASE TAB PO SCH (08:17)
[2017-09-07] MEDS: POTASSIUM CHLORIDE 20 MEQ CONTROLLED RELEASE TAB PO SCH (08:17)
[2017-09-07] MEDS: PANTOPRAZOLE SOD 40 MG DELAYED RELEASE TAB PO SCH (08:19)
[2017-09-07] MEDS: MULTIVITAMIN TAB PO SCH (08:19)
[2017-09-07] MEDS: FUROSEMIDE 40 MG TAB PO SCH (08:19)
[2017-09-07] MEDS: CETIRIZINE HCL 10 MG TAB PO SCH (08:19)
[2017-09-07] MEDS: SODIUM CHLORIDE 0.9% FLUSH 10 ML FLUSH IV FLUSH SCH ×2 (08:20→23:57)
[2017-09-07] MEDS: CYANOCOBALAMIN 1,000 MCG TAB PO SCH (08:20)
[2017-09-07] MEDS: ASPIRIN 81 MG CHEW TAB PO SCH (08:20)
--- NOTE | 2017-09-07 09:45 | HHI.FPPN ---
Subjective Remarks Patient seen and examined this morning. No acute events overnight. She reports no palpitations overnight. Reports none this morning. Denies any chest pain, shortness of breath, leg pain. Overall, doing well, no more symptomatic palpitations. Objective Vitals Vital Signs Date Time Temp Pulse Resp B/P (MAP) Pulse Ox O2 Delivery O2 Flow Rate FiO2 09/07/17 08:29 Room Air 09/07/17 08:13 98.0 108 16 119/88 (98) 96 09/07/17 07:44 97 09/07/17 06:00 84 09/07/17 05:00 87 09/07/17 04:00 Room Air 09/07/17 04:00 98.6 95 16 108/70 (83) 98 09/07/17 04:00 95 09/07/17 03:00 92 09/07/17 02:00 111 09/07/17 01:00 98 09/07/17 00:00 97 09/07/17 00:00 98.1 97 18 118/79 (92) 96 09/07/17 00:00 Room Air 09/06/17 23:00 98 09/06/17 22:00 100 09/06/17 21:00 99 09/06/17 20:00 Room Air 09/06/17 20:00 104 09/06/17 20:00 98.3 104 20 145/97 (113) 98 09/06/17 18:00 95 09/06/17 17:00 86 09/06/17 15:29 97.7 83 16 119/88 (98) 97 09/06/17 15:29 83 09/06/17 15:00 88 09/06/17 14:00 104 09/06/17 14:00 104 09/06/17 13:00 94 09/06/17 12:00 100 09/06/17 11:39 108 09/06/17 11:39 97.6 108 16 122/77 (92) 95 09/06/17 11:00 106 09/06/17 10:00 110 I/O 09/06/17 09/06/17 09/06/17 09/07/17 09/07/17 09/07/17 07:00 15:00 23:00 07:00 15:00 23:00 Intake Total 480 ml 1021 ml 480 ml Output Total 800 ml 800 ml Balance -320 ml 1021 ml -320 ml Intake Oral 480 ml 1000 ml 480 ml IV Total 21 ml Output Urine Total 800 ml 800 ml # Voids 5 # Bowel Movements 0 1 0 Result Diagram: 09/07/1744309/07/17443 Objective Remarks GENERAL: This is a well-nourished, lying in bed, NAD SKIN: No rashes, ecchymoses or lesions. Cool and dry. NECK: Trachea midline. No JVD, no meningeal signs. CARDIOVASCULAR: Irregularly irregular rate/rhythm, holosystolic murmur, no gallops or rubs. RESPIRATORY: Clear to auscultation. Breath sounds equal bilaterally. No wheezes , rales, or rhonchi. NEUROLOGICAL: Awake and alert. Motor and sensory grossly within normal limits. Normal speech. A/P Assessment and Plan 76-year-old female with past history of A. fib, hypertension who had been discharged from the hospital 2 days prior. Unable to obtain home medications, admitted for A. fib with RVR Discharge Planning Pending clearance by cardiology medical workup for A. fib Will need close f/u with Cardiology day after discharge as well as medication being set up Possible tomorrow discharge Problem List: (1) Atrial fibrillation ICD Codes: I48.91 - Unspecified atrial fibrillation Status: Acute Plan: Presented with Afib with RVR as reported to be seen on EKG. Recently discharged from hospital, had controlled A. fib at that time. Has not been able to take outpatient medications since discharge. HR better controlled overnight. -Cardiology consulted, Dr. Small, recommendations appreciated -Continue metoprolol 150 mg daily -s/p 1 dose of digoxin 0.5 mg IV for attempted rate control -If digoxin fails to obtain rate control patient will be started back on Cardizem drip -Continued home Xarelto -Monitor on telemetry (2) Chest pain ICD Codes: R07.9 - Chest pain, unspecified Status: Resolved Plan: Has "chest pain" however may be confounding pain with the abnormal feeling of palpitations 2/2 her current Afib with RVR. Initial troponin .02, low risk. As reported in the EMR, EKG showed Afib with RVR. Resolved -See plan for Afib -Troponin x2 negative -Monitor on Tele -Monitor for signs/symptoms of [place] (3) HTN (hypertension) ICD Codes: I10 - Essential (primary) hypertension Plan: Continue home medications, Lasix and metoprolol Continue to monitor VS (4) Fluids, Electrolytes, and Nutrition Status: Acute Plan: Fluids: -Tolerating by mouth fluids Electrolytes: -Monitor replete as needed Nutrition: -Heart healthy diet Problem Qualifiers (1) HTN (hypertension): Qualified Codes: I10 - Essential (primary) hypertension Shyam Calix MD Sep 07, 2017 09:45
--- NOTE | 2017-09-07 14:57 | PD.CARD.PN ---
Subjective Subjective Remarks c/o palpitations and mailaise Objective Medications Current Medications Medications (Trade) Dose Ordered Sig/Yosi Route Start Time Stop Time Status Last Admin (NS Flush) 2 ml UNSCH PRN IVF 09/04/17 14:45 (Xarelto) 15 mg DAILY@1800 PO 09/04/17 18:00 09/06/17 18:05 (NS Flush) 2 ml UNSCH PRN IV FLUSH 09/04/17 18:15 (NS Flush) 2 ml BID IV FLUSH 09/04/17 21:00 09/07/17 08:20 (Aspirin Chew) 81 mg DAILY PO 09/05/17 09:00 09/07/17 08:20 Diltiazem HCl 125 mg/Sodium Chloride 125 ml @ 5 mls/hr TITRATE PRN IV 09/04/17 18:15 Future hold 09/05/17 06:25 (Tylenol) 500 mg Q4H PRN PO 09/04/17 18:45 (ZyrTEC) 10 mg DAILY PO 09/05/17 09:00 09/07/17 08:19 (Vitamin B12) 500 mcg DAILY PO 09/05/17 09:00 09/07/17 08:20 (Lasix) 40 mg DAILY PO 09/05/17 09:00 09/07/17 08:19 (Atrovent Neb) 0.5 mg Q8HR NEB PRN NEB 09/04/17 18:45 (Toprol Xl) 150 mg DAILY PO 09/05/17 09:00 09/07/17 08:17 (Protonix) 40 mg DAILY PO 09/05/17 09:00 09/07/17 08:19 (KCl) 20 meq DAILY PO 09/05/17 09:00 09/07/17 08:17 (Robitussin Dm 200-20 Mg/10 ml Liq) 10 ml Q6H PRN PO 09/04/17 19:30 (Theragran) 1 tab DAILY PO 09/05/17 09:00 09/07/17 08:19 (Pill Splitter) 1 ea UNSCH PRN OTHER 09/04/17 19:30 Vital Signs / I&O Vital Signs Date Time Temp Pulse Resp B/P (MAP) Pulse Ox O2 Delivery O2 Flow Rate FiO2 09/07/17 12:40 111 09/07/17 12:03 98.4 107 18 132/85 (101) 96 09/07/17 08:29 Room Air 09/07/17 08:13 98.0 108 16 119/88 (98) 96 09/07/17 07:44 97 09/07/17 06:00 84 09/07/17 05:00 87 09/07/17 04:00 Room Air 09/07/17 04:00 98.6 95 16 108/70 (83) 98 09/07/17 04:00 95 09/07/17 03:00 92 09/07/17 02:00 111 09/07/17 01:00 98 09/07/17 00:00 97 09/07/17 00:00 98.1 97 18 118/79 (92) 96 09/07/17 00:00 Room Air 09/06/17 23:00 98 09/06/17 22:00 100 09/06/17 21:00 99 09/06/17 20:00 Room Air 09/06/17 20:00 104 09/06/17 20:00 98.3 104 20 145/97 (113) 98 09/06/17 18:00 95 09/06/17 17:00 86 09/06/17 15:29 97.7 83 16 119/88 (98) 97 09/06/17 15:29 83 09/06/17 15:00 88 I/O 09/06/17 09/06/17 09/06/17 09/07/17 09/07/17 09/07/17 07:00 15:00 23:00 07:00 15:00 23:00 Intake Total 480 ml 1021 ml 480 ml Output Total 800 ml 800 ml Balance -320 ml 1021 ml -320 ml Intake Oral 480 ml 1000 ml 480 ml IV Total 21 ml Output Urine Total 800 ml 800 ml # Voids 5 # Bowel Movements 0 1 0 Physical Exam GENERAL: SKIN: Warm and dry. HEAD: Normocephalic. EYES: No scleral icterus. No injection or drainage. NECK: Supple, trachea midline. No JVD or lymphadenopathy. CARDIOVASCULAR: Regular rate and rhythm without murmurs, gallops, or rubs. RESPIRATORY: Breath sounds equal bilaterally. No accessory muscle use. GASTROINTESTINAL: Abdomen soft, non-tender, nondistended. MUSCULOSKELETAL: No cyanosis, or edema. BACK: Nontender without obvious deformity. No CVA tenderness. Laboratory Laboratory Tests Test 09/07/17 04:44 White Blood Count 6.5 TH/MM3 Red Blood Count 3.45 MIL/MM3 Hemoglobin 9.9 GM/DL Hematocrit 29.7 % Mean Corpuscular Volume 86.1 FL Mean Corpuscular Hemoglobin 28.8 PG Mean Corpuscular Hemoglobin Concent 33.5 % Red Cell Distribution Width 15.8 % Platelet Count 231 TH/MM3 Mean Platelet Volume 8.2 FL Blood Urea Nitrogen 17 MG/DL Creatinine 0.93 MG/DL Random Glucose 106 MG/DL Calcium Level 8.0 MG/DL Sodium Level 138 MEQ/L Potassium Level 3.7 MEQ/L Chloride Level 103 MEQ/L Carbon Dioxide Level 28.9 MEQ/L Anion Gap 6 MEQ/L Estimat Glomerular Filtration Rate 58 ML/MIN Assessment and Plan Problem List: (1) Mitral regurgitation ICD Codes: I34.0 - Nonrheumatic mitral (valve) insufficiency Status: Acute (2) Atrial fibrillation ICD Codes: I48.91 - Unspecified atrial fibrillation Status: Acute Assessment and Plan 1.) AF with rvr - symptomatic, hr improving, on toprol xl 150 day #3, expect further improvement in hr over next 48 hours Calos Small MD Sep 07, 2017 14:57
[2017-09-07] MEDS: RIVAROXABAN 15 MG TAB PO SCH (16:52)
[2017-09-08] VITALS (27 sets, daily range): BP systolic 123–145; BP diastolic 74–95; PULSE 80–121; RESP 17–20; TEMP 97.7–98.6; O2SAT 92–99
[2017-09-08 06:34] LABS: HEMATOCRIT 30.7 % (35.0-46.0); HEMOGLOBIN 10.2 GM/DL (11.6-15.3); MEAN CELL VOLUME 86.6 FL (80.0-100.0); MEAN CORPUSCULAR HEMOGLOBIN 28.8 PG (27.0-34.0); MEAN CORPUSCULAR HGB CONC 33.3 % (32.0-36.0); MEAN PLATELET VOLUME 8.2 FL (7.0-11.0); PLATELET COUNT 245 TH/MM3 (150-450); RED BLOOD COUNT 3.55 MIL/MM3 (4.00-5.30); RED CELL DISTRIBUTION WIDTH 15.6 % (11.6-17.2); WHITE BLOOD COUNT 5.5 TH/MM3 (4.0-11.0)
[2017-09-08 06:53] LABS: BICARBONATE 29.5 MEQ/L (21.0-32.0); CALCIUM 8.2 MG/DL (8.5-10.1); CREATININE 1.02 MG/DL (0.50-1.00)
--- NOTE | 2017-09-08 09:34 | HHI.FPPN ---
Subjective Remarks Patient seen and examined this am. Pt with c/o palpitations and dizziness since last night. Objective Vitals Vital Signs Date Time Temp Pulse Resp B/P (MAP) Pulse Ox O2 Delivery O2 Flow Rate FiO2 09/08/17 07:41 121 09/08/17 06:00 108 09/08/17 05:00 108 09/08/17 04:00 108 09/08/17 04:00 98.6 112 20 140/95 (110) 92 09/08/17 03:00 104 09/08/17 02:00 110 09/08/17 01:00 104 09/08/17 00:00 121 09/08/17 00:00 98.4 113 20 145/95 (112) 94 09/07/17 23:00 104 09/07/17 22:00 106 09/07/17 21:00 102 09/07/17 20:00 92 09/07/17 20:00 97.8 104 20 126/93 (104) 98 09/07/17 16:26 87 09/07/17 16:10 98.2 74 16 142/89 (106) 96 09/07/17 12:40 111 09/07/17 12:03 98.4 107 18 132/85 (101) 96 I/O 09/07/17 09/07/17 09/07/17 09/08/17 09/08/17 09/08/17 07:00 15:00 23:00 07:00 15:00 23:00 Intake Total 480 ml 240 ml Output Total 800 ml Balance -320 ml 240 ml Intake Oral 480 ml 240 ml Output Urine Total 800 ml # Voids 4 3 # Bowel Movements 0 1 Result Diagram: 09/08/17 0457 09/08/17 0457 Objective Remarks GENERAL: well-nourished, siting in chair, SKIN: No rashes, ecchymoses or lesions. Cool and dry. NECK: Trachea midline. No JVD, no meningeal signs. CARDIOVASCULAR: Irregularly irregular rate/rhythm, holosystolic murmur, no gallops or rubs. RESPIRATORY: Clear to auscultation. Breath sounds equal bilaterally. No wheezes , rales, or rhonchi. NEUROLOGICAL: Awake and alert. Motor and sensory grossly within normal limits. Normal speech. A/P Assessment and Plan 76-year-old female with past history of A. fib, hypertension who had been discharged from the hospital 2 days prior. Unable to obtain home medications, admitted for A. fib with RVR Discharge Planning Pending clearance by cardiology medical workup for A. fib Will need close f/u with Cardiology day after discharge as well as medication being set up Possible discharge tomorrow Problem List: (1) Atrial fibrillation ICD Codes: I48.91 - Unspecified atrial fibrillation Status: Acute Plan: Presented with Afib with RVR as reported to be seen on EKG. Recently discharged from hospital, had controlled A. fib at that time. Has not been able to take outpatient medications since discharge. Patient symptomatic this morning with c/o dizziness and palpitations. HR elevated 108 this am with range (74-121). -Cardiology consulted, Dr. Small, recommendations appreciated -Continue metoprolol 150 mg daily -s/p 1 dose of digoxin 0.5 mg IV for attempted rate control -add Cardizem drip if patient remains symptomatic with HR>100 for 2 hours -Continued home Xarelto -Monitor on telemetry (2) Chest pain ICD Codes: R07.9 - Chest pain, unspecified Status: Resolved Plan: Has "chest pain" however may be confounding pain with the abnormal feeling of palpitations 2/2 her current Afib with RVR. Initial troponin .02, low risk. As reported in the EMR, EKG showed Afib with RVR. Resolved -See plan for Afib -Troponin x2 negative -Monitor on Tele -Monitor for signs/symptoms of [place] (3) HTN (hypertension) ICD Codes: I10 - Essential (primary) hypertension Plan: Continue home medications, Lasix and metoprolol Continue to monitor VS (4) Fluids, Electrolytes, and Nutrition Status: Acute Plan: Fluids: -Tolerating by mouth fluids Electrolytes: -Monitor replete as needed Nutrition: -Heart healthy diet Problem Qualifiers (1) HTN (hypertension): Qualified Codes: I10 - Essential (primary) hypertension Elio Mtz MD, R1 Sep 08, 2017 09:34
[2017-09-08] MEDS: MULTIVITAMIN TAB PO SCH (09:58)
[2017-09-08] MEDS: POTASSIUM CHLORIDE 20 MEQ CONTROLLED RELEASE TAB PO SCH (09:58)
[2017-09-08] MEDS: FUROSEMIDE 40 MG TAB PO SCH (09:58)
[2017-09-08] MEDS: METOPROLOL SUCCINATE 50 MG EXTENDED RELEASE TAB PO SCH (09:58)
[2017-09-08] MEDS: PANTOPRAZOLE SOD 40 MG DELAYED RELEASE TAB PO SCH (09:58)
[2017-09-08] MEDS: CETIRIZINE HCL 10 MG TAB PO SCH (09:58)
[2017-09-08] MEDS: CYANOCOBALAMIN 1,000 MCG TAB PO SCH (09:58)
[2017-09-08] MEDS: SODIUM CHLORIDE 0.9% FLUSH 10 ML FLUSH IV FLUSH SCH ×2 (09:59→20:02)
[2017-09-08] MEDS: ASPIRIN 81 MG CHEW TAB PO SCH (09:59)
[2017-09-08] MEDS ORDERED: hydrOXYzine PAMOATE 25 MG CAP PO PRN (11:30)
--- NOTE | 2017-09-08 12:53 | PD.CARD.PN ---
Subjective Subjective Remarks c/o palpitations and mailaise Objective Medications Current Medications Medications (Trade) Dose Ordered Sig/Yosi Route Start Time Stop Time Status Last Admin (NS Flush) 2 ml UNSCH PRN IVF 09/04/17 14:45 (Xarelto) 15 mg DAILY@1800 PO 09/04/17 18:00 09/07/17 16:52 (NS Flush) 2 ml UNSCH PRN IV FLUSH 09/04/17 18:15 (NS Flush) 2 ml BID IV FLUSH 09/04/17 21:00 09/08/17 09:59 (Aspirin Chew) 81 mg DAILY PO 09/05/17 09:00 09/08/17 09:59 Diltiazem HCl 125 mg/Sodium Chloride 125 ml @ 5 mls/hr TITRATE PRN IV 09/04/17 18:15 Future hold 09/05/17 06:25 (Tylenol) 500 mg Q4H PRN PO 09/04/17 18:45 (ZyrTEC) 10 mg DAILY PO 09/05/17 09:00 09/08/17 09:58 (Vitamin B12) 500 mcg DAILY PO 09/05/17 09:00 09/08/17 09:58 (Lasix) 40 mg DAILY PO 09/05/17 09:00 09/08/17 09:58 (Atrovent Neb) 0.5 mg Q8HR NEB PRN NEB 09/04/17 18:45 (Toprol Xl) 150 mg DAILY PO 09/05/17 09:00 09/08/17 09:58 (Protonix) 40 mg DAILY PO 09/05/17 09:00 09/08/17 09:58 (KCl) 20 meq DAILY PO 09/05/17 09:00 09/08/17 09:58 (Robitussin Dm 200-20 Mg/10 ml Liq) 10 ml Q6H PRN PO 09/04/17 19:30 (Theragran) 1 tab DAILY PO 09/05/17 09:00 09/08/17 09:58 (Pill Splitter) 1 ea UNSCH PRN OTHER 09/04/17 19:30 (Vistaril) 25 mg Q6H PRN PO 09/08/17 11:30 Vital Signs / I&O Vital Signs Date Time Temp Pulse Resp B/P (MAP) Pulse Ox O2 Delivery O2 Flow Rate FiO2 09/08/17 10:15 98.0 120 18 130/89 (103) 96 09/08/17 07:41 121 09/08/17 06:00 108 09/08/17 05:00 108 09/08/17 04:00 108 09/08/17 04:00 98.6 112 20 140/95 (110) 92 09/08/17 03:00 104 09/08/17 02:00 110 09/08/17 01:00 104 09/08/17 00:00 121 09/08/17 00:00 98.4 113 20 145/95 (112) 94 09/07/17 23:00 104 09/07/17 22:00 106 09/07/17 21:00 102 09/07/17 20:00 92 09/07/17 20:00 97.8 104 20 126/93 (104) 98 09/07/17 16:26 87 09/07/17 16:10 98.2 74 16 142/89 (106) 96 I/O 09/07/17 09/07/17 09/07/17 09/08/17 09/08/17 09/08/17 07:00 15:00 23:00 07:00 15:00 23:00 Intake Total 480 ml 240 ml Output Total 800 ml Balance -320 ml 240 ml Intake Oral 480 ml 240 ml Output Urine Total 800 ml # Voids 4 3 # Bowel Movements 0 1 Physical Exam GENERAL: SKIN: Warm and dry. HEAD: Normocephalic. EYES: No scleral icterus. No injection or drainage. NECK: Supple, trachea midline. No JVD or lymphadenopathy. CARDIOVASCULAR: Regular rate and rhythm without murmurs, gallops, or rubs. RESPIRATORY: Breath sounds equal bilaterally. No accessory muscle use. GASTROINTESTINAL: Abdomen soft, non-tender, nondistended. MUSCULOSKELETAL: No cyanosis, or edema. BACK: Nontender without obvious deformity. No CVA tenderness. Laboratory Laboratory Tests Test 09/08/17 04:57 White Blood Count 5.5 TH/MM3 Red Blood Count 3.55 MIL/MM3 Hemoglobin 10.2 GM/DL Hematocrit 30.7 % Mean Corpuscular Volume 86.6 FL Mean Corpuscular Hemoglobin 28.8 PG Mean Corpuscular Hemoglobin Concent 33.3 % Red Cell Distribution Width 15.6 % Platelet Count 245 TH/MM3 Mean Platelet Volume 8.2 FL Blood Urea Nitrogen 18 MG/DL Creatinine 1.02 MG/DL Random Glucose 93 MG/DL Calcium Level 8.2 MG/DL Sodium Level 139 MEQ/L Potassium Level 3.9 MEQ/L Chloride Level 103 MEQ/L Carbon Dioxide Level 29.5 MEQ/L Anion Gap 7 MEQ/L Estimat Glomerular Filtration Rate 52 ML/MIN Assessment and Plan Problem List: (1) Mitral regurgitation ICD Codes: I34.0 - Nonrheumatic mitral (valve) insufficiency Status: Acute (2) Atrial fibrillation ICD Codes: I48.91 - Unspecified atrial fibrillation Status: Acute Assessment and Plan 1.) AF with rvr - symptomatic, hr improving, on toprol xl 150 day #4, expect further improvement in hr over next 48 hours Calos Small MD Sep 08, 2017 12:53
[2017-09-08] MEDS ORDERED: MENTHOL LOZENGE BUCCAL PRN (16:00)
[2017-09-08] MEDS: RIVAROXABAN 15 MG TAB PO SCH (17:15)
[2017-09-09] VITALS (13 sets, daily range): BP systolic 88–139; BP diastolic 49–91; PULSE 66–111; RESP 18–20; TEMP 97.6–98.8; O2SAT 94–99
[2017-09-09 05:56] LABS: AUTOMATED NEUTROPHIL # 4.1 TH/MM3 (1.8-7.7); BASOPHIL # 0.1 TH/MM3 (0-0.2); BASOPHIL % 1.2 % (0.0-2.0); EOSINOPHIL # 0.2 TH/MM3 (0-0.4); EOSINOPHIL % 2.9 % (0.0-4.0); HEMATOCRIT 30.7 % (35.0-46.0); LYMPH % 10.1 % (9.0-44.0); LYMPHOCYTE # 0.6 TH/MM3 (1.0-4.8); MEAN CELL VOLUME 86.6 FL (80.0-100.0); MEAN CORPUSCULAR HEMOGLOBIN 28.3 PG (27.0-34.0); MEAN CORPUSCULAR HGB CONC 32.6 % (32.0-36.0); MEAN PLATELET VOLUME 8.1 FL (7.0-11.0); MONOCYTE # 0.7 TH/MM3 (0-0.9); NEUT % 73.8 % (16.0-70.0); PLATELET COUNT 248 TH/MM3 (150-450); RED BLOOD COUNT 3.55 MIL/MM3 (4.00-5.30); RED CELL DISTRIBUTION WIDTH 15.8 % (11.6-17.2); WHITE BLOOD COUNT 5.6 TH/MM3 (4.0-11.0)
[2017-09-09 06:30] LABS: BICARBONATE 29.2 MEQ/L (21.0-32.0); CALCIUM 8.4 MG/DL (8.5-10.1); CREATININE 1.12 MG/DL (0.50-1.00)
[2017-09-09] MEDS: FUROSEMIDE 40 MG TAB PO SCH (08:09)
[2017-09-09] MEDS: ASPIRIN 81 MG CHEW TAB PO SCH (08:09)
[2017-09-09] MEDS: CETIRIZINE HCL 10 MG TAB PO SCH (08:09)
[2017-09-09] MEDS: PANTOPRAZOLE SOD 40 MG DELAYED RELEASE TAB PO SCH (08:09)
[2017-09-09] MEDS: MULTIVITAMIN TAB PO SCH (08:09)
[2017-09-09] MEDS: METOPROLOL SUCCINATE 50 MG EXTENDED RELEASE TAB PO SCH (08:10)
[2017-09-09] MEDS: POTASSIUM CHLORIDE 20 MEQ CONTROLLED RELEASE TAB PO SCH (08:10)
[2017-09-09] MEDS: CYANOCOBALAMIN 1,000 MCG TAB PO SCH (08:10)
[2017-09-09] MEDS: SODIUM CHLORIDE 0.9% FLUSH 10 ML FLUSH IV FLUSH SCH (08:10)
--- NOTE | 2017-09-09 09:22 | HHI.FPPN ---
Subjective Remarks Pt seen and examined this morning. No acute events overnight. Pulse ranged from 80-111 overnight. Slept well. Denies any chest pain. No more dizziness this morning. Denies feeling the palpitations today. Denies any fever/chills, nausea/ vomiting, chest pain, SOB, abdominal pain. Objective Vitals Vital Signs Date Time Temp Pulse Resp B/P (MAP) Pulse Ox O2 Delivery O2 Flow Rate FiO2 09/09/17 06:00 98 09/09/17 05:00 108 09/09/17 04:00 98.8 111 20 139/85 (103) 95 09/09/17 04:00 102 09/09/17 03:00 104 09/09/17 02:00 94 09/09/17 01:00 100 09/09/17 00:00 96 09/09/17 00:00 97.6 105 20 88/49 (62) 97 09/08/17 23:00 100 09/08/17 22:00 100 09/08/17 21:00 80 09/08/17 20:00 100 09/08/17 20:00 97.7 106 20 129/82 (98) 98 09/08/17 19:00 98 09/08/17 18:00 92 09/08/17 17:00 94 09/08/17 16:12 98.5 91 17 126/81 (96) 99 09/08/17 16:00 90 09/08/17 15:00 80 09/08/17 14:03 100 09/08/17 13:00 102 09/08/17 12:52 98.5 90 18 123/74 (90) 93 09/08/17 12:00 100 09/08/17 11:00 111 09/08/17 10:15 98.0 120 18 130/89 (103) 96 09/08/17 10:00 116 I/O 09/08/17 09/08/17 09/08/17 09/09/17 09/09/17 09/09/17 07:00 15:00 23:00 07:00 15:00 23:00 Intake Total 240 ml 720 ml 240 ml Output Total 850 ml Balance 240 ml -130 ml 240 ml Intake Oral 240 ml 720 ml 240 ml Output Urine Total 850 ml # Voids 3 1 # Bowel Movements 2 Result Diagram: 2/45709/09/17457 Objective Remarks GENERAL: well-nourished, siting in chair, SKIN: Cool and dry. CARDIOVASCULAR: Irregularly irregular rate/rhythm, holosystolic murmur, no gallops or rubs. RESPIRATORY: Clear to auscultation. Breath sounds equal bilaterally. No wheezes , rales, or rhonchi. NEUROLOGICAL: Awake and alert. Motor and sensory grossly within normal limits. Normal speech. EXTREMITIES: 1+ edema up to mid ingram bilaterally A/P Assessment and Plan 76-year-old female with past history of A. fib, hypertension who had been discharged from the hospital 2 days prior. Unable to obtain home medications, admitted for A. fib with RVR Discharge Planning Pending clearance by cardiology medical workup for A. fib Will need close f/u with Cardiology day after discharge as well as medication being set up Possible discharge today/tomorrow Problem List: (1) Atrial fibrillation ICD Codes: I48.91 - Unspecified atrial fibrillation Status: Acute Plan: Presented with Afib with RVR as reported to be seen on EKG. Recently discharged from hospital, had controlled A. fib at that time. Has not been able to take outpatient medications since discharge. Symptoms improved today. -Cardiology consulted, Dr. Small, recommendations appreciated F/u with him day after discharge -Continue metoprolol 150 mg daily -s/p 1 dose of digoxin 0.5 mg IV for attempted rate control -add Cardizem drip if patient remains symptomatic with HR>100 for 2 hours -Continued home Xarelto -Monitor on telemetry (2) Chest pain ICD Codes: R07.9 - Chest pain, unspecified Status: Resolved Plan: Has "chest pain" however may be confounding pain with the abnormal feeling of palpitations 2/2 her current Afib with RVR. Initial troponin .02, low risk. As reported in the EMR, EKG showed Afib with RVR. Resolved -See plan for Afib -Troponin x2 negative -Monitor on Tele -Monitor for signs/symptoms of [place] (3) HTN (hypertension) ICD Codes: I10 - Essential (primary) hypertension Plan: Continue home medications, Lasix and metoprolol Continue to monitor VS (4) Fluids, Electrolytes, and Nutrition Status: Acute Plan: Fluids: -Tolerating by mouth fluids Electrolytes: -Monitor replete as needed Nutrition: -Heart healthy diet DVT ppx: Xarelto Problem Qualifiers (1) HTN (hypertension): Qualified Codes: I10 - Essential (primary) hypertension Shyam Calix MD Sep 09, 2017 09:22
--- NOTE | 2017-09-09 11:21 | HHI.FF ---
Face to Face Verification Diagnosis: (1) Physical deconditioning (2) Exertional dyspnea (3) HTN (hypertension) (4) Mitral regurgitation (5) HTN (hypertension) (6) Atrial fibrillation with RVR Home Health Nursing Order: Medical education Signs/symptoms of disease process Medication education-adverse effect I have seen patient Leigh Mcguire on 09/09/17. My clinical findings support the need for the requested home health care services because: Ltd mobility - disease progression Deconditioned w/ increased weakness Med compliance is questionable Impaired cognition/judgement I certify that my clinical findings support that this patient is homebound because: Impaired cognitive ability/safety Shyam Calix MD Sep 09, 2017 11:21
--- NOTE | 2017-09-09 14:07 | HHI.DS ---
Discharge Summary Admission Date Sep 04, 2017 at 18:13 Discharge Date: Sep 09, 2017 Admitting Diagnosis A-fib with RVR (1) Atrial fibrillation Diagnosis: Principal Plan: Presented with Afib with RVR as reported to be seen on EKG. Recently discharged from hospital, had controlled A. fib at that time. Has not been able to take outpatient medications since discharge. Symptoms improved today. -Cardiology consulted, Dr. Small, recommendations appreciated F/u with him day after discharge -Continue metoprolol 150 mg daily -s/p 1 dose of digoxin 0.5 mg IV for attempted rate control -add Cardizem drip if patient remains symptomatic with HR>100 for 2 hours -Continued home Xarelto -Monitor on telemetry ICD Codes: I48.91 - Unspecified atrial fibrillation Status: Acute (2) Chest pain Diagnosis: Secondary Plan: Has "chest pain" however may be confounding pain with the abnormal feeling of palpitations 2/2 her current Afib with RVR. Initial troponin .02, low risk. As reported in the EMR, EKG showed Afib with RVR. Resolved -See plan for Afib -Troponin x2 negative -Monitor on Tele -Monitor for signs/symptoms of [place] ICD Codes: R07.9 - Chest pain, unspecified Status: Resolved (3) HTN (hypertension) Diagnosis: Secondary Plan: Continue home medications, Lasix and metoprolol Continue to monitor VS ICD Codes: I10 - Essential (primary) hypertension (4) Fluids, Electrolytes, and Nutrition Diagnosis: Secondary Plan: Fluids: -Tolerating by mouth fluids Electrolytes: -Monitor replete as needed Nutrition: -Heart healthy diet DVT ppx: Xarelto Status: Acute Consultants Cardiology Brief History Patient is a 76-year-old female with past history of hypertension, A. fib who presents today with palpitations. He was discharged from the hospital approximate 2 days ago where she had unstable angina, A. fib, mitral regurgitation, and a supratherapeutic INR. Following discharge her son went to fish bait picker her medications, after picking up her medications his car was repossessed. She has been unable to take her medication since that day. Her primary care physician prescribed additional medication however she was unable to pick that up. She was also to follow-up with bootmaker hand Dr. Small following discharge, however states she did not because "I did not know her's office was." Today she noted she could feel her heart beat and see it through her shirt. States this was "a weird feeling" which she states is chest pain however is described more as palpitations, diaphoresis, pain in arm/jaw, change in vision. She states she has some minor shortness of breath which has been present chronically, needs to use multiple pillows to sleep at night, however no cough or sputum production. She also notes a sore throat, and headache since discharge. Denies nausea, vomiting, fever, chills, change in urinary or bowel habits. No other complaints today. CBC/BMP: 09/09/17 0458 09/09/17 0458 Significant Findings Laboratory Tests Test 09/07/17 04:44 09/08/17 04:57 09/09/17 04:58 Red Blood Count 3.45 MIL/MM3 (4.00-5.30) 3.55 MIL/MM3 (4.00-5.30) 3.55 MIL/MM3 (4.00-5.30) Hemoglobin 9.9 GM/DL (11.6-15.3) 10.2 GM/DL (11.6-15.3) 10.0 GM/DL (11.6-15.3) Hematocrit 29.7 % (35.0-46.0) 30.7 % (35.0-46.0) 30.7 % (35.0-46.0) Calcium Level 8.0 MG/DL (8.5-10.1) 8.2 MG/DL (8.5-10.1) 8.4 MG/DL (8.5-10.1) Estimat Glomerular Filtration Rate 58 ML/MIN (>89) 52 ML/MIN (>89) 47 ML/MIN (>89) Creatinine 1.02 MG/DL (0.50-1.00) 1.12 MG/DL (0.50-1.00) Neutrophils (%) (Auto) 73.8 % (16.0-70.0) Monocytes (%) (Auto) 12.0 % (0.0-8.0) Lymphocytes # (Auto) 0.6 TH/MM3 (1.0-4.8) Blood Urea Nitrogen 21 MG/DL (7-18) PE at Discharge GENERAL: well-nourished, siting in chair, SKIN: Cool and dry. CARDIOVASCULAR: Irregularly irregular rate/rhythm, holosystolic murmur, no gallops or rubs. RESPIRATORY: Clear to auscultation. Breath sounds equal bilaterally. No wheezes , rales, or rhonchi. NEUROLOGICAL: Awake and alert. Motor and sensory grossly within normal limits. Normal speech. EXTREMITIES: 1+ edema up to mid ingram bilaterally Hospital Course 76-year-old female with history of hypertension, atrial fibrillation presented with palpitations. Of note, she was just discharged from the hospital recently due to atrial fibrillation. She was unable take her medications, presented again with some chest pain and atrial fibrillation with RVR. He was initially started on Cardizem drip, and continue home Xarelto and metoprolol. Cartilage was also consulted, who saw her on the last admission. Patient remained stable on the drip, and transition to oral medications. Recommended increasing the metoprolol dose and continuing the Cardizem oral medication. Patient remained stable and slowly improved. Did have symptomatic palpitations one day, and was given dose of digoxin. She remained stable and improved and was discharged in stable condition with home health care. Recommended follow-up with bootmaker hand the next day and her PCP in one week. Pt Condition on Discharge: Stable Discharge Disposition: Disch w/ Home Health Serv Discharge Instructions DIET: Follow Instructions for: Heart Healthy Diet Activities you can perform: Regular-No Restrictions Follow up Referrals: Cardiology - 09/10/17 with Calos Small MD PCP Follow-up - 1 Week with Glen Solorzano MD, R3 Continued Medications: Acetaminophen (Eq Acetaminophen) 325 Mg Tab 500 MG PO Q4H PRN for PAIN SCALE 1 TO 7, #30 TAB Ascorbic Acid (Vitamin C) 250 Mg Tab 500 MG PO for Nutritional Supplement, TAB 0 Refills Calcium-Vitamins D & K (Calcium + D & K) 500-1,000-40 Mg-Unit-Mcg Chew 1 TAB CHEW for Nutritional Supplement, TAB 0 Refills Cyanocobalamin (Vitamin B-12) 500 Mcg Tab 500 MCG PO DAILY for Nutritional Supplement, #1 BOTTLE 0 Refills Doxylamine-Dextromethorphan Liq (Robitussin Nighttime Cough Liq) 12.5-30 Mg/10 Ml Soln 10 ML PO Q6H PRN for COUGH AND/OR COLD SYMPTOMS, #1 BOTTLE 0 Refills Furosemide (Furosemide) 40 Mg Tab 40 MG PO DAILY, #30 TAB 3 Refills Ipratropium Neb (Ipratropium Neb) 0.5 Mg/2.5 Ml Amp 0.5 MG NEB Q8HR PRN for SHORTNESS OF BREATH, #1 BOX 3 Refills Metoprolol Succinate ER 24 HR (Metoprolol Succinate ER 24 HR) 50 Mg Tab 150 MG PO DAILY, #90 TAB 0 Refills Multiple Vitamin (Multiple Vitamin) 1 Tab 1 TAB PO DAILY for Nutritional Supplement, TAB 0 Refills Pantoprazole (Pantoprazole) 40 Mg Tab 40 MG PO DAILY, #30 TAB Potassium Chloride ER (Potassium Chloride ER) 20 Meq Tab 20 MEQ PO DAILY for Electrolyte Replacement, #30 TAB 3 Refills Rivaroxaban (Xarelto) 15 Mg Tab 15 MG PO DAILY@1800, #30 TAB 0 Refills Discontinued Medications: Cetirizine (Cetirizine) 10 Mg Tab 10 MG PO DAILY for Allergies, TAB 0 Refills Diltiazem CD 24 HR (Diltiazem CD 24 HR) 300 Mg Caper 300 MG PO DAILY, #30 CAP Metoprolol Succinate ER 24 HR (Metoprolol Succinate ER 24 HR) 50 Mg Tab 150 MG PO DAILY, #90 TAB Shyam Calix MD Sep 09, 2017 14:07
== END 2017-09-09 14:15 | disposition home health service (06) | DRG 310 ==
LOC: NEPC 14:08 → NEDA 17:30 → HCIS 18:11 → OBSVTOIN 18:13
PROVIDERS: ADMIT Family Medicine; ATTEND Family Medicine
DX: I48.2 Chronic atrial fibrillation (principal); I11.0 Hypertensive heart disease with heart failure; I27.20 Pulmonary hypertension, unspecified; I50.9 Heart failure, unspecified; D64.9 Anemia, unspecified; I25.10 Atherosclerotic heart disease of native coronary artery without angina pectoris; J44.9 Chronic obstructive pulmonary disease, unspecified; M19.90 Unspecified osteoarthritis, unspecified site; I05.2 Rheumatic mitral stenosis with insufficiency; Z79.01 Long term (current) use of anticoagulants; Z85.42 Personal history of malignant neoplasm of other parts of uterus; Z86.73 Personal history of transient ischemic attack (TIA), and cerebral infarction without residual deficits
CPT/HCPCS: 71045; 76937; 80048; 81001; 82550; 83735; 84484; 85025; 85027; 85610; 85730; 93005; 96365; 96366; 96375; J1160

== ENCOUNTER 2018-01-26 11:33 | Observation (INO) ==
--- NOTE | 2018-01-26 14:05 | XR ---
EXAM DATE: 01/26/2018 1:33 PM EDT AGE/SEX: 77 years / Female INDICATIONS: . Shortness of breath with chest pains. CLINICAL DATA: This is the patient's initial encounter. Patient reports that signs and symptoms have been present for 1 day and indicates a pain score of 2/10. MEDICAL/SURGICAL HISTORY: Angina. Pacemaker. COMPARISON: [facility], XR CHEST PA AND LAT, 12/24/2017. . FINDINGS: The heart is enlarged. There is a transvenous pacer in place. There is no pneumothorax. There are chr onic appearing interstitial changes within the pulmonary parenchyma. The lungs are otherwise clear. C omparison is made to a previous of 12/24/2017. The appearance of the chest is stable. The visualized bony structures are grossly intact. CONCLUSION: Cardiomegaly and chronic interstitial changes. Stable exam compared to previous of 12/24/2017. Electronically signed by: Grabiel Hopper MD 01/26/2018 2:04 PM EDT
[2018-01-26 14:33] LABS: Baso % (Auto) 0.4 % (0.0-2.0); Eos # (Auto) 0.1 th/mm3 (0.0-0.4); Hematocrit 35.2 % (35.0-46.0); Hemoglobin 11.5 gm/dL (11.6-15.3); Lymph # (Auto) 0.5 th/mm3 (1.0-4.8); Lymph % (Auto) 6.3 % (9.0-44.0); Mean Corpuscular HGB Conc 32.5 % (32.0-36.0); Mean Corpuscular Hemoglobin 29.7 pg (27.0-34.0); Mean Corpuscular Volume 91.4 fL (80.0-100.0); Mean Platelet Volume 8.1 fL (7.0-11.0); Mono # (Auto) 0.8 th/mm3 (0.0-0.9); Mono % (Auto) 9.6 % (0.0-8.0); Neut # (Auto) 6.7 th/mm3 (1.8-7.7); Neut % (Auto) 82.7 % (16.0-70.0); Platelet Count 217 th/mm3 (150-450); Red Blood Count 3.85 mil/mm3 (4.00-5.30); Red Cell Distribution Width 17.8 % (11.6-17.2); White Blood Count 8.1 th/mm3 (4.0-11.0)
[2018-01-26 14:55] LABS: Alanine Aminotransferase 18 U/L (10-53); Anion Gap 10 meq/L (5-15); Aspartate Aminotransferase 13 U/L (15-37); Blood Urea Nitrogen 14 mg/dL (7-18); Calcium 8.6 mg/dL (8.5-10.1); Carbon Dioxide 26.3 meq/L (21.0-32.0); Chloride 105 meq/L (98-107); Glomerular Filtration Rate 59 mL/min (>89); Glucose,Random 79 mg/dL (74-106); Potassium 4.1 meq/L (3.5-5.1); Sodium 141 meq/L (136-145)
[2018-01-26 14:57] LABS: Alkaline Phosphatase 66 U/L (45-117); Total Protein 7.4 g/dL (6.4-8.2)
[2018-01-26] MEDS ORDERED: Temazepam 15 MG Capsule PO PRN (18:46)
[2018-01-26] MEDS ORDERED: Bisacodyl 10 MG Supp RECTAL PRN (18:46)
[2018-01-26] MEDS ORDERED: Acetaminophen 325 MG Tablet PO PRN (18:46)
--- NOTE | 2018-01-26 18:51 | P.HPFP ---
History of Present Illness Primary Care Physician: Krzysztof Lerma MD. Chief Complaint: Chest pain and shortness of breath with exertion History of Present Illness: Patient presents following a two week period of increasing chest pain and shortness of breath on exertion. She has some chest discomfort at rest. She has a history of A. fib with RVR which resulted in pacemaker placement by Dr. Clinton at [facility]. She also reports some palpitations since pacemaker placement that has gotten worse over the past week and some lightheadedness while sitting. She lives at an independent living facility and states that she is typically very mobile and active. Patient is a difficult historian. - Diagnosis (1) Hypertensive urgency (2) Type 2 diabetes mellitus Inpatient Certification: I certify that the inpatient services were ordered in accordance with Medicare regulations governing the order. This includes certification that hospital inpatient services are reasonable and necessary and in the case of services not specified as inpatient-only under 42 CFR 419.22(n), that they are appropriately provided as inpatient services in accordance to with the 2-midnight benchmark under 43 CFR 412.3(e) Estimated Total Length of Stay (Days): 1 Plans for Post Hospital Care: Home (Lives at independent living facility) Review of Systems Eyes: Denies blurry vision, Denies change in vision Ears, Nose, Mouth, and Throat: Denies abnormal hearing Cardiovascular: Reports chest pain, Reports chest pain at rest, Reports chest pain with activity, Reports lightheadedness, Reports rapid, pounding, or irregular heartbeat, Denies excessive sweating Respiratory: Reports shortness of breath Gastrointestinal: Denies abdominal pain, Denies constipation, Denies loose stools, Denies nausea, Denies vomiting PMFSH - History History Provided By: Patient - Medical History Medical History: Medical History (Last Reviewed 01/26/18 @ 19:12 by Alec Bautista MD, R1) History of hysterectomy Hypertension Pacemaker Right shoulder injury - Tobacco History Smoking Status: Never smoker - Alcohol History How Often Do You Have a Drink Containing Alcohol: Never - Substance Use History Substance History: No History of Abuse - Travel History Recent Travel in the [place] Within the Last 8 Weeks: No Recent Travel Out of the Country Within the Last 8 Weeks: No - Immunization History Tetanus Immunization: >5 Years Hx Influenza Vaccine This Season: No Medications and Allergies Allergies Allergy/AdvReac Type Severity Reaction Status Date / Time Penicillins Allergy Severe RASH Verified 07/21/17 13:52 Home Medications Medication Instructions Recorded Confirmed Type bumetanide 1 mg PO BID 01/26/18 01/26/18 History fluticasone [Flovent HFA] 1 puff INHALATION Q12H 01/26/18 01/26/18 History linagliptin [Tradjenta] 5 mg PO DAILY 01/26/18 01/26/18 History metolazone 2.5 mg PO DAILY 01/26/18 01/26/18 History potassium chloride 1 tab PO DAILY 01/26/18 01/26/18 History rivaroxaban 15 mg PO DAILY 01/26/18 01/26/18 History simvastatin 40 mg PO QPM 01/26/18 01/26/18 History Exam Vital signs: Vital Signs 01/26/18 12:24 01/26/18 16:49 Temperature 98.2 F Pulse Rate 87 80 Respiratory Rate 20 19 Blood Pressure 196/95 H 223/98 H Pulse Oximetry 98 96 Intake & Output 01/25/18 01/26/18 01/26/18 18:59 06:59 18:59 Weight 63.503 kg Narrative: General: No acute distress, well-developed and appears her stated age. HEENT: Atraumatic, pupils equal, nonicteric sclera, pharynx noninjected, trachea midline Cardiac: Regular rate and rhythm with 2/6 systolic murmur Pulmonary: Clear to auscultation bilaterally with decreased air entry at the bases. No increased work of breathing. Abdomen: Soft, mild diffuse tenderness without rebounding or guarding, no masses , normal bowel sounds Extremities: Trace edema bilaterally. Neurologic: Alert and oriented 3. 5/5 strength in all extremities. Results - Labs Result diagrams: 01/26/18 12:39 01/26/18 17:00 Abnormal lab results 01/26/18 01/26/18 01/26/18 Range/Units 12:39 12:39 12:39 RBC 3.85 L (4.00-5.30) mil/mm3 Hgb 11.5 L (11.6-15.3) gm/dL RDW 17.8 H (11.6-17.2) % Neut % (Auto) 82.7 H (16.0-70.0) % Lymph % (Auto) 6.3 L (9.0-44.0) % [place] % (Auto) 9.6 H (0.0-8.0) % Lymph # (Auto) 0.5 L (1.0-4.8) th/mm3 D-Dimer Quant (PE/DVT) (0.00-0.50) mg/L FEU Estimated GFR 59 L (>89) mL/min AST 13 L (15-37) U/L Troponin I (0.02-0.05) ng/mL B-Natriuretic Peptide 298 H (0-100) pg/mL 01/26/18 01/26/18 Range/Units 17:00 17:00 RBC (4.00-5.30) mil/mm3 Hgb (11.6-15.3) gm/dL RDW (11.6-17.2) % Neut % (Auto) (16.0-70.0) % Lymph % (Auto) (9.0-44.0) % [place] % (Auto) (0.0-8.0) % Lymph # (Auto) (1.0-4.8) th/mm3 D-Dimer Quant (PE/DVT) 0.52 H (0.00-0.50) mg/L FEU Estimated GFR (>89) mL/min AST (15-37) U/L Troponin I Less than 0.02 L (0.02-0.05) ng/mL B-Natriuretic Peptide (0-100) pg/mL Short CBC 01/26/18 Range/Units 12:39 WBC 8.1 (4.0-11.0) th/mm3 Hgb 11.5 L (11.6-15.3) gm/dL Hct 35.2 (35.0-46.0) % Plt Count 217 (150-450) th/mm3 BMP 01/26/18 12:39 Sodium 141 Potassium 4.1 Chloride 105 Carbon Dioxide 26.3 BUN 14 Creatinine 0.92 Calcium 8.6 Cardiac Enzymes 01/26/18 Range/Units 17:00 Troponin I Less than 0.02 L (0.02-0.05) ng/mL Liver Function 01/26/18 Range/Units 12:39 Total Bilirubin 0.7 (0.2-1.0) mg/dL AST 13 L (15-37) U/L ALT 18 (10-53) U/L Alkaline Phosphatase 66 (45-117) U/L Albumin 4.0 (3.4-5.0) g/dL - Imaging Impressions Chest X-Ray 01/26/18 00:00 CONCLUSION: Cardiomegaly and chronic interstitial changes. Stable exam compared to previous of 12/24/2017. Caprini VTE Risk Assessment Caprini VTE Risk Assessment: Moderate/High Risk (score >= 2) Caprini Risk Assessment Model: Point Value = 1 Point Value = 2 Point Value = 3 Point Value = 5 Age 41-60 Minor surgery BMI > 25 kg/m2 Swollen legs Varicose veins or History of unexplained or recurrent spontaneous Oral contraceptives or hormone replacement Sepsis (< 1 month) Serious lung disease, including pneumonia (< 1 month) Abnormal pulmonary function Acute myocardial infarction Congestive heart failure (< 1 month) History of inflammatory bowel disease Medical patient at bed rest Age 61-74 Arthroscopic surgery Major open surgery (> 45 min) Laparoscopic surgery (> 45 min) Malignancy Confined to bed (> 72 hours) Immobilizing plaster cast Central venous access Age >= 75 History of VTE Family history of VTE Factor V Leiden Prothrombin [id number] Lupus anticoagulant Anticardiolipin antibodies Elevated serum homocysteine Heparin-induced thrombocytopenia Other congenital or acquired thrombophilia Stroke (< 1 month) Elective arthroplasty Hip, pelvis, or leg fracture Acute spinal cord injury (< 1 month) Prophylaxis Regimen: Total Risk Factor Score Risk Level Prophylaxis Regimen 0-1 Low Early ambulation 2 Moderate Order ONE of the following: *Sequential Compression Device (SCD) *Heparin 5000 units SQ BID 3-4 Higher Order ONE of the following medications: *Heparin 5000 units SQ TID *Enoxaparin/Lovenox 40 mg SQ daily (WT < 150 kg, CrCl > 30 mL/min) *Enoxaparin/Lovenox 30 mg SQ daily (WT < 150 kg, CrCl > 10-29 mL/min) *Enoxaparin/Lovenox 30 mg SQ BID (WT < 150 kg, CrCl > 30 mL/min) AND/OR *Sequential Compression Device (SCD) 5 or more Highest Order ONE of the following medications: *Heparin 5000 units SQ TID (Preferred with Epidurals) *Enoxaparin/Lovenox 40 mg SQ daily (WT < 150 kg, CrCl > 30 mL/min) *Enoxaparin/Lovenox 30 mg SQ daily (WT < 150 kg, CrCl > 10-29 mL/min) *Enoxaparin/Lovenox 30 mg SQ BID (WT < 150 kg, CrCl > 30 mL/min) AND *Sequential Compression Device (SCD) Assessment and Plan - Assessment (1) Hypertensive urgency Code(s): I16.0 - Hypertensive urgency Status: Acute Plan: Assessment: Systolic blood pressure has been in the 190s and 220s. She has no neurologic changes. She has had some chest pain with exertion and some chest discomfort at rest over the past couple weeks. She reports some discomfort since her pacemaker placement. EKG showed a paced rhythm with no acute ST segment changes. First set of troponins are negative. Chest x-ray showed cardiomegaly but no acute disease. Plan: 1. Admit for observation, blood pressure control, and ACS rule out. Continue to trend troponins and CK-MB. Consult to cardiology (Dr. Clinton) for evaluation of pacemaker function. 2. Blood pressure control with as needed clonidine in home diuretic medications of Bumex 1 mg twice daily and metolazone 2.5 mg daily 3. Low-dose sliding scale with bedside glucose monitoring while hospitalized for glucose control 4. DVT prophylaxis: continue home medication Xarelto 15 mg every day. 5. Adult non-restrictive diet 6. Labs: BNP and BMP in the morning (2) Type 2 diabetes mellitus Code(s): E11.9 - Type 2 diabetes mellitus without complications Status: Chronic (2) Type 2 diabetes mellitus Qualifiers: Diabetes mellitus complication status: without complication
[2018-01-26] MEDS ORDERED: Dextrose 50% in Water 50 ML Vial IV.PUSH PRN (19:15)
--- NOTE | 2018-01-26 19:29 | CT ---
EXAM DATE: 01/26/2018 7:13 PM EDT AGE/SEX: 77 years / Female INDICATIONS: Shortness of breath. CLINICAL DATA: This is the patient's initial encounter. Patient reports that signs and symptoms have been present for 1 day and indicates a pain score of 0/10. MEDICAL/SURGICAL HISTORY: Hypertension. Pacemaker. RADIATION DOSE: 9.59 CTDI (mGy) COMPARISON: No prior exams available for comparison. TECHNIQUE: Volumetric scanning was performed using a multi-row detector CT scanner during bolus infu armando of 75 ml Omnipaque 350 (iohexol) nonionic water-soluble contrast as a single exam dose. The errol a was post processed with a variety of visualization algorithms including full volume maximum intensi ty projection and sliding thin slab reformation. Using automated exposure control and adjustment of t he mA and/or kV according to patient size, radiation dose was kept as low as reasonably achievable to obtain optimal diagnostic quality images. DICOM format image data is available electronically for r eview and comparison. FINDINGS: Pulmonary Arteries: No filling defects are seen in the pulmonary arteries out to the subsegmental ve ssels. The left and right pulmonary arteries are normal in diameter. Lung: No infiltrates or nodules seen. Scattered areas of increased ground substance in both lungs. Effusion: Moderate size right pleural effusion measuring 2.6 cm and small left pleural effusion nidia uring 8 mm. No evidence pericardial effusion. Mediastinum: No evidence of mediastinal or hilar adenopathy. Unipolar cardiac pacer lead in the righ t ventricle. Prominent calcification in the mitral annulus. Other: The axilla is unremarkable. 1.5 cm low-density nodule right adrenal gland with mean CT densit y -9 Hounsfield units, characteristic of adrenal adenoma. 2.7 cm mass left adrenal gland with smooth margins and mean CT density 2 Hounsfield units, characteristic of adrenal adenoma. CONCLUSION: 1. The study is negative for pulmonary embolism. 2. Bilateral pleural effusions, right greater than left. 3. Bilateral adrenal adenomata. Electronically signed by: Remington Grover MD 01/26/2018 7:28 PM EDT
--- NOTE | 2018-01-26 19:49 | ED ---
HPI General Chief Complaint: Shortness of Breath/Dyspnea Stated Complaint: SOB Time Seen by Provider: 01/26/18 16:24 Source: patient Mode of arrival: ambulatory Limitations: no limitations History of Present Illness 77-year-old female that presents to the ED for evaluation of shortness of breath. Per patient she is had exertional dyspnea for the past 2-3 months. Per patient is been since having a pacemaker in place. Per patient is was done about somewhere between October and today. She herself is not a great historian and is hard to get history from her. She knows that she takes medications but she does not specifically know which ones they are. She does tell me that she takes a lot of vitamins. She denies any urinary or bowel movement issues. Per patient when she ambulates she gets very short of breath. Per patient she lives at the [facility] and she was apparently in rehab after having this procedure. Per patient she had this done by a puddler pile driving in [facility]. Per patient she is not sure what she had this done. She denies any chest pain. She denies any abdominal pain. No leg swelling. She does not really know she is never had CHF. Again patient is a poor historian. Per patient the puddler pile driving is Dr. Clinton and she states that she has been trying to follow-up with him but apparently she has not been successful in seeing him since having the pacemaker in place. Related Data Home Medications Medication Instructions Recorded Confirmed bumetanide 1 mg PO BID 01/26/18 01/26/18 fluticasone [Flovent HFA] 1 puff INHALATION Q12H 01/26/18 01/26/18 linagliptin [Tradjenta] 5 mg PO DAILY 01/26/18 01/26/18 metolazone 2.5 mg PO DAILY 01/26/18 01/26/18 potassium chloride 1 tab PO DAILY 01/26/18 01/26/18 rivaroxaban 15 mg PO DAILY 01/26/18 01/26/18 simvastatin 40 mg PO QPM 01/26/18 01/26/18 Allergies Allergy/AdvReac Type Severity Reaction Status Date / Time Penicillins Allergy Severe RASH Verified 07/21/17 13:52 Review of Systems Neurologic Denies abnormal hearing [facility] Medical History Medical History History of hysterectomy (Acute) Hypertension (Acute) Pacemaker (Acute) Right shoulder injury (Acute) Social History Social History Substance History: No History of Abuse Smoking Status: Never smoker How Often Do You Have a Drink Containing Alcohol: Never Recent Travel in [facility] within the Last 8 Weeks: No Recent Out of Country Travel within the Last 8 Weeks: No Immunization History Tetanus Immunization: >5 Years Hx Influenza Vaccine This Season: No Exam Narrative Exam Narrative: GENERAL: Well-appearing SKIN: Focused skin assessment warm/dry. HEAD: Atraumatic. Normocephalic. EYES: Pupils equal and round. No scleral icterus. No injection or drainage. ENT: No nasal bleeding or discharge. Mucous membranes pink and moist. Tongue is midline. No uvula deviation. NECK: Trachea midline. No JVD. CARDIOVASCULAR: Regular rate and rhythm. No murmur appreciated. RESPIRATORY: No accessory muscle use. Clear to auscultation. Breath sounds equal bilaterally. GASTROINTESTINAL: Abdomen soft, non-tender, nondistended. Hepatic and splenic margins not palpable. MUSCULOSKELETAL: No obvious deformities. No clubbing. No cyanosis. No edema. Full range of motion of the upper and lower extremities bilaterally. 2+ pulses bilaterally. NEUROLOGICAL: Awake and alert. No obvious cranial nerve deficits. Motor grossly within normal limits. Normal speech. PSYCHIATRIC: Appropriate mood and affect; insight and judgment normal. Course Initial Documented Vital Signs Temperature 98.2 F 01/26/18 12:24 Pulse Rate 87 01/26/18 12:24 Respiratory Rate 20 01/26/18 12:24 Blood Pressure 196/95 H 01/26/18 12:24 Pulse Oximetry 98 01/26/18 12:24 Last Documented Vital Signs Temperature 98.2 F 01/26/18 12:24 Pulse Rate 69 01/26/18 19:47 Respiratory Rate 18 01/26/18 19:47 Blood Pressure 153/69 H 01/26/18 19:47 Pulse Oximetry 95 01/26/18 19:47 Medical Decision Making MDM Narrative Medical decision making narrative: 77-year-old female that presents to the ED for evaluation of shortness of breath with exertion. Patient was properly examined and was found to have signs and symptoms of unclear etiology. Patient is a very poor historian on her own medical history. She cannot really tell me even who the maker of the pacemaker is in denies having a card for her to pacemaker. Labs were done. X-ray was done. D-dimer was positive so CT pulmonary exam was done and show what appears to be bilateral pleural effusions. I was able to get a hold of [employer] who were able to confirm the patient does have a [employer] pacemaker and the [employer] rep came and evaluated the pacemaker and per his evaluation apparently her pacemaker is at 80 bpm and was apparently supposed to be lower to 70 and then to 60. He apparently spoke with Dr. Mckeon who lower the pacemaker to 70 and patient did feel some improvement. Because of patient being a poor historian having the pleural effusions and the shortness of breath with exertion I do recommend admission. Case discussed with the residents agreed admission to their service. Patient was admitted. Patient agrees with plan. Differential Diagnosis Differential Diagnosis: CHF exacerbation versus pacemaker malfunction versus dyspnea on exertion versus ACS Medical Records Medical records reviewed: Yes I reviewed the patient's medical records. Lab Data Lab results reviewed: Yes I reviewed the patient's lab results. Lab results narrative: BNP slightly elevated. Troponin negative. Result diagrams: 01/26/18 12:39 01/26/18 12:39 Lab Results 01/26/18 01/26/18 01/26/18 Range/Units 12:39 12:39 12:39 WBC 8.1 (4.0-11.0) th/mm3 RBC 3.85 L (4.00-5.30) mil/mm3 Hgb 11.5 L (11.6-15.3) gm/dL Hct 35.2 (35.0-46.0) % MCV 91.4 (80.0-100.0) fL MCH 29.7 (27.0-34.0) pg MCHC 32.5 (32.0-36.0) % RDW 17.8 H (11.6-17.2) % Plt Count 217 (150-450) th/mm3 MPV 8.1 (7.0-11.0) fL Neut % (Auto) 82.7 H (16.0-70.0) % Lymph % (Auto) 6.3 L (9.0-44.0) % [place] % (Auto) 9.6 H (0.0-8.0) % Eos % (Auto) 1.0 (0.0-4.0) % Baso % (Auto) 0.4 (0.0-2.0) % Neut # (Auto) 6.7 (1.8-7.7) th/mm3 Lymph # (Auto) 0.5 L (1.0-4.8) th/mm3 [place] # (Auto) 0.8 (0.0-0.9) th/mm3 Eos # (Auto) 0.1 (0.0-0.4) th/mm3 Baso # (Auto) 0.0 (0.0-0.2) th/mm3 WBC Differential . Differential Comment Auto diff final D-Dimer Quant (PE/DVT) (0.00-0.50) mg/L FEU Sodium 141 (136-145) meq/L Potassium 4.1 (3.5-5.1) meq/L Chloride 105 (98-107) meq/L Carbon Dioxide 26.3 (21.0-32.0) meq/L Anion Gap 10 (5-15) meq/L BUN 14 (7-18) mg/dL Creatinine 0.92 (0.50-1.00) mg/dL Estimated GFR 59 L (>89) mL/min Random Glucose 79 (74-106) mg/dL Calcium 8.6 (8.5-10.1) mg/dL Total Bilirubin 0.7 (0.2-1.0) mg/dL AST 13 L (15-37) U/L ALT 18 (10-53) U/L Alkaline Phosphatase 66 (45-117) U/L Troponin I (0.02-0.05) ng/mL B-Natriuretic Peptide 298 H (0-100) pg/mL Total Protein 7.4 (6.4-8.2) g/dL Albumin 4.0 (3.4-5.0) g/dL 01/26/18 01/26/18 Range/Units 17:00 17:00 WBC (4.0-11.0) th/mm3 RBC (4.00-5.30) mil/mm3 Hgb (11.6-15.3) gm/dL Hct (35.0-46.0) % MCV (80.0-100.0) fL MCH (27.0-34.0) pg MCHC (32.0-36.0) % RDW (11.6-17.2) % Plt Count (150-450) th/mm3 MPV (7.0-11.0) fL Neut % (Auto) (16.0-70.0) % Lymph % (Auto) (9.0-44.0) % [place] % (Auto) (0.0-8.0) % Eos % (Auto) (0.0-4.0) % Baso % (Auto) (0.0-2.0) % Neut # (Auto) (1.8-7.7) th/mm3 Lymph # (Auto) (1.0-4.8) th/mm3 [place] # (Auto) (0.0-0.9) th/mm3 Eos # (Auto) (0.0-0.4) th/mm3 Baso # (Auto) (0.0-0.2) th/mm3 WBC Differential Differential Comment D-Dimer Quant (PE/DVT) 0.52 H (0.00-0.50) mg/L FEU Sodium (136-145) meq/L Potassium (3.5-5.1) meq/L Chloride (98-107) meq/L Carbon Dioxide (21.0-32.0) meq/L Anion Gap (5-15) meq/L BUN (7-18) mg/dL Creatinine (0.50-1.00) mg/dL Estimated GFR (>89) mL/min Random Glucose (74-106) mg/dL Calcium (8.5-10.1) mg/dL Total Bilirubin (0.2-1.0) mg/dL AST (15-37) U/L ALT (10-53) U/L Alkaline Phosphatase (45-117) U/L Troponin I Less than 0.02 L (0.02-0.05) ng/mL B-Natriuretic Peptide (0-100) pg/mL Total Protein (6.4-8.2) g/dL Albumin (3.4-5.0) g/dL Imaging Data Attestation: I personally reviewed and interpreted this imaging study as follows : Radiologist's impression: Chest X-Ray 01/26/18 00:00 CONCLUSION: Cardiomegaly and chronic interstitial changes. Stable exam compared to previous of 12/24/2017. Chest CTA 01/26/18 18:09 CONCLUSION: 1. The study is negative for pulmonary embolism. 2. Bilateral pleural effusions, right greater than left. 3. Bilateral adrenal adenomata. ECG Data EKG Prior to Arrival: No Attestation: I personally reviewed and interpreted this ECG as follows: Interpretation: EKG showed paced rhythm but no sign of acute ischemia and arrhythmia. Rate of 80. Read by me and attending. Discharge Plan Discharge Disposition Patient Disposition: 30 Still Patient Discharge Details Diagnosis: Exertional dyspnea, Pleural effusion, Pacemaker malfunction Physicians Team ED Provider: Michael Quick ED Midlevel Provider: Douglas Jules Primary Care Provider: Glen Solorzano Attending Provider: Tea Stoner Discharge Interventions Interventions: Vital Signs Last Done: 01/26/18 16:49 Status ED Status: Admitted Observation Patient
[2018-01-26] MEDS: Insulin NovoLOG Aspart Correctional Sugar Inj SQ SCH (22:27)
[2018-01-26] MEDS: Senna/Docusate Sodium 8.6/50 MG Tablet PO SCH (22:28)
[2018-01-27 00:04] LABS: Creatine Kinase 62 U/L (26-192)
[2018-01-27 06:43] LABS: Anion Gap 9 meq/L (5-15); Blood Urea Nitrogen 13 mg/dL (7-18); Calcium 8.6 mg/dL (8.5-10.1); Carbon Dioxide 26.1 meq/L (21.0-32.0); Chloride 106 meq/L (98-107); Glomerular Filtration Rate 76 mL/min (>89); Glucose,Random 94 mg/dL (74-106); Potassium 3.7 meq/L (3.5-5.1); Sodium 141 meq/L (136-145)
[2018-01-27 06:54] LABS: Creatine Kinase 44 U/L (26-192)
[2018-01-27] MEDS: Rivaroxaban 15 MG Tablet PO SCH (09:00)
[2018-01-27] MEDS: Senna/Docusate Sodium 8.6/50 MG Tablet PO SCH ×2 (09:01→21:45)
[2018-01-27] MEDS: Insulin NovoLOG Aspart Correctional Sugar Inj SQ SCH ×4 (09:01→23:07)
--- NOTE | 2018-01-27 09:45 | P.HPFP ---
History of Present Illness Primary Care Physician: Glen Solorzano MD Chief Complaint: Chest pain and shortness of breath with exertion History of Present Illness: Patient presented following a two week period of increasing chest pain and shortness of breath on exertion. She has some chest discomfort at rest. She has a history of A. fib with RVR which resulted in pacemaker placement by Dr. Clinton at [facility]. She also reports some palpitations since pacemaker placement that has gotten worse over the past week and some lightheadedness while sitting. She lives at an independent living facility and states that she is typically very mobile and active. Patient is a difficult historian. She does not remember that she had any prior heart problems. Her memory is worsening from the time that I saw her last year. This morning she ate her breakfast was ambulating without any problems in the room. She was having no edema in her legs no shortness of breath. She did not have any chest pain. Her echo was reviewed and she has a good EF by tricuspid regurg and mitral regurg. Her pacemaker was adjusted from a rate of 80 rate of 70. She is a a poor historian but does seem to feel improved compared to when she came to the emergency department. Her only complaints this morning was that she was tired because people woke her up in the night. She said she was not used to getting up at 8 in the morning. Otherwise she had no physical complaints. - Diagnosis (1) Hypertensive urgency (2) Type 2 diabetes mellitus (3) Exertional dyspnea Inpatient Certification: I certify that the inpatient services were ordered in accordance with Medicare regulations governing the order. This includes certification that hospital inpatient services are reasonable and necessary and in the case of services not specified as inpatient-only under 42 CFR 419.22(n), that they are appropriately provided as inpatient services in accordance to with the 2-midnight benchmark under 43 CFR 412.3(e) Estimated Total Length of Stay (Days): 1 Plans for Post Hospital Care: Home (Lives at independent living facility) Review of Systems unobtainable due to mental condition See her history and physical from yesterday. PMFSH - History History Provided By: Patient - Medical History Medical History: Medical History (Last Reviewed 01/27/18 @ 06:59 by Regina Marshall) History of hysterectomy Hypertension Pacemaker Right shoulder injury - Tobacco History Smoking Status: Never smoker - Alcohol History How Often Do You Have a Drink Containing Alcohol: Monthly or less - Substance Use History Substance History: No History of Abuse - Travel History Recent Travel in the [place] Within the Last 8 Weeks: No Recent Travel Out of the Country Within the Last 8 Weeks: No - Immunization History Tetanus Immunization: >5 Years Hx Influenza Vaccine This Season: No Medications and Allergies Active Medications: Active Medications Acetaminophen (Tylenol) 650 mg PO Q4H PRN PRN Reason: PAIN 1-10 AND/OR FEVER >101F Al Hydroxide/Mg Hydroxide (Milk Of Magnesia Liq) 30 ml PO Q12H PRN PRN Reason: Mild Constipation Bisacodyl (Dulcolax Supp) 10 mg RECTAL DAILY PRN PRN Reason: SEVERE CONSITIPATION Bumetanide (Bumex) 1 mg PO BID [facility] Last Admin: 01/27/18 09:01 Dose: 1 mg Dextrose (D50w Vial) 50 ml IV.PUSH UNSCH PRN PRN Reason: PER HYPOGLYCEMIA PROTOCOL Fluticasone Propionate (Flovent Hfa 110 Mcg Inh) 1 puff INH Q12H [facility] Last Admin: 01/27/18 09:01 Dose: 1 puff Glucagon (Glucagon Inj) 1 mg OTHER PRN PRN PRN Reason: for Hypoglycemia Protocol Insulin Aspart (Novolog Insulin Correctional Sugar Inj) [address] [facility]; Protocol Last Admin: 01/27/18 09:01 Dose: Not Given Lactulose (Lactulose Liq) 30 ml PO DAILY PRN PRN Reason: SEVERE CONSITIPATION Metolazone (Zaroxolyn) 2.5 mg PO DAILY [facility] Potassium Chloride (K-Dur) 20 meq PO DAILY [facility] Last Admin: 01/27/18 09:01 Dose: 20 meq Pravastatin Sodium (Pravachol) 80 mg PO QPM [facility] Last Admin: 01/26/18 23:05 Dose: 80 mg Rivaroxaban (Xarelto) 15 mg PO DAILY [facility] Last Admin: 01/27/18 09:00 Dose: 15 mg Senna/Docusate Sodium (Jessica-Colace) 1 tab PO BID [facility] Last Admin: 01/27/18 09:01 Dose: 1 tab Sennosides (Senokot) 17.2 mg PO Q12H PRN PRN Reason: Moderate Constipation Temazepam (Restoril) 15 mg PO HS PRN PRN Reason: INSOMNIA Allergies Allergy/AdvReac Type Severity Reaction Status Date / Time Penicillins Allergy Severe RASH Verified 07/21/17 13:52 Home Medications Medication Instructions Recorded Confirmed Type bumetanide 1 mg PO BID 01/26/18 01/26/18 History fluticasone [Flovent HFA] 1 puff INHALATION Q12H 01/26/18 01/26/18 History linagliptin [Tradjenta] 5 mg PO DAILY 01/26/18 01/26/18 History metolazone 2.5 mg PO DAILY 01/26/18 01/26/18 History potassium chloride 1 tab PO DAILY 01/26/18 01/26/18 History rivaroxaban 15 mg PO DAILY 01/26/18 01/26/18 History simvastatin 40 mg PO QPM 01/26/18 01/26/18 History Exam Vital signs: Vital Signs 01/26/18 12:24 01/26/18 16:49 01/26/18 19:47 Temperature 98.2 F Pulse Rate 87 80 69 Respiratory Rate 20 19 18 Blood Pressure 196/95 H 223/98 H 153/69 H Pulse Oximetry 98 96 95 01/26/18 23:06 01/27/18 00:00 01/27/18 01:32 Temperature 98.0 F Pulse Rate 68 70 69 Respiratory Rate 18 16 Blood Pressure 157/74 H 165/74 H Pulse Oximetry 93 L 01/27/18 04:00 01/27/18 08:00 Temperature 98.7 F 97.7 F Pulse Rate 72 70 Respiratory Rate 16 16 Blood Pressure 170/77 H 196/95 H Pulse Oximetry 93 L 95 Intake & Output 01/26/18 01/27/18 01/27/18 18:59 06:59 18:59 Weight 63.503 kg Other: # Voids 2 - Constitutional no acute distress, average body habitus, cooperative - Routine HEENT Exam Head: Present: normocephalic, atraumatic. Absent: abrasion, laceration, hematoma Eye: Present: EOMI. Absent: nystagmus ENT: Present: external ear normal. Absent: septal deviation - Routine Neck Exam Present: trachea midline. Absent: meningismus - Routine Chest/Breast/Axilla Exam Chest wall: Present: pacemaker. Absent: tenderness - Routine Respiratory Exam Present: CTA bilaterally. Absent: accessory muscle use, patient mechanically ventilated, decreased breath sounds, prolonged expiratory phase, rales, respiratory distress, rhonchi, stridor, wheezes, crackles - Routine Cardiovascular Exam Present: RRR, murmur. Absent: gallop, rubs, bradycardia, tachycardia - Routine Abdominal Exam Present: soft. Absent: tenderness, distended, rebound, guarding - Routine Extremities Exam Present: full ROM, normal capillary refill. Absent: cyanosis, clubbing, edema, calf tenderness, tenderness, joint swelling, pallor, extremity cold to touch - Routine Skin Exam Present: intact, dry. Absent: pallor, mottling, petechiae - Routine Neurological Exam Present: alert, moving all extremities, normal tone, normal speech. Absent: abnormal gait, nystagmus, tremors, asterixis Results - Labs Result diagrams: 01/26/18 12:39 01/27/18 06:10 Abnormal lab results 01/26/18 01/26/18 01/26/18 Range/Units 12:39 12:39 12:39 RBC 3.85 L (4.00-5.30) mil/mm3 Hgb 11.5 L (11.6-15.3) gm/dL RDW 17.8 H (11.6-17.2) % Neut % (Auto) 82.7 H (16.0-70.0) % Lymph % (Auto) 6.3 L (9.0-44.0) % Kingfisher % (Auto) 9.6 H (0.0-8.0) % Lymph # (Auto) 0.5 L (1.0-4.8) th/mm3 D-Dimer Quant (PE/DVT) (0.00-0.50) mg/L FEU Estimated GFR 59 L (>89) mL/min POC Glucose (68-110) mg/dl AST 13 L (15-37) U/L Troponin I (0.02-0.05) ng/mL B-Natriuretic Peptide 298 H (0-100) pg/mL 01/26/18 01/26/18 01/26/18 Range/Units 17:00 17:00 23:19 RBC (4.00-5.30) mil/mm3 Hgb (11.6-15.3) gm/dL RDW (11.6-17.2) % Neut % (Auto) (16.0-70.0) % Lymph % (Auto) (9.0-44.0) % Kingfisher % (Auto) (0.0-8.0) % Lymph # (Auto) (1.0-4.8) th/mm3 D-Dimer Quant (PE/DVT) 0.52 H (0.00-0.50) mg/L FEU Estimated GFR (>89) mL/min POC Glucose (68-110) mg/dl AST (15-37) U/L Troponin I Less than 0.02 L Less than 0.02 L (0.02-0.05) ng/mL B-Natriuretic Peptide (0-100) pg/mL 01/27/18 01/27/18 Range/Units 06:10 09:00 RBC (4.00-5.30) mil/mm3 Hgb (11.6-15.3) gm/dL RDW (11.6-17.2) % Neut % (Auto) (16.0-70.0) % Lymph % (Auto) (9.0-44.0) % Kingfisher % (Auto) (0.0-8.0) % Lymph # (Auto) (1.0-4.8) th/mm3 D-Dimer Quant (PE/DVT) (0.00-0.50) mg/L FEU Estimated GFR 76 L (>89) mL/min POC Glucose 111 H (68-110) mg/dl AST (15-37) U/L Troponin I Less than 0.02 L (0.02-0.05) ng/mL B-Natriuretic Peptide (0-100) pg/mL Short CBC 01/26/18 Range/Units 12:39 WBC 8.1 (4.0-11.0) th/mm3 Hgb 11.5 L (11.6-15.3) gm/dL Hct 35.2 (35.0-46.0) % Plt Count 217 (150-450) th/mm3 BMP 01/26/18 01/27/18 12:39 06:10 Sodium 141 141 Potassium 4.1 3.7 Chloride 105 106 Carbon Dioxide 26.3 26.1 BUN 14 13 Creatinine 0.92 0.74 Calcium 8.6 8.6 Cardiac Enzymes 01/26/18 01/26/18 01/27/18 Range/Units 17:00 23:19 06:10 Total Creatine Kinase 62 44 (26-192) U/L Troponin I Less than 0.02 L Less than 0.02 L Less than 0.02 L (0.02-0.05) ng/mL Liver Function 01/26/18 Range/Units 12:39 Total Bilirubin 0.7 (0.2-1.0) mg/dL AST 13 L (15-37) U/L ALT 18 (10-53) U/L Alkaline Phosphatase 66 (45-117) U/L Albumin 4.0 (3.4-5.0) g/dL - Imaging Impressions Chest X-Ray 01/26/18 00:00 CONCLUSION: Cardiomegaly and chronic interstitial changes. Stable exam compared to previous of 12/24/2017. Chest CTA 01/26/18 18:09 CONCLUSION: 1. The study is negative for pulmonary embolism. 2. Bilateral pleural effusions, right greater than left. 3. Bilateral adrenal adenomata. Caprini VTE Risk Assessment Caprini VTE Risk Assessment: Moderate/High Risk (score >= 2) Caprini Risk Assessment Model: Point Value = 1 Point Value = 2 Point Value = 3 Point Value = 5 Age 41-60 Minor surgery BMI > 25 kg/m2 Swollen legs Varicose veins or History of unexplained or recurrent spontaneous Oral contraceptives or hormone replacement Sepsis (< 1 month) Serious lung disease, including pneumonia (< 1 month) Abnormal pulmonary function Acute myocardial infarction Congestive heart failure (< 1 month) History of inflammatory bowel disease Medical patient at bed rest Age 61-74 Arthroscopic surgery Major open surgery (> 45 min) Laparoscopic surgery (> 45 min) Malignancy Confined to bed (> 72 hours) Immobilizing plaster cast Central venous access Age >= 75 History of VTE Family history of VTE Factor V Leiden Prothrombin [id number] Lupus anticoagulant Anticardiolipin antibodies Elevated serum homocysteine Heparin-induced thrombocytopenia Other congenital or acquired thrombophilia Stroke (< 1 month) Elective arthroplasty Hip, pelvis, or leg fracture Acute spinal cord injury (< 1 month) Prophylaxis Regimen: Total Risk Factor Score Risk Level Prophylaxis Regimen 0-1 Low Early ambulation 2 Moderate Order ONE of the following: *Sequential Compression Device (SCD) *Heparin 5000 units SQ BID 3-4 Higher Order ONE of the following medications: *Heparin 5000 units SQ TID *Enoxaparin/Lovenox 40 mg SQ daily (WT < 150 kg, CrCl > 30 mL/min) *Enoxaparin/Lovenox 30 mg SQ daily (WT < 150 kg, CrCl > 10-29 mL/min) *Enoxaparin/Lovenox 30 mg SQ BID (WT < 150 kg, CrCl > 30 mL/min) AND/OR *Sequential Compression Device (SCD) 5 or more Highest Order ONE of the following medications: *Heparin 5000 units SQ TID (Preferred with Epidurals) *Enoxaparin/Lovenox 40 mg SQ daily (WT < 150 kg, CrCl > 30 mL/min) *Enoxaparin/Lovenox 30 mg SQ daily (WT < 150 kg, CrCl > 10-29 mL/min) *Enoxaparin/Lovenox 30 mg SQ BID (WT < 150 kg, CrCl > 30 mL/min) AND *Sequential Compression Device (SCD) Assessment and Plan - Assessment (1) Hypertensive urgency Code(s): I16.0 - Hypertensive urgency Status: Acute Plan: Assessment: Systolic blood pressure was in the 190s and 220s. She has no neurologic changes. She has had some chest pain with exertion and some chest discomfort at rest over the past couple weeks. She reports some discomfort since her pacemaker placement. EKG showed a paced rhythm with no acute ST segment changes. First set of troponins are negative. Chest x-ray showed cardiomegaly but no acute disease. Plan: 1. Admit for observation, blood pressure control, and ACS rule out. Continue to trend troponins and CK-MB. Consult to cardiology (Dr. Clinton) for evaluation of pacemaker function. The company that builds the pacemaker evaluated and found no arrhythmias and the pacemaker was adjusted to a rate of 70 instead of 80. 2. Blood pressure control with as needed clonidine in home diuretic medications of Bumex 1 mg twice daily and metolazone 2.5 mg daily (2) Type 2 diabetes mellitus Code(s): E11.9 - Type 2 diabetes mellitus without complications Status: Chronic Plan: Low-dose sliding scale with bedside glucose monitoring while hospitalized for glucose control (3) Exertional dyspnea Code(s): R06.09 - Other forms of dyspnea Status: Acute Plan: She was ambulating well in the room today. Will have physical therapy evaluate her. As she is such a poor historian I do not know if cardiology wants to do any further workup. - Assessment and Plan DVT prophylaxis: continue home medication Xarelto 15 mg every day. Adult non-restrictive diet Labs: BNP and BMP in the morning H&P: Quality - VTE Deep Vein Thrombosis/Pulmonary Embolism Present on Admission: No (2) Type 2 diabetes mellitus Qualifiers: Diabetes mellitus custodial insulin use: unspecified manager book insulin use status Diabetes mellitus complication status: without complication Qualified Code(s): E11.9 - Type 2 diabetes mellitus without complications
--- NOTE | 2018-01-27 15:23 | ECG ---
Date Performed: 01/26/2018 Time Performed: 12:48:10 PTAGE: 77 years EKG: ELECTRONIC VENTRICULAR PACEMAKER ABNORMAL RHYTHM ECG PREVIOUS TRACING : 09/04/2017 14.44 DOCTOR: Brooks Douglas Interpretating Date/Time 01/27/2018 15:22:49
[2018-01-27] MEDS: amLODIPine 10 MG Tablet PO SCH (21:44)
[2018-01-28] MEDS: Insulin NovoLOG Aspart Correctional Sugar Inj SQ SCH ×2 (08:57→14:46)
[2018-01-28] MEDS: amLODIPine 10 MG Tablet PO SCH (08:59)
[2018-01-28] MEDS: Rivaroxaban 15 MG Tablet PO SCH (09:00)
[2018-01-28] MEDS: Senna/Docusate Sodium 8.6/50 MG Tablet PO SCH (09:00)
--- NOTE | 2018-01-28 09:26 | MB ---
cc: Abbie Clinton MD, Sharon M MD DATE: 01/27/2018 REFERRING PHYSICIAN: Dr. Stoner REASON FOR CONSULTATION: Management of hypertension and atrial fibrillation along with pacer. HISTORY OF PRESENT ILLNESS: Ms. Mcguire is a 77-year-old lady well known to me. She does have persistent atrial fibrillation and actually I did Medtronic single-chamber pacer plus AV node ablation in September 2017. It is a Medtronic single-chamber pacer. The patient does have echocardiogram which was done in July 2017, so far showed EF around 40-45%, with severe aortic enlargement, mild MR and TR. The patient also has chronic diastolic and systolic CHF, has been on Bumex along with metolazone for chronic systolic and diastolic CHF. The patient was on Xarelto 15 mg for persistent atrial fibrillation for stroke prevention. She is also on simvastatin for hypercholesterolemia. She does have COPD. She presented to ER with elevated BP along with dyspnea. The patient was noted also to have heart rate in the 80s. The pacemaker was interrogated and reprogrammed to 70. So far, the patient does feel better. She has been getting clonidine 0.1 mg p.r.n. for hypertension, but so far, her BP has been labile. She has been here, on Bumex, along with metolazone with slight improvement. So far, hematocrit 35 with creatinine 0.7. PAST MEDICAL HISTORY: As above. PAST SURGICAL HISTORY: As above. ALLERGIES: INCLUDE PENICILLIN. FAMILY HISTORY: Not significant for CAD at early age. REVIEW OF SYSTEMS: HEENT: Normal. GASTROINTESTINAL: No nausea or vomiting. GENITOURINARY: No dysuria. MUSCULOSKELETAL: . CARDIOVASCULAR: As above. CHEST: Some dyspnea. ENDOCRINE: Normal. SKIN: Normal. PSYCHIATRIC: Normal. CENTRAL NERVOUS SYSTEM: No dizziness. PHYSICAL EXAMINATION: VITAL SIGNS: The patient's blood pressure 161/70, pulse in the 70s, with underlying atrial fibrillation. Pacemaker is reprogrammed to VVI 70. HEENT: Normal. DARRIN. ENDOCRINE: There is no thyroid enlargement. LYMPHATICS: There is some lymphadenopathy. RESPIRATORY: Decreased breath sounds bilaterally, with occasional crackles. CARDIOVASCULAR: Regular rhythm. Left side pacemaker site well healed. No loud murmurs. Decreased S1, S2. ABDOMEN: Active bowel sounds present all 4 quadrants. GENITOURINARY: Deferred. MUSCULOSKELETAL: All range of motion intact. SKIN: There is no ecchymosis. PSYCHIATRIC: The patient in good mood, good judgment. LABORATORY DATA: Hematocrit is 35 with creatinine 0.7. ASSESSMENT: 1. Hypertension. 2. Chronic systolic and diastolic congestive heart failure. 3. Dilated cardiomyopathy with ejection fraction of 40-45%, with mild mitral regurgitation and tricuspid regurgitation. 4. Persistent atrial fibrillation, status post single chamber Medtronic pacer plus atrioventricular node ablation. 5. Hypercholesterolemia. 6. Chronic obstructive pulmonary disease. PLAN: I will continue Flovent for COPD treatment. I will continue Bumex along with metolazone. I will try one dosage of Lasix from 20-40 mg along with potassium prior to discharge. Pacemaker has been reprogrammed to VVI 70-100. I will readjust the pacer in the office. We will gradually lower the pacer rate to a lower tracking rate of 60. I will continue Xarelto for prevention of stroke. The patient can be discharged home tomorrow with outpatient followup. The patient BP has been labile. It has been very challenging to control BP. I will add amlodipine 10 mg and see how she does, but we can manage that in the outpatient setting. I would like to thank Dr. Stoner for letting me participate in the care of Ms. Mcguire. MD MALIKA Rodriguez/ARTIS , 09:03 PM , 09:47 PM
--- NOTE | 2018-01-28 11:05 | P.PNFP ---
Subjective Interval history: Patient was seen and examined this morning. She denies any acute overnight events. She states that she has some nasal congestion but otherwise denies fevers, chills, nausea, vomiting, chest pain, palpitations, abdominal pain, constipation, diarrhea. She states she has bilateral foot pain but this is chronic. She is ambulating without difficulty, dizziness, falls. She is independent at home and is already arranging transportation home upon discharge. <Ashlie Vanessa - 01/28/18 11:12> Results - Labs Result diagrams: 01/26/18 12:39 01/27/18 06:10 <Tea Stoner - 01/30/18 17:07> Abnormal lab results 01/27/18 01/27/18 01/27/18 Range/Units 12:13 16:20 21:58 POC Glucose 204 H 136 H (68-110) mg/dl B-Natriuretic Peptide 178 H (0-100) pg/mL 01/28/18 Range/Units 08:11 POC Glucose 117 H (68-110) mg/dl B-Natriuretic Peptide (0-100) pg/mL <Ashlie Vanessa - 01/28/18 11:05> Physical Exam Vital signs: Vital Signs 01/27/18 12:00 01/27/18 16:00 01/27/18 16:26 Temperature 98.0 F 98.1 F Pulse Rate 78 70 70 Respiratory Rate 18 16 Blood Pressure 138/64 190/84 H Pulse Oximetry 97 96 01/27/18 18:35 01/27/18 20:00 01/28/18 00:00 Temperature 98.9 F 97.7 F Pulse Rate 70 74 Respiratory Rate 16 16 Blood Pressure 175/81 H 161/71 H 152/72 H Pulse Oximetry 96 95 95 01/28/18 04:00 01/28/18 08:00 Temperature 97.8 F 97.3 F L Pulse Rate 65 71 Respiratory Rate 16 20 Blood Pressure 152/63 H 143/67 H Pulse Oximetry 96 94 L Intake & Output 01/27/18 01/28/18 01/28/18 18:59 06:59 18:59 Intake Total 500 / 500 Balance 500 / 500 Intake: Oral 500 / 500 Other: # Voids 3 <Ashlie Vanessa - 01/28/18 11:05> Narrative: GENERAL: Well-appearing elderly female in no apparent distress. She is alert and oriented x3. She does have tangential speech but she is easily reoriented. SKIN: Warm and dry. No rashes or ecchymoses noted. HEAD: Normocephalic. Atraumatic EYES: No scleral icterus. No injection or drainage. NECK: Supple, trachea midline. No JVD or lymphadenopathy. CARDIOVASCULAR: Regular rate and rhythm without murmurs. RESPIRATORY: Breath sounds equal bilaterally. No accessory muscle use. Clear to auscultation bilaterally without wheezes or rhonchi GASTROINTESTINAL: Abdomen soft, non-tender, nondistended. MUSCULOSKELETAL: No cyanosis. Mild 1+ edema in the distal lower extremities sparing the areas where socks have compressed the legs. Mildly tender to bilateral foot palpation but ambulates without difficulty. <Ashlie Vanessa - 01/28/18 11:12> Assessment and Plan - Assessment (1) Hypertensive urgency Code(s): I16.0 - Hypertensive urgency Status: Resolved (2) Adjustment and management of cardiac pacemaker Code(s): Z45.018 - Encounter for adjustment and management of other part of cardiac pacemaker Status: Acute (3) Type 2 diabetes mellitus Code(s): E11.9 - Type 2 diabetes mellitus without complications Status: Chronic (4) Exertional dyspnea Code(s): R06.09 - Other forms of dyspnea Status: Acute (5) COPD (chronic obstructive pulmonary disease) Code(s): J44.9 - Chronic obstructive pulmonary disease, unspecified Status: Chronic (6) Nutrition, metabolism, and development symptoms Code(s): R63.8 - Other symptoms and signs concerning food and fluid intake Status: Acute <Tea Stoner - 01/30/18 17:07> (1) Hypertensive urgency Code(s): I16.0 - Hypertensive urgency Status: Resolved Plan: Resolved. She denies any chest pain or other symptoms suggestive of hypertensive urgency. Patient is status post 1 dose of p.o. clonidine 0.1 mg, 1 dose of Lasix 40 mg IV with potassium yesterday. Blood pressure has been 140s 150 systolic since that time. Blood pressures have been labile as outpatient according to her high school science teacher's note. Amlodipine 10 mg was initiated, to continue at discharge with close follow-up. She is stable for discharge and will continue Bumex and potassium along with metolazone as outpatient (these were previous home meds) Clinical course: Systolic blood pressure was in the 190s and 220s. She has no neurologic changes. She has had some chest pain with exertion and some chest discomfort at rest over the past couple weeks. She reports some discomfort since her pacemaker placement. EKG showed a paced rhythm with no acute ST segment changes. Cardiac enzymes negative. Chest x-ray showed cardiomegaly but no acute disease. (2) Adjustment and management of cardiac pacemaker Code(s): Z45.018 - Encounter for adjustment and management of other part of cardiac pacemaker Status: Acute Plan: Completed per cardiology recommendations with pacemaker company inventory representative on 01/26 Pacemaker [place] rate [id number] with readjustment anticipate in the office. They plan to lower the pacer to a rate of 60. She is to continue Xarelto at this prevention for stroke. No abnormal telemetry events Remove telemetry today prior to discharge (3) Type 2 diabetes mellitus Code(s): E11.9 - Type 2 diabetes mellitus without complications Status: Chronic Plan: Low-dose sliding scale with bedside glucose monitoring while hospitalized for glucose control Continue home medications at discharge (4) Exertional dyspnea Code(s): R06.09 - Other forms of dyspnea Status: Acute Plan: This is likely her baseline. She does not require oxygen and has not had any dizziness or falls. Workup is negative aside from pacemaker rate adjustment needed for palpitations at time of admission. She was ambulating well in the room yesterday and today. Physical therapy recommends home with no PT recommended. Patient is independent living in [facility] and does not require any assistance with ADLs. She states her closest family lives in [place] (5) COPD (chronic obstructive pulmonary disease) Code(s): J44.9 - Chronic obstructive pulmonary disease, unspecified Status: Chronic Plan: Known history of COPD, on Flovent at home, to continue No requirements for oxygen No evidence of exacerbation (6) Nutrition, metabolism, and development symptoms Code(s): R63.8 - Other symptoms and signs concerning food and fluid intake Status: Acute Plan: Fluids: tolerating PO Electrolytes: wnl Nutrition: regular diet DVT Prophylaxis: Early ambulation. Xarelton 15 mg/day (home med) GI Prophylaxis: none indicated PRN anti-HTN: Clonidine 0.1mg PO PRN for SBP > 180/ and/or DBP > 100 <Ashlie Vanessa - 01/28/18 11:05> - Assessment and Plan Patient is a 77-year-old female who was admitted with nonspecific symptoms and is status post cardiac workup showing no evidence of ACS. She had pacemaker adjustment given elevated rate possibly contributing to palpitations. She is status post workup and management of hypertensive urgency which has resolved with noted management. She will be discharged with follow-up with Dr. Clinton her high school science teacher and her PCP at the [facility]. <Ashlie Vanessa - 01/28/18 11:12> Discussed Condition With: Dr. Tea Stoner, patient, and RN <Ashlie Vanessa - 01/28/18 11:05> Discharge Planning: Discharge to home today 01/28 <Ashlie Vanessa - 01/28/18 11:05> - Attending Attestation The exam, history, and the medical decision-making described in the above note were completed with the assistance of the resident physician. I reviewed and agree with the findings presented. I attest that I had a [id number] encounter with the patient on the same day, and personally performed and documented my assessment and findings in the medical record. she is doing well with no complaints <Tea Stoner - 01/30/18 17:07> <sAhlie Vanessa - Last Filed: 01/28/18 11:05> (3) Type 2 diabetes mellitus Qualifiers: Diabetes mellitus alf insulin use: unspecified alf insulin use status Diabetes mellitus complication status: without complication Qualified Code(s): E11.9 - Type 2 diabetes mellitus without complications (5) COPD (chronic obstructive pulmonary disease) Qualifiers: COPD type: unspecified COPD Qualified Code(s): J44.9 - Chronic obstructive pulmonary disease, unspecified <Tea Stoner - Last Filed: 01/30/18 17:07> (3) Type 2 diabetes mellitus Qualifiers: Diabetes mellitus alf insulin use: unspecified alf insulin use status Diabetes mellitus complication status: without complication Qualified Code(s): E11.9 - Type 2 diabetes mellitus without complications (5) COPD (chronic obstructive pulmonary disease) Qualifiers: COPD type: unspecified COPD Qualified Code(s): J44.9 - Chronic obstructive pulmonary disease, unspecified <Ashlie Vanessa - Last Filed: 01/28/18 11:05> (3) Type 2 diabetes mellitus Qualifiers: Diabetes mellitus alf insulin use: unspecified terminal carman insulin use status Diabetes mellitus complication status: without complication Qualified Code(s): E11.9 - Type 2 diabetes mellitus without complications (5) COPD (chronic obstructive pulmonary disease) Qualifiers: COPD type: unspecified COPD Qualified Code(s): J44.9 - Chronic obstructive pulmonary disease, unspecified <Tea Stoner - Last Filed: 01/30/18 17:07> (3) Type 2 diabetes mellitus Qualifiers: Diabetes mellitus alf insulin use: unspecified terminal carman insulin use status Diabetes mellitus complication status: without complication Qualified Code(s): E11.9 - Type 2 diabetes mellitus without complications (5) COPD (chronic obstructive pulmonary disease) Qualifiers: COPD type: unspecified COPD Qualified Code(s): J44.9 - Chronic obstructive pulmonary disease, unspecified
--- NOTE | 2018-01-28 11:20 | P.DS ---
<Ashlie Vanessa - Last Filed: 01/28/18 11:14> Date of admission: 01/26/18 18:13 Primary care physician: Glen Solorzano MD Attending physician on discharge: Tea Stoner Anticipated date of discharge: 01/28/18 Brief History from admission: Patient presented following a two week period of increasing chest pain and shortness of breath on exertion. She has some chest discomfort at rest. She has a history of A. fib with RVR which resulted in pacemaker placement by Dr. Clinton at [facility]. She also reports some palpitations since pacemaker placement that has gotten worse over the past week and some lightheadedness while sitting. She lives at an independent living facility and states that she is typically very mobile and active. Patient is a difficult historian. She does not remember that she had any prior heart problems. Her memory is worsening from the time that I saw her last year. This morning she ate her breakfast was ambulating without any problems in the room. She was having no edema in her legs no shortness of breath. She did not have any chest pain. Her echo was reviewed and she has a good EF by tricuspid regurg and mitral regurg. Her pacemaker was adjusted from a rate of 80 rate of 70. She is a a poor historian but does seem to feel improved compared to when she came to the emergency department. Her only complaints this morning was that she was tired because people woke her up in the night. She said she was not used to getting up at 8 in the morning. Otherwise she had no physical complaints. DS: Diagnosis - Discharge Diagnosis (1) Hypertensive urgency Status: Resolved (2) Adjustment and management of cardiac pacemaker Status: Acute (3) Type 2 diabetes mellitus Status: Chronic (4) Exertional dyspnea Status: Acute (5) COPD (chronic obstructive pulmonary disease) Status: Chronic (6) Nutrition, metabolism, and development symptoms Status: Acute DS: Medications - Discharge Medications Prescriptions: amlodipine [Norvasc] 10 mg PO DAILY #30 tab DS: Summary Hospital Course: Summary: Patient is a 77-year-old female who was admitted with nonspecific symptoms and is status post cardiac workup showing no evidence of ACS. She had pacemaker adjustment given elevated rate possibly contributing to palpitations. She is status post workup and management of hypertensive urgency which has resolved with noted management. She will be discharged with follow-up with Dr. Clinton her associate professor of medicine and her PCP at the [facility]. Interval history: Patient was seen and examined this morning. She denies any acute overnight events. She states that she has some nasal congestion but otherwise denies fevers, chills, nausea, vomiting, chest pain, palpitations, abdominal pain, constipation, diarrhea. She states she has bilateral foot pain but this is chronic. She is ambulating without difficulty, dizziness, falls. She is independent at home and is already arranging transportation home upon discharge. Discharge Planning: Discharge to home today 01/28 with f/u with Dr. Clinton and new provider at [facility] within one week. She will need continued adjustments of pacemaker rate and antihypertensives with cardiology. Previous PCP is Dr. Glen Solorzano. CLINICAL COURSE: (1) Hypertensive urgency Resolved. She denies any chest pain or other symptoms suggestive of hypertensive urgency. Patient is status post 1 dose of p.o. clonidine 0.1 mg, 1 dose of Lasix 40 mg IV with potassium yesterday. Blood pressure has been 140s 150 systolic since that time. Blood pressures have been labile as outpatient according to her associate professor of medicine's note. Amlodipine 10 mg was initiated, to continue at discharge with close follow-up. She is stable for discharge and will continue Bumex and potassium along with metolazone as outpatient (these were previous home meds) Clinical course: Systolic blood pressure was in the 190s and 220s. She has no neurologic changes. She has had some chest pain with exertion and some chest discomfort at rest over the past couple weeks. She reports some discomfort since her pacemaker placement. EKG showed a paced rhythm with no acute ST segment changes. Cardiac enzymes negative. Chest x-ray showed cardiomegaly but no acute disease. (2) Adjustment and management of cardiac pacemaker She is on Xarelto at home given history of atrial fibrillation. She had pacemaker placement given difficult to control atrial fibrillation on medications. Pacemaker initial adjustment was completed per cardiology recommendations with pacemaker company containers sales representative on 01/26. [place] [id number] with readjustment anticipate in the office. They plan to lower the pacer to a rate of 60. She is to continue Xarelto at this prevention for stroke. No abnormal telemetry events Remove telemetry today prior to discharge (3) Type 2 diabetes mellitus Low-dose sliding scale with bedside glucose monitoring while hospitalized for glucose control Continue home medications at discharge Blood sugars in the hospital showing reasonable control without hypoglycemia (4) Exertional dyspnea This is likely her baseline. She does not require oxygen and has not had any dizziness or falls. Workup is negative aside from pacemaker rate adjustment needed for palpitations at time of admission. She was ambulating well in the room yesterday and today. Physical therapy recommends home with no PT recommended. Patient is independent living in [facility] and does not require any assistance with ADLs. She states her closest family lives in [place] (5) COPD (chronic obstructive pulmonary disease) Known history of COPD, on Flovent at home, to continue No requirements for oxygen No evidence of exacerbation - Time Spent with Patient Total time spent providing and/or coordinating discharge services: - Quality: VTE Deep Vein Thrombosis/Pulmonary Embolism Present on Admission: No Exam Vital signs: Vital Signs 01/27/18 12:00 01/27/18 16:00 01/27/18 16:26 Temperature 98.0 F 98.1 F Pulse Rate 78 70 70 Respiratory Rate 18 16 Blood Pressure 138/64 190/84 H Pulse Oximetry 97 96 01/27/18 18:35 01/27/18 20:00 01/28/18 00:00 Temperature 98.9 F 97.7 F Pulse Rate 70 74 Respiratory Rate 16 16 Blood Pressure 175/81 H 161/71 H 152/72 H Pulse Oximetry 96 95 95 01/28/18 04:00 01/28/18 08:00 01/28/18 10:56 Temperature 97.8 F 97.3 F L 98.7 F Pulse Rate 65 71 70 Respiratory Rate 16 20 18 Blood Pressure 152/63 H 143/67 H 138/65 Pulse Oximetry 96 94 L 96 Intake & Output 01/27/18 01/28/18 01/28/18 18:59 06:59 18:59 Intake Total 500 / 500 Balance 500 / 500 Intake: Oral 500 / 500 Other: # Voids 3 Narrative: GENERAL: Well-appearing elderly female in no apparent distress. She is alert and oriented x3. She does have tangential speech but she is easily reoriented. SKIN: Warm and dry. No rashes or ecchymoses noted. HEAD: Normocephalic. Atraumatic EYES: No scleral icterus. No injection or drainage. NECK: Supple, trachea midline. No JVD or lymphadenopathy. CARDIOVASCULAR: Regular rate and rhythm without murmurs. RESPIRATORY: Breath sounds equal bilaterally. No accessory muscle use. Clear to auscultation bilaterally without wheezes or rhonchi GASTROINTESTINAL: Abdomen soft, non-tender, nondistended. MUSCULOSKELETAL: No cyanosis. Mild 1+ edema in the distal lower extremities sparing the areas where socks have compressed the legs. Mildly tender to bilateral foot palpation but ambulates without difficulty. Results Procedures completed during hospitalization: None Labs on day of discharge: Labs from last 24 hours 01/28/18 01/27/18 01/27/18 08:11 21:58 17:39 POC Glucose 117 H 136 H 105 B-Natriuretic Peptide 01/27/18 01/27/18 16:20 12:13 POC Glucose 204 H B-Natriuretic Peptide 178 H - Impressions ITS Impressions Chest X-Ray 01/26/18 00:00 CONCLUSION: Cardiomegaly and chronic interstitial changes. Stable exam compared to previous of 12/24/2017. Chest CTA 01/26/18 18:09 CONCLUSION: 1. The study is negative for pulmonary embolism. 2. Bilateral pleural effusions, right greater than left. 3. Bilateral adrenal adenomata. <Tea Stoner - Last Filed: 01/30/18 17:08> Date of admission: 01/26/18 18:13 Primary care physician: Glen Solorzano MD DS: Diagnosis - Discharge Diagnosis (1) Adjustment and management of cardiac pacemaker Status: Acute (2) Type 2 diabetes mellitus Status: Chronic (3) Exertional dyspnea Status: Acute (4) COPD (chronic obstructive pulmonary disease) Status: Chronic (5) Nutrition, metabolism, and development symptoms Status: Acute DS: Summary - Time Spent with Patient Total time spent providing and/or coordinating discharge services: Results - Impressions ITS Impressions Chest X-Ray 01/26/18 00:00 CONCLUSION: Cardiomegaly and chronic interstitial changes. Stable exam compared to previous of 12/24/2017. Chest CTA 01/26/18 18:09 CONCLUSION: 1. The study is negative for pulmonary embolism. 2. Bilateral pleural effusions, right greater than left. 3. Bilateral adrenal adenomata. Discharge Plan - Discharge Order Discharge Orders: Discharge Order (Routine); Ordered 01/27/18 Ordered By: Ashlie Vanessa - Discharge Details Anticipated Discharge Date: 01/28/18 - Physicians Team Primary Care Provider: Glen Solorzano Attending Provider: Tea Stoner Other Providers: Abbie Clinton MD
== END 2018-01-28 15:19 | disposition home or self-care (01) ==
LOC: NEPGCP 11:33 → NEPC 11:33 → NEDA 11:33 → NEDH 22:39 → NEPGCP 23:22
PROVIDERS: ADMIT Family Medicine; ATTEND Family Medicine